=== PATIENT | male | born 1940 | race African-American/Black ===

== ENCOUNTER 2017-11-20 03:30 | Observation (INO) ==
--- NOTE | 2017-11-20 03:38 | ED ---
HPI General Chief Complaint: Neuro Symptoms/Deficit Stated Complaint: neuro Time Seen by Provider: 11/20/17 03:36 Source: patient, family and EMS Mode of arrival: EMS Limitations: no limitations History of Present Illness HPI narrative: 77-year-old male patient with history of AAA repair, hypertension , presents to the ER today brought in by EMS, apparently according to , she fell him wrestling in bed and then he fell out of bed, had trouble getting up on his own initially, had to get himself up by pulling himself up on the side of the bed, and she thought that he was having slurred speech, right-sided weakness initially. He does not really remember the episode. He apparently was able to get himself up eventually and went to the bathroom. He currently denies any chest pains, trouble breathing, or any other issues. Related Data Allergies Allergy/AdvReac Type Severity Reaction Status Date / Time NKDA Allergy Unknown Uncoded 12/28/02 04:37 NONE Allergy Unknown Uncoded 12/28/02 04:37 No Known Allergies Allergy Uncoded 12/27/02 19:37 Review of Systems Except as stated in HPI: all other systems reviewed are negative PMFSH History History Provided By: Patient Social History Social History Second Hand Smoke Exposure: No Smoking Status: Former smoker How Often Do You Have a Drink Containing Alcohol: 4 or more times a week Recent Travel in [facility] within the Last 8 Weeks: No Recent Out of Country Travel within the Last 8 Weeks: No Exam Narrative Exam Narrative: GENERAL: Well-developed elderly -[place] male patient currently in mild distress. Awake and oriented 3 currently. Mildly disoriented. SKIN: Focused skin assessment warm/dry. HEAD: Atraumatic. Normocephalic. EYES: Pupils equal and round. No scleral icterus. No injection or drainage. ENT: No nasal bleeding or discharge. Mucous membranes pink and moist. NECK: Trachea midline. No JVD. Supple. CARDIOVASCULAR: Regular rate and rhythm. No murmur appreciated. RESPIRATORY: No accessory muscle use. Clear to auscultation. Breath sounds equal bilaterally. GASTROINTESTINAL: Abdomen soft, non-tender, nondistended. Hepatic and splenic margins not palpable. MUSCULOSKELETAL: No obvious deformities. No clubbing. No cyanosis. No edema. NEUROLOGICAL: Awake and alert. No obvious cranial nerve deficits. Motor grossly within normal limits. Normal speech. No pronator drift. PSYCHIATRIC: Appropriate mood and affect; insight and judgment normal. Course Hospital Course: Patient has no focal neurological deficits currently. However, thinks that he is still slow to answer and is disoriented. Lab work does show UTI and IV antibiotics were initiated after cultures were drawn. CT the brain did not show any signs of acute intracranial processes. At this point, plan would be to admit him for further evaluation and treatment of UTI as well. Case is discussed with Dr. Massey for admission. Initial Documented Vital Signs Temperature 98.9 F 11/20/17 03:35 Pulse Rate 99 H 11/20/17 03:35 Respiratory Rate 18 11/20/17 03:35 Blood Pressure 147/86 H 11/20/17 03:35 Pulse Oximetry 96 11/20/17 03:35 Last Documented Vital Signs Temperature 98.9 F 11/20/17 03:35 Pulse Rate 94 H 11/20/17 03:48 Respiratory Rate 22 11/20/17 03:48 Blood Pressure 163/87 H 11/20/17 03:48 Pulse Oximetry 97 11/20/17 03:48 Medical Decision Making Differential Diagnosis Differential Diagnosis: electrolyte abnormalities versus TIA versus intracranial injuries versus dysrhythmias Lab Data Result diagrams: 11/20/17 03:40 11/20/17 03:40 Lab Results 11/20/17 11/20/17 11/20/17 Range/Units 03:39 03:40 03:40 WBC 7.3 (4.0-11.0) th/mm3 RBC 4.76 (4.50-5.90) mil/mm3 Hgb 15.1 (13.0-17.0) gm/dL Hct 44.0 (39.0-51.0) % MCV 92.4 (80.0-100.0) fL MCH 31.7 (27.0-34.0) pg MCHC 34.2 (32.0-36.0) % RDW 13.8 (11.6-17.2) % Plt Count 202 (150-450) th/mm3 MPV 8.4 (7.0-11.0) fL Neut % (Auto) 67.8 (16.0-70.0) % Lymph % (Auto) 19.0 (9.0-44.0) % [place] % (Auto) 9.6 H (0.0-8.0) % Eos % (Auto) 2.9 (0.0-4.0) % Baso % (Auto) 0.7 (0.0-2.0) % Neut # (Auto) 4.9 (1.8-7.7) th/mm3 Lymph # (Auto) 1.4 (1.0-4.8) th/mm3 [place] # (Auto) 0.7 (0.0-0.9) th/mm3 Eos # (Auto) 0.2 (0.0-0.4) th/mm3 Baso # (Auto) 0.0 (0.0-0.2) th/mm3 WBC Differential . Differential Comment Auto diff final PT 10.2 (9.8-11.6) sec INR 1.0 Ratio APTT 23.7 L (24.3-30.1) sec Sodium (136-145) meq/L Potassium (3.5-5.1) meq/L Chloride (98-107) meq/L Carbon Dioxide (21.0-32.0) meq/L Anion Gap (5-15) meq/L BUN (7-18) mg/dL Creatinine (0.60-1.30) mg/dL Estimated GFR (>89) mL/min POC Glucose 107 (68-110) mg/dl Random Glucose (74-106) mg/dL Lactic Acid (0.4-2.0) mmol/L Calcium (8.5-10.1) mg/dL Total Bilirubin (0.2-1.0) mg/dL AST (15-37) U/L ALT (12-78) U/L Alkaline Phosphatase (45-117) U/L Troponin I (0.02-0.05) ng/mL Total Protein (6.4-8.2) g/dL Albumin (3.4-5.0) g/dL Urine Color (Yellw/Straw) Urine Clarity (Clear) Urine pH (5.0-8.5) Ur Specific [place] (1.002-1.035) Urine Protein (Neg-Trace) mg/dL Urine Glucose (UA) (Negative) mg/dL Urine Ketones (Negative) mg/dL Urine Occult Blood (Negative) Urine Nitrate (Negative) Urine Bilirubin (Negative) Urine Urobilinogen (Less than 2) mg/dL Ur Leukocyte Esterase (Negative) Urine RBC (0-3) /hpf Urine WBC (0-5) /hpf Ur Squamous Epith Cells (0-5) /hpf Urine Bacteria (None) /hpf Hyaline Casts (0-3) /lpf Urine Mucus (Occasional) /lpf Micro UA Comment Urine Culture Comments 11/20/17 11/20/17 11/20/17 Range/Units 03:40 04:10 05:03 WBC (4.0-11.0) th/mm3 RBC (4.50-5.90) mil/mm3 Hgb (13.0-17.0) gm/dL Hct (39.0-51.0) % MCV (80.0-100.0) fL MCH (27.0-34.0) pg MCHC (32.0-36.0) % RDW (11.6-17.2) % Plt Count (150-450) th/mm3 MPV (7.0-11.0) fL Neut % (Auto) (16.0-70.0) % Lymph % (Auto) (9.0-44.0) % Baldwin % (Auto) (0.0-8.0) % Eos % (Auto) (0.0-4.0) % Baso % (Auto) (0.0-2.0) % Neut # (Auto) (1.8-7.7) th/mm3 Lymph # (Auto) (1.0-4.8) th/mm3 [place] # (Auto) (0.0-0.9) th/mm3 Eos # (Auto) (0.0-0.4) th/mm3 Baso # (Auto) (0.0-0.2) th/mm3 WBC Differential Differential Comment PT (9.8-11.6) sec INR Ratio APTT (24.3-30.1) sec Sodium 143 (136-145) meq/L Potassium 3.7 (3.5-5.1) meq/L Chloride 110 H (98-107) meq/L Carbon Dioxide 23.1 (21.0-32.0) meq/L Anion Gap 10 (5-15) meq/L BUN 17 (7-18) mg/dL Creatinine 1.36 H (0.60-1.30) mg/dL Estimated GFR 62 L (>89) mL/min POC Glucose (68-110) mg/dl Random Glucose 101 (74-106) mg/dL Lactic Acid 1.4 (0.4-2.0) mmol/L Calcium 9.2 (8.5-10.1) mg/dL Total Bilirubin 1.0 (0.2-1.0) mg/dL AST 18 (15-37) U/L ALT 24 (12-78) U/L Alkaline Phosphatase 98 (45-117) U/L Troponin I Less than 0.02 L (0.02-0.05) ng/mL Total Protein 7.8 (6.4-8.2) g/dL Albumin 3.9 (3.4-5.0) g/dL Urine Color Yellow (Yellw/Straw) Urine Clarity Hazy H (Clear) Urine pH 6.0 (5.0-8.5) Ur Specific [place] 1.011 (1.002-1.035) Urine Protein 100 H (Neg-Trace) mg/dL Urine Glucose (UA) Negative (Negative) mg/dL Urine Ketones Negative (Negative) mg/dL Urine Occult Blood Negative (Negative) Urine Nitrate Positive H (Negative) Urine Bilirubin Negative (Negative) Urine Urobilinogen Less than 2 (Less than 2) mg/dL Ur Leukocyte Esterase Moderate H (Negative) Urine RBC 1 (0-3) /hpf Urine WBC 60 H (0-5) /hpf Ur Squamous Epith Cells 2 (0-5) /hpf Urine Bacteria Moderate H (None) /hpf Hyaline Casts 4 (0-3) /lpf Urine Mucus Few H (Occasional) /lpf Micro UA Comment Culture indicated Urine Culture Comments Culture indicated Imaging Data Radiologist's impression: Chest X-Ray 11/20/17 03:36 CONCLUSION: 1. No acute cardiopulmonary disease. 2. The heart size appears mildly prominent with no pulmonary edema. Head CT 11/20/17 03:36 CONCLUSION: 1. Negative trauma study. . Discharge Plan Discharge Details Anticipated Discharge Date: 11/20/17 Physicians Team ED Provider: Amanda Headley Primary Care Provider: Khadra Ruiz Discharge Interventions Interventions: Vital Signs Last Done: 11/20/17 03:48 Status ED Status: With Doctor
[2017-11-20 03:48] LABS: Baso % (Auto) 0.7 % (0.0-2.0); Eos # (Auto) 0.2 th/mm3 (0.0-0.4); Eos % (Auto) 2.9 % (0.0-4.0); Hemoglobin 15.1 gm/dL (13.0-17.0); Lymph # (Auto) 1.4 th/mm3 (1.0-4.8); Mean Corpuscular HGB Conc 34.2 % (32.0-36.0); Mean Corpuscular Hemoglobin 31.7 pg (27.0-34.0); Mean Corpuscular Volume 92.4 fL (80.0-100.0); Mean Platelet Volume 8.4 fL (7.0-11.0); Mono # (Auto) 0.7 th/mm3 (0.0-0.9); Mono % (Auto) 9.6 % (0.0-8.0); Neut # (Auto) 4.9 th/mm3 (1.8-7.7); Neut % (Auto) 67.8 % (16.0-70.0); Platelet Count 202 th/mm3 (150-450); Red Blood Count 4.76 mil/mm3 (4.50-5.90); Red Cell Distribution Width 13.8 % (11.6-17.2); White Blood Count 7.3 th/mm3 (4.0-11.0)
[2017-11-20 04:01] LABS: Activated Partial Thrombo Time 23.7 sec (24.3-30.1); Prothrombin Time 10.2 sec (9.8-11.6)
[2017-11-20 04:07] LABS: Alanine Aminotransferase 24 U/L (12-78); Albumin 3.9 g/dL (3.4-5.0); Anion Gap 10 meq/L (5-15); Aspartate Aminotransferase 18 U/L (15-37); Blood Urea Nitrogen 17 mg/dL (7-18); Calcium 9.2 mg/dL (8.5-10.1); Carbon Dioxide 23.1 meq/L (21.0-32.0); Chloride 110 meq/L (98-107); Glomerular Filtration Rate 62 mL/min (>89); Glucose,Random 101 mg/dL (74-106); Potassium 3.7 meq/L (3.5-5.1); Sodium 143 meq/L (136-145)
[2017-11-20 04:11] LABS: Alkaline Phosphatase 98 U/L (45-117); Total Protein 7.8 g/dL (6.4-8.2)
--- NOTE | 2017-11-20 04:24 | CT ---
EXAM DATE: 11/20/2017 3:57 AM EDT AGE/SEX: 77 years / Male INDICATIONS: Altered mental status. Fell out of bed. CLINICAL DATA: This is the patient's initial encounter. Patient reports that signs and symptoms have been present for 1 day and indicates a pain score of 0/10. MEDICAL/SURGICAL HISTORY: Aneurysm, abdominal. Hypertension. Abdominal aortic aneurysm repair. RADIATION DOSE: 36.56 CTDI (mGy) COMPARISON: No prior exams available for comparison. TECHNIQUE: CT of the head without contrast. Using automated exposure control and adjustment of the mA and/or kV according to patient size, radiation dose was kept as low as reasonably achievable to ob tain optimal diagnostic quality images. DICOM format image data is available electronically for revi ew and comparison. FINDINGS: Cerebrum: The ventricles are normal for age. No evidence of midline shift, mass lesion, hemorrhage or acute infarction. No extraaxial fluid collections are seen. Posterior Fossa: The cerebellum and brainstem are intact. The 4th ventricle is midline. The cerebe llopontine angle is unremarkable. Extracranial: The visualized portion of the orbits is intact. Skull: The calvaria is intact. No evidence of skull fracture. CONCLUSION: 1. Negative trauma study. . Electronically signed by: Barrett Sinha MD 11/20/2017 4:23 AM EDT
--- NOTE | 2017-11-20 04:31 | XR ---
EXAM DATE: 11/20/2017 3:59 AM EDT AGE/SEX: 77 years / Male INDICATIONS: Palpitations. CLINICAL DATA: This is the patient's initial encounter. Patient reports that signs and symptoms have been present for 1 day and indicates a pain score of 0/10. MEDICAL/SURGICAL HISTORY: None. None. COMPARISON: No prior exams available for comparison. FINDINGS: A single AP view of the chest demonstrates the lungs to be symmetrically aerated without evidence of mass, infiltrate or effusion. The right size appears mildly prominent with no perihilar edema. [place] us structures are intact. CONCLUSION: 1. No acute cardiopulmonary disease. 2. The heart size appears mildly prominent with no pulmonary edema. Electronically signed by: Barrett Sinha MD 11/20/2017 4:29 AM EDT
[2017-11-20 04:40] LABS: Bacteria,Urine Moderate /hpf; Bilirubin,Urine Negative (Negative); Clarity,Urine Hazy (Clear); Color,Urine Yellow (Yellw/Straw); Glucose,Urine (UA) Negative (Negative); Hyaline Casts,Urine 4 /lpf (0-3); Leukocyte Esterase,Urine Moderate (Negative); Mucus,Urine Few /lpf (Occasional); Nitrite,Urine Positive (Negative); Specific Gravity,Urine 1.011 (1.002-1.035); Squamous Epithelial Cell,Urine 2 /hpf (0-5)
[2017-11-20] MEDS ORDERED: Piperacil/Tazo 3.375 GM Premix 50 ML IV.SIG ONE (04:44)
[2017-11-20] MEDS ORDERED: Iohexol 350 MG/ML 100 ML Vial (for Cath Lab) IVCONTRAST ONE (05:31)
[2017-11-20] MEDS ORDERED: Temazepam 15 MG Capsule PO PRN (05:32)
[2017-11-20] MEDS ORDERED: Bisacodyl 10 MG Supp RECTAL PRN (05:32)
--- NOTE | 2017-11-20 06:31 | P.HPIM ---
History of Present Illness Primary Care Physician: Khadra Ruiz MD History of Present Illness: 77-year-old male with a history of abdominal aortic aneurysm repair, hypertension, hyperlipidemia who presents with dysarthria, subjective right- sided weakness reported by . notes that patient fell out of bed around 3 AM, had difficulty getting up, was slurring speech, had difficulty getting words out. Patient and report that slurred speech has much improved, however still with some word finding difficulty and word confusion. Patient reports feeling all right. Denies any chest pain, shortness of breath, nausea, vomiting, fevers, chills, constipation, diarrhea, lightheadedness, dizziness. Patient does report a change in blood pressure meds yesterday. He reports that hydrochlorothiazide was discontinued, and started a new medication. He is not sure what this medication is. Patient did not have medication list with them. Patient denies any dysuria, however reports increased urination and urgency over the past 2 days. He reports history of multiple UTIs. Had urethral stricture dilation 3 years ago in [place]. Review of Systems Performed and negative except for HPI and past medical history. [facility] - History History Provided By: Patient - Medical History Medical History: Medical History (Last Updated 11/20/17 @ 06:28 by Doroteo Massey MD) AAA (abdominal aortic aneurysm) Hyperlipemia Hypertension Urethral stricture - Surgical History Surgical History: Surgical History (Last Reviewed 11/20/17 @ 03:41 by Amanda Headley MD) H/O abdominal aortic aneurysm repair - Family History Family History: Family History (Last Updated 11/20/17 @ 06:28 by Doroteo Massey MD) Mother Pituitary abnormality Father Stroke - Tobacco History Second Hand Smoke Exposure: No Tobacco Use In Past 30 Days: No Smoking Status: Former smoker - Alcohol History How Often Do You Have a Drink Containing Alcohol: 4 or more times a week - Travel History Recent Travel in the [place] Within the Last 8 Weeks: No Recent Travel Out of the Country Within the Last 8 Weeks: No - Immunization History Tetanus Immunization: >5 Years Hx Influenza Vaccine This Season: Yes Medications and Allergies Active Medications: Active Medications Al Hydroxide/Mg Hydroxide (Milk Of Gavin Liq) 30 ml PO Q12H PRN PRN Reason: Mild Constipation Aspirin (Ecotrin) 81 mg PO DAILY ASCENCION Aspirin (Aspirin Chew) 162 mg PO ONCE ONE Stop: 11/20/17 06:23 Bisacodyl (Dulcolax Supp) 10 mg RECTAL DAILY PRN PRN Reason: SEVERE CONSITIPATION Piperacillin/Tazobactam/Dextrose (Zosyn 3.375 Gm Premix) 50 mls @ 100 mls/hr IV.SIG Q6H ASCENCION Lactulose (Lactulose Liq) 30 ml PO DAILY PRN PRN Reason: SEVERE CONSITIPATION Sennosides (Senokot) 17.2 mg PO Q12H PRN PRN Reason: Moderate Constipation Sodium Chloride (Ns Flush) 2 ml IV.FLUSH PRN PRN PRN Reason: FLUSH AFTER USING IV ACCESS Sodium Chloride (Ns Flush) 2 ml IV.FLUSH BID ASCENCION Sodium Chloride (Ns Flush) 2 ml IV.FLUSH PRN PRN PRN Reason: FLUSH AFTER USING IV ACCESS Temazepam (Restoril) 15 mg PO HS PRN PRN Reason: INSOMNIA Allergies Allergy/AdvReac Type Severity Reaction Status Date / Time NKDA Allergy Unknown Uncoded 12/28/02 04:37 NONE Allergy Unknown Uncoded 12/28/02 04:37 No Known Allergies Allergy Uncoded 12/27/02 19:37 Exam Vital signs: Vital Signs 11/20/17 03:35 11/20/17 03:46 11/20/17 03:48 Temperature 98.9 F Pulse Rate 99 H 94 H Respiratory Rate 18 22 Blood Pressure 147/86 H 163/87 H Pulse Oximetry 96 96 97 11/20/17 06:10 Temperature 98.2 F Pulse Rate 93 H Respiratory Rate 18 Blood Pressure 173/100 H Pulse Oximetry 95 Intake & Output 11/19/17 11/19/17 11/20/17 06:59 18:59 06:59 Output Total 700 / 700 Balance -700 / -700 Weight 88.904 kg Output: Urine 700 / 700 Narrative: GENERAL: Patient sitting up in bed. Alert and oriented 3. Patient has occasional word finding difficulties and word confusion. SKIN: Warm and dry. HEAD: Atraumatic. Normocephalic. EYES: Pupils equal and round. No scleral icterus. No injection or drainage. ENT: No nasal bleeding or discharge. Mucous membranes pink and moist. NECK: Trachea midline. No JVD. CARDIOVASCULAR: Regular rate and rhythm. RESPIRATORY: No accessory muscle use. Clear to auscultation. Breath sounds equal bilaterally. GASTROINTESTINAL: Abdomen soft, non-tender, nondistended. Hepatic and splenic margins not palpable. MUSCULOSKELETAL: Extremities without clubbing, cyanosis, or edema. No obvious deformities. NEUROLOGICAL: Awake and alert. No obvious cranial nerve deficits. Motor grossly within normal limits. Five out of 5 muscle strength in the arms and legs. Occasional word finding difficulties and word confusion. Although patient does have 5 out of 5 strength bilaterally, does have slight right-sided pronator drift PSYCHIATRIC: Appropriate mood and affect; insight and judgment normal. Results - Labs CBC & Chem 7: 11/20/17 03:40 11/20/17 03:40 Labs: Short CBC 11/20/17 Range/Units 03:40 WBC 7.3 (4.0-11.0) th/mm3 Hgb 15.1 (13.0-17.0) gm/dL Hct 44.0 (39.0-51.0) % Plt Count 202 (150-450) th/mm3 BMP 11/20/17 03:40 Sodium 143 Potassium 3.7 Chloride 110 H Carbon Dioxide 23.1 BUN 17 Creatinine 1.36 H Calcium 9.2 Cardiac Enzymes 11/20/17 Range/Units 03:40 Troponin I Less than 0.02 L (0.02-0.05) ng/mL Liver Function 11/20/17 Range/Units 03:40 Total Bilirubin 1.0 (0.2-1.0) mg/dL AST 18 (15-37) U/L ALT 24 (12-78) U/L Alkaline Phosphatase 98 (45-117) U/L Albumin 3.9 (3.4-5.0) g/dL Urine 11/20/17 Range/Units 04:10 Urine Color Yellow (Yellw/Straw) Urine Clarity Hazy H (Clear) Urine pH 6.0 (5.0-8.5) Ur Specific [place] 1.011 (1.002-1.035) Urine Protein 100 H (Neg-Trace) mg/dL Urine Glucose (UA) Negative (Negative) mg/dL - Imaging Impressions Chest X-Ray 11/20/17 03:36 CONCLUSION: 1. No acute cardiopulmonary disease. 2. The heart size appears mildly prominent with no pulmonary edema. Head CT 11/20/17 03:36 CONCLUSION: 1. Negative trauma study. . Caprini VTE Risk Assessment Caprini VTE Risk Assessment: Moderate/High Risk (score >= 2) Caprini Risk Assessment Model: Point Value = 1 Point Value = 2 Point Value = 3 Point Value = 5 Age 41-60 Minor surgery BMI > 25 kg/m2 Swollen legs Varicose veins or History of unexplained or recurrent spontaneous Oral contraceptives or hormone replacement Sepsis (< 1 month) Serious lung disease, including pneumonia (< 1 month) Abnormal pulmonary function Acute myocardial infarction Congestive heart failure (< 1 month) History of inflammatory bowel disease Medical patient at bed rest Age 61-74 Arthroscopic surgery Major open surgery (> 45 min) Laparoscopic surgery (> 45 min) Malignancy Confined to bed (> 72 hours) Immobilizing plaster cast Central venous access Age >= 75 History of VTE Family history of VTE Factor V Leiden Prothrombin [id number] Lupus anticoagulant Anticardiolipin antibodies Elevated serum homocysteine Heparin-induced thrombocytopenia Other congenital or acquired thrombophilia Stroke (< 1 month) Elective arthroplasty Hip, pelvis, or leg fracture Acute spinal cord injury (< 1 month) Prophylaxis Regimen: Total Risk Factor Score Risk Level Prophylaxis Regimen 0-1 Low Early ambulation 2 Moderate Order ONE of the following: *Sequential Compression Device (SCD) *Heparin 5000 units SQ BID 3-4 Higher Order ONE of the following medications: *Heparin 5000 units SQ TID *Enoxaparin/Lovenox 40 mg SQ daily (WT < 150 kg, CrCl > 30 mL/min) *Enoxaparin/Lovenox 30 mg SQ daily (WT < 150 kg, CrCl > 10-29 mL/min) *Enoxaparin/Lovenox 30 mg SQ BID (WT < 150 kg, CrCl > 30 mL/min) AND/OR *Sequential Compression Device (SCD) 5 or more Highest Order ONE of the following medications: *Heparin 5000 units SQ TID (Preferred with Epidurals) *Enoxaparin/Lovenox 40 mg SQ daily (WT < 150 kg, CrCl > 30 mL/min) *Enoxaparin/Lovenox 30 mg SQ daily (WT < 150 kg, CrCl > 10-29 mL/min) *Enoxaparin/Lovenox 30 mg SQ BID (WT < 150 kg, CrCl > 30 mL/min) AND *Sequential Compression Device (SCD) Assessment and Plan - Plan //Dysarthria //Rule out stroke -Patient does not have brisa weakness, however does have right-sided pronator drift. CT head negative, however due to exam findings will order MRI, get neurology consult. = Aspirin given. = Could be exacerbated by UTI, as well as new blood pressure medication. = Could be secondary to concussion from hitting head after falling out of bed versus ischemic stroke, hypoperfusion. Head of bed down. Neuro consult. //UTI. = Significant white blood cells on urinalysis with increased urinary urgency recently Started on Zosyn in the ER, will follow-up urine culture. //Hypertension. Patient's blood pressure currently acceptable. Will pursue permissive hypertension to a degree for now will get patient's blood pressure medications from his [facility] pharmacy when they open. Discussed Condition With: Patient, nurse, ED physician, at bedside.
--- NOTE | 2017-11-20 09:03 | US ---
EXAM DATE: 11/20/2017 8:45 AM EDT AGE/SEX: 77 years / Male INDICATIONS: Abnormal lab values. CLINICAL DATA: This is the patient's initial encounter. Patient reports that signs and symptoms have been present for 1 day and indicates a pain score of 0/10. MEDICAL/SURGICAL HISTORY: Aneurysm, abdominal. Hypertension. Hyperlipidemia. Urethral strictur e. Abdominal aortic aneurysm repair. COMPARISON: No prior exams available for comparison. MEASUREMENTS: Right Kidney:__10.3 x 5.7 x 5.3 cm Left Kidney:__10.9 x 5.2 x 6.5 cm FINDINGS: Right Kidney: 6 mm echogenic shadowing calyceal calculus in the mid right kidney. No hydronephrosis. Increased echotexture. No mass. Left Kidney: Increased echotexture. No mass or hydronephrosis. Bladder: Diffuse bladder wall thickening. Other: None. CONCLUSION: 1. Echogenic kidneys consistent with medical renal disease. 2. 6 mm nonobstructing calyceal calculus in the mid right kidney. 3. Mild diffuse bladder wall thickening which may reflect some degree of bladder outlet obstruction. Electronically signed by: Benito Yates MD 11/20/2017 9:02 AM EDT
--- NOTE | 2017-11-20 09:05 | US ---
EXAM DATE: 11/20/2017 8:47 AM EDT AGE/SEX: 77 years / Male INDICATIONS: Transient ischemic attack. CLINICAL DATA: This is the patient's initial encounter. Patient reports that signs and symptoms have been present for 1 day and indicates a pain score of 0/10. MEDICAL/SURGICAL HISTORY: Aneurysm, abdominal. Hypertension. Hyperlipidemia. Urethral strictur e. Abdominal aortic aneurysm repair. COMPARISON: No prior exams available for comparison. VELOCITY PARAMETERS: ICA/CCA Ratio: Right 1.8 , Left 1.2 ICA: Right 94 cm/sec, Left 86 cm/sec CCA: Right 52 cm/sec, Left 74 cm/sec ECA: Right 42 cm/sec, Left 65 cm/sec Vertebral: Right 66 cm/sec antegrade, Left 41 cm/sec antegrade FINDINGS: Right Carotid: Mild arteriosclerotic plaque is visualized.The waveforms are within normal limits. Left Carotid: Mild arteriosclerotic plaque is visualized. The waveforms are within normal limits. Other: None. CONCLUSION: 1. Right Internal Carotid Artery: Findings indicate <50% stenosis. 2. Left Internal Carotid Artery: Findings indicate <50% stenosis. Electronically signed by: Benito Yates MD 11/20/2017 9:04 AM EDT
[2017-11-20] MEDS ORDERED: Aspirin 325 MG Tablet PO SCH (09:15)
--- NOTE | 2017-11-20 09:46 | MB ---
cc: Jony Wen MD DATE: 11/20/2017 HISTORY OF PRESENT ILLNESS: A 77-year-old right-handed man with a history of hypertension and hypercholesterolemia. He has seen Dr. Nolen in the past. He had 2 AAA repairs. He Takes 325 of aspirin a day, otherwise has been very healthy. He does have what sounds like REM sleep disorder. He tosses and turns. He has a lot of nightmares sometimes yelling out in his sleep. He was struggling with the sheets, which he vaguely remembers and then fell out of bed. No chest pain, palpitations, or headache. No asymmetrical weakness or numbness. He has no incontinence or tongue biting. He then seemed a little bit confused according to his , so she brought him into the ER. He remembers arriving there. In re-asking his , she now tells me that she thinks he did have some possible right leg weakness when she was helping him put on his pants. He did not do as well with the right leg as the left, but there was no facial droop or arm weakness. MEDICATIONS AT HOME: None listed here in the computer. He has been noted; however, to have a run of V-tach here, it looks like at least 10 beats. He has never had any rhythm problems that he knows of. SOCIAL HISTORY: He is not a smoker. He has 2 drinks a day. He lives with his . FAMILY HISTORY: Negative for cancer or seizure. Positive for stroke in his father. REVIEW OF SYSTEMS: He denies any diabetes, atrial fibrillation, Coumadin, ID, CABG, stent, angioplasty, renal, hepatic or pulmonary disease, thyroid disease, lupus, ulcer, cancer, seizure or stroke. MEDICATIONS AT HOME: He does take 325 aspirin a day. PHYSICAL EXAMINATION: On exam, ventricular tachycardia noted on telemetry. Afebrile, 89, 18, 143/85-173/100. Initially, blood pressure 147/86. NECK: There were no carotid bruits. HEART: Regular rhythm. I did not detect a murmur. NEUROLOGIC: Pupils are equal. Visual mesa are full. Extraocular movements intact without nystagmus. Face is symmetric with normal sensation. Tongue as midline. There is no bite on the tongue. There is no drift. He had normal strength in the upper and lower extremities bilaterally. DTRs are trace to absent throughout. Toes downgoing bilaterally. Pinprick is intact throughout. He is not ataxic on [id number]. Speech is fluent. He is not aphasic. He is alert and oriented x 3. LABORATORY DATA: CBC is normal. UA 60 white cells. Basic metabolic profile, creatinine 1.36, otherwise normal. Glucose was normal LFTs, troponin, albumin, coags all normal. CAT scan of the brain negative. EKG was read as atrial fibrillation, although looking at it, I do see some P waves. Carotid ultrasound was done that is pending. He had a bladder ultrasound done, essentially unremarkable. Chest x-ray is negative. CAT scan of the brain as is noted negative. The denies that he was having any right-sided weakness, so the ER note says he was having right-sided weakness. IMPRESSION/PLAN: Possibly a transient ischemic attack. I was not that impressed overall with the symptoms; however, a little bit of inconsistency with the story. We will check an MRI of the brain and MRA of the neck and absent[place] of [place]. I will check an echocardiogram. The patient had a run of ventricular tachycardia and should have cardiology see him. If there is any atrial fibrillation, he should be anticoagulated. Otherwise, he does take 325 of aspirin at home. For now, we will just put him on Plavix. He feels that he has a urinary tract infection and that should be treated and a urine culture has been sent off. Certainly, a Holter needs to be done with all the heart rhythm problems. MD RINA Sarah/JOLLY , 09:15 AM , 09:25 AM
[2017-11-20 10:07] LABS: T4 (Thyroxine) 9.6 mcg/dL (4.5-12.1); Thyroid Stimulating Hormone 5.72 uIU/mL (0.358-3.740)
--- NOTE | 2017-11-20 13:02 | MR ---
EXAM DATE: 11/20/2017 12:55 PM EDT AGE/SEX: 77 years / Male INDICATIONS: . Slurred speech with right sided weakness. CLINICAL DATA: This is the patient's subsequent encounter. Patient reports that signs and symptoms h ave been present for 1 day and indicates a pain score of 0/10. MEDICAL/SURGICAL HISTORY: Hypertension. Hypercholesterolemia. Abdominal aortic aneurysm repair . COMPARISON: No prior exams available for comparison. TECHNIQUE: 3D [id number] MRA was performed. Source images, multiplanar STS MIP, and 3D volum e MIP reconstructions were reviewed. FINDINGS: There is excellent visualization of the major intracranial arteries out to the second-order branch ve ssels. There is no evidence for aneurysm, vessel truncation or stenosis, and no evidence for vascula r malformation. There are patent posterior communicating arteries bilaterally. CONCLUSION: Unremarkable MR angiography of the brain. Electronically signed by: Jony Brown MD 11/20/2017 1:01 PM EDT
--- NOTE | 2017-11-20 13:17 | MR ---
EXAM DATE: 11/20/2017 1:08 PM EDT AGE/SEX: 77 years / Male INDICATIONS: . Right sided weakness and slurred speech. CLINICAL DATA: This is the patient's subsequent encounter. Patient reports that signs and symptoms h ave been present for 1 day and indicates a pain score of 0/10. MEDICAL/SURGICAL HISTORY: Hypertension. Hypercholesterolemia. Abdominal aortic aneurysm repair . COMPARISON: No prior exams available for comparison. TECHNIQUE: 10 ml Gadavist (gadobutrol) contrast infused MRA (single exam dose) of the extracranial circulation was performed using a neurovascular coil. Postprocessing was performed, including rotati ng sub-volume maximum intensity projections of each carotid artery, rotating full-volume maximum inte nsity projections of both carotid arteries, sagittal and coronal sliding thin-slab reformations of ea ch carotid artery, and left oblique sliding thin-slab reformation through the aortic arch to include the origin of the arch branch vessels. FINDINGS: Aortic Arch : There is a three-vessel origin of the great vessels from the aorta. No evidence of o stial narrowing. Right Carotid : The common carotid artery is intact. The carotid bulb has a normal configuration wi thout ulceration or narrowing. The internal carotid artery lumen is smooth without stenosis. The ex ternal carotid artery is intact. Left Carotid : The common carotid artery is intact. The carotid bulb has a normal configuration wit hout ulceration or narrowing. The internal carotid artery lumen is smooth without stenosis. The ext ernal carotid artery is intact. Vertebrals : The vertebral arteries have a symmetric diameter. No stenotic lesions are seen. CONCLUSION: No evidence of hemodynamic significant lesion. There is 0-10% stenosis on the right and 0-10% sten osis on the left. Percent stenosis is calculated using the diameter of the stenotic region over the diameter of the nor mal distal internal carotid artery Electronically signed by: Jony Brown MD 11/20/2017 1:15 PM EDT
[2017-11-20] MEDS ORDERED: Gadobutrol PF 10 MMOL/10 ML Vial (for RAD) IV.SIG ONE (13:35)
[2017-11-20] MEDS: Piperacil/Tazo 3.375 GM Premix 50 ML IV.SIG SCH ×3 (13:40→23:17)
--- NOTE | 2017-11-20 13:42 | MR ---
EXAM DATE: 11/20/2017 1:14 PM EDT AGE/SEX: 77 years / Male INDICATIONS: . Slurred speech with right sided weakness. CLINICAL DATA: This is the patient's subsequent encounter. Patient reports that signs and symptoms h ave been present for 1 day and indicates a pain score of 0/10. MEDICAL/SURGICAL HISTORY: Hypertension. Hypercholesterolemia. Abdominal aortic aneurysm repair . COMPARISON: No prior exams available for comparison. TECHNIQUE: Multiplanar, multisequence examination of the brain was performed without and with 10 ml G adavist (gadobutrol) contrast as a single exam dose. FINDINGS: Cerebrum: The ventricles are normal for age. There is bilateral cortical atrophy. No evidence of mid line shift, mass lesion, hemorrhage. No extraaxial fluid collections are seen. The pituitary gland and suprasellar cistern are normal in configuration. White Matter: There is mild to moderate chronic white matter changes bilaterally characteristic of i schemic demyelinization. Posterior Fossa: The cerebellum and brainstem are intact. The 4th ventricle is midline. The cerebel lopontine angle is unremarkable. The cerebellar tonsils are normal in position. Diffusion Imaging: There is a 5 mm focus of increased signal on the diffusion-weighted images along the left insula suggestive of a new small focal acute infarct. Extracranial: The visualized portions of the orbits and paranasal sinuses are unremarkable. Post Contrast: No abnormal areas of parenchymal or dural enhancement. No evidence of blood-brain ba rrier breakdown. No enhancing mass occupying lesions. CONCLUSION: 1. Single 5 mm focus of restricted diffusion in the left insula consistent with a small acute infarc tion. 2. Otherwise, the rest the examination is unremarkable for patient's age. Electronically signed by: George Nunez MD 11/20/2017 1:41 PM EDT
--- NOTE | 2017-11-20 14:25 | MB ---
cc: Jonathan Nolen MD DATE: 11/20/2017 HISTORY OF PRESENT ILLNESS: Jonathan is a former patient of mine that I saw approximately 7 or 8 years ago. He had an event where he fell out of bed, does not quite recall the sequence of events, but ultimately had a loss of consciousness. REVIEW OF SYSTEMS: Further review of systems is negative for any fever, chills, cough, GI or bleeding, PND or orthopnea, chest pain or dyspnea. PAST MEDICAL HISTORY: Includes abdominal aortic aneurysm, hyperlipidemia, hypertension, urethral stricture. PAST SURGICAL HISTORY: He is status post abdominal aortic aneurysm repair. ALLERGIES: NONE. SOCIAL HISTORY: He is a former smoker. He drinks alcohol 4 or more times a week. MEDICATIONS IN THE HOSPITAL: 1. Aspirin 81 mg a day. 2. Aspirin 325 mg a day. 3. Plavix 75 mg a day. 4. Piperacillin/tazobactam. PHYSICAL EXAMINATION: VITAL SIGNS: Blood pressure 143/85, pulse 89, respiratory rate 18, temperature 98.0, sats 94% on room air. GENERAL: He is alert and oriented x 3, in no acute distress. NECK: Supple. No JVD. No bruit. CARDIOVASCULAR: S1, S2. No murmurs, rubs or gallops. LUNGS: Clear to auscultation bilaterally. ABDOMEN: Soft, nontender, and nondistended with positive bowel sounds. EXTREMITIES: No lower extremity edema. DIAGNOSTIC STUDIES: Abdominal bladder ultrasound: Echogenic kidneys consistent with medical renal disease. Carotid Doppler study: Less than 50% stenosis bilaterally. MRI of the brain: Single 5 mm focus of restricted diffusion in the left insular consistent with a small acute infarction. Neck MRA: No evidence of hemodynamic significant lesion, "0-10% stenosis on the right, 0-10% stenosis on the left". Chest x-ray: No acute cardiopulmonary disease. The heart size appears mildly prominent with no pulmonary edema. Head CT: Negative trauma study. EKG: Atrial fibrillation at a rate of 87 beats per minute, 2 to [address] segment depression lead II, III, aVF, V4, V5, V6 and V3. PVCs. Head MRA: Unremarkable MR angiography of the brain. LABORATORY STUDIES: INR is 1.0. Hemoglobin 7.3, white blood cell count 15.1, hematocrit 44.0, platelet count 202. Sodium 143, potassium 3.7, chloride 110, bicarbonate 23.1, BUN 17, creatinine 1.36. Troponins less than 0.02. TSH is 5.720. DIAGNOSES: 1. Cerebrovascular accident. 2. Syncope. 3. Chronic renal insufficiency. 4. Peripheral vascular disease. 5. Abdominal aortic aneurysm, status post repair. 6. Atrial fibrillation. 7. Reported run of ventricular tachycardia. DISCUSSION: At this point in time, the patient has significant resting ischemia on his EKG. He is completely asymptomatic. I do think given his multiple cardiac risk factors that he should have a left heart catheterization. We will need to ascertain that the patient has no contraindications to anticoagulation with heparin, aspirin, Plavix and Integrelin and/or Aggrastat in that combination prior to proceeding. Again, we will need to followup with Dr. Miller's evaluation. From an atrial fibrillation standpoint, the patient's CHADS-VASc score is at least 3. Therefore, Coumadin or a novel oral anticoagulant agent is indicated, again, if there are no contraindications from a neurologic standpoint. He does have what appears to be a CVA on the MRI. Again, we will await Dr. Wen's final assessment. I will continue to follow. MD NOMAN Zhang/GUILLERMO , 01:52 PM , 02:04 PM
--- NOTE | 2017-11-20 15:35 | P.PN ---
Subjective Interval history: Follow Visit chronic kidney disease, possible TIA-dysarthria, right-sided weakness reported by , status post fall in bed at home, HTN, HLD. Patient seen and examined today. Reports left facial area feeling funny. States that he has slurred speech, unable to come up with words this morning prior to coming to the hospital. States he feels better right now. Sensations and motor function intact. Denies pain and discomfort. Denies SOB/ dyspnea. Denies chest pain, palpitations, headaches, dizziness. Denies fevers, chills, n/ v/d. Denies hematuria complaints of urgency, frequency, denies dysuria. Physical Exam Vital signs: Vital Signs 11/20/17 03:35 11/20/17 03:46 11/20/17 03:48 Temperature 98.9 F Pulse Rate 99 H 94 H Respiratory Rate 18 22 Blood Pressure 147/86 H 163/87 H Pulse Oximetry 96 96 97 11/20/17 06:10 11/20/17 07:57 Temperature 98.2 F 98.0 F Pulse Rate 93 H 89 Respiratory Rate 18 18 Blood Pressure 173/100 H 143/85 H Pulse Oximetry 95 94 L Intake & Output 11/19/17 11/20/17 11/20/17 18:59 06:59 18:59 Intake Total 50 / 50 Output Total 700 / 700 Balance -700 / -700 50 / 50 Weight 88.904 kg Intake: IV 50 / 50 Zosyn 3.375 GM Premix 50 ML @ 50 / 50 100 mls/hr IV.SIG ONCE ONE Rx#: [id number] Output: Urine 700 / 700 Other: Date of Last Bowel Movement 11/20/17 Narrative: GENERAL: This is a well-nourished, well-developed patient, in no apparent distress. SKIN: Warm and dry HEENT: Normocephalic. Pupils equal round and reactive. Left facial droop. Nose without bleeding. Airway patent. NECK: Trachea midline. Supple. CARDIOVASCULAR: Irregular heart rate without murmurs, gallops, or rubs. RESPIRATORY: Clear to auscultation. Breath sounds equal bilaterally. No wheezes , rales, or rhonchi. GASTROINTESTINAL: Abdomen soft, non-tender, nondistended. Bowel Sounds normoactive x4. MUSCULOSKELETAL: Extremities without clubbing, cyanosis, or edema. NEUROLOGICAL: Awake and alert. Oriented to time, place, person, president. Cranial nerves intact. Sensory and motor intact. Moves all extremities equally. Normal speech. Results - Labs CBC & Chem 7: 11/20/17 03:40 11/20/17 03:40 Laboratory Results - last 24 hr 11/20/17 11/20/17 11/20/17 03:39 03:40 03:40 WBC 7.3 RBC 4.76 Hgb 15.1 Hct 44.0 MCV 92.4 MCH 31.7 MCHC 34.2 RDW 13.8 Plt Count 202 MPV 8.4 Neut % (Auto) 67.8 Lymph % (Auto) 19.0 Mccone % (Auto) 9.6 H Eos % (Auto) 2.9 Baso % (Auto) 0.7 Neut # (Auto) 4.9 Lymph # (Auto) 1.4 Mccone # (Auto) 0.7 Eos # (Auto) 0.2 Baso # (Auto) 0.0 WBC Differential . Differential Comment Auto diff final PT 10.2 INR 1.0 APTT 23.7 L Sodium Potassium Chloride Carbon Dioxide Anion Gap BUN Creatinine Estimated GFR POC Glucose 107 Random Glucose Lactic Acid Calcium Total Bilirubin AST ALT Alkaline Phosphatase Troponin I Total Protein Albumin Vitamin B12 TSH Thyroxine (T4) Urine Color Urine Clarity Urine pH Ur Specific [place] Urine Protein Urine Glucose (UA) Urine Ketones Urine Occult Blood Urine Nitrate Urine Bilirubin Urine Urobilinogen Ur Leukocyte Esterase Urine RBC Urine WBC Ur Squamous Epith Cells Urine Bacteria Hyaline Casts Urine Mucus Micro UA Comment Urine Culture Comments 11/20/17 11/20/17 11/20/17 03:40 03:40 04:10 WBC RBC Hgb Hct MCV MCH MCHC RDW Plt Count MPV Neut % (Auto) Lymph % (Auto) Mccone % (Auto) Eos % (Auto) Baso % (Auto) Neut # (Auto) Lymph # (Auto) Mccone # (Auto) Eos # (Auto) Baso # (Auto) WBC Differential Differential Comment PT INR APTT Sodium 143 Potassium 3.7 Chloride 110 H Carbon Dioxide 23.1 Anion Gap 10 BUN 17 Creatinine 1.36 H Estimated GFR 62 L POC Glucose Random Glucose 101 Lactic Acid Calcium 9.2 Total Bilirubin 1.0 AST 18 ALT 24 Alkaline Phosphatase 98 Troponin I Less than 0.02 L Total Protein 7.8 Albumin 3.9 Vitamin B12 306 TSH 5.720 H Thyroxine (T4) 9.6 Urine Color Yellow Urine Clarity Hazy H Urine pH 6.0 Ur Specific [place] 1.011 Urine Protein 100 H Urine Glucose (UA) Negative Urine Ketones Negative Urine Occult Blood Negative Urine Nitrate Positive H Urine Bilirubin Negative Urine Urobilinogen Less than 2 Ur Leukocyte Esterase Moderate H Urine RBC 1 Urine WBC 60 H Ur Squamous Epith Cells 2 Urine Bacteria Moderate H Hyaline Casts 4 Urine Mucus Few H Micro UA Comment Culture indicated Urine Culture Comments Culture indicated 11/20/17 11/20/17 11/20/17 05:03 09:24 13:38 WBC RBC Hgb Hct MCV MCH MCHC RDW Plt Count MPV Neut % (Auto) Lymph % (Auto) Mccone % (Auto) Eos % (Auto) Baso % (Auto) Neut # (Auto) Lymph # (Auto) Mccone # (Auto) Eos # (Auto) Baso # (Auto) WBC Differential Differential Comment PT INR APTT Sodium Potassium Chloride Carbon Dioxide Anion Gap BUN Creatinine Estimated GFR POC Glucose 124 H 101 Random Glucose Lactic Acid 1.4 Calcium Total Bilirubin AST ALT Alkaline Phosphatase Troponin I Total Protein Albumin Vitamin B12 TSH Thyroxine (T4) Urine Color Urine Clarity Urine pH Ur Specific [place] Urine Protein Urine Glucose (UA) Urine Ketones Urine Occult Blood Urine Nitrate Urine Bilirubin Urine Urobilinogen Ur Leukocyte Esterase Urine RBC Urine WBC Ur Squamous Epith Cells Urine Bacteria Hyaline Casts Urine Mucus Micro UA Comment Urine Culture Comments - Imaging Impressions Abdomen/Bladder Ultrasound 11/20/17 00:00 CONCLUSION: 1. Echogenic kidneys consistent with medical renal disease. 2. 6 mm nonobstructing calyceal calculus in the mid right kidney. 3. Mild diffuse bladder wall thickening which may reflect some degree of bladder outlet obstruction. Carotid Doppler Study 11/20/17 00:00 CONCLUSION: 1. Right Internal Carotid Artery: Findings indicate <50% stenosis. 2. Left Internal Carotid Artery: Findings indicate <50% stenosis. Head MRI 11/20/17 00:00 CONCLUSION: 1. Single 5 mm focus of restricted diffusion in the left insula consistent with a small acute infarction. 2. Otherwise, the rest the examination is unremarkable for patient's age. Neck MRA 11/20/17 00:00 CONCLUSION: No evidence of hemodynamic significant lesion. There is 0-10% stenosis on the right and 0-10% stenosis on the left. Percent stenosis is calculated using the diameter of the stenotic region over the diameter of the normal distal internal carotid artery Chest X-Ray 11/20/17 03:36 CONCLUSION: 1. No acute cardiopulmonary disease. 2. The heart size appears mildly prominent with no pulmonary edema. Head CT 11/20/17 03:36 CONCLUSION: 1. Negative trauma study. . Head MRA 11/20/17 06:18 CONCLUSION: Unremarkable MR angiography of the brain. Assessment and Plan - Assessment (1) Acute UTI Code(s): N39.0 - Urinary tract infection, site not specified Status: Acute (2) Acute alteration in mental status Code(s): R41.82 - Altered mental status, unspecified Status: Acute - Plan 77-year-old male with a history of abdominal aortic aneurysm repair, hypertension, hyperlipidemia who presents with dysarthria, subjective right- sided weakness reported by . Dysarthria Rule out stroke -Patient does not have brisa weakness, however does have right-sided pronator drift. -CT head negative, however due to exam findings will order MRI, get neurology consult. -Aspirin given -Could be exacerbated by UTI, as well as new blood pressure medication. -Could be secondary to concussion from hitting head after falling out of bed versus ischemic stroke, hypoperfusion. Head of bed down. -Neuro consult. Recommends to use Plavix,cardiology consulted -MRI of the brain Single 5 mm focus of restricted diffusion in the left insula consistent with a small acute infarction. 2. Otherwise, the rest the examination is unremarkable for patient's age. -MRA neck showed No evidence of hemodynamic significant lesion. There is 0- 10% stenosis on the right and 0-10% stenosis on the left. -EEG normal appearing electroencephalogram. No evidence of any epileptiform features in this one recording. Patient also had nonsustained V. tach -Check echo, cardiology consult UTI, acute -Significant white blood cells on urinalysis with increased urinary urgency recently -Started on Zosyn in the ER, will follow-up urine culture. -No hydronephrosis on US of the kidneys -Pending urine culture, pending blood culture Acute kidney injury -Possibly secondary to UTI -Avoid nephrotoxins -Monitor renal indicis Hypertension -Patient's blood pressure currently acceptable. -Allow permissive hypertension to a degree for now will get patient's blood pressure medications from his [facility] pharmacy when they open. DVT prop SCD Code Status: Full code Discussed Condition With: Patient, nursing Discharge Planning: Plan to DC home when clinically improved.
--- NOTE | 2017-11-20 16:01 | ECG ---
Date Performed: 11/20/2017 Time Performed: 03:32:37 PTAGE: 77 years EKG: ATRIAL FIBRILLATION WITH ABERRANT CONDUCTION OR VENTRICULAR PREMATURE COMPLEXES MARKED ST D EPRESSION, CONSIDER SUBENDOCARDIAL INJURY When compared to previous tracing, atrial fibrillation is new. Loss of voltage since previous tracing. persistent ST depression. Clinical correlation is recomm ended ABNORMAL ECG PREVIOUS TRACING : 05/03/2002 09.41 DOCTOR: Sanjay Zamora Interpretating Date/Time 11/20/2017 16:00:12
--- NOTE | 2017-11-20 16:03 | MG ---
cc: Jaylene Zhu MD EEG NUMBER: [id number] REFERRING PHYSICIAN: Dr. Jony Wen. CLINICAL HISTORY: In room G77 with photic stimulation. EEG is awake, drowsy, asleep. CT negative. Apparently, the felt that the patient was resting in bed and then fell out of bed, had trouble getting up, slurred speech and right-sided weakness. He has a history of AAA repair, hypertension, hyperlipidemia, some alcohol and tobacco use. On Zosyn, aspirin and Plavix. Currently, looks good. DESCRIPTION OF RECORD: The patient has background rhythm of 8 Hz, 20 microvolts, low-amplitude EEG. The EKG portion is difficult to interpret. There may be some dysrhythmia versus some PVCs; however, it is only 1 lead. However, overall symmetrical background. No epileptiform features. Hyperventilation was not done in this study. Photic stimulation does elicit a posterior driving response. IMPRESSION: Overall, normal appearing electroencephalogram. No evidence of any epileptiform features in this one recording. Clinical correlation also if not done so, should have a routine EKG or observed on telemetry. MD LEANNA Han/GUILLERMO , 03:52 PM , 03:57 PM
[2017-11-20] MEDS ORDERED: hydroCHLOROthiazide 25 MG Tablet PO SCH (17:15)
[2017-11-20] MEDS: amLODIPine 10 MG Tablet PO SCH (18:24)
[2017-11-20] MEDS: Propranolol LA 80 MG Capsule PO SCH (18:39)
[2017-11-21 04:00] LABS: Baso % (Auto) 0.5 % (0.0-2.0); Eos # (Auto) 0.1 th/mm3 (0.0-0.4); Eos % (Auto) 1.6 % (0.0-4.0); Hematocrit 40.3 % (39.0-51.0); Hemoglobin 13.3 gm/dL (13.0-17.0); Lymph # (Auto) 0.8 th/mm3 (1.0-4.8); Lymph % (Auto) 12.3 % (9.0-44.0); Mean Corpuscular Hemoglobin 30.6 pg (27.0-34.0); Mean Corpuscular Volume 92.9 fL (80.0-100.0); Mono # (Auto) 0.7 th/mm3 (0.0-0.9); Mono % (Auto) 10.7 % (0.0-8.0); Neut % (Auto) 74.9 % (16.0-70.0); Platelet Count 184 th/mm3 (150-450); Red Blood Count 4.34 mil/mm3 (4.50-5.90); Red Cell Distribution Width 14.3 % (11.6-17.2); White Blood Count 6.7 th/mm3 (4.0-11.0)
[2017-11-21 04:25] LABS: Alanine Aminotransferase 20 U/L (12-78); Albumin 3.1 g/dL (3.4-5.0); Alkaline Phosphatase 78 U/L (45-117); Anion Gap 10 meq/L (5-15); Aspartate Aminotransferase 17 U/L (15-37); Blood Urea Nitrogen 17 mg/dL (7-18); Carbon Dioxide 23.4 meq/L (21.0-32.0); Chloride 111 meq/L (98-107); Chol/HDL Ratio 2.56 Ratio; Cholesterol 129 mg/dL (120-200); Glomerular Filtration Rate 61 mL/min (>89); Glucose,Random 95 mg/dL (74-106); HDL Cholesterol 50.2 mg/dL (40.0-60.0); LDL Cholesterol,Calculated 65 mg/dL (0-99); Potassium 3.2 meq/L (3.5-5.1); Sodium 144 meq/L (136-145); Total Protein 6.8 g/dL (6.4-8.2); Triglycerides 71 mg/dL (42-150)
[2017-11-21] MEDS: Piperacil/Tazo 3.375 GM Premix 50 ML IV.SIG SCH ×4 (05:20→23:21)
--- NOTE | 2017-11-21 07:09 | P.PNNEU ---
Subjective Subjective Comments: afib no new spells Active Medications: Active Medications Al Hydroxide/Mg Hydroxide (Milk Of Magnesia Liq) 30 ml PO Q12H PRN PRN Reason: Mild Constipation Amlodipine Besylate (Norvasc) 10 mg PO DAILY [facility] Last Admin: 11/20/17 18:24 Dose: 10 mg Apixaban (Eliquis) 5 mg PO BID [facility] Aspirin (Ecotrin) 81 mg PO DAILY [facility] Last Admin: 11/20/17 10:31 Dose: Not Given Atorvastatin Calcium (Lipitor) 20 mg PO DAILY [facility] Last Admin: 11/20/17 18:24 Dose: 20 mg Bisacodyl (Dulcolax Supp) 10 mg RECTAL DAILY PRN PRN Reason: SEVERE CONSITIPATION Piperacillin/Tazobactam/Dextrose (Zosyn 3.375 Gm Premix) 50 mls @ 100 mls/hr IV.SIG Q6H [facility] Last Infusion: 11/21/17 06:23 Dose: Infused Lactulose (Lactulose Liq) 30 ml PO DAILY PRN PRN Reason: SEVERE CONSITIPATION Losartan Potassium (Cozaar) 100 mg PO DAILY [facility] Last Admin: 11/20/17 18:23 Dose: 100 mg Propranolol HCl (Inderal La) 80 mg PO DAILY [facility] Last Admin: 11/20/17 18:39 Dose: 80 mg Sennosides (Senokot) 17.2 mg PO Q12H PRN PRN Reason: Moderate Constipation Sodium Chloride (Ns Flush) 2 ml IV.FLUSH PRN PRN PRN Reason: FLUSH AFTER USING IV ACCESS Sodium Chloride (Ns Flush) 2 ml IV.FLUSH BID [facility] Last Admin: 11/20/17 23:17 Dose: 2 ml Sodium Chloride (Ns Flush) 2 ml IV.FLUSH PRN PRN PRN Reason: FLUSH AFTER USING IV ACCESS Temazepam (Restoril) 15 mg PO HS PRN PRN Reason: INSOMNIA Allergies/Adverse Reactions: Allergies Allergy/AdvReac Type Severity Reaction Status Date / Time NKDA Allergy Unknown Uncoded 12/28/02 04:37 NONE Allergy Unknown Uncoded 12/28/02 04:37 No Known Allergies Allergy Uncoded 12/27/02 19:37 Physical Exam Vital signs: Vital Signs 11/20/17 07:57 11/20/17 08:00 11/20/17 12:00 Temperature 98.0 F 98.9 F 97.8 F Pulse Rate 89 72 72 Respiratory Rate 18 18 18 Blood Pressure 143/85 H 159/73 H 159/73 H Pulse Oximetry 94 L 93 L 93 L 11/20/17 15:44 11/20/17 20:00 11/21/17 00:00 Temperature 97.9 F 99.0 F 98.1 F Pulse Rate 79 100 H 83 Respiratory Rate 18 16 16 Blood Pressure 162/74 H 142/90 H 123/65 Pulse Oximetry 94 L 96 98 11/21/17 03:54 11/21/17 04:00 Temperature 98.1 F Pulse Rate 94 H 84 Respiratory Rate 17 Blood Pressure 135/80 Pulse Oximetry 95 Intake & Output 11/20/17 11/21/17 11/21/17 18:59 06:59 18:59 Intake Total 100 / 100 150 / 150 Balance 100 / 100 150 / 150 Intake: IV 100 / 100 150 / 150 Zosyn 3.375 GM Premix 50 ML @ 100 / 100 150 / 150 100 mls/hr IV.SIG Q6H [facility] Rx#: [id number] Other: Date of Last Bowel Movement 11/20/17 Narrative: awake alert nl speech vff face sym 5/5 Objective Laboratory Results - last 24 hr 11/20/17 11/20/17 11/20/17 03:40 09:24 13:38 WBC RBC Hgb Hct MCV MCH MCHC RDW Plt Count MPV Neut % (Auto) Lymph % (Auto) [place] % (Auto) Eos % (Auto) Baso % (Auto) Neut # (Auto) Lymph # (Auto) [place] # (Auto) Eos # (Auto) Baso # (Auto) WBC Differential Differential Comment Sodium Potassium Chloride Carbon Dioxide Anion Gap BUN Creatinine Estimated GFR POC Glucose 124 H 101 Random Glucose Calcium Total Bilirubin AST ALT Alkaline Phosphatase Total Protein Albumin Triglycerides Cholesterol LDL Cholesterol, Calc HDL Cholesterol Cholesterol/HDL Ratio Vitamin B12 306 TSH 5.720 H Thyroxine (T4) 9.6 11/21/17 11/21/17 03:13 03:13 WBC 6.7 RBC 4.34 L Hgb 13.3 Hct 40.3 MCV 92.9 MCH 30.6 MCHC 33.0 RDW 14.3 Plt Count 184 MPV 9.0 Neut % (Auto) 74.9 H Lymph % (Auto) 12.3 [place] % (Auto) 10.7 H Eos % (Auto) 1.6 Baso % (Auto) 0.5 Neut # (Auto) 5.0 Lymph # (Auto) 0.8 L [place] # (Auto) 0.7 Eos # (Auto) 0.1 Baso # (Auto) 0.0 WBC Differential . Differential Comment Auto diff final Sodium 144 Potassium 3.2 L Chloride 111 H Carbon Dioxide 23.4 Anion Gap 10 BUN 17 Creatinine 1.38 H Estimated GFR 61 L POC Glucose Random Glucose 95 Calcium 9.0 Total Bilirubin 1.5 H AST 17 ALT 20 Alkaline Phosphatase 78 Total Protein 6.8 D Albumin 3.1 L D Triglycerides 71 Cholesterol 129 LDL Cholesterol, Calc 65 HDL Cholesterol 50.2 Cholesterol/HDL Ratio 2.56 Vitamin B12 TSH Thyroxine (T4) Review/Management - Review/Management Plan: imp AFIB plan i dw dr dick he is going to cath him today and he will give eliquis 5 bid dose cisco after cath neuro hale can dc after started on anticoag mrax2 neg uti rx the cva is tiny left insula region
[2017-11-21] MEDS ORDERED: Heparin/NS PF Inj 1,000 ML ONE (07:59)
[2017-11-21] MEDS ORDERED: fentaNYL Citrate Inj 100 MCG/2 ML Ampul ONE (08:09)
--- NOTE | 2017-11-21 09:19 | CATHPROC ---
[employer] HIS Report Study Information Study Number Admission Scheduled Start Study Start [id number] Nov 20 2017 5:30AM 11/21/2017 Nov 21 2017 7:52AM [facility] Cardiac Catheterization Admit Source Facility Department Emergency department [facility] [place] [facility] Physician and Clinical Staff Initial Jonathan Brown Top Distribution Executivegurpreet Mohan RN, Kurt GutierresRN Recorder Jael Perales,RT(R) Scrub Luciano Thomas RCIS(BS) Procedures Performed Procedure Location (Site) Vessel Name Coronary Angiograms LCA Left Coronary Coronary Angiograms RCA Right Coronary IVUS Fem Art (right) Femoral Art L Heart Cath LV Gram-hand inj. LV LV Ventricle PTCA LAD Prox Left Coronary Stent LAD Prox Left Coronary Wire insertion Fem Art (right) Femoral Art Equipment Time Estimator Description Size Mfg Part Number Used/Scraped [id number] 08:36 [employer] WIRE, ASAHI PROWATER 180CM 180CM Used *[id number] TRANSDUCER, TRUWAVE [id number] 07:53 FERNANDEZ SOMMER * Used W/STOCKCOCK *[id number] [id number] *[id number] [id number] *[id number] [id number] *[id number] 07:53 [employer] BLANKET,WARM AIR CCL * Used *[id number] 07:53 [employer] PACK, CCL CUSTOM * Used *[id number] 07:53 [employer] PACER PEN, SKIN DUAL W/ RULER * Used *[id number] BALLOON, 3.0 X 6MM NC [id number] 09:03 [employer] 6MM Used EUPHORA *[id number] 09:05 [employer] STENT, 4.0 12 INTEGRITY 4.0 12 Used *[id number] 09:00 [employer] STENT, 4.0 9 INTEGRITY 4.0 9 [id number] Used [id number] 08:37 [employer]/AVE EBU 4.5 Z2 GUIDE CATHETER FR 6 Used *[id number] 09:02 [employer] MEDICAL 30 BELEM INDEFLATOR Used *[id number] 08:33 [employer] MEDICAL SHEATH, FR6.5 PRELUDE 11CM FR 6.5 038ACT Used *[id number] 07:53 [employer] MEDICAL WIRE, 3MMJ .035 180CM 180CM Used *[id number] 08:28 [employer] MEDICAL WIRE, EXCHANGE 260CM 3MMJ 260CM Used *[id number] 07:53 NAMIC MANIFOLD, 4 PORT * Used *[id number] 07:53 [employer] OMNIPAQUE, 350 MG, 150ML 150ML [id number] Used [id number] 07:53 [employer] MEDICAL SHEATH, FR4 TERUMO (10CM) FR 4 Used *[id number] CATHETER, IGIUGIG EYE GAMBELL [id number] 08:34 [employer] Used IMAGING *[id number] Equipment Model, Serial, Lot Number and Expiration Data Description Model Number Serial Number Lot Number Expiration Date BALLOON, 3.0 X 6MM NC EUPHORA [id number] 09-12-2019 CATHETER, IGIUGIG EYE GAMBELL 18328 [id number] 08-19-2019 IMAGING STENT, 4.0 12 INTEGRITY [id number] 07-10-2019 STENT, 4.0 9 INTEGRITY [id number] 02-07-2019 History: Current Medications Medication Dosage/Unit Route Frequency Last Date/Time Taken ADAM BLACKWELL History: Allergies Allergy Reaction NKDA NONE No Known Allergies History: Risk Factors Family History of Hypertension Dyslipidemia Previous IL Previous Heart Failure Premature CAD Yes Yes No No No Prior Valve Prior PCI Prior CABG Surgery No No No Cerebrovascular Peripheral Artery Chronic Lung On Dialysis Diabetes Disease Disease Disease No Yes Yes No No History: Arrhythmias Selection Items Atrial fibrillation History: Other Current Smoker Method Quit Packs a Day Years Used Pack Years No Cigarettes 15 Years Ago 1 30 30 Labs Hgb (g/dl) Hct (%) WBC (l/cumm) Platelets (thousands) 11.60-17.00 35.00-51.00 4.00-11.00 150.00-450.00 13.3 40.3 6.7 184 Glucose (mg/dl) BUN (mg/dl) Creatinine (mg/dl) BUN:Creatinine (1:x) 74.00-106.00 7.00-18.00 0.50-1.30 10.00-20.00 95 17 1.3 13.1 Na (meq/l) K (meq/l) 136.00-145.00 3.50-5.10 144 3.2 INR (PTT:PT) 0.90-1.10 1 Troponin I (ng/ml) 0.02-0.05 0.02 Medication Medication Total Dose (Bolus/Oral) Medication Total Dosage/Unit HEPARIN 9500 units PLAVIX 600 mg Medications (Bolus/Oral) Medication Time Given Dosage/Unit Administered By Reason HEPARIN 11/21/2017 8:34:03 AM 6500 units Marques REDMOND, Marlon 6500 units HEPARIN given in lab by Marlon Mohan RN in Right Groin via Peripheral IV. Ordered by Jonathan Herrera. HEPARIN 11/21/2017 8:53:19 AM 3000 units Marlon Mohan RN 3000 units HEPARIN given in lab by Marlon Mohan RN in Right Antecubital via Peripheral IV. Ordered by Jonathan Nolen. PLAVIX 11/21/2017 9:10:46 AM 600 mg Marlon Mohan RN 600 mg PLAVIX given in lab by Marlon Mohan RN via Oral. Ordered by Jonathan Nolen. Medication (Drip) Medication Time Given Dosage/Unit Concentration/Unit Diluent (ml) Solution IV Solutions 11/21/2017 8:01:44 AM 50 mL (IV) NaCl .9 IV Solutions given in lab by Kurt Yip RN in Right Antecubital via Peripheral IV. Pump/Drip Flow using NaCl .9. Initial Case Assessment Cardiovascular Edema Present Skin color Skin None Normal Warm Dry Circulatory - Right Pulses Dorsalis Pedis Femoral 1 1 Scale (0,1,2,3,4,d) Circulatory - Left Pulses Dorsalis Pedis Femoral 1 1 Scale (0,1,2,3,4,d) Neurological State Oriented to time-place- Alert Moves all extremities person Chronological Log Time Study Chronological Log 8:01:00 Patient Name, D.O.B, / Armband Verified By R.N. 8:01:30 Consent signed by the physician and the patient and verified by the [place] staff. 8:01:31 Pre-op and post- op instructions given; patient acknowledges understanding of instructions. 8:01:32 Verbal Stimulation=2 Physical Stimulation=2 Airway=2 Respiration=2 TOTAL=8. (0=absent, 1=guallpa ited, 2=present) 8:01:39 Skin Breakdown- none per patient 8:01:40 Patient arrived via Bed. 8:01:40 Patient Warmer Placed on the Table. 8:01:42 Lakhwinder Prominences Protected 8:01:43 A # 20 IV was noted in the Antecubital (right). Grade = 0 8:01:44 IV Solutions given in lab by Kurt Yip, RN in Right Antecubital via Peripheral IV. Pump/D rip Flow using NaCl .9. 8:01:45 History and physical on the chart or being dictated. Assessment: Initial Case, Edema=None, Color=Normal, Skin = Warm, Dry Right Pulses: Colton Ped=1, Femoral=1 8:01:45 Left Pulses: Colton Ped=1, Femoral=1 Neurological: State=Alert, Ox3, RAMIREZ 8:07:39 Reference ECG taken Vitals capture started with the following parameters, Patient=Adult, Interval=5 min, Initial Pre alxgq=738 mmHg, 8:07:52 Deflation Rate=5 mmHg, Cuff placed on Left Arm 8:09:05 HR=92 bpm, DDIC=379/89 mmhg, SpO2=99.0 %, Resp=20 B/min 8:13:33 DK=837 bpm, QTOL=639/93 mmhg, SpO2=97.0 %, Resp=20 B/min 8:14:20 Bilateral groins prepped with 2% chlorhexidine, and draped after a 3 minute waiting time. 8:15:11 MD paged 8:18:33 HR=89 bpm, FJUT=070/88 mmhg, SpO2=99.0 %, Resp=20 B/min 8:19:11 Pressure channel 1 zeroed. 8:20:06 MD arrived. Time Out. Correct patient, correct procedure, correct physician, labs, allergies, and equipment verified with section laborer 8:22:17 team present. Fire risk assesment completed (see hard stop sheet for coding). Time Out Concu rred by MD and individual staff in procedure. 8:22:52 Case Start 8:23:27 HR=96 bpm, NOMR=162/101 mmhg, SpO2=96.0 %, Resp=20 B/min 8:24:34 Access site was Right Femoral Artery. 8:25:00 A SHEATH, FR4 TERUMO (10CM) FR 4 was advanced into the Fem Art (right) using the Percutaneou s technique. A JR 4.0 INFINITI CATHETER FR 4 was advanced over a wire. OMNIPAQUE, 350 MG, 150ML 150ML was use d for 8:25:08 injections. Recorded Pressure: LV, HR=91, Condition=Condition 1 8:26:00 (Left Ventricle) LV 141/11/19 8:26:06 The LV was manually injected with 8 cc's and visualized. OMNIPAQUE, 350 MG, 150ML 150ML used . 8:26:38 The RCA was injected and visualized at various angles. OMNIPAQUE, 350 MG, 150ML 150ML used. After removing the current catheter a JL 6.0 INFINITI CATHETER FR 4 was advanced over a WIRE, EX CHANGE 260CM 8:27:53 3MMJ 260CM. 8:28:33 HR=96 bpm, YVFE=717/91 mmhg, SpO2=95.0 %, Resp=22 B/min Recorded Pressure: Ao, HR=99, Condition=Condition 1 8:29:06 (Aorta) Ao 141/70/101 8:29:26 The LCA was injected and visualized at various angles. OMNIPAQUE, 350 MG, 150ML 150ML used. 8:32:35 Catheter was removed A SHEATH, FR6.5 PRELUDE 11CM FR 6.5 was exchanged in the Fem Art (right). This was necessary in order to 8:32:51 accomodate a larger catheter. 8:33:34 HR=90 bpm, TIZW=040/84 mmhg, SpO2=96.0 %, Resp=22 B/min 8:34:03 6500 units HEPARIN given in lab by Marlon Mohan RN in Right Groin via Peripheral IV. Ordered by Jonathan Nolen. A EBU 4.5 Z2 GUIDE CATHETER FR 6 was advanced over a wire. OMNIPAQUE, 350 MG, 150ML 150ML was us ed for 8:36:43 injections. 8:38:24 A WIRE, ASAXyleme PROWATER 180CM 180CM was inserted via Fem Art (right). 8:38:35 HR=90 bpm, OJOD=371/86 mmhg, SpO2=96.0 % 8:39:41 Interventional wire has crossed the lesion in the LAD 8:40:30 Activated Clotting Time Drawn 8:40:37 An CATHETER, IGIUGIG EYE GAMBELL IMAGING was advanced through the lesion. Images saved on to IVUS hard drive 8:41:17 IVUS in progress using CATHETER, IGIUGIG EYE GAMBELL IMAGING Mean Luminal Area measured 4.5 8:42:47 Dr Nolen broke scrub to consult with surgeon. 8:43:34 HR=94 bpm, DJWN=518/101 mmhg, SpO2=96 %, Resp=21 B/min 8:44:56 ACT (Normal Range 90-180) = 266 8:48:35 HR=98 bpm, NIIC=793/90 mmhg, SpO2=95.0 % 3000 units HEPARIN given in lab by Marlon Mohan RN in Right Antecubital via Peripheral IV. Order ed by Tamanna, 8:53:19 Jonathan. 8:53:30 JN=770 bpm, CDBB=704/92 mmhg, SpO2=93.0 %, Resp=22 B/min 8:58:31 HR=99 bpm, UQYF=896/92 mmhg, SpO2=94 %, Resp=22 B/min 8:59:45 Dr Nolen scrubbed in An STENT, 4.0 9 INTEGRITY 4.0 9 Bare Metal Stent was inserted through a EBU 4.5 Z2 GUIDE CATHETE R FR 6 over a 9:01:24 WIRE, ASAHI PROWATER 180CM 180CM. 9:02:50 Stent not deployed. Stent removed and intact. A BALLOON, 3.0 X 6MM NC EUPHORA 6MM was inserted over WIRE, ASAHI PROWATER 180CM 180CM via the F em Art 9:02:55 (right). 9:03:34 HR=92 bpm, YBYB=576/89 mmhg, SpO2=94.0 %, Resp=21 B/min A BALLOON, 3.0 X 6MM NC EUPHORA 6MM over a WIRE, ASAHI PROWATER 180CM 180CM in the LAD Prox was 9:04:07 inflated using a 30 BELEM INDEFLATOR at 8 belem for 15 sec. 9:04:28 Balloon Removed. An STENT, 4.0 12 INTEGRITY 4.0 12 Bare Metal Stent was inserted through a EBU 4.5 [address] FR 6 over 9:05:42 a WIRE, ASAHI PROWATER 180CM 180CM. A STENT, 4.0 12 INTEGRITY 4.0 12 was deployed using a 30 BELEM INDEFLATOR at 11 atmospheres for 11 seconds in 9:06:21 the LAD Prox. 9:07:34 Delivery device removed 9:07:50 Wire removed 9:07:51 Catheter was removed 9:08:33 HC=860 bpm, CYOJ=394/97 mmhg, SpO2=91.0 %, Resp=23 B/min 9:09:02 Case End (Physician broke scrub) 9:10:01 In the Fem Art (right) the SHEATH, FR6.5 PRELUDE 11CM FR 6.[address] by Jonathan Holliday. 9:10:07 Sterile dressing applied to site 9:10:08 No case complications noted. 9:10:13 Cine recording checked. 9:10:19 Bedside Report will be given. 9:10:20 Implantable Device card placed in patient's chart. 9:10:31 A Left Heart Cath was performed. 9:10:41 Activated Clotting Time Drawn 9:10:46 600 mg PLAVIX given in lab by Marlon Mohan RN via Oral. Ordered by Jonathan Nolen. 9:13:38 HR=83 bpm, ANOP=977/85 mmhg, SpO2=93.0 %, Resp=20 B/min 9:14:52 ACT (Normal Range 90-180) = 299 9:15:03 Vitals capture stopped. 9:15:32 Patient moved to [facility] End Study - Contrast Media Used In Study Contrast Total Opened (mL) Total Used (mL) Total Wasted (mL) Omnipaque 150 90 60 End Study - Maximum Contrast Load Max Contrast Load (mL) 342.0 End Study - Radiation Exposure Fluoro Time (minutes) 6.4 End Study - Patient Disposition Complications Transferred To Interventional Outcome No Telemetry Bed successful
[2017-11-21] MEDS ORDERED: Heparin 10,000 UNITS/10 ML Vial (for IV use) ONE (09:29)
--- NOTE | 2017-11-21 09:53 | MR ---
cc: Jonathan Nolen MD DATE: 11/21/2017 PROCEDURE PERFORMED: Left heart catheterization, left ventriculography, coronary angiography IVUS of the left main and PCI bare metal stent of the proximal LAD. INDICATIONS: Syncope, severe 3-vessel left main disease, cerebrovascular accident on this admission, cardiomyopathy, peripheral vascular disease, anginal equivalent, resting [address] segment depression anterolaterally and inferiorly on the EKG. PROCEDURAL SUMMARY: The patient was brought to the cardiac catheterization laboratory, prepped and draped in the usual sterile fashion. 10 mL of 1% lidocaine was used to locally anesthetize the right common femoral artery. A 4-Swazi sheath was placed in the right common femoral artery, 4-Swazi JR4 and JL6 catheters were used to perform left and right coronary angiography, left ventriculography. FINDINGS: The LV pressures 140/11-12, ejection fraction 45%. LEFT VENTRICLE: Left ventricle appears to be mildly dilated fluoroscopically. The right coronary artery is dominant, has a proximal 60-70% stenosis. Moderate diffuse disease throughout the mid segment up to 40-50% angiographically. The right MONTRELL has a proximal mid 90% stenosis at a bifurcation of a small 1 mm medial branch. The more lateral branch of the MONTRELL has an ostial 90% stenosis and transitions into a reference vessel diameter of about 3 mm, which then itself bifurcates into a more lateral branch, which is about a 2.5 mm vessel, which itself has an ostial 90% stenosis. The more medial branch is a 1.5 mm vessel with no significant disease angiographically. The right PDA is a large vessel, probably 3-1/2 to 4 mm with no significant focal stenosis. The left main coronary artery has a distal 60-70% stenosis. Left circumflex vessel has approximately an 8 mm subtotally obstructed lesion. It is estimated the lesion is 95+ percent with slightly less than KASANDRA-3 flow into the distal left circ. Beyond this lesion, there is a small to medium size distal obtuse marginal vessel with no significant disease and a small posterolateral artery, which is a 1 mm reference vessel diameter. No significant disease angiographically. Just proximal to the lesion, there is a small obtuse marginal vessel, 1.5 mm reference vessel diameter with an ostial 95% stenosis. The LAD has what appears to be angiographically an 95% proximal stenosis. It is a large vessel, 4 mm reference vessel diameter of transapical. First diagonal artery has about a 30 degree angulation off the LAD and has a long ostial proximal 95% stenosis. It appears to be about a 2-2.5 mm reference vessel diameter. There is actually a filling defect that I would estimate to be at least 5-10 mm, but flow is KASANDRA 2-3 into the vessel. DISCUSSION: I reviewed the films with Dr. Latha Knott. Due to the patient's recent CVA, Dr. Knott felt that the patient was too high a risk for CABG in the acute or subacute setting. Therefore, we both agree that the most optimal approach was stenting the most high risk lesion amenable to stenting, which is the proximal LAD. The patient presented with an acute CVA. In order to define with certainty whether or not the left main was significant, I do think it was medically necessary to perform IVUS of the distal left main. Therefore, a 6-Swazi sheath was exchanged for the 4-Swazi sheath. 70 units/kg of heparin was given. ACT initially was 266. A 6-Swazi EBU-5 and the 0.014 Prowater guidewire was placed into the distal LAD. I placed the IVUS catheter tip just beyond the guide. We did a ring down. I then advanced the IVUS catheter into the proximal LAD. We did a recorded pullback. Minimal luminal area of the distal left main just proximal to the bifurcation of the LAD and circ was 4.5 mm2. At that point in time, the patient met criteria for CABG, therefore, I called CT surgery and discussed the case with Dr. Knott. Dr. Knott came down and reviewed the films. Dr. Knott's assessment was that the patient was too high a risk for CABG in the acute or subacute setting due to recent CVA and therefore, we both agree that the risk/benefit ratio was most favorable for stenting the most high risk lesion amenable to PCI, which was the proximal LAD. Therefore, I attempted to deliver a 4.0 x 8 Integrity stent directly, but due to this stenosis severity, I could not cross the lesion and I did image and there was actually no flow of contrast around the stent suggesting that the lesion may have actually been more than 95%. I then proceeded to predilate the lesion with a 4.0 x 6 noncompliant Euphora balloon with 1 inflation of 8 atmospheres for 20 seconds and then was able to deliver the 4.0 x 12 Integrity stent, deployed 1 inflation 11 atmospheres for 20 seconds. The stenosis went from 95% to 0% with KASANDRA 3 flow. CONCLUSIONS: 1. Syncope with 2-[address] diffuse [address] segment depression on resting EKG 2. Severe 3-vessel coronary artery disease and severe distal left main disease as detailed above. 3. Cardiomyopathy with mild dilatation fluoroscopically and EF estimated at 45%. 4. Successful PCI bare metal stent of the proximal LAD from 95% to 0% with KASANDRA 3 flow. 5. Recommend Plavix 600 mg p.o. load then 75 mg a day for 12-15 months. 6. Aspirin 162 mg daily. Note, the patient was also given additional 3000 units of heparin after the IVUS. I am holding Aggrastat as I used a 4.0 mm stent and the patient had a recent CVA. I did discuss with Dr. Knott that the patient will be jlg-fu-dilhyefv risk to hold aspirin and Plavix for elective CABG in 4-6 weeks, particularly as the stent is a wide diameter stent at 4.0 mm blown up at 11 atmospheres, relatively short of 12 mm. Otherwise, recommend medical management of coronary artery disease. Treat lipids per NCCP guidelines. MD NOMAN Zhang/JOLLY , 09:19 AM , 09:35 AM
[2017-11-21] MEDS: amLODIPine 10 MG Tablet PO SCH (10:19)
[2017-11-21] MEDS: Propranolol LA 80 MG Capsule PO SCH (10:19)
[2017-11-21] MEDS ORDERED: Misc Info for Pharmacy OTHER STA (10:24)
--- NOTE | 2017-11-21 13:12 | P.PNCV ---
- Note Subjective/Hospital Course: pt seen and evaluated, full consult to follow sts data discussed with pt RISK SCORES About the STS Risk Calculator Procedure: CAB Only Risk of Mortality: 2.818% Morbidity or Mortality: 27.381% Long Length of Stay: 14.269% Short Length of Stay: 17.194% Permanent Stroke: 3.846% Prolonged Ventilation: 17.332% DSW Infection: 0.533% Renal Failure: 8.566% Reoperation: 8.99% Objective: Vital Signs - 24 hr 11/20/17 15:44 11/20/17 20:00 11/21/17 00:00 Temperature 97.9 F 99.0 F 98.1 F Pulse Rate 79 100 H 83 Respiratory Rate 18 16 16 Blood Pressure 162/74 H 142/90 H 123/65 Pulse Oximetry 94 L 96 98 11/21/17 03:54 11/21/17 04:00 11/21/17 08:19 Temperature 98.1 F 98.2 F Pulse Rate 94 H 84 Respiratory Rate 17 18 Blood Pressure 135/80 123/80 Pulse Oximetry 95 11/21/17 09:34 11/21/17 12:59 Temperature 98.7 F Pulse Rate 93 H Respiratory Rate Blood Pressure 133/76 Pulse Oximetry 93 L 96 Labs: Laboratory Results - last 12 hr 11/21/17 11/21/17 03:13 03:13 WBC 6.7 RBC 4.34 L Hgb 13.3 Hct 40.3 MCV 92.9 MCH 30.6 MCHC 33.0 RDW 14.3 Plt Count 184 MPV 9.0 Neut % (Auto) 74.9 H Lymph % (Auto) 12.3 [place] % (Auto) 10.7 H Eos % (Auto) 1.6 Baso % (Auto) 0.5 Neut # (Auto) 5.0 Lymph # (Auto) 0.8 L [place] # (Auto) 0.7 Eos # (Auto) 0.1 Baso # (Auto) 0.0 WBC Differential . Differential Comment Auto diff final Sodium 144 Potassium 3.2 L Chloride 111 H Carbon Dioxide 23.4 Anion Gap 10 BUN 17 Creatinine 1.38 H Estimated GFR 61 L Random Glucose 95 Calcium 9.0 Total Bilirubin 1.5 H AST 17 ALT 20 Alkaline Phosphatase 78 Total Protein 6.8 D Albumin 3.1 L D Triglycerides 71 Cholesterol 129 LDL Cholesterol, Calc 65 HDL Cholesterol 50.2 Cholesterol/HDL Ratio 2.56 Result Diagrams: 11/21/17 03:13 11/21/17 03:13
--- NOTE | 2017-11-21 15:20 | MB ---
cc: Lucretia Birch DATE: 11/21/2017 HISTORY OF PRESENT ILLNESS: A 77-year-old male patient of Dr. Khadra Rapp, who presented to the emergency department. Apparently fell out of bed, did not quite recall the sequence of events, but ultimately lost consciousness, history of hypertension, hyperlipidemia. Apparently he had no incontinence, no tongue biting seemed a little confused according to the . The ambulance brought him in. She thought he might have had some right leg weakness. There was no facial droop or arm weakness. The patient was seen and evaluated by Dr. Wen, had complete workup by radiology including a head MRI, which was unremarkable. CT head unremarkable. Neck MRI no evidence of hemodynamic significant lesion 0%-10% on the right, 0%-10% on the left. here was a single 5 mm focus of restricted effusion in the left insular consistent with a small acute infarct on his MRI. The patient was also noted to have a short run of V-tach and also new onset of atrial fibrillation. He underwent cardiac catheterization today for further evaluation by Dr. Nolen which showed left main disease of 70% proximal LAD 95%. The diagonal was 95%. The circumflex 95%, the RCA 70%, ejection fraction is 45%. The patient underwent successful PCI bare metal stent of the proximal LAD from 95%-0%. He was loaded with Plavix 75 mg a day. PAST MEDICAL HISTORY: Includes hypertension, hyperlipidemia, history of aortic abdominal aneurysm, ureteral stricture. PAST SURGICAL HISTORY: Include ureteral stricture repair. He has had an abdominal aortic aneurysm repair 2002, open by Dr. Latha Knott and then endoscopic repair by Dr. Calderon at [facility] in 2011. ALLERGIES: NO KNOWN. HOME MEDICATIONS: Include: 1. Amlodipine. 2. Atorvastatin. 3. Hydrochlorothiazide. 4. Olmesartan. 5. Propranolol. FAMILY HISTORY: Mother after sustaining a fractured hip. Father after a stroke. SOCIAL HISTORY: The patient is , 2 children. He smoked for approximately 35 years, less than a pack. He quit 15 years ago. Drinks 1 cocktail per day. 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 REVIEW OF SYSTEMS: GENERAL: No night sweats, fever, heat and cold intolerance. SKIN: No psoriasis, itching or hives. HEENT: No blurred vision, hearing loss. RESPIRATORY: No cough, shortness of CARDIOVASCULAR: He has had no significant chest pain. No paroxysmal nocturnal dyspnea or orthopnea. Positive for recent cerebrovascular accident. GASTROINTESTINAL: No diarrhea or vomiting. GENITOURINARY: No burning, frequency, urgency. CENTRAL NERVOUS SYSTEM: No history of TIA. PHYSICAL EXAMINATION: VITAL SIGNS: Blood pressure 130/70, heart rate of 90, afebrile, room air saturation 96%. GENERAL: The patient is awake, alert, no acute distress. No facial drooping noted. Oral mucosa pink, moist. NECK: Supple. No JVD. HEART: Sounds S1, S2, he has irregular rate and rhythm. No audible rubs or gallops. LUNGS: Clear to auscultation. No wheezes or rhonchi. ABDOMEN: Soft, nontender. No masses or organomegaly. EXTREMITIES: No cyanosis, clubbing, or edema. NEUROLOGIC: Face is symmetric with normal sensation. No drift. He has some normal strength in upper and lower extremities. Speech is fluid, non-aphasic, alert and oriented. Per the , she feels that he is having a little bit of right-sided weakness, especially in the right arm. He had difficulty writing prior on initial admission. LABORATORY DATA: Shows hemoglobin 13, hematocrit of 40, white cell count of 6.7, platelet count of 184. Sodium 144, potassium 3.2, BUN is 17, creatinine 1.38. TSH of 5.7. INR 1.0. Urinalysis shows moderate bacteria, positive nitrites. ASSESSMENT AND PLAN: This is a 77-year-old male with status post acute cerebrovascular accident with a single focus of restricted effusion in the left insular consistent with small infarct. The patient is being followed closely by Dr. Wen. Currently he is on Eliquis, aspirin and Plavix, also a statin, status post heart catheterization with a bare-metal stent placed to the LAD. The patient's cardiac films have been evaluated by Dr. Latha Knott. The patient will need a coronary artery bypass grafting x3 to the LAD, diagonal, and circ. He will be evaluated in our office in 2 weeks and then will require clearance from Neurology as timing for surgery after his recent stroke. Further discussion and plan per Dr. Latha Knott. MAMTA Dave, JRT/wm/ll , 01:21 PM , 01:32 PM
[2017-11-21 16:19] LABS: Hemoglobin A1c 5.8 % (4.3-6.0)
[2017-11-21 16:25] LABS: Hemoglobin A1c 5.9 % (4.3-6.0)
--- NOTE | 2017-11-21 16:36 | P.PN ---
Subjective Interval history: Follow-up visit Acute CVA, status post fall, chronic kidney disease, HTN, A. fib. Patient seen and examined today. at the bedside. Patient is status post cardiac cath. States he is doing well. Denies pain and discomfort. Denies SOB/ dyspnea. Denies chest pain, palpitations, headaches, dizziness. Denies fevers, chills, n/v/d. Denies dysuria. Physical Exam Vital signs: Vital Signs 11/20/17 20:00 11/21/17 00:00 11/21/17 03:54 Temperature 99.0 F 98.1 F 98.1 F Pulse Rate 100 H 83 94 H Respiratory Rate 16 16 17 Blood Pressure 142/90 H 123/65 135/80 Pulse Oximetry 96 98 95 11/21/17 04:00 11/21/17 08:19 11/21/17 09:34 Temperature 98.2 F Pulse Rate 84 Respiratory Rate 18 Blood Pressure 123/80 Pulse Oximetry 93 L 11/21/17 12:59 11/21/17 13:14 11/21/17 13:48 Temperature 98.7 F Pulse Rate 93 H 103 H 112 H Respiratory Rate 18 Blood Pressure 133/76 139/78 132/76 Pulse Oximetry 96 96 96 Intake & Output 11/20/17 11/21/17 11/21/17 18:59 06:59 18:59 Intake Total 100 / 100 150 / 150 Balance 100 / 100 150 / 150 Intake: IV 100 / 100 150 / 150 Zosyn 3.375 GM Premix 50 ML @ 100 / 100 150 / 150 100 mls/hr IV.SIG Q6H [facility] Rx#: [id number] Other: Date of Last Bowel Movement 11/20/17 Narrative: GENERAL: This is a well-nourished, well-developed patient, in no apparent distress. SKIN: Warm and dry HEENT: Normocephalic. Pupils equal round and reactive. No facial droop. Nose without bleeding. Airway patent. NECK: Trachea midline. Supple. CARDIOVASCULAR: Irregular heart rate without murmurs, gallops, or rubs. RESPIRATORY: Clear to auscultation. Breath sounds equal bilaterally. No wheezes , rales, or rhonchi. GASTROINTESTINAL: Abdomen soft, non-tender, nondistended. Bowel Sounds normoactive x4. MUSCULOSKELETAL: Extremities without clubbing, cyanosis, or edema. NEUROLOGICAL: Awake and alert. Oriented to time, place, person, president. Cranial nerves intact. Sensory and motor intact. Moves all extremities equally. Normal speech. Results - Labs CBC & Chem 7: 11/21/17 03:13 11/21/17 03:13 Laboratory Results - last 24 hr 11/20/17 11/21/17 11/21/17 04:10 03:13 03:13 WBC 6.7 RBC 4.34 L Hgb 13.3 Hct 40.3 MCV 92.9 MCH 30.6 MCHC 33.0 RDW 14.3 Plt Count 184 MPV 9.0 Neut % (Auto) 74.9 H Lymph % (Auto) 12.3 [place] % (Auto) 10.7 H Eos % (Auto) 1.6 Baso % (Auto) 0.5 Neut # (Auto) 5.0 Lymph # (Auto) 0.8 L [place] # (Auto) 0.7 Eos # (Auto) 0.1 Baso # (Auto) 0.0 WBC Differential . Differential Comment Auto diff final Sodium 144 Potassium 3.2 L Chloride 111 H Carbon Dioxide 23.4 Anion Gap 10 BUN 17 Creatinine 1.38 H Estimated GFR 61 L Random Glucose 95 Calcium 9.0 Total Bilirubin 1.5 H AST 17 ALT 20 Alkaline Phosphatase 78 Total Protein 6.8 D Albumin 3.1 L D Triglycerides 71 Cholesterol 129 LDL Cholesterol, Calc 65 HDL Cholesterol 50.2 Cholesterol/HDL Ratio 2.56 Urine Color Yellow Urine Clarity Hazy H Urine pH 6.0 Ur Specific [place] 1.011 Urine Protein 100 H Urine Glucose (UA) Negative Urine Ketones Negative Urine Occult Blood Negative Urine Nitrate Positive H Urine Bilirubin Negative Urine Urobilinogen Less than 2 Ur Leukocyte Esterase Moderate H Urine RBC 1 Urine WBC 60 H Ur Squamous Epith Cells 2 Urine Bacteria Moderate H Hyaline Casts 4 Urine Mucus Few H Micro UA Comment Culture indicated Urine Culture Comments Culture indicated Blood Type Blood Type Recheck Antibody Screen 11/21/17 14:25 WBC RBC Hgb Hct MCV MCH MCHC RDW Plt Count MPV Neut % (Auto) Lymph % (Auto) [place] % (Auto) Eos % (Auto) Baso % (Auto) Neut # (Auto) Lymph # (Auto) [place] # (Auto) Eos # (Auto) Baso # (Auto) WBC Differential Differential Comment Sodium Potassium Chloride Carbon Dioxide Anion Gap BUN Creatinine Estimated GFR Random Glucose Calcium Total Bilirubin AST ALT Alkaline Phosphatase Total Protein Albumin Triglycerides Cholesterol LDL Cholesterol, Calc HDL Cholesterol Cholesterol/HDL Ratio Urine Color Urine Clarity Urine pH Ur Specific [place] Urine Protein Urine Glucose (UA) Urine Ketones Urine Occult Blood Urine Nitrate Urine Bilirubin Urine Urobilinogen Ur Leukocyte Esterase Urine RBC Urine WBC Ur Squamous Epith Cells Urine Bacteria Hyaline Casts Urine Mucus Micro UA Comment Urine Culture Comments Blood Type O Positive Blood Type Recheck Antibody Screen Negative Microbiology 11/20/17 04:10 Clean Catch Urine Urine Culture - Preliminary gram negative rods Group D Enterococcus 11/20/17 04:50 Blood - Peripheral Aerobic Blood Culture - Preliminary No growth in 1 day 11/20/17 04:50 Blood - Peripheral Anaerobic Blood Culture - Preliminary No growth in 1 day 11/20/17 05:00 Blood - Peripheral Aerobic Blood Culture - Preliminary No growth in 1 day 11/20/17 05:00 Blood - Peripheral Anaerobic Blood Culture - Preliminary No growth in 1 day Assessment and Plan - Assessment (1) Acute UTI Code(s): N39.0 - Urinary tract infection, site not specified Status: Acute (2) Acute alteration in mental status Code(s): R41.82 - Altered mental status, unspecified Status: Acute - Plan 77-year-old male with a history of abdominal aortic aneurysm repair, hypertension, hyperlipidemia who presents with dysarthria, subjective right- sided weakness reported by . CVA, acute - Tiny left insula region Dysarthria -Patient does not have brisa weakness, however does have right-sided pronator drift. -CT head negative, however due to exam findings will order MRI, get neurology consult. -Aspirin given -MRI of the brain Single 5 mm focus of restricted diffusion in the left insula consistent with a small acute infarction. 2. Otherwise, the rest the examination is unremarkable for patient's age. -MRA neck showed No evidence of hemodynamic significant lesion. There is 0- 10% stenosis on the right and 0-10% stenosis on the left. -EEG normal appearing electroencephalogram. No evidence of any epileptiform features in this one recording. -Neuro consult. Recommends to use Eliquis 5 mg twice daily after cath -cardiology consulted. Plan for cardiac cath done today, bare-metal stent placed to the LAD. CV surgery Consulted. -CV surgery evaluated patient will need coronary artery bypass grafting 3 to LAD, diagonal, and circumflex. To be evaluated in their office in 2 weeks and will require clearance from neurology as timing of the surgery after recent stroke. A. fib Patient also had nonsustained V. tach -[id number] -Check echo, -Eliquis 5 mg twice daily, aspirin, Plavix tomorrow UTI, acute -Significant white blood cells on urinalysis with increased urinary urgency recently -Started on Zosyn -No hydronephrosis on US of the kidneys -Culture growing gram-negative rods, group D enterococcus continue with Zosyn for now. Switch to p.o. antibiotic when sensitivity comes. Acute kidney injury -Possibly secondary to UTI -Avoid nephrotoxins -Monitor renal indicis Hypertension -Restart home medication Norvasc 10 mg daily, losartan 100 mg daily, propanolol 80 mg daily -Monitor BP trend DVT prop will be on Eliquis, SCDs for Code Status: Full code Discussed Condition With: Patient, nurse Discharge Planning: Plan to DC home when clinically improved.
--- NOTE | 2017-11-21 17:38 | ECHRPT ---
Indication: CVA/TIA CONCLUSIONS The left ventricular systolic function is normal with an estimated ejection fraction in the range of 55-60%. Normal left ventricular size. Wall thickness is normal. No regional wall motion abnormalities are present. Mild thickening of the mitral valve leaflets. Trace mitral valve regurgitation. There is trace tricuspid valve regurgitation. The estimated pulmonary arterial pressure is 31 mmHg. BP: / HR: Rhythm: Sinus MEASUREMENTS (Male / Female) Normal Values Technical Quality:Good 2D ECHO LV Diastolic Diameter PLAX 5.1 cm 4.2 - 5.9 / 3.9 - 5.3 cm LV Systolic Diameter PLAX 3.8 cm IVS Diastolic Thickness 1.0 cm 0.6 - 1.0 / 0.6 - 0.9 cm LVPW Diastolic Thickness 1.0 cm 0.6 - 1.0 / 0.6 - 0.9 cm LV Relative Wall Thickness 0.4 RV Internal Dim ED PLAX 2.3 cm LVOT Diameter 1.8 cm LA Systolic Diameter LX 3.0 cm 3.0 - 4.0 / 2.7 - 3.8 cm M-MODE Aortic Root Diameter MM 2.5 cm LA Systolic Diameter MM 3.7 cm LA Ao Ratio MM 1.5 AV Cusp Separation MM 2.0 cm DOPPLER AV Peak Velocity 99.1 cm/s AV Peak Gradient 3.9 mmHg LVOT Peak Velocity 95.8 cm/s LVOT Peak Gradient 3.7 mmHg AV Area Cont Eq pk 2.5 cm MV Area PHT 9.6 cm LV E' Lateral Velocity 9.1 cm/s LV E' Septal Velocity 5.6 cm/s TR Peak Velocity 229.0 cm/s TR Peak Gradient 21.0 mmHg Right Atrial Pressure 10.0 mmHg Pulmonary Artery Systolic Pressu 31.0 mmHg Right Ventricular Systolic Press 31.0 mmHg PV Peak Velocity 90.9 cm/s PV Peak Gradient 3.3 mmHg FINDINGS LEFT VENTRICLE The left ventricular systolic function is normal with an estimated ejection fraction in the range of 55-60%. Normal left ventricular size. Wall thickness is normal. No regional wall motion abnormalities are present. RIGHT VENTRICLE Normal right ventricular size and systolic function. LEFT ATRIUM The left atrial size is normal. RIGHT ATRIUM The right atrial size is normal. ATRIAL SEPTUM Normal atrial septal thickness without atrial level shunting by limited color doppler interrogation. AORTA The aortic root and proximal ascending aorta are normal in size on limited imaging. MITRAL VALVE Mild thickening of the mitral valve leaflets. Trace mitral valve regurgitation. AORTIC VALVE Trileaflet aortic valve. No aortic valve stenosis or regurgitation. TRICUSPID VALVE Structurally normal tricuspid valve. There is trace tricuspid valve regurgitation. The estimated pulmonary arterial pressure is 31 mmHg. PULMONARY VALVE No pulmonary valve regurgitation or stenosis. VESSELS The inferior vena cava is normal in size. PERICARDIUM No pericardial effusion. Jonathan Nolen MD, FACC, [facility] (Electronically Signed) Final Date:21 November 2017 17:37
[2017-11-22 00:10] LABS: Potassium 3.6 meq/L (3.5-5.1)
[2017-11-22 04:22] LABS: Baso % (Auto) 0.7 % (0.0-2.0); Eos # (Auto) 0.2 th/mm3 (0.0-0.4); Hematocrit 40.6 % (39.0-51.0); Hemoglobin 13.5 gm/dL (13.0-17.0); Lymph # (Auto) 0.9 th/mm3 (1.0-4.8); Lymph % (Auto) 15.2 % (9.0-44.0); Mean Corpuscular HGB Conc 33.2 % (32.0-36.0); Mean Corpuscular Hemoglobin 30.8 pg (27.0-34.0); Mean Corpuscular Volume 92.9 fL (80.0-100.0); Mean Platelet Volume 8.4 fL (7.0-11.0); Mono # (Auto) 0.7 th/mm3 (0.0-0.9); Mono % (Auto) 12.3 % (0.0-8.0); Neut % (Auto) 67.8 % (16.0-70.0); Platelet Count 190 th/mm3 (150-450); Red Blood Count 4.37 mil/mm3 (4.50-5.90); Red Cell Distribution Width 14.4 % (11.6-17.2); White Blood Count 5.9 th/mm3 (4.0-11.0)
[2017-11-22 04:44] LABS: Calcium 8.9 mg/dL (8.5-10.1); Carbon Dioxide 21.4 meq/L (21.0-32.0); Potassium 3.5 meq/L (3.5-5.1)
[2017-11-22 04:48] LABS: Chol/HDL Ratio 2.72 Ratio; HDL Cholesterol 49.5 mg/dL (40.0-60.0)
[2017-11-22] MEDS: Piperacil/Tazo 3.375 GM Premix 50 ML IV.SIG SCH (05:59)
[2017-11-22] MEDS: amLODIPine 10 MG Tablet PO SCH (09:17)
--- NOTE | 2017-11-22 09:23 | US ---
EXAM DATE: 11/22/2017 9:14 AM EDT AGE/SEX: 77 years / Male INDICATIONS: PreOP cardiac surgery. CLINICAL DATA: This is the patient's initial encounter. Patient reports that signs and symptoms have been present for 1 day and indicates a pain score of 0/10. MEDICAL/SURGICAL HISTORY: . Aneurysm, abdominal. Hypertension. Hyperlipidemia. Urethral strictu re. Abdominal aortic aneurysm repair. COMPARISON: No prior exams available for comparison. TECHNIQUE: Venous ultrasound of both lower extremities was performed from the inguinal ligament to t he proximal calf. Real-time, color Doppler and spectral tracing, compression and augmentation techni ques were used. FINDINGS: Right Leg: Normal compression of the deep venous system from the inguinal region to the proximal medina f. No echogenic clot is seen. Normal response of the venous system to augmentation and respiration. Left Leg: Normal compression of the deep venous system from the inguinal region to the proximal calf . No echogenic clot is seen. Normal response of the venous system to augmentation and respiration. Other: None. CONCLUSION: 1. The study is negative for bilateral lower extremity deep venous thrombosis. Electronically signed by: Lucretia Longoria MD 11/22/2017 9:22 AM EDT
--- NOTE | 2017-11-22 09:24 | US ---
EXAM DATE: 11/22/2017 9:17 AM EDT AGE/SEX: 77 years / Male INDICATIONS: PreOp cardiac surgery. CLINICAL DATA: This is the patient's initial encounter. Patient reports that signs and symptoms have been present for 1 day and indicates a pain score of 0/10. MEDICAL/SURGICAL HISTORY: . Aneurysm, abdominal. Hypertension. Hyperlipidemia. Urethral strictu re. Abdominal aortic aneurysm repair. COMPARISON: [facility] [place] VENOUS DOPPLER LEG BI, 11/22/2017. . MEASUREMENTS: RIGHT THIGH: Proximal:__4 mm Mid:__ 3 mm Distal:__4 mm LEFT THIGH: Proximal:__3 mm Mid:__3 mm Distal:__4 mm RIGHT CALF: Proximal:__3 mm Mid:__3 mm Distal:__3 mm LEFT CALF: Proximal:__3 mm Mid:__2 mm Distal:__2 mm FINDINGS: The venous system of the lower extremities are patent by color Doppler imaging. Measurements of the leg veins (in mm) are listed above. CONCLUSION: 1. The study is negative for lower extremity deep venous thrombosis. Electronically signed by: Lucretia Longoria MD 11/22/2017 9:23 AM EDT
--- NOTE | 2017-11-22 10:41 | P.PNIM ---
Subjective Interval history: 77-year-old male with a history of abdominal aortic aneurysm repair, hypertension, hyperlipidemia who presents with dysarthria, subjective right- sided weakness reported by . notes that patient fell out of bed around 3 AM, had difficulty getting up, was slurring speech, had difficulty getting words out. Patient and report that slurred speech has much improved, however still with some word finding difficulty and word confusion. Patient reports feeling all right. Denies any chest pain, shortness of breath, nausea, vomiting, fevers, chills, constipation, diarrhea, lightheadedness, dizziness. Patient does report a change in blood pressure meds yesterday. He reports that hydrochlorothiazide was discontinued, and started a new medication. He is not sure what this medication is. Patient did not have medication list with them. Patient denies any dysuria, however reports increased urination and urgency over the past 2 days. He reports history of multiple UTIs. Had urethral stricture dilation 3 years ago in [place]. 8-2 Follow Visit chronic kidney disease, possible TIA-dysarthria, right-sided weakness reported by , status post fall in bed at home, HTN, HLD. Patient seen and examined today. Reports left facial area feeling funny. States that he has slurred speech, unable to come up with words this morning prior to coming to the hospital. States he feels better right now. Sensations and motor function intact. Denies pain and discomfort. Denies SOB/ dyspnea. Denies chest pain, palpitations, headaches, dizziness. Denies fevers, chills, n/ v/d. Denies hematuria complaints of urgency, frequency, denies dysuria. 8-3 Follow-up visit Acute CVA, status post fall, chronic kidney disease, HTN, A. fib. Patient seen and examined today. at the bedside. Patient is status post cardiac cath. States he is doing well. Denies pain and discomfort. Denies SOB/ dyspnea. Denies chest pain, palpitations, headaches, dizziness. Denies fevers, chills, n/v/d. Denies dysuria. 8-4 wants to go home today DW RN AND PT AND CM DC TO HOME WILL DC ON ELIQUIS NEEDS FOLLOW UP WITH PCP, CVS AND CARDIOLOGY DC TO HOME TODAY Physical Exam Vital signs: Vital Signs 08/03/18 12:59 11/21/17 13:14 11/21/17 13:48 Temperature 98.7 F Pulse Rate 93 H 103 H 112 H Respiratory Rate 18 Blood Pressure 133/76 139/78 132/76 Pulse Oximetry 96 96 96 11/21/17 16:00 11/21/17 19:00 11/21/17 20:00 Temperature 98.9 F Pulse Rate 82 85 90 Respiratory Rate 20 16 Blood Pressure 141/71 H 133/80 Pulse Oximetry 96 96 11/21/17 21:00 11/21/17 22:00 11/21/17 22:36 Temperature Pulse Rate 90 88 Respiratory Rate Blood Pressure Pulse Oximetry 96 11/21/17 23:00 11/22/17 00:00 11/22/17 01:00 Temperature Pulse Rate 83 86 92 H Respiratory Rate 16 Blood Pressure 132/81 Pulse Oximetry 96 11/22/17 02:00 11/22/17 04:00 11/22/17 05:00 Temperature 98.1 F Pulse Rate 86 78 86 Respiratory Rate 16 Blood Pressure Pulse Oximetry 11/22/17 06:00 11/22/17 07:00 11/22/17 08:00 Temperature 97.8 F Pulse Rate 92 H 94 H 77 Respiratory Rate 16 Blood Pressure 121/69 Pulse Oximetry 95 95 Intake & Output 11/21/17 11/22/17 11/22/17 18:59 06:59 18:59 Intake Total 580 / 580 340 / 340 Output Total 200 / 200 300 / 300 Balance 380 / 380 40 / 40 Weight 88.8 kg Intake: IV 100 / 100 100 / 100 Zosyn 3.375 GM Premix 50 ML @ 100 / 100 100 / 100 100 mls/hr IV.SIG Q6H ASCENCION Rx#: [id number] Oral 480 / 480 240 / 240 Output: Urine 200 / 200 300 / 300 Other: Date of Last Bowel Movement 11/22/17 # Bowel Movements 2 Narrative: GENERAL: This is a well-nourished, well-developed patient, in no apparent distress. SKIN: Warm and dry HEENT: Normocephalic. Pupils equal round and reactive. No facial droop. Nose without bleeding. Airway patent. NECK: Trachea midline. Supple. CARDIOVASCULAR: Irregular heart rate without murmurs, gallops, or rubs. RESPIRATORY: Clear to auscultation. Breath sounds equal bilaterally. No wheezes , rales, or rhonchi. GASTROINTESTINAL: Abdomen soft, non-tender, nondistended. Bowel Sounds normoactive x4. MUSCULOSKELETAL: Extremities without clubbing, cyanosis, or edema. NEUROLOGICAL: Awake and alert. Oriented to time, place, person, president. Cranial nerves intact. Sensory and motor intact. Moves all extremities equally. Normal speech. Results - Labs CBC & Chem 7: 11/22/17 04:06 11/22/17 04:06 Laboratory Results - last 24 hr 11/20/17 11/21/17 11/21/17 04:10 03:13 03:13 WBC RBC Hgb Hct MCV MCH MCHC RDW Plt Count MPV Neut % (Auto) Lymph % (Auto) [place] % (Auto) Eos % (Auto) Baso % (Auto) Neut # (Auto) Lymph # (Auto) [place] # (Auto) Eos # (Auto) Baso # (Auto) WBC Differential Differential Comment Sodium Potassium Chloride Carbon Dioxide Anion Gap BUN Creatinine Estimated GFR Random Glucose Hemoglobin A1c 5.9 5.8 Calcium Magnesium Total Creatine Kinase Triglycerides Cholesterol LDL Cholesterol, Calc HDL Cholesterol Cholesterol/HDL Ratio Urine Color Yellow Urine Clarity Hazy H Urine pH 6.0 Ur Specific Norris 1.011 Urine Protein 100 H Urine Glucose (UA) Negative Urine Ketones Negative Urine Occult Blood Negative Urine Nitrate Positive H Urine Bilirubin Negative Urine Urobilinogen Less than 2 Ur Leukocyte Esterase Moderate H Urine RBC 1 Urine WBC 60 H Ur Squamous Epith Cells 2 Urine Bacteria Moderate H Hyaline Casts 4 Urine Mucus Few H Micro UA Comment Culture indicated Urine Culture Comments Culture indicated Nasal Screen MRSA (PCR) Blood Type Blood Type Recheck Antibody Screen 11/21/17 11/21/17 11/21/17 13:45 14:25 23:30 WBC RBC Hgb Hct MCV MCH MCHC RDW Plt Count MPV Neut % (Auto) Lymph % (Auto) [place] % (Auto) Eos % (Auto) Baso % (Auto) Neut # (Auto) Lymph # (Auto) [place] # (Auto) Eos # (Auto) Baso # (Auto) WBC Differential Differential Comment Sodium Potassium 3.6 Chloride Carbon Dioxide Anion Gap BUN Creatinine Estimated GFR Random Glucose Hemoglobin A1c Calcium Magnesium 2.0 Total Creatine Kinase Triglycerides Cholesterol LDL Cholesterol, Calc HDL Cholesterol Cholesterol/HDL Ratio Urine Color Urine Clarity Urine pH Ur Specific Norris Urine Protein Urine Glucose (UA) Urine Ketones Urine Occult Blood Urine Nitrate Urine Bilirubin Urine Urobilinogen Ur Leukocyte Esterase Urine RBC Urine WBC Ur Squamous Epith Cells Urine Bacteria Hyaline Casts Urine Mucus Micro UA Comment Urine Culture Comments Nasal Screen MRSA (PCR) Not detected Blood Type O Positive Blood Type Recheck Antibody Screen Negative 11/22/17 11/22/17 04:06 04:06 WBC 5.9 RBC 4.37 L Hgb 13.5 Hct 40.6 MCV 92.9 MCH 30.8 MCHC 33.2 RDW 14.4 Plt Count 190 MPV 8.4 Neut % (Auto) 67.8 Lymph % (Auto) 15.2 [place] % (Auto) 12.3 H Eos % (Auto) 4.0 Baso % (Auto) 0.7 Neut # (Auto) 4.0 Lymph # (Auto) 0.9 L [place] # (Auto) 0.7 Eos # (Auto) 0.2 Baso # (Auto) 0.0 WBC Differential . Differential Comment Auto diff final Sodium 145 Potassium 3.5 Chloride 113 H Carbon Dioxide 21.4 Anion Gap 11 BUN 16 Creatinine 1.18 Estimated GFR 73 L Random Glucose 97 Hemoglobin A1c Calcium 8.9 Magnesium Total Creatine Kinase 234 Triglycerides 87 Cholesterol 135 LDL Cholesterol, Calc 68 HDL Cholesterol 49.5 Cholesterol/HDL Ratio 2.72 Urine Color Urine Clarity Urine pH Ur Specific Norris Urine Protein Urine Glucose (UA) Urine Ketones Urine Occult Blood Urine Nitrate Urine Bilirubin Urine Urobilinogen Ur Leukocyte Esterase Urine RBC Urine WBC Ur Squamous Epith Cells Urine Bacteria Hyaline Casts Urine Mucus Micro UA Comment Urine Culture Comments Nasal Screen MRSA (PCR) Blood Type Blood Type Recheck Antibody Screen Microbiology 11/20/17 04:10 Clean Catch Urine Urine Culture - Preliminary gram negative rods Group D Enterococcus 11/20/17 04:50 Blood - Peripheral Aerobic Blood Culture - Preliminary No growth in 1 day 11/20/17 04:50 Blood - Peripheral Anaerobic Blood Culture - Preliminary No growth in 1 day 11/20/17 05:00 Blood - Peripheral Aerobic Blood Culture - Preliminary No growth in 1 day 11/20/17 05:00 Blood - Peripheral Anaerobic Blood Culture - Preliminary No growth in 1 day - Imaging Impressions Lower Extremity Ultrasound 11/22/17 11:41 CONCLUSION: 1. The study is negative for lower extremity deep venous thrombosis. Venous Doppler Study 11/22/17 11:41 CONCLUSION: 1. The study is negative for bilateral lower extremity deep venous thrombosis. - Procedures 11/21/2017 PROCEDURE PERFORMED: Left heart catheterization, left ventriculography, coronary angiography IVUS of the left main and PCI bare metal stent of the proximal LAD. INDICATIONS: Syncope, severe 3-vessel left main disease, cerebrovascular accident on this admission, cardiomyopathy, peripheral vascular disease, anginal equivalent, resting [address] segment depression anterolaterally and inferiorly on the EKG. PROCEDURAL SUMMARY: The patient was brought to the cardiac catheterization laboratory, prepped and draped in the usual sterile fashion. 10 mL of 1% lidocaine was used to locally anesthetize the right common femoral artery. A 4-Montenegrin sheath was placed in the right common femoral artery, 4-Montenegrin JR4 and JL6 catheters were used to perform left and right coronary angiography, left ventriculography. FINDINGS: The LV pressures 140/11-12, ejection fraction 45%. LEFT VENTRICLE: Left ventricle appears to be mildly dilated fluoroscopically. The right coronary artery is dominant, has a proximal 60-70% stenosis. Moderate diffuse disease throughout the mid segment up to 40-50% angiographically. The right MONTRELL has a proximal mid 90% stenosis at a bifurcation of a small 1 mm medial branch. The more lateral branch of the MONTRELL has an ostial 90% stenosis and transitions into a reference vessel diameter of about 3 mm, which then itself bifurcates into a more lateral branch, which is about a 2.5 mm vessel, which itself has an ostial 90% stenosis. The more medial branch is a 1.5 mm vessel with no significant disease angiographically. The right PDA is a large vessel, probably 3-1/2 to 4 mm with no significant focal stenosis. The left main coronary artery has a distal 60-70% stenosis. Left circumflex vessel has approximately an 8 mm subtotally obstructed lesion. It is estimated the lesion is 95+ percent with slightly less than KASANDRA-3 flow into the distal left circ. Beyond this lesion, there is a small to medium size distal obtuse marginal vessel with no significant disease and a small posterolateral artery, which is a 1 mm reference vessel diameter. No significant disease angiographically. Just proximal to the lesion, there is a small obtuse marginal vessel, 1.5 mm reference vessel diameter with an ostial 95% stenosis. The LAD has what appears to be angiographically an 95% proximal stenosis. It is a large vessel, 4 mm reference vessel diameter of transapical. First diagonal artery has about a 30 degree angulation off the LAD and has a long ostial proximal 95% stenosis. It appears to be about a 2-2.5 mm reference vessel diameter. There is actually a filling defect that I would estimate to be at least 5-10 mm, but flow is KASANDRA 2-3 into the vessel. DISCUSSION: I reviewed the films with Dr. Latha Knott. Due to the patient's recent CVA, Dr. Knott felt that the patient was too high a risk for CABG in the acute or subacute setting. Therefore, we both agree that the most optimal approach was stenting the most high risk lesion amenable to stenting, which is the proximal LAD. The patient presented with an acute CVA. In order to define with certainty whether or not the left main was significant, I do think it was medically necessary to perform IVUS of the distal left main. Therefore, a 6-Montenegrin sheath was exchanged for the 4-Montenegrin sheath. 70 units/kg of heparin was given. ACT initially was 266. A 6-Montenegrin EBU-5 and the 0.014 [place] guidewire was placed into the distal LAD. I placed the IVUS catheter tip just beyond the guide. We did a ring down. I then advanced the IVUS catheter into the proximal LAD. We did a recorded pullback. Minimal luminal area of the distal left main just proximal to the bifurcation of the LAD and circ was 4.5 mm2. At that point in time, the patient met criteria for CABG, therefore, I called CT surgery and discussed the case with Dr. Knott. Dr. Knott came down and reviewed the films. Dr. Knott's assessment was that the patient was too high a risk for CABG in the acute or subacute setting due to recent CVA and therefore, we both agree that the risk/benefit ratio was most favorable for stenting the most high risk lesion amenable to PCI, which was the proximal LAD. Therefore, I attempted to deliver a 4.0 x 8 Integrity stent directly, but due to this stenosis severity, I could not cross the lesion and I did image and there was actually no flow of contrast around the stent suggesting that the lesion may have actually been more than 95%. I then proceeded to predilate the lesion with a 4.0 x 6 noncompliant Euphora balloon with 1 inflation of 8 atmospheres for 20 seconds and then was able to deliver the 4.0 x 12 Integrity stent, deployed 1 inflation 11 atmospheres for 20 seconds. The stenosis went from 95% to 0% with KASANDRA 3 flow. CONCLUSIONS: 1. Syncope with 2-[address] diffuse [address] segment depression on resting EKG 2. Severe 3-vessel coronary artery disease and severe distal left main disease as detailed above. 3. Cardiomyopathy with mild dilatation fluoroscopically and EF estimated at 45%. 4. Successful PCI bare metal stent of the proximal LAD from 95% to 0% with KASANDRA 3 flow. 5. Recommend Plavix 600 mg p.o. load then 75 mg a day for 12-15 months. 6. Aspirin 162 mg daily. Note, the patient was also given additional 3000 units of heparin after the IVUS. I am holding Aggrastat as I used a 4.0 mm stent and the patient had a recent CVA. I did discuss with Dr. Knott that the patient will be [id number] risk to hold aspirin and Plavix for elective CABG in 4-6 weeks, particularly as the stent is a wide diameter stent at 4.0 mm blown up at 11 atmospheres, relatively short of 12 mm. Otherwise, recommend medical management of coronary artery disease. Treat lipids per NCCP guidelines. Jonathan Nolen MD Assessment and Plan - Assessment (1) Acute UTI Code(s): N39.0 - Urinary tract infection, site not specified Status: Acute (2) Acute alteration in mental status Code(s): R41.82 - Altered mental status, unspecified Status: Acute - Plan 77-year-old male with a history of abdominal aortic aneurysm repair, hypertension, hyperlipidemia who presents with dysarthria, subjective right- sided weakness reported by . CVA, acute - Tiny left insula region Dysarthria -Patient does not have brisa weakness, however does have right-sided pronator drift. -CT head negative, however due to exam findings will order MRI, get neurology consult. -Aspirin given -MRI of the brain Single 5 mm focus of restricted diffusion in the left insula consistent with a small acute infarction. 2. Otherwise, the rest the examination is unremarkable for patient's age. -MRA neck showed No evidence of hemodynamic significant lesion. There is 0- 10% stenosis on the right and 0-10% stenosis on the left. -EEG normal appearing electroencephalogram. No evidence of any epileptiform features in this one recording. -Neuro consult. Recommends to use Eliquis 5 mg twice daily after cath -cardiology consulted. Plan for cardiac cath done today, bare-metal stent placed to the LAD. CV surgery Consulted. -CV surgery evaluated patient will need coronary artery bypass grafting 3 to LAD, diagonal, and circumflex. To be evaluated in their office in 2 weeks and will require clearance from neurology as timing of the surgery after recent stroke. A. fib Patient also had nonsustained V. tach -[id number] -Check echo, -Eliquis 5 mg twice daily, aspirin, Plavix tomorrow UTI, acute -Significant white blood cells on urinalysis with increased urinary urgency recently -Started on Zosyn -No hydronephrosis on US of the kidneys -Culture growing gram-negative rods, group D enterococcus continue with Zosyn for now. Switch to p.o. antibiotic when sensitivity comes. SWITCH TO AUGMENTIN AT DC Acute kidney injury -Possibly secondary to UTI -Avoid nephrotoxins -Monitor renal indicis Hypertension -Restart home medication Norvasc 10 mg daily, losartan 100 mg daily, propranolol 80 mg daily -Monitor BP trend DVT prop will be on Eliquis, SCDs for DC TO HOME TODAY Code Status: FULL CODE Discussed Condition With: RN AND PT AND FAMILY AND CM Discharge Planning: DC TO HOME
--- NOTE | 2017-11-22 10:51 | P.DS ---
Date of admission: 11/20/17 05:30 Primary care physician: Khadra Ruiz MD Attending physician on discharge: Abel Corey Anticipated date of discharge: 11/22/17 Brief History from admission: 77-year-old male with a history of abdominal aortic aneurysm repair, hypertension, hyperlipidemia who presents with dysarthria, subjective right- sided weakness reported by . notes that patient fell out of bed around 3 AM, had difficulty getting up, was slurring speech, had difficulty getting words out. Patient and report that slurred speech has much improved, however still with some word finding difficulty and word confusion. Patient reports feeling all right. Denies any chest pain, shortness of breath, nausea, vomiting, fevers, chills, constipation, diarrhea, lightheadedness, dizziness. Patient does report a change in blood pressure meds yesterday. He reports that hydrochlorothiazide was discontinued, and started a new medication. He is not sure what this medication is. Patient did not have medication list with them. Patient denies any dysuria, however reports increased urination and urgency over the past 2 days. He reports history of multiple UTIs. Had urethral stricture dilation 3 years ago in [place]. DS: Diagnosis - Discharge Diagnosis (1) Acute UTI Status: Acute (2) Acute alteration in mental status Status: Acute (3) CAD (coronary artery disease) Status: Acute (4) CVA (cerebral vascular accident) Status: Acute DS: Medications - Discharge Medications Prescriptions: amlodipine 10 mg PO DAILY #30 tab amoxicillin-pot clavulanate [Augmentin] 1 tab PO Q12H #16 tab apixaban [Eliquis] 5 mg PO BID #60 tab aspirin 81 mg PO DAILY #30 tab atorvastatin 20 mg PO DAILY #30 tab clopidogrel [Plavix] 75 mg PO DAILY #30 tab olmesartan 40 mg PO DAILY #30 tab propranolol 80 mg PO DAILY #30 cap DS: Summary Hospital Course: 77-year-old male with a history of abdominal aortic aneurysm repair, hypertension, hyperlipidemia who presents with dysarthria, subjective right- sided weakness reported by . notes that patient fell out of bed around 3 AM, had difficulty getting up, was slurring speech, had difficulty getting words out. Patient and report that slurred speech has much improved, however still with some word finding difficulty and word confusion. Patient reports feeling all right. Denies any chest pain, shortness of breath, nausea, vomiting, fevers, chills, constipation, diarrhea, lightheadedness, dizziness. Patient does report a change in blood pressure meds yesterday. He reports that hydrochlorothiazide was discontinued, and started a new medication. He is not sure what this medication is. Patient did not have medication list with them. Patient denies any dysuria, however reports increased urination and urgency over the past 2 days. He reports history of multiple UTIs. Had urethral stricture dilation 3 years ago in [place]. 8-2 Follow Visit chronic kidney disease, possible TIA-dysarthria, right-sided weakness reported by , status post fall in bed at home, HTN, HLD. Patient seen and examined today. Reports left facial area feeling funny. States that he has slurred speech, unable to come up with words this morning prior to coming to the hospital. States he feels better right now. Sensations and motor function intact. Denies pain and discomfort. Denies SOB/ dyspnea. Denies chest pain, palpitations, headaches, dizziness. Denies fevers, chills, n/ v/d. Denies hematuria complaints of urgency, frequency, denies dysuria. 8-3 Follow-up visit Acute CVA, status post fall, chronic kidney disease, HTN, A. fib. Patient seen and examined today. at the bedside. Patient is status post cardiac cath. States he is doing well. Denies pain and discomfort. Denies SOB/ dyspnea. Denies chest pain, palpitations, headaches, dizziness. Denies fevers, chills, n/v/d. Denies dysuria. 8-4 wants to go home today LUCY RN AND PT AND CM DC TO HOME WILL DC ON ELIQU[facility] NEEDS FOLLOW UP WITH PCP, CVS AND CARDIOLOGY DC TO HOME TODAY - Time Spent with Patient Total time spent providing and/or coordinating discharge services: Greater than 30 minutes - Quality: VTE Deep Vein Thrombosis/Pulmonary Embolism Present on Admission: No Exam Vital signs: Vital Signs 11/21/17 12:59 11/21/17 13:14 11/21/17 13:48 Temperature 98.7 F Pulse Rate 93 H 103 H 112 H Respiratory Rate 18 Blood Pressure 133/76 139/78 132/76 Pulse Oximetry 96 96 96 11/21/17 16:00 11/21/17 19:00 11/21/17 20:00 Temperature 98.9 F Pulse Rate 82 85 90 Respiratory Rate 20 16 Blood Pressure 141/71 H 133/80 Pulse Oximetry 96 96 11/21/17 21:00 11/21/17 22:00 11/21/17 22:36 Temperature Pulse Rate 90 88 Respiratory Rate Blood Pressure Pulse Oximetry 96 11/21/17 23:00 11/22/17 00:00 11/22/17 01:00 Temperature Pulse Rate 83 86 92 H Respiratory Rate 16 Blood Pressure 132/81 Pulse Oximetry 96 11/22/17 02:00 11/22/17 04:00 11/22/17 05:00 Temperature 98.1 F Pulse Rate 86 78 86 Respiratory Rate 16 Blood Pressure Pulse Oximetry 11/22/17 06:00 11/22/17 07:00 11/22/17 08:00 Temperature 97.8 F Pulse Rate 92 H 94 H 77 Respiratory Rate 16 Blood Pressure 121/69 Pulse Oximetry 95 95 Intake & Output 11/21/17 11/22/17 11/22/17 18:59 06:59 18:59 Intake Total 580 / 580 340 / 340 Output Total 200 / 200 300 / 300 Balance 380 / 380 40 / 40 Weight 88.8 kg Intake: IV 100 / 100 100 / 100 Zosyn 3.375 GM Premix 50 ML @ 100 / 100 100 / 100 100 mls/hr IV.SIG Q6H [facility] Rx#: [id number] Oral 480 / 480 240 / 240 Output: Urine 200 / 200 300 / 300 Other: Date of Last Bowel Movement 11/22/17 # Bowel Movements 2 Narrative: GENERAL: This is a well-nourished, well-developed patient, in no apparent distress. SKIN: Warm and dry HEENT: Normocephalic. Pupils equal round and reactive. No facial droop. Nose without bleeding. Airway patent. NECK: Trachea midline. Supple. CARDIOVASCULAR: Irregular heart rate without murmurs, gallops, or rubs. RESPIRATORY: Clear to auscultation. Breath sounds equal bilaterally. No wheezes , rales, or rhonchi. GASTROINTESTINAL: Abdomen soft, non-tender, nondistended. Bowel Sounds normoactive x4. MUSCULOSKELETAL: Extremities without clubbing, cyanosis, or edema. NEUROLOGICAL: Awake and alert. Oriented to time, place, person, president. Cranial nerves intact. Sensory and motor intact. Moves all extremities equally. Normal speech. Results Procedures completed during hospitalization: 11/21/2017 PROCEDURE PERFORMED: Left heart catheterization, left ventriculography, coronary angiography IVUS of the left main and PCI bare metal stent of the proximal LAD. INDICATIONS: Syncope, severe 3-vessel left main disease, cerebrovascular accident on this admission, cardiomyopathy, peripheral vascular disease, anginal equivalent, resting [address] segment depression anterolaterally and inferiorly on the EKG. PROCEDURAL SUMMARY: The patient was brought to the cardiac catheterization laboratory, prepped and draped in the usual sterile fashion. 10 mL of 1% lidocaine was used to locally anesthetize the right common femoral artery. A 4-Uzbek sheath was placed in the right common femoral artery, 4-Uzbek JR4 and JL6 catheters were used to perform left and right coronary angiography, left ventriculography. FINDINGS: The LV pressures 140/11-12, ejection fraction 45%. LEFT VENTRICLE: Left ventricle appears to be mildly dilated fluoroscopically. The right coronary artery is dominant, has a proximal 60-70% stenosis. Moderate diffuse disease throughout the mid segment up to 40-50% angiographically. The right MONTRELL has a proximal mid 90% stenosis at a bifurcation of a small 1 mm medial branch. The more lateral branch of the MONTRELL has an ostial 90% stenosis and transitions into a reference vessel diameter of about 3 mm, which then itself bifurcates into a more lateral branch, which is about a 2.5 mm vessel, which itself has an ostial 90% stenosis. The more medial branch is a 1.5 mm vessel with no significant disease angiographically. The right PDA is a large vessel, probably 3-1/2 to 4 mm with no significant focal stenosis. The left main coronary artery has a distal 60-70% stenosis. Left circumflex vessel has approximately an 8 mm subtotally obstructed lesion. It is estimated the lesion is 95+ percent with slightly less than KASANDRA-3 flow into the distal left circ. Beyond this lesion, there is a small to medium size distal obtuse marginal vessel with no significant disease and a small posterolateral artery, which is a 1 mm reference vessel diameter. No significant disease angiographically. Just proximal to the lesion, there is a small obtuse marginal vessel, 1.5 mm reference vessel diameter with an ostial 95% stenosis. The LAD has what appears to be angiographically an 95% proximal stenosis. It is a large vessel, 4 mm reference vessel diameter of transapical. First diagonal artery has about a 30 degree angulation off the LAD and has a long ostial proximal 95% stenosis. It appears to be about a 2-2.5 mm reference vessel diameter. There is actually a filling defect that I would estimate to be at least 5-10 mm, but flow is KASANDRA 2-3 into the vessel. DISCUSSION: I reviewed the films with Dr. Latha Knott. Due to the patient's recent CVA, Dr. Knott felt that the patient was too high a risk for CABG in the acute or subacute setting. Therefore, we both agree that the most optimal approach was stenting the most high risk lesion amenable to stenting, which is the proximal LAD. The patient presented with an acute CVA. In order to define with certainty whether or not the left main was significant, I do think it was medically necessary to perform IVUS of the distal left main. Therefore, a 6-Uzbek sheath was exchanged for the 4-Uzbek sheath. 70 units/kg of heparin was given. ACT initially was 266. A 6-Uzbek EBU-5 and the 0.014 [place] guidewire was placed into the distal LAD. I placed the IVUS catheter tip just beyond the guide. We did a ring down. I then advanced the IVUS catheter into the proximal LAD. We did a recorded pullback. Minimal luminal area of the distal left main just proximal to the bifurcation of the LAD and circ was 4.5 mm2. At that point in time, the patient met criteria for CABG, therefore, I called CT surgery and discussed the case with Dr. Knott. Dr. Knott came down and reviewed the films. Dr. Knott's assessment was that the patient was too high a risk for CABG in the acute or subacute setting due to recent CVA and therefore, we both agree that the risk/benefit ratio was most favorable for stenting the most high risk lesion amenable to PCI, which was the proximal LAD. Therefore, I attempted to deliver a 4.0 x 8 Integrity stent directly, but due to this stenosis severity, I could not cross the lesion and I did image and there was actually no flow of contrast around the stent suggesting that the lesion may have actually been more than 95%. I then proceeded to predilate the lesion with a 4.0 x 6 noncompliant Euphora balloon with 1 inflation of 8 atmospheres for 20 seconds and then was able to deliver the 4.0 x 12 Integrity stent, deployed 1 inflation 11 atmospheres for 20 seconds. The stenosis went from 95% to 0% with KASANDRA 3 flow. CONCLUSIONS: 1. Syncope with 2-[address] diffuse [address] segment depression on resting EKG 2. Severe 3-vessel coronary artery disease and severe distal left main disease as detailed above. 3. Cardiomyopathy with mild dilatation fluoroscopically and EF estimated at 45%. 4. Successful PCI bare metal stent of the proximal LAD from 95% to 0% with KASANDRA 3 flow. 5. Recommend Plavix 600 mg p.o. load then 75 mg a day for 12-15 months. 6. Aspirin 162 mg daily. Note, the patient was also given additional 3000 units of heparin after the IVUS. I am holding Aggrastat as I used a 4.0 mm stent and the patient had a recent CVA. I did discuss with Dr. Knott that the patient will be [id number] risk to hold aspirin and Plavix for elective CABG in 4-6 weeks, particularly as the stent is a wide diameter stent at 4.0 mm blown up at 11 atmospheres, relatively short of 12 mm. Otherwise, recommend medical management of coronary artery disease. Treat lipids per NCCP guidelines. Jonathan Nolen MD Completed studies during hospitalization: Laboratory Results WBC 5.9 th/mm3 (4.0-11.0) 11/22/17 04:06 RBC 4.37 mil/mm3 (4.50-5.90) L 11/22/17 04:06 Hgb 13.5 gm/dL (13.0-17.0) 11/22/17 04:06 Hct 40.6 % (39.0-51.0) 11/22/17 04:06 MCV 92.9 fL (80.0-100.0) 11/22/17 04:06 MCH 30.8 pg (27.0-34.0) 11/22/17 04:06 MCHC 33.2 % (32.0-36.0) 11/22/17 04:06 RDW 14.4 % (11.6-17.2) 11/22/17 04:06 Plt Count 190 th/mm3 (150-450) 11/22/17 04:06 MPV 8.4 fL (7.0-11.0) 11/22/17 04:06 Neut % (Auto) 67.8 % (16.0-70.0) 11/22/17 04:06 Lymph % (Auto) 15.2 % (9.0-44.0) 11/22/17 04:06 [place] % (Auto) 12.3 % (0.0-8.0) H 11/22/17 04:06 Eos % (Auto) 4.0 % (0.0-4.0) 11/22/17 04:06 Baso % (Auto) 0.7 % (0.0-2.0) 11/22/17 04:06 Neut # (Auto) 4.0 th/mm3 (1.8-7.7) 11/22/17 04:06 Lymph # (Auto) 0.9 th/mm3 (1.0-4.8) L 11/22/17 04:06 [place] # (Auto) 0.7 th/mm3 (0.0-0.9) 11/22/17 04:06 Eos # (Auto) 0.2 th/mm3 (0.0-0.4) 11/22/17 04:06 Baso # (Auto) 0.0 th/mm3 (0.0-0.2) 11/22/17 04:06 WBC Differential . 11/22/17 04:06 Differential Comment Auto diff final 11/22/17 04:06 PT 10.2 sec (9.8-11.6) 11/20/17 03:40 INR 1.0 Ratio 11/20/17 03:40 APTT 23.7 sec (24.3-30.1) L 11/20/17 03:40 Sodium 145 meq/L (136-145) 11/22/17 04:06 Potassium 3.5 meq/L (3.5-5.1) 11/22/17 04:06 Chloride 113 meq/L (98-107) H 11/22/17 04:06 Carbon Dioxide 21.4 meq/L (21.0-32.0) 11/22/17 04:06 Anion Gap 11 meq/L (5-15) 11/22/17 04:06 BUN 16 mg/dL (7-18) 11/22/17 04:06 Creatinine 1.18 mg/dL (0.60-1.30) 11/22/17 04:06 Estimated GFR 73 mL/min (>89) L 11/22/17 04:06 POC Glucose 101 mg/dl (68-110) 11/20/17 13:38 Random Glucose 97 mg/dL (74-106) 11/22/17 04:06 Hemoglobin A1c 5.9 % (4.3-6.0) 11/21/17 03:13 Lactic Acid 1.4 mmol/L (0.4-2.0) 11/20/17 05:03 Calcium 8.9 mg/dL (8.5-10.1) 11/22/17 04:06 Magnesium 2.0 mg/dL (1.5-2.5) 11/21/17 23:30 Total Bilirubin 1.5 mg/dL (0.2-1.0) H 11/21/17 03:13 AST 17 U/L (15-37) 11/21/17 03:13 ALT 20 U/L (12-78) 11/21/17 03:13 Alkaline Phosphatase 78 U/L (45-117) 11/21/17 03:13 Total Creatine Kinase 234 U/L (39-308) 11/22/17 04:06 Troponin I Less than 0.02 ng/mL (0.02-0.05) L 11/20/17 03:40 Total Protein 6.8 g/dL (6.4-8.2) D 11/21/17 03:13 Albumin 3.1 g/dL (3.4-5.0) L D 11/21/17 03:13 Triglycerides 87 mg/dL (42-150) 11/22/17 04:06 Cholesterol 135 mg/dL (120-200) 11/22/17 04:06 LDL Cholesterol, Calc 68 mg/dL (0-99) 11/22/17 04:06 HDL Cholesterol 49.5 mg/dL (40.0-60.0) 11/22/17 04:06 Cholesterol/HDL Ratio 2.72 Ratio 11/22/17 04:06 Vitamin B12 306 pg/mL (193-986) 11/20/17 03:40 TSH 5.720 uIU/mL (0.358-3.740) H 11/20/17 03:40 Thyroxine (T4) 9.6 mcg/dL (4.5-12.1) 11/20/17 03:40 Urine Color Yellow (Yellw/Straw) 11/20/17 04:10 Urine Clarity Hazy (Clear) H 11/20/17 04:10 Urine pH 6.0 (5.0-8.5) 11/20/17 04:10 Ur Specific [place] 1.011 (1.002-1.035) 11/20/17 04:10 Urine Protein 100 mg/dL (Neg-Trace) H 11/20/17 04:10 Urine Glucose (UA) Negative mg/dL (Negative) 11/20/17 04:10 Urine Ketones Negative mg/dL (Negative) 11/20/17 04:10 Urine Occult Blood Negative (Negative) 11/20/17 04:10 Urine Nitrate Positive (Negative) H 11/20/17 04:10 Urine Bilirubin Negative (Negative) 11/20/17 04:10 Urine Urobilinogen Less than 2 mg/dL (Less than 2) 11/20/17 04:10 Ur Leukocyte Esterase Moderate (Negative) H 11/20/17 04:10 Urine RBC 1 /hpf (0-3) 11/20/17 04:10 Urine WBC 60 /hpf (0-5) H 11/20/17 04:10 Ur Squamous Epith Cells 2 /hpf (0-5) 11/20/17 04:10 Urine Bacteria Moderate /hpf (None) H 11/20/17 04:10 Hyaline Casts 4 /lpf (0-3) 11/20/17 04:10 Urine Mucus Few /lpf (Occasional) H 11/20/17 04:10 Micro UA Comment Culture indicated 11/20/17 04:10 Urine Culture Comments Culture indicated 11/20/17 04:10 Nasal Screen MRSA (PCR) Not detected (Negative) 11/21/17 13:45 Blood Type O Positive 11/21/17 14:25 Blood Type Recheck 11/21/17 14:25 Antibody Screen Negative 11/21/17 14:25 Impressions Abdomen/Bladder Ultrasound 11/20/17 00:00 CONCLUSION: 1. Echogenic kidneys consistent with medical renal disease. 2. 6 mm nonobstructing calyceal calculus in the mid right kidney. 3. Mild diffuse bladder wall thickening which may reflect some degree of bladder outlet obstruction. Carotid Doppler Study 11/20/17 00:00 CONCLUSION: 1. Right Internal Carotid Artery: Findings indicate <50% stenosis. 2. Left Internal Carotid Artery: Findings indicate <50% stenosis. Head MRI 11/20/17 00:00 CONCLUSION: 1. Single 5 mm focus of restricted diffusion in the left insula consistent with a small acute infarction. 2. Otherwise, the rest the examination is unremarkable for patient's age. Neck MRA 11/20/17 00:00 CONCLUSION: No evidence of hemodynamic significant lesion. There is 0-10% stenosis on the right and 0-10% stenosis on the left. Percent stenosis is calculated using the diameter of the stenotic region over the diameter of the normal distal internal carotid artery Chest X-Ray 11/20/17 03:36 CONCLUSION: 1. No acute cardiopulmonary disease. 2. The heart size appears mildly prominent with no pulmonary edema. Head CT 11/20/17 03:36 CONCLUSION: 1. Negative trauma study. . Head MRA 11/20/17 06:18 CONCLUSION: Unremarkable MR angiography of the brain. Lower Extremity Ultrasound 11/22/17 11:41 CONCLUSION: 1. The study is negative for lower extremity deep venous thrombosis. Venous Doppler Study 11/22/17 11:41 CONCLUSION: 1. The study is negative for bilateral lower extremity deep venous thrombosis. Labs on day of discharge: Labs from last 24 hours 0811/22/17 11/21/17 04:06 04:06 23:30 WBC 5.9 RBC 4.37 L Hgb 13.5 Hct 40.6 MCV 92.9 MCH 30.8 MCHC 33.2 RDW 14.4 Plt Count 190 MPV 8.4 Neut % (Auto) 67.8 Lymph % (Auto) 15.2 [place] % (Auto) 12.3 H Eos % (Auto) 4.0 Baso % (Auto) 0.7 Neut # (Auto) 4.0 Lymph # (Auto) 0.9 L [place] # (Auto) 0.7 Eos # (Auto) 0.2 Baso # (Auto) 0.0 WBC Differential . Differential Comment Auto diff final Sodium 145 Potassium 3.5 3.6 Chloride 113 H Carbon Dioxide 21.4 Anion Gap 11 BUN 16 Creatinine 1.18 Estimated GFR 73 L Random Glucose 97 Hemoglobin A1c Calcium 8.9 Magnesium 2.0 Total Creatine Kinase 234 Triglycerides 87 Cholesterol 135 LDL Cholesterol, Calc 68 HDL Cholesterol 49.5 Cholesterol/HDL Ratio 2.72 Urine Color Urine Clarity Urine pH Ur Specific [place] Urine Protein Urine Glucose (UA) Urine Ketones Urine Occult Blood Urine Nitrate Urine Bilirubin Urine Urobilinogen Ur Leukocyte Esterase Urine RBC Urine WBC Ur Squamous Epith Cells Urine Bacteria Hyaline Casts Urine Mucus Micro UA Comment Urine Culture Comments Nasal Screen MRSA (PCR) Blood Type Blood Type Recheck Antibody Screen 11/21/17 11/21/17 11/21/17 14:25 13:45 03:13 WBC RBC Hgb Hct MCV MCH MCHC RDW Plt Count MPV Neut % (Auto) Lymph % (Auto) [place] % (Auto) Eos % (Auto) Baso % (Auto) Neut # (Auto) Lymph # (Auto) [place] # (Auto) Eos # (Auto) Baso # (Auto) WBC Differential Differential Comment Sodium Potassium Chloride Carbon Dioxide Anion Gap BUN Creatinine Estimated GFR Random Glucose Hemoglobin A1c 5.8 Calcium Magnesium Total Creatine Kinase Triglycerides Cholesterol LDL Cholesterol, Calc HDL Cholesterol Cholesterol/HDL Ratio Urine Color Urine Clarity Urine pH Ur Specific [place] Urine Protein Urine Glucose (UA) Urine Ketones Urine Occult Blood Urine Nitrate Urine Bilirubin Urine Urobilinogen Ur Leukocyte Esterase Urine RBC Urine WBC Ur Squamous Epith Cells Urine Bacteria Hyaline Casts Urine Mucus Micro UA Comment Urine Culture Comments Nasal Screen MRSA (PCR) Not detected Blood Type O Positive Blood Type Recheck Antibody Screen Negative 11/21/17 11/20/17 03:13 04:10 WBC RBC Hgb Hct MCV MCH MCHC RDW Plt Count MPV Neut % (Auto) Lymph % (Auto) [place] % (Auto) Eos % (Auto) Baso % (Auto) Neut # (Auto) Lymph # (Auto) [place] # (Auto) Eos # (Auto) Baso # (Auto) WBC Differential Differential Comment Sodium Potassium Chloride Carbon Dioxide Anion Gap BUN Creatinine Estimated GFR Random Glucose Hemoglobin A1c 5.9 Calcium Magnesium Total Creatine Kinase Triglycerides Cholesterol LDL Cholesterol, Calc HDL Cholesterol Cholesterol/HDL Ratio Urine Color Yellow Urine Clarity Hazy H Urine pH 6.0 Ur Specific [place] 1.011 Urine Protein 100 H Urine Glucose (UA) Negative Urine Ketones Negative Urine Occult Blood Negative Urine Nitrate Positive H Urine Bilirubin Negative Urine Urobilinogen Less than 2 Ur Leukocyte Esterase Moderate H Urine RBC 1 Urine WBC 60 H Ur Squamous Epith Cells 2 Urine Bacteria Moderate H Hyaline Casts 4 Urine Mucus Few H Micro UA Comment Culture indicated Urine Culture Comments Culture indicated Nasal Screen MRSA (PCR) Blood Type Blood Type Recheck Antibody Screen Preliminary micro results at discharge 11/20/17 04:10 Urine Culture - Preliminary Clean Catch Urine gram negative rods Group D Enterococcus 11/20/17 04:50 Aerobic Blood Culture - Preliminary Blood - Peripheral No growth in 1 day Anaerobic Blood Culture - Preliminary No growth in 1 day 11/20/17 05:00 Aerobic Blood Culture - Preliminary Blood - Peripheral No growth in 1 day Anaerobic Blood Culture - Preliminary No growth in 1 day - Impressions ITS Impressions Abdomen/Bladder Ultrasound 11/20/17 00:00 CONCLUSION: 1. Echogenic kidneys consistent with medical renal disease. 2. 6 mm nonobstructing calyceal calculus in the mid right kidney. 3. Mild diffuse bladder wall thickening which may reflect some degree of bladder outlet obstruction. Carotid Doppler Study 11/20/17 00:00 CONCLUSION: 1. Right Internal Carotid Artery: Findings indicate <50% stenosis. 2. Left Internal Carotid Artery: Findings indicate <50% stenosis. Head MRI 11/20/17 00:00 CONCLUSION: 1. Single 5 mm focus of restricted diffusion in the left insula consistent with a small acute infarction. 2. Otherwise, the rest the examination is unremarkable for patient's age. Neck MRA 11/20/17 00:00 CONCLUSION: No evidence of hemodynamic significant lesion. There is 0-10% stenosis on the right and 0-10% stenosis on the left. Percent stenosis is calculated using the diameter of the stenotic region over the diameter of the normal distal internal carotid artery Chest X-Ray 11/20/17 03:36 CONCLUSION: 1. No acute cardiopulmonary disease. 2. The heart size appears mildly prominent with no pulmonary edema. Head CT 11/20/17 03:36 CONCLUSION: 1. Negative trauma study. . Head MRA 11/20/17 06:18 CONCLUSION: Unremarkable MR angiography of the brain. Lower Extremity Ultrasound 11/22/17 11:41 CONCLUSION: 1. The study is negative for lower extremity deep venous thrombosis. Venous Doppler Study 11/22/17 11:41 CONCLUSION: 1. The study is negative for bilateral lower extremity deep venous thrombosis. Discharge Plan - Discharge Disposition Patient Disposition: 01 Discharge Home - Discharge Condition Condition: Stable - Discharge Order Discharge Orders: Discharge Order (Routine); Ordered 11/22/17 Ordered By: Abel Corey - Discharge Details Anticipated Discharge Date: 11/22/17 Discharge Comment: DC TO HOME - Physicians Team Primary Care Provider: Khadra Ruiz Attending Provider: Abel Corey Other Providers: Jony Leslie MD ; [employer],Insurance ; Jonathan Nolen MD ; Nellie Inman MD
[2017-11-22] MEDS: Propranolol LA 80 MG Capsule PO SCH (11:09)
[2017-11-25 18:06] VITALS: BP 121/69; PULSE 90; TEMP 97.8; O2SAT 95
[2017-11-25 18:21] VITALS: RESP 16
== END 2017-11-22 11:49 | disposition home or self-care (01) ==
LOC: NEPE 03:30 → HCIS 03:30 → NEDA 03:30 → NEPGCP 06:48 → HCIS 11-21 09:13
PROVIDERS: ADMIT Hospitalist; ATTEND Hospitalist

== ENCOUNTER 2017-12-23 14:36 | Inpatient (IN) ==
--- NOTE | 2017-12-23 17:42 | ED ---
HPI General Chief complaint: Abdominal Pain Stated complaint: Time Seen by Provider: 12/23/17 17:32 Source: patient Mode of arrival: ambulatory Limitations: no limitations History of Present Illness HPI narrative: Patient is a 77-year-old male who presents to the emergency room for evaluation of possible UTI. Patient reports that last night, he began to have fevers and chills, reports that he is also had urinary urgency and frequency. Patient reports that he just completed treatment for UTI with amoxicillin. Patient denies any chest pain or shortness of breath, denies any abdominal pain, patient with no other complaints. Related Data Home Medications Medication Instructions Recorded Confirmed atorvastatin 20 mg PO HS 12/23/17 12/23/17 hydrochlorothiazide 25 mg PO DAILY 12/23/17 12/23/17 Previous Rx's Medication Instructions Recorded amlodipine 10 mg PO DAILY #30 tab 11/22/17 apixaban [Eliquis] 5 mg PO BID #60 tab 11/22/17 aspirin 81 mg PO DAILY #30 tab 11/22/17 clopidogrel [Plavix] 75 mg PO DAILY #30 tab 11/22/17 olmesartan 40 mg PO DAILY #30 tab 11/22/17 propranolol 80 mg PO DAILY #30 cap 11/22/17 Allergies Allergy/AdvReac Type Severity Reaction Status Date / Time No Known Allergies Allergy Unverified 11/21/17 09:58 Review of Systems ROS: all other systems reviewed are negative [facility] Medical History Medical History AAA (abdominal aortic aneurysm) (Acute) Hyperlipemia (Acute) Hypertension (Acute) Urethral stricture (Acute) Surgical History Surgical History H/O abdominal aortic aneurysm repair (Acute) Family History Family History Mother Pituitary abnormality Father Stroke Social History Social History Substance History: No History of Abuse Second Hand Smoke Exposure: No Smoking Status: Unknown if ever smoked How Often Do You Have a Drink Containing Alcohol: Unable to Obtain Recent Travel [facility] within the Last 8 Weeks: No Recent Out of Country Travel within the Last 8 Weeks: No Immunization History Tetanus Immunization: Unable to Assess Hx Influenza Vaccine This Season: Unable to Assess Exam Narrative Exam Narrative: GENERAL: NAD SKIN: Focused skin assessment warm/dry. HEAD: Atraumatic. Normocephalic. EYES: Pupils equal and round. No scleral icterus. No injection or drainage. ENT: No nasal bleeding or discharge. Mucous membranes pink and moist. NECK: Trachea midline. No JVD. CARDIOVASCULAR: Regular rate and rhythm. No murmur appreciated. RESPIRATORY: No accessory muscle use. Clear to auscultation. Breath sounds equal bilaterally. GASTROINTESTINAL: Abdomen soft, non-tender, nondistended. Hepatic and splenic margins not palpable. MUSCULOSKELETAL: No obvious deformities. No clubbing. No cyanosis. No edema. NEUROLOGICAL: Awake and alert. No obvious cranial nerve deficits. Motor grossly within normal limits. Normal speech. PSYCHIATRIC: Appropriate mood and affect; insight and judgment normal. Course Initial Documented Vital Signs Temperature 97.9 F 12/23/17 14:40 Pulse Rate 93 H 12/23/17 14:40 Respiratory Rate 19 12/23/17 14:40 Blood Pressure 111/57 L 12/23/17 14:40 Pulse Oximetry 98 12/23/17 14:40 Last Documented Vital Signs Temperature 101.7 F H 12/23/17 18:23 Pulse Rate 107 H 12/23/17 18:23 Respiratory Rate 18 12/23/17 18:23 Blood Pressure 142/63 H 12/23/17 18:23 Pulse Oximetry 97 12/23/17 18:23 Medical Decision Making MDM Narrative Medical decision making narrative: During the course of the patients emergency department visit, the patients history, examination, and differential diagnosis were reviewed with the patient. The patient was placed on a cardiac care unit nurse with oximetry and frequent blood pressure monitoring. The patient had an IV access obtained and blood work sent for analysis. The patient was initially provided IVF as well as IV zofran patient with a wbc 13.1, lactic acid of 3.8 - ua positive for wbc clumps, large leuk esterase, many bacteria - sepsis most likely from urosepsis - he was given a dose of rocephin he will be admitted to the hospital case reviewed with Dr. Roland who accepts pt to service Medical Screen Exam Complete: Yes Emergency Medical Condition: Yes Differential Diagnosis Differential Diagnosis: uti, pyelonephritis, electrolyte abnormality Medical Records Medical records reviewed: Yes I reviewed the patient's medical records. Lab Data Result diagrams: 12/23/17 17:45 12/23/17 17:45 Lab Results 12/23/17 12/23/17 12/23/17 Range/Units 17:30 17:45 17:45 WBC 13.1 H (4.0-11.0) th/mm3 RBC 4.47 L (4.50-5.90) mil/mm3 Hgb 13.9 (13.0-17.0) gm/dL Hct 41.8 (39.0-51.0) % MCV 93.6 (80.0-100.0) fL MCH 31.1 (27.0-34.0) pg MCHC 33.3 (32.0-36.0) % RDW 14.6 (11.6-17.2) % Plt Count 359 (150-450) th/mm3 MPV 9.1 (7.0-11.0) fL Neut % (Auto) 80.5 H (16.0-70.0) % Lymph % (Auto) 7.5 L (9.0-44.0) % Castro % (Auto) 11.6 H (0.0-8.0) % Eos % (Auto) 0.1 (0.0-4.0) % Baso % (Auto) 0.3 (0.0-2.0) % Neut # (Auto) 10.6 H (1.8-7.7) th/mm3 Lymph # (Auto) 1.0 (1.0-4.8) th/mm3 Castro # (Auto) 1.5 H (0.0-0.9) th/mm3 Eos # (Auto) 0.0 (0.0-0.4) th/mm3 Baso # (Auto) 0.0 (0.0-0.2) th/mm3 WBC Differential . Differential Comment Auto diff final PT (9.8-11.6) sec INR Ratio APTT (24.3-30.1) sec Sodium 140 (136-145) meq/L Potassium 5.0 (3.5-5.1) meq/L Chloride 106 (98-107) meq/L Carbon Dioxide 18.2 L (21.0-32.0) meq/L Anion Gap 16 H (5-15) meq/L BUN 53 H (7-18) mg/dL Creatinine 2.35 H (0.60-1.30) mg/dL Estimated GFR 33 L (>89) mL/min Random Glucose 77 (74-106) mg/dL Lactic Acid (0.4-2.0) mmol/L Calcium 10.0 (8.5-10.1) mg/dL Total Bilirubin 1.0 (0.2-1.0) mg/dL AST 56 H (15-37) U/L ALT 48 (12-78) U/L Alkaline Phosphatase 97 (45-117) U/L Total Protein 9.3 H (6.4-8.2) g/dL Albumin 2.5 L (3.4-5.0) g/dL Urine Color Meme (Yellw/Straw) Urine Clarity Cloudy H (Clear) Urine pH 5.0 (5.0-8.5) Ur Specific [place] 1.020 (1.002-1.035) Urine Protein 100 H (Neg-Trace) mg/dL Urine Glucose (UA) Negative (Negative) mg/dL Urine Ketones Trace H (Negative) mg/dL Urine Occult Blood Small H (Negative) Urine Nitrate Negative (Negative) Urine Bilirubin Small H (Negative) Urine Ictotest Positive H (Negative) Urine Urobilinogen 4 or greater (Less than 2) mg/dL Ur Leukocyte Esterase Large H (Negative) Urine RBC 6 H (0-3) /hpf Urine WBC (0-5) /hpf Urine WBC Clumps Rare H (None) Ur Squamous Epith Cells 2 (0-5) /hpf Urine Bacteria Many H (None) /hpf Hyaline Casts 35 (0-3) /lpf Urine Mucus Few H (Occasional) /lpf Micro UA Comment Culture indicated Ur Microscopic Review Not Reportable Urine Culture Comments Culture indicated 12/23/17 12/23/17 Range/Units 18:00 18:00 WBC (4.0-11.0) th/mm3 RBC (4.50-5.90) mil/mm3 Hgb (13.0-17.0) gm/dL Hct (39.0-51.0) % MCV (80.0-100.0) fL MCH (27.0-34.0) pg MCHC (32.0-36.0) % RDW (11.6-17.2) % Plt Count (150-450) th/mm3 MPV (7.0-11.0) fL Neut % (Auto) (16.0-70.0) % Lymph % (Auto) (9.0-44.0) % Castro % (Auto) (0.0-8.0) % Eos % (Auto) (0.0-4.0) % Baso % (Auto) (0.0-2.0) % Neut # (Auto) (1.8-7.7) th/mm3 Lymph # (Auto) (1.0-4.8) th/mm3 Castro # (Auto) (0.0-0.9) th/mm3 Eos # (Auto) (0.0-0.4) th/mm3 Baso # (Auto) (0.0-0.2) th/mm3 WBC Differential Differential Comment PT 11.4 (9.8-11.6) sec INR 1.1 Ratio APTT 31.9 H (24.3-30.1) sec Sodium (136-145) meq/L Potassium (3.5-5.1) meq/L Chloride (98-107) meq/L Carbon Dioxide (21.0-32.0) meq/L Anion Gap (5-15) meq/L BUN (7-18) mg/dL Creatinine (0.60-1.30) mg/dL Estimated GFR (>89) mL/min Random Glucose (74-106) mg/dL Lactic Acid 3.8 H (0.4-2.0) mmol/L Calcium (8.5-10.1) mg/dL Total Bilirubin (0.2-1.0) mg/dL AST (15-37) U/L ALT (12-78) U/L Alkaline Phosphatase (45-117) U/L Total Protein (6.4-8.2) g/dL Albumin (3.4-5.0) g/dL Urine Color (Yellw/Straw) Urine Clarity (Clear) Urine pH (5.0-8.5) Ur Specific [place] (1.002-1.035) Urine Protein (Neg-Trace) mg/dL Urine Glucose (UA) (Negative) mg/dL Urine Ketones (Negative) mg/dL Urine Occult Blood (Negative) Urine Nitrate (Negative) Urine Bilirubin (Negative) Urine Ictotest (Negative) Urine Urobilinogen (Less than 2) mg/dL Ur Leukocyte Esterase (Negative) Urine RBC (0-3) /hpf Urine WBC (0-5) /hpf Urine WBC Clumps (None) Ur Squamous Epith Cells (0-5) /hpf Urine Bacteria (None) /hpf Hyaline Casts (0-3) /lpf Urine Mucus (Occasional) /lpf Micro UA Comment Ur Microscopic Review Urine Culture Comments Discharge Plan Discharge Disposition Patient Disposition: 30 Still Patient Discharge Condition Condition: Stable Discharge Details Diagnosis: Sepsis Physicians Team ED Provider: Kristie Chapin Primary Care Provider: Khadra Ruiz Rxs /Orders / Referrals /Forms Prescriptions: No Action clopidogrel [Plavix] 75 mg Tablet 75 mg PO DAILY Qty: 30 RF: 0 aspirin 81 mg Tablet,Chewable 81 mg PO DAILY Qty: 30 RF: 0 apixaban [Eliquis] 5 mg Tablet 5 mg PO BID Qty: 60 RF: 0 amlodipine 10 mg Tablet 10 mg PO DAILY Qty: 30 RF: 0 propranolol 80 mg Capsule,Extended Release 24 Hr 80 mg PO DAILY Qty: 30 RF: 0 olmesartan 40 mg Tablet 40 mg PO DAILY Qty: 30 RF: 0 hydrochlorothiazide 25 mg Tablet 25 mg PO DAILY RF: 0 atorvastatin 20 mg tablet 20 mg PO HS RF: 0 Status ED Status: With Doctor
[2017-12-23] MEDS: Sod Chloride 0.9% Inj 1,000 ML IV.SIG SCH ×2 (18:24→21:27)
[2017-12-23] MEDS ORDERED: Acetaminophen 325 MG Tablet PO ONE (18:31)
[2017-12-23] MEDS ORDERED: Sod Chloride 0.9% Inj 1,000 ML IV.SIG SCH (18:45)
[2017-12-23 18:53] LABS: Baso % (Auto) 0.3 % (0.0-2.0); Eos % (Auto) 0.1 % (0.0-4.0); Hematocrit 41.8 % (39.0-51.0); Hemoglobin 13.9 gm/dL (13.0-17.0); Lymph % (Auto) 7.5 % (9.0-44.0); Mean Corpuscular HGB Conc 33.3 % (32.0-36.0); Mean Corpuscular Hemoglobin 31.1 pg (27.0-34.0); Mean Corpuscular Volume 93.6 fL (80.0-100.0); Mean Platelet Volume 9.1 fL (7.0-11.0); Mono # (Auto) 1.5 th/mm3 (0.0-0.9); Mono % (Auto) 11.6 % (0.0-8.0); Neut # (Auto) 10.6 th/mm3 (1.8-7.7); Neut % (Auto) 80.5 % (16.0-70.0); Platelet Count 359 th/mm3 (150-450); Red Blood Count 4.47 mil/mm3 (4.50-5.90); Red Cell Distribution Width 14.6 % (11.6-17.2); White Blood Count 13.1 th/mm3 (4.0-11.0)
[2017-12-23 18:56] LABS: Bacteria,Urine Many /hpf; Bilirubin,Urine Small (Negative); Clarity,Urine Cloudy (Clear); Color,Urine Amber (Yellw/Straw); Glucose,Urine (UA) Negative (Negative); Hyaline Casts,Urine 35 /lpf (0-3); Leukocyte Esterase,Urine Large (Negative); Mucus,Urine Few /lpf (Occasional); Nitrite,Urine Negative (Negative); Squamous Epithelial Cell,Urine 2 /hpf (0-5); Urobilinogen,Urine 4 or Greater mg/dL (Less than 2)
[2017-12-23 19:02] LABS: Ictotest,Urine Positive (Negative)
[2017-12-23 19:18] LABS: Alanine Aminotransferase 48 U/L (12-78); Anion Gap 16 meq/L (5-15); Aspartate Aminotransferase 56 U/L (15-37); Blood Urea Nitrogen 53 mg/dL (7-18); Carbon Dioxide 18.2 meq/L (21.0-32.0); Chloride 106 meq/L (98-107); Glomerular Filtration Rate 33 mL/min (>89); Glucose,Random 77 mg/dL (74-106); Sodium 140 meq/L (136-145)
[2017-12-23 19:21] LABS: Alkaline Phosphatase 97 U/L (45-117); Total Protein 9.3 g/dL (6.4-8.2)
[2017-12-23 19:40] LABS: Activated Partial Thrombo Time 31.9 sec (24.3-30.1); INR 1.1 Ratio; Prothrombin Time 11.4 sec (9.8-11.6)
[2017-12-23 19:40] LABS: Albumin 2.5 g/dL (3.4-5.0)
[2017-12-23] MEDS ORDERED: Bisacodyl 10 MG Supp RECTAL PRN (20:07)
--- NOTE | 2017-12-23 20:15 | P.HP ---
History of Present Illness Service: [facility] Primary Care Physician: Khadra Ruiz MD History of Present Illness: 77-year-old male with past medical history significant for previous TIA, CAD status post stent placement, hypertension and hyperlipidemia presents to the emergency department for evaluation of fever and fatigue. The patient was discharged from the hospital on 11/22 where he was evaluated for a TIA, coronary artery disease with stent placement and diagnosed with a urinary tract infection. He was discharged on amoxicillin which he completed. He reports that he has been having symptoms of urinary frequency and burning with urination for the past several days. He states he started to feel fatigued, nauseated and had associated anorexia that began last night. T-max 103 at home yesterday. He denies any chest pain or shortness of breath. No abdominal pain. No lateralizing signs/symptoms. Inpatient Certification: I certify that the inpatient services were ordered in accordance with Medicare regulations governing the order. This includes certification that hospital inpatient services are reasonable and necessary and in the case of services not specified as inpatient-only under 42 CFR 419.22(n), that they are appropriately provided as inpatient services in accordance to with the 2-midnight benchmark under 43 CFR 412.3(e) Estimated Total Length of Stay (Days): 2 Plans for Post Hospital Care: Home Review of Systems All other systems reviewed negative except as stated in HPI [facility] - History History Provided By: Patient - Medical History Medical History: Medical History (Last Updated 12/23/17 @ 20:12 by Kristie Roland MD) Coronary artery disease TIA (transient ischemic attack) AAA (abdominal aortic aneurysm) Hyperlipemia Hypertension Urethral stricture - Surgical History Surgical History: Surgical History (Last Updated 12/23/17 @ 20:12 by Kristie Roland MD) H/O cardiac catheterization H/O abdominal aortic aneurysm repair - Family History Family History: Family History (Last Reviewed 12/23/17 @ 17:41 by Kristie Chapin) Mother Pituitary abnormality Father Stroke - Tobacco History Second Hand Smoke Exposure: No Tobacco Use In Past 30 Days: No Smoking Status: Unknown if ever smoked - Alcohol History How Often Do You Have a Drink Containing Alcohol: Unable to Obtain - Substance Use History Substance History: No History of Abuse - Travel History Recent Travel in the [place] Within the Last 8 Weeks: No Recent Travel Out of the Country Within the Last 8 Weeks: No - Immunization History Tetanus Immunization: Unable to Assess Hx Influenza Vaccine This Season: Unable to Assess Medications and Allergies Active Medications: Active Medications Acetaminophen (Tylenol) 650 mg PO Q4H PRN PRN Reason: Temp > 100.4 Al Hydroxide/Mg Hydroxide (Milk Of Magnesia Liq) 30 ml PO Q12H PRN PRN Reason: Mild Constipation Amlodipine Besylate (Norvasc) 10 mg PO DAILY [facility] Apixaban (Eliquis) 5 mg PO BID [facility] Aspirin (Aspirin Chew) 81 mg PO DAILY [facility] Atorvastatin Calcium (Lipitor) 20 mg PO HS [facility] Bisacodyl (Dulcolax Supp) 10 mg RECTAL DAILY PRN PRN Reason: SEVERE CONSITIPATION Clopidogrel Bisulfate (Plavix) 75 mg PO DAILY [facility] Hydrochlorothiazide (Hydrodiuril) 25 mg PO DAILY [facility] Sodium Chloride (Ns Inj) 1,000 mls @ 0 mls/hr IV.SIG BOLUS [facility] Last Infusion: 12/23/17 19:36 Dose: Infused Sodium Chloride (Ns Inj) 1,000 mls @ 0 mls/hr IV.SIG BOLUS [facility] Ceftriaxone Sodium 1,000 mg/ (Sodium Chloride) 100 mls @ 200 mls/hr IV.SIG Q24H [facility] Sodium Chloride (Ns Inj) 1,000 mls @ 100 mls/hr IV.CONT .Q10H [facility] Lactulose (Lactulose Liq) 30 ml PO DAILY PRN PRN Reason: SEVERE CONSITIPATION Non-Formulary Medication (Olmesartan [Olmesartan]) 40 mg PO DAILY [facility] Ondansetron HCl (Zofran Inj) 4 mg IV.PUSH Q6H PRN PRN Reason: NAUSEA OR VOMITING Propranolol HCl (Inderal La) 80 mg PO DAILY [facility] Senna/Docusate Sodium (Ruth-Colace) 1 tab PO BID [facility] Sennosides (Senokot) 17.2 mg PO Q12H PRN PRN Reason: Moderate Constipation Sodium Chloride (Ns Flush) 2 ml IV.FLUSH PRN PRN PRN Reason: FLUSH AFTER USING IV ACCESS Allergies Allergy/AdvReac Type Severity Reaction Status Date / Time No Known Allergies Allergy Unverified 11/21/17 09:58 Home Medications Medication Instructions Recorded Confirmed Type atorvastatin 20 mg PO HS 12/23/17 12/23/17 History hydrochlorothiazide 25 mg PO DAILY 12/23/17 12/23/17 History Exam Vital signs: Vital Signs 12/23/17 14:40 12/23/17 17:45 12/23/17 18:23 Temperature 97.9 F 99.7 F H 101.7 F H Pulse Rate 93 H 103 H 107 H Respiratory Rate 18 Blood Pressure 111/57 L 142/63 H Pulse Oximetry 98 92 L 97 Intake & Output 12/23/17 12/23/17 12/24/17 06:59 18:59 06:59 Intake Total 1000 / 1000 Balance 1000 / 1000 Weight 84.368 kg Intake: IV 1000 / 1000 NS Inj 1,000 ML @ Wide Open IV. 1000 / 1000 SIG BOLUS [facility] Rx#:[id number] Narrative: Gen.: No acute distress Head: Normocephalic. Atraumatic. EENT: Pupils equal round and reactive to light. Nose without drainage. Airway intact. Throat without injection. Cardiovascular: Regular rate and rhythm. No murmurs, rubs or gallops. Respiratory: Lungs clear to auscultation bilaterally. No wheezes or rhonchi. Abdomen: Soft, nontender, nondistended. No peritoneal signs. Musculoskeletal: No gross deformities. No edema. Skin: No obvious rashes or erythema. Neuro: Sensory and motor grossly intact. Cranial nerves II through XII grossly intact. Results - Labs CBC & Chem 7: 12/23/17 17:45 12/23/17 17:45 Labs: Laboratory Results - last 24 hr 12/23/17 12/23/17 12/23/17 17:30 17:45 17:45 WBC 13.1 H RBC 4.47 L Hgb 13.9 Hct 41.8 MCV 93.6 MCH 31.1 MCHC 33.3 RDW 14.6 Plt Count 359 MPV 9.1 Neut % (Auto) 80.5 H Lymph % (Auto) 7.5 L Iron % (Auto) 11.6 H Eos % (Auto) 0.1 Baso % (Auto) 0.3 Neut # (Auto) 10.6 H Lymph # (Auto) 1.0 Iron # (Auto) 1.5 H Eos # (Auto) 0.0 Baso # (Auto) 0.0 WBC Differential . Differential Comment Auto diff final PT INR APTT Sodium 140 Potassium 5.0 Chloride 106 Carbon Dioxide 18.2 L Anion Gap 16 H BUN 53 H Creatinine 2.35 H Estimated GFR 33 L Random Glucose 77 Lactic Acid Calcium 10.0 Total Bilirubin 1.0 AST 56 H ALT 48 Alkaline Phosphatase 97 Total Protein 9.3 H Albumin 2.5 L Urine Color Meme Urine Clarity Cloudy H Urine pH 5.0 Ur Specific [place] 1.020 Urine Protein 100 H Urine Glucose (UA) Negative Urine Ketones Trace H Urine Occult Blood Small H Urine Nitrate Negative Urine Bilirubin Small H Urine Ictotest Positive H Urine Urobilinogen 4 or greater Ur Leukocyte Esterase Large H Urine RBC 6 H Urine WBC Urine WBC Clumps Rare H Ur Squamous Epith Cells 2 Urine Bacteria Many H Hyaline Casts 35 Urine Mucus Few H Micro UA Comment Culture indicated Ur Microscopic Review Not Reportable Urine Culture Comments Culture indicated 12/23/17 12/23/17 18:00 18:00 WBC RBC Hgb Hct MCV MCH MCHC RDW Plt Count MPV Neut % (Auto) Lymph % (Auto) Iron % (Auto) Eos % (Auto) Baso % (Auto) Neut # (Auto) Lymph # (Auto) Iron # (Auto) Eos # (Auto) Baso # (Auto) WBC Differential Differential Comment PT 11.4 INR 1.1 APTT 31.9 H Sodium Potassium Chloride Carbon Dioxide Anion Gap BUN Creatinine Estimated GFR Random Glucose Lactic Acid 3.8 H Calcium Total Bilirubin AST ALT Alkaline Phosphatase Total Protein Albumin Urine Color Urine Clarity Urine pH Ur Specific [place] Urine Protein Urine Glucose (UA) Urine Ketones Urine Occult Blood Urine Nitrate Urine Bilirubin Urine Ictotest Urine Urobilinogen Ur Leukocyte Esterase Urine RBC Urine WBC Urine WBC Clumps Ur Squamous Epith Cells Urine Bacteria Hyaline Casts Urine Mucus Micro UA Comment Ur Microscopic Review Urine Culture Comments Caprini VTE Risk Assessment Caprini VTE Risk Assessment: Moderate/High Risk (score >= 2) Caprini Risk Assessment Model: Point Value = 1 Point Value = 2 Point Value = 3 Point Value = 5 Age 41-60 Minor surgery BMI > 25 kg/m2 Swollen legs Varicose veins or History of unexplained or recurrent spontaneous Oral contraceptives or hormone replacement Sepsis (< 1 month) Serious lung disease, including pneumonia (< 1 month) Abnormal pulmonary function Acute myocardial infarction Congestive heart failure (< 1 month) History of inflammatory bowel disease Medical patient at bed rest Age 61-74 Arthroscopic surgery Major open surgery (> 45 min) Laparoscopic surgery (> 45 min) Malignancy Confined to bed (> 72 hours) Immobilizing plaster cast Central venous access Age >= 75 History of VTE Family history of VTE Factor V Leiden Prothrombin [id number] Lupus anticoagulant Anticardiolipin antibodies Elevated serum homocysteine Heparin-induced thrombocytopenia Other congenital or acquired thrombophilia Stroke (< 1 month) Elective arthroplasty Hip, pelvis, or leg fracture Acute spinal cord injury (< 1 month) Prophylaxis Regimen: Total Risk Factor Score Risk Level Prophylaxis Regimen 0-1 Low Early ambulation 2 Moderate Order ONE of the following: *Sequential Compression Device (SCD) *Heparin 5000 units SQ BID 3-4 Higher Order ONE of the following medications: *Heparin 5000 units SQ TID *Enoxaparin/Lovenox 40 mg SQ daily (WT < 150 kg, CrCl > 30 mL/min) *Enoxaparin/Lovenox 30 mg SQ daily (WT < 150 kg, CrCl > 10-29 mL/min) *Enoxaparin/Lovenox 30 mg SQ BID (WT < 150 kg, CrCl > 30 mL/min) AND/OR *Sequential Compression Device (SCD) 5 or more Highest Order ONE of the following medications: *Heparin 5000 units SQ TID (Preferred with Epidurals) *Enoxaparin/Lovenox 40 mg SQ daily (WT < 150 kg, CrCl > 30 mL/min) *Enoxaparin/Lovenox 30 mg SQ daily (WT < 150 kg, CrCl > 10-29 mL/min) *Enoxaparin/Lovenox 30 mg SQ BID (WT < 150 kg, CrCl > 30 mL/min) AND *Sequential Compression Device (SCD) Assessment and Plan - Plan Assessment/plan: 1. Urosepsis Patient tachycardic, with leukocytosis, elevated lactic acid and fever UA consistent with urinary tract infection Blood/urine cultures pending Rocephin Repeat lactic acid pending IV fluid hydration 2. Coronary artery disease/status post stent placement Continue aspirin, Plavix Patient is supposed to undergo CABG 3, will follow-up as outpatient 3. Hypertension/hyperlipidemia Continue home medications 4. History of TIA Continue Eliquis FEN Heart healthy diet Electrolytes: Monitor and replete as needed NS at 100 cc/hour Eliquis
[2017-12-23] MEDS: Senna/Docusate Sodium 8.6/50 MG Tablet PO SCH (21:28)
[2017-12-23] MEDS: Sod Chloride 0.9% Inj 1,000 ML IV.CONT SCH (21:28)
[2017-12-24] MEDS: Sod Chloride 0.9% Inj 1,000 ML IV.CONT SCH (06:37)
[2017-12-24] MEDS: hydroCHLOROthiazide 25 MG Tablet PO SCH (08:48)
[2017-12-24] MEDS: amLODIPine 10 MG Tablet PO SCH (08:48)
[2017-12-24] MEDS: Senna/Docusate Sodium 8.6/50 MG Tablet PO SCH ×2 (08:48→21:37)
[2017-12-24 09:11] LABS: Baso % (Auto) 0.2 % (0.0-2.0); Hematocrit 33.1 % (39.0-51.0); Hemoglobin 10.9 gm/dL (13.0-17.0); Lymph # (Auto) 0.6 th/mm3 (1.0-4.8); Lymph % (Auto) 6.7 % (9.0-44.0); Mean Corpuscular Hemoglobin 30.2 pg (27.0-34.0); Mean Corpuscular Volume 91.5 fL (80.0-100.0); Mono # (Auto) 1.1 th/mm3 (0.0-0.9); Mono % (Auto) 11.7 % (0.0-8.0); Neut # (Auto) 7.6 th/mm3 (1.8-7.7); Neut % (Auto) 81.4 % (16.0-70.0); Platelet Count 258 th/mm3 (150-450); Red Blood Count 3.62 mil/mm3 (4.50-5.90); White Blood Count 9.3 th/mm3 (4.0-11.0)
[2017-12-24 09:40] LABS: Calcium 8.2 mg/dL (8.5-10.1); Carbon Dioxide 24.1 meq/L (21.0-32.0)
[2017-12-24 09:50] LABS: Potassium 2.9 meq/L (3.5-5.1)
[2017-12-24] MEDS: Propranolol LA 80 MG Capsule PO SCH (09:52)
--- NOTE | 2017-12-24 11:57 | P.PNIM ---
Physical Exam Vital signs: Vital Signs 12/23/17 14:40 12/23/17 17:45 12/23/17 18:23 Temperature 97.9 F 99.7 F H 101.7 F H Pulse Rate 93 H 103 H 107 H Respiratory Rate 19 18 18 Blood Pressure 111/57 L 142/63 H Pulse Oximetry 98 92 L 97 12/23/17 20:00 12/23/17 21:00 12/23/17 23:16 Temperature 97.4 F L 97.9 F Pulse Rate 97 H 92 H 105 H Respiratory Rate 18 18 Blood Pressure 109/61 103/57 L Pulse Oximetry 99 12/24/17 00:00 12/24/17 04:00 12/24/17 08:00 Temperature 99.1 F 100.7 F H Pulse Rate 88 96 H 62 Respiratory Rate 18 18 Blood Pressure 122/58 L 113/62 Pulse Oximetry 92 L 93 L 95 Intake & Output 12/23/17 12/24/17 12/24/17 18:59 06:59 18:59 Intake Total 2340 / 2340 Output Total 400 / 400 Balance 194 / 194 Weight 84.368 kg 83.3 kg Intake: IV 2100 / 2100 NS Inj 1,000 ML @ 100 mls/hr IV 1000 / 1000 .CONT .Q10H [facility] Rx#:[id number] NS Inj 1,000 ML @ Wide Open IV. 1000 / 1000 SIG BOLUS [facility] Rx#:[id number] Rocephin Inj 1,000 MG In NS Inj 100 / 100 100 ML @ 200 mls/hr IV.SIG ONCE ONE Rx#:[id number] Oral 240 / 240 Output: Urine 400 / 400 Other: Date of Last Bowel Movement 12/23/17 Weight On Admission 83.3 kg Narrative: GENERAL: Patient lying in bed. Appears comfortable. SKIN: Warm and dry. HEAD: Normocephalic. EYES: No scleral icterus. No injection or drainage. NECK: Supple, trachea midline. No JVD . CARDIOVASCULAR: Regular rate and rhythm without murmurs, gallops, or rubs. RESPIRATORY: Breath sounds equal bilaterally. No accessory muscle use. GASTROINTESTINAL: Abdomen soft, non-tender, nondistended. MUSCULOSKELETAL: No cyanosis, or edema. BACK: Nontender without obvious deformity. No CVA tenderness. Results - Labs CBC & Chem 7: 12/24/17 07:11 12/24/17 07:11 Laboratory Results - last 24 hr 12/23/17 12/23/17 12/23/17 17:30 17:45 17:45 WBC 13.1 H RBC 4.47 L Hgb 13.9 Hct 41.8 MCV 93.6 MCH 31.1 MCHC 33.3 RDW 14.6 Plt Count 359 MPV 9.1 Neut % (Auto) 80.5 H Lymph % (Auto) 7.5 L [place] % (Auto) 11.6 H Eos % (Auto) 0.1 Baso % (Auto) 0.3 Neut # (Auto) 10.6 H Lymph # (Auto) 1.0 [place] # (Auto) 1.5 H Eos # (Auto) 0.0 Baso # (Auto) 0.0 WBC Differential . Differential Comment Auto diff final PT INR APTT Sodium 140 Potassium 5.0 Chloride 106 Carbon Dioxide 18.2 L Anion Gap 16 H BUN 53 H Creatinine 2.35 H Estimated GFR 33 L Random Glucose 77 Lactic Acid Calcium 10.0 Total Bilirubin 1.0 AST 56 H ALT 48 Alkaline Phosphatase 97 Total Protein 9.3 H Albumin 2.5 L Urine Color Meme Urine Clarity Cloudy H Urine pH 5.0 Ur Specific [place] 1.020 Urine Protein 100 H Urine Glucose (UA) Negative Urine Ketones Trace H Urine Occult Blood Small H Urine Nitrate Negative Urine Bilirubin Small H Urine Ictotest Positive H Urine Urobilinogen 4 or greater Ur Leukocyte Esterase Large H Urine RBC 6 H Urine WBC Urine WBC Clumps Rare H Ur Squamous Epith Cells 2 Urine Bacteria Many H Hyaline Casts 35 Urine Mucus Few H Micro UA Comment Culture indicated Ur Microscopic Review Not Reportable Urine Culture Comments Culture indicated 12/23/17 12/23/17 12/23/17 18:00 18:00 22:40 WBC RBC Hgb Hct MCV MCH MCHC RDW Plt Count MPV Neut % (Auto) Lymph % (Auto) [place] % (Auto) Eos % (Auto) Baso % (Auto) Neut # (Auto) Lymph # (Auto) [place] # (Auto) Eos # (Auto) Baso # (Auto) WBC Differential Differential Comment PT 11.4 INR 1.1 APTT 31.9 H Sodium Potassium Chloride Carbon Dioxide Anion Gap BUN Creatinine Estimated GFR Random Glucose Lactic Acid 3.8 H 1.5 Calcium Total Bilirubin AST ALT Alkaline Phosphatase Total Protein Albumin Urine Color Urine Clarity Urine pH Ur Specific [place] Urine Protein Urine Glucose (UA) Urine Ketones Urine Occult Blood Urine Nitrate Urine Bilirubin Urine Ictotest Urine Urobilinogen Ur Leukocyte Esterase Urine RBC Urine WBC Urine WBC Clumps Ur Squamous Epith Cells Urine Bacteria Hyaline Casts Urine Mucus Micro UA Comment Ur Microscopic Review Urine Culture Comments 12/24/17 12/24/17 07:11 07:11 WBC 9.3 RBC 3.62 L Hgb 10.9 L D Hct 33.1 L MCV 91.5 MCH 30.2 MCHC 33.0 RDW 14.0 Plt Count 258 MPV 9.0 Neut % (Auto) 81.4 H Lymph % (Auto) 6.7 L [place] % (Auto) 11.7 H Eos % (Auto) 0.0 Baso % (Auto) 0.2 Neut # (Auto) 7.6 Lymph # (Auto) 0.6 L [place] # (Auto) 1.1 H Eos # (Auto) 0.0 Baso # (Auto) 0.0 WBC Differential . Differential Comment Auto diff final PT INR APTT Sodium 147 H Potassium 2.9 L* D Chloride 111 H Carbon Dioxide 24.1 Anion Gap 12 BUN 40 H Creatinine 1.57 H Estimated GFR 52 L Random Glucose 85 Lactic Acid Calcium 8.2 L D Total Bilirubin AST ALT Alkaline Phosphatase Total Protein Albumin Urine Color Urine Clarity Urine pH Ur Specific [place] Urine Protein Urine Glucose (UA) Urine Ketones Urine Occult Blood Urine Nitrate Urine Bilirubin Urine Ictotest Urine Urobilinogen Ur Leukocyte Esterase Urine RBC Urine WBC Urine WBC Clumps Ur Squamous Epith Cells Urine Bacteria Hyaline Casts Urine Mucus Micro UA Comment Ur Microscopic Review Urine Culture Comments Microbiology 12/23/17 18:00 Blood - Peripheral Aerobic Blood Culture - Preliminary No growth in 1 day 12/23/17 18:00 Blood - Peripheral Anaerobic Blood Culture - Preliminary gram negative rods 12/23/17 17:50 Blood - Peripheral Aerobic Blood Culture - Preliminary No growth in 1 day 12/23/17 17:50 Blood - Peripheral Anaerobic Blood Culture - Preliminary gram negative rods Assessment and Plan - Plan //Severe sepsis on admission. -Acute kidney injury on admission secondary to sepsis. Patient tachycardic, with leukocytosis, elevated lactic acid and fever UA consistent with urinary tract infection Blood/urine cultures pending Rocephin Repeat lactic acid pending IV fluid hydration = 12/24. Positive blood cultures for gram-negative rods. Switch to Zosyn. Recheck blood cultures. Consult infectious disease. //Acute kidney injury. Secondary to sepsis. =12/24 Creatinine 1.5. Improving with treatment for sepsis above. Continue to monitor. // Coronary artery disease/status post stent placement Continue aspirin, Plavix Patient is supposed to undergo CABG 3, will follow-up as outpatient //Hypertension/hyperlipidemia Continue home medications //History of TIA Continue Eliquis FEN Heart healthy diet Electrolytes: Monitor and replete as needed NS at 100 cc/hour Eliquis Discharge Planning: Continue treatment for sepsis.
[2017-12-24] MEDS ORDERED: Piperacil/Tazo 4.5 GM Premix 4.5 GM/100 ML BAG IV.SIG SCH (12:30)
[2017-12-24] MEDS: Potassium Chlor 10 mEq Premix 10 MEQ/100 ML PIGGYBACK IV.SIG SCH ×4 (16:02→18:53)
[2017-12-24] MEDS: KCL 20 mEq/NACL 0.45% Inj 1,000 ML IV.CONT SCH (16:03)
[2017-12-24] MEDS: Acetaminophen 325 MG Tablet PO PRN (17:32)
--- NOTE | 2017-12-24 17:33 | P.CONID ---
History of Present Illness Service: Infectious Disease Consult date: 12/24/17 Requesting Physician: Doroteo Massey Reason for Consult: Evaluation and Mment of Sepsis, Gram neg bacteremia, GNR UTI Primary Care Provider: Khadra Ruiz MD Family Provider: Khadra Ruiz MD History of Present Illness: Mr. Angel is a 77-year-old -[place] male with past medical history significant for previous TIA, coronary artery disease status post stent placement, hypertension and hyperlipidemia. Patient's past medical history is also significant for ureteral stricture for which she was seeing a urologist in the past. Patient also reports that once he turned 70 he stopped seeing the urologist as he was stopped checking his PSA levels. He is currently not on any medications like Flomax but does report increase in the frequency of urination and also urinary tract infections. He denies having a Ramos catheterization during his last hospitalization for a TIA. Patient was diagnosed with a UTI during that admission and pain. Patient reports increased urinary frequency and burning with urination for the last several days prior to admission. He states reports feeling fatigued and nauseated and some anorexia. His T-max at home was 103. He denies any chest pain or shortness of breath he denies any abdominal pain and denies any other new symptoms. Infectious disease is consulted for evaluation and management of sepsis, gram- negative bacteremia as well as gram-negative UTI. Review of Systems All other systems reviewed negative except as stated in HPI PMFSH - History History Provided By: Patient - Medical History Medical History: Medical History (Last Updated 12/23/17 @ 20:12 by Kristie Roland MD) Coronary artery disease TIA (transient ischemic attack) AAA (abdominal aortic aneurysm) Hyperlipemia Hypertension Urethral stricture - Surgical History Surgical History: Surgical History (Last Updated 12/23/17 @ 20:12 by Kristie Roland MD) H/O cardiac catheterization H/O abdominal aortic aneurysm repair - Family History Family History: Family History (Last Reviewed 12/23/17 @ 17:41 by Kristie Chapin) Mother Pituitary abnormality Father Stroke - Tobacco History Second Hand Smoke Exposure: No Tobacco Use In Past 30 Days: No Smoking Status: Never smoker - Alcohol History How Often Do You Have a Drink Containing Alcohol: Never - Substance Use History Substance History: No History of Abuse - Travel History Recent Travel in the [facility] Within the Last 8 Weeks: No Recent Travel Out of the Country Within the Last 8 Weeks: No - Immunization History Tetanus Immunization: Unsure Hx Influenza Vaccine This Season: Yes Medications and Allergies Active Medications: Active Medications Acetaminophen (Tylenol) 650 mg PO Q4H PRN PRN Reason: Temp > 100.4 Last Admin: 12/24/17 17:32 Dose: 650 mg Al Hydroxide/Mg Hydroxide (Milk Of Magnesia Liq) 30 ml PO Q12H PRN PRN Reason: Mild Constipation Amlodipine Besylate (Norvasc) 10 mg PO DAILY [facility] Last Admin: 12/24/17 08:48 Dose: 10 mg Apixaban (Eliquis) 5 mg PO BID [facility] Last Admin: 12/24/17 08:50 Dose: 5 mg Aspirin (Aspirin Chew) 81 mg PO DAILY [facility] Last Admin: 12/24/17 08:49 Dose: 81 mg Atorvastatin Calcium (Lipitor) 20 mg PO HS [facility] Last Admin: 12/23/17 21:25 Dose: Not Given Bisacodyl (Dulcolax Supp) 10 mg RECTAL DAILY PRN PRN Reason: SEVERE CONSITIPATION Clopidogrel Bisulfate (Plavix) 75 mg PO DAILY [facility] Last Admin: 12/24/17 08:51 Dose: 75 mg Hydrochlorothiazide (Hydrodiuril) 25 mg PO DAILY [facility] Last Admin: 12/24/17 08:48 Dose: 25 mg Sodium Chloride (Ns Inj) 1,000 mls @ 0 mls/hr IV.SIG BOLUS [facility] Last Infusion: 12/24/17 07:30 Dose: Infused Sodium Chloride (Ns Inj) 1,000 mls @ 0 mls/hr IV.SIG BOLUS [facility] Potassium Chloride/Sodium Chloride (Potassium Chlor 20 Meq/Nacl 0.45% Inj) 1, 000 mls @ 84 mls/hr IV.CONT .[id number] [facility] Last Admin: 12/24/17 16:03 Dose: 84 mls/hr Piperacillin/Tazobactam/Dextrose (Zosyn 4.5 Gm Premix) 4.5 gm in 100 mls @ 200 mls/hr IV.SIG Q6H [facility] Last Admin: 12/24/17 17:32 Dose: 200 mls/hr Lactulose (Lactulose Liq) 30 ml PO DAILY PRN PRN Reason: SEVERE CONSITIPATION Losartan Potassium (Cozaar) 100 mg PO DAILY [facility] Last Admin: 12/24/17 08:49 Dose: 100 mg Ondansetron HCl (Zofran Inj) 4 mg IV.PUSH Q6H PRN PRN Reason: NAUSEA OR VOMITING Propranolol HCl (Inderal La) 80 mg PO DAILY [facility] Last Admin: 12/24/17 09:52 Dose: 80 mg Senna/Docusate Sodium (Ruth-Colace) 1 tab PO BID [facility] Last Admin: 12/24/17 08:48 Dose: 1 tab Sennosides (Senokot) 17.2 mg PO Q12H PRN PRN Reason: Moderate Constipation Sodium Chloride (Ns Flush) 2 ml IV.FLUSH PRN PRN PRN Reason: FLUSH AFTER USING IV ACCESS Allergies Allergy/AdvReac Type Severity Reaction Status Date / Time No Known Allergies Allergy Unverified 11/21/17 09:58 Home Medications Medication Instructions Recorded Confirmed Type atorvastatin 20 mg PO HS 12/23/17 12/23/17 History hydrochlorothiazide 25 mg PO DAILY 12/23/17 12/23/17 History Exam Vital signs: Vital Signs 12/23/17 17:45 12/23/17 18:23 12/23/17 20:00 Temperature 99.7 F H 101.7 F H 97.4 F L Pulse Rate 103 H 107 H 97 H Respiratory Rate 18 18 18 Blood Pressure 142/63 H 109/61 Pulse Oximetry 92 L 97 99 12/23/17 21:00 12/23/17 23:16 12/24/17 00:00 Temperature 97.9 F 99.1 F Pulse Rate 92 H 105 H 88 Respiratory Rate 18 18 Blood Pressure 103/57 L 122/58 L Pulse Oximetry 92 L 12/24/17 04:00 12/24/17 08:00 12/24/17 12:00 Temperature 100.7 F H 99.0 F 98.8 F Pulse Rate 96 H 105 H 94 H Respiratory Rate 18 18 18 Blood Pressure 113/62 156/82 H 105/65 Pulse Oximetry 93 L 92 L 92 L Intake & Output 12/23/17 12/24/17 12/24/17 18:59 06:59 18:59 Intake Total 2340 / 2340 1675 / 1675 Output Total 400 / 400 Balance 1940 / 1940 1675 / 1675 Weight 84.368 kg 83.3 kg Intake: IV 2099 / 2099 1675 / 1675 NS Inj 1,000 ML @ 100 mls/hr IV 1000 / 1000 675 / 675 .CONT .Q10H [facility] Rx#:[id number] NS Inj 1,000 ML @ Wide Open IV. 1000 / 1000 1000 / 1000 SIG BOLUS [facility] Rx#:[id number] Rocephin Inj 1,000 MG In NS Inj 100 / 100 100 ML @ 200 mls/hr IV.SIG ONCE ONE Rx#:[id number] Oral 240 / 240 Output: Urine 400 / 400 Other: Date of Last Bowel Movement 12/23/17 Weight On Admission 83.3 kg Narrative: GENERAL: Well-nourished well-developed, not in acute distress SKIN: Cool and dry, no generalized rash HEAD: Atraumatic. Normocephalic. No temporal or scalp tenderness. EYES: Pupils equal round and reactive. Scleral icterus. No injection or drainage. No petechia ENT: Nothing abnormal detected NECK: Trachea midline. Supple, nontender, no meningeal signs. CARDIOVASCULAR: HS audible. RESPIRATORY: Clear to auscultation bilaterally. GASTROINTESTINAL: Abdomen soft nontender. MUSCULOSKELETAL: Extremities without clubbing, cyanosis. NEUROLOGICAL: Alert oriented 3. Psych cooperative IV line sites ok. Results - Labs CBC & Chem 7: 12/24/17 07:11 12/24/17 07:11 Labs: Laboratory Results - last 24 hr 12/23/17 12/23/17 12/23/17 17:30 17:45 17:45 WBC 13.1 H RBC 4.47 L Hgb 13.9 Hct 41.8 MCV 93.6 MCH 31.1 MCHC 33.3 RDW 14.6 Plt Count 359 MPV 9.1 Neut % (Auto) 80.5 H Lymph % (Auto) 7.5 L [place] % (Auto) 11.6 H Eos % (Auto) 0.1 Baso % (Auto) 0.3 Neut # (Auto) 10.6 H Lymph # (Auto) 1.0 [place] # (Auto) 1.5 H Eos # (Auto) 0.0 Baso # (Auto) 0.0 WBC Differential . Differential Comment Auto diff final PT INR APTT Sodium 140 Potassium 5.0 Chloride 106 Carbon Dioxide 18.2 L Anion Gap 16 H BUN 53 H Creatinine 2.35 H Estimated GFR 33 L Random Glucose 77 Lactic Acid Calcium 10.0 Total Bilirubin 1.0 AST 56 H ALT 48 Alkaline Phosphatase 97 Total Protein 9.3 H Albumin 2.5 L Urine Color Meme Urine Clarity Cloudy H Urine pH 5.0 Ur Specific [place] 1.020 Urine Protein 100 H Urine Glucose (UA) Negative Urine Ketones Trace H Urine Occult Blood Small H Urine Nitrate Negative Urine Bilirubin Small H Urine Ictotest Positive H Urine Urobilinogen 4 or greater Ur Leukocyte Esterase Large H Urine RBC 6 H Urine WBC Urine WBC Clumps Rare H Ur Squamous Epith Cells 2 Urine Bacteria Many H Hyaline Casts 35 Urine Mucus Few H Micro UA Comment Culture indicated Ur Microscopic Review Not Reportable Urine Culture Comments Culture indicated 12/23/17 12/23/17 12/23/17 18:00 18:00 22:40 WBC RBC Hgb Hct MCV MCH MCHC RDW Plt Count MPV Neut % (Auto) Lymph % (Auto) [place] % (Auto) Eos % (Auto) Baso % (Auto) Neut # (Auto) Lymph # (Auto) [place] # (Auto) Eos # (Auto) Baso # (Auto) WBC Differential Differential Comment PT 11.4 INR 1.1 APTT 31.9 H Sodium Potassium Chloride Carbon Dioxide Anion Gap BUN Creatinine Estimated GFR Random Glucose Lactic Acid 3.8 H 1.5 Calcium Total Bilirubin AST ALT Alkaline Phosphatase Total Protein Albumin Urine Color Urine Clarity Urine pH Ur Specific [place] Urine Protein Urine Glucose (UA) Urine Ketones Urine Occult Blood Urine Nitrate Urine Bilirubin Urine Ictotest Urine Urobilinogen Ur Leukocyte Esterase Urine RBC Urine WBC Urine WBC Clumps Ur Squamous Epith Cells Urine Bacteria Hyaline Casts Urine Mucus Micro UA Comment Ur Microscopic Review Urine Culture Comments 12/24/17 12/24/17 07:11 07:11 WBC 9.3 RBC 3.62 L Hgb 10.9 L D Hct 33.1 L MCV 91.5 MCH 30.2 MCHC 33.0 RDW 14.0 Plt Count 258 MPV 9.0 Neut % (Auto) 81.4 H Lymph % (Auto) 6.7 L [place] % (Auto) 11.7 H Eos % (Auto) 0.0 Baso % (Auto) 0.2 Neut # (Auto) 7.6 Lymph # (Auto) 0.6 L [place] # (Auto) 1.1 H Eos # (Auto) 0.0 Baso # (Auto) 0.0 WBC Differential . Differential Comment Auto diff final PT INR APTT Sodium 147 H Potassium 2.9 L* D Chloride 111 H Carbon Dioxide 24.1 Anion Gap 12 BUN 40 H Creatinine 1.57 H Estimated GFR 52 L Random Glucose 85 Lactic Acid Calcium 8.2 L D Total Bilirubin AST ALT Alkaline Phosphatase Total Protein Albumin Urine Color Urine Clarity Urine pH Ur Specific [place] Urine Protein Urine Glucose (UA) Urine Ketones Urine Occult Blood Urine Nitrate Urine Bilirubin Urine Ictotest Urine Urobilinogen Ur Leukocyte Esterase Urine RBC Urine WBC Urine WBC Clumps Ur Squamous Epith Cells Urine Bacteria Hyaline Casts Urine Mucus Micro UA Comment Ur Microscopic Review Urine Culture Comments Assessment and Plan - Plan Sepsis present on admission Gram-negative bacteremia likely E. coli. Verigene testing negative for ESBL on preliminary report. Gram-negative UTI Rule out prostatitis check PSA Likely has benign prostatic hypertrophy based on his symptoms. Recommendations: Discontinue Zosyn IV Restart ceftriaxone 2 g IV every 24 hours for bacteremia dosing Repeat blood cultures 2 Check PSA level Consult urology patient known to Dr. rasheed content Consider starting low-dose of Flomax blood pressure permitting will defer to primary team. Follow cultures. Hopefully this is a transient bacteremia from gram-negative UTI, in which case endocarditis workup would not be indicated. Follow clinical course.
[2017-12-25] MEDS: Acetaminophen 325 MG Tablet PO PRN ×2 (01:22→16:24)
[2017-12-25] MEDS: KCL 20 mEq/NACL 0.45% Inj 1,000 ML IV.CONT SCH ×2 (01:23→14:35)
[2017-12-25 07:39] LABS: Baso % (Auto) 0.2 % (0.0-2.0); Eos % (Auto) 0.3 % (0.0-4.0); Hematocrit 34.1 % (39.0-51.0); Hemoglobin 11.2 gm/dL (13.0-17.0); Lymph # (Auto) 0.6 th/mm3 (1.0-4.8); Lymph % (Auto) 5.7 % (9.0-44.0); Mean Corpuscular HGB Conc 32.7 % (32.0-36.0); Mean Corpuscular Hemoglobin 30.5 pg (27.0-34.0); Mean Corpuscular Volume 93.2 fL (80.0-100.0); Mean Platelet Volume 9.6 fL (7.0-11.0); Mono # (Auto) 0.9 th/mm3 (0.0-0.9); Neut # (Auto) 9.1 th/mm3 (1.8-7.7); Neut % (Auto) 85.8 % (16.0-70.0); Platelet Count 239 th/mm3 (150-450); Red Blood Count 3.66 mil/mm3 (4.50-5.90); Red Cell Distribution Width 14.3 % (11.6-17.2); White Blood Count 10.7 th/mm3 (4.0-11.0)
[2017-12-25 07:58] LABS: Calcium 8.4 mg/dL (8.5-10.1); Carbon Dioxide 22.9 meq/L (21.0-32.0); Magnesium 2.2 mg/dL (1.5-2.5); Potassium 3.3 meq/L (3.5-5.1)
[2017-12-25 07:59] LABS: Phosphorus 2.2 mg/dL (2.5-4.9)
[2017-12-25] MEDS: hydroCHLOROthiazide 25 MG Tablet PO SCH (10:06)
[2017-12-25] MEDS: Senna/Docusate Sodium 8.6/50 MG Tablet PO SCH ×2 (10:06→21:14)
[2017-12-25] MEDS: amLODIPine 10 MG Tablet PO SCH (10:06)
[2017-12-25] MEDS: Propranolol LA 80 MG Capsule PO SCH (10:07)
--- NOTE | 2017-12-25 12:51 | P.CONURO ---
History of Present Illness Service: urology Consult date: 12/25/17 Requesting Physician: Kristie Roland Reason for Consult: Urosepsis Primary Care Provider: Khadra Ruiz MD Family Provider: Khadra Ruiz MD History of Present Illness: Patient is a 77-year-old male who presents to the emergency room for evaluation of possible UTI. Patient reports that on Friday/Friday he began to have fevers and chills, reports that he is also had urinary urgency and frequency. Patient reports that he just completed treatment for UTI with amoxicillin. Patient denies any chest pain or shortness of breath, denies any abdominal pain, patient with no other complaints. Urology consulted form evaluation. He came with mild leukocytosis and slightly elevated Cr, all is now back to normal after IV fluids and antbx. He is afebrile. UC is pending. BC is growing E coli. He was a pt of Dr Early, saw him last time about 10y/a. He denies any hematuria, dysuria, perineal or testicular pain. States that ususally voids without difficulties but has frequent urinations which is raising a question if he is able to empty bladder well. He denies taking any meds at home ID is on board Review of Systems All other systems reviewed negative except as stated in HPI PMFSH - History History Provided By: Patient - Medical History Medical History: Medical History (Last Updated 12/23/17 @ 20:12 by Kristie Roland MD) Coronary artery disease TIA (transient ischemic attack) AAA (abdominal aortic aneurysm) Hyperlipemia Hypertension Urethral stricture - Surgical History Surgical History: Surgical History (Last Updated 12/23/17 @ 20:12 by Kristie Roland MD) H/O cardiac catheterization H/O abdominal aortic aneurysm repair - Family History Family History: Family History (Last Reviewed 12/23/17 @ 17:41 by Kristie Chapin) Mother Pituitary abnormality Father Stroke - Tobacco History Second Hand Smoke Exposure: No Tobacco Use In Past 30 Days: No Smoking Status: Never smoker - Alcohol History How Often Do You Have a Drink Containing Alcohol: Never - Substance Use History Substance History: No History of Abuse - Travel History Recent Travel in the [place] Within the Last 8 Weeks: No Recent Travel Out of the Country Within the Last 8 Weeks: No - Immunization History Tetanus Immunization: Unsure Hx Influenza Vaccine This Season: Yes Medications and Allergies Active Medications: Active Medications Acetaminophen (Tylenol) 650 mg PO Q4H PRN PRN Reason: Temp > 100.4 Last Admin: 12/25/17 01:22 Dose: 650 mg Al Hydroxide/Mg Hydroxide (Milk Of Magnesia Liq) 30 ml PO Q12H PRN PRN Reason: Mild Constipation Amlodipine Besylate (Norvasc) 10 mg PO DAILY [facility] Last Admin: 12/25/17 10:06 Dose: 10 mg Apixaban (Eliquis) 5 mg PO BID [facility] Last Admin: 12/25/17 10:06 Dose: 5 mg Aspirin (Aspirin Chew) 81 mg PO DAILY [facility] Last Admin: 12/25/17 10:06 Dose: 81 mg Atorvastatin Calcium (Lipitor) 20 mg PO HS [facility] Last Admin: 12/24/17 21:37 Dose: 20 mg Bisacodyl (Dulcolax Supp) 10 mg RECTAL DAILY PRN PRN Reason: SEVERE CONSITIPATION Clopidogrel Bisulfate (Plavix) 75 mg PO DAILY [facility] Last Admin: 12/25/17 10:05 Dose: 75 mg Hydrochlorothiazide (Hydrodiuril) 25 mg PO DAILY [facility] Last Admin: 12/25/17 10:06 Dose: 25 mg Sodium Chloride (Ns Inj) 1,000 mls @ 0 mls/hr IV.SIG BOLUS [facility] Last Infusion: 12/24/17 07:30 Dose: Infused Sodium Chloride (Ns Inj) 1,000 mls @ 0 mls/hr IV.SIG BOLUS [facility] Potassium Chloride/Sodium Chloride (Potassium Chlor 20 Meq/Nacl 0.45% Inj) 1, 000 mls @ 84 mls/hr IV.CONT .[id number] [facility] Last Infusion: 12/25/17 07:25 Dose: Infused Ceftriaxone Sodium 2,000 mg/ (Sodium Chloride) 100 mls @ 200 mls/hr IV.SIG Q24H [facility] Last Infusion: 12/24/17 22:10 Dose: Infused Lactulose (Lactulose Liq) 30 ml PO DAILY PRN PRN Reason: SEVERE CONSITIPATION Losartan Potassium (Cozaar) 100 mg PO DAILY [facility] Last Admin: 12/25/17 10:05 Dose: 100 mg Ondansetron HCl (Zofran Inj) 4 mg IV.PUSH Q6H PRN PRN Reason: NAUSEA OR VOMITING Propranolol HCl (Inderal La) 80 mg PO DAILY [facility] Last Admin: 12/25/17 10:07 Dose: 80 mg Senna/Docusate Sodium (Ruth-Colace) 1 tab PO BID [facility] Last Admin: 12/25/17 10:06 Dose: 1 tab Sennosides (Senokot) 17.2 mg PO Q12H PRN PRN Reason: Moderate Constipation Sodium Chloride (Ns Flush) 2 ml IV.FLUSH PRN PRN PRN Reason: FLUSH AFTER USING IV ACCESS Allergies Allergy/AdvReac Type Severity Reaction Status Date / Time No Known Allergies Allergy Unverified 11/21/17 09:58 Home Medications Medication Instructions Recorded Confirmed Type atorvastatin 20 mg PO HS 12/23/17 12/23/17 History hydrochlorothiazide 25 mg PO DAILY 12/23/17 12/23/17 History Physical Exam Vital Signs - 24 hr 12/24/17 16:00 12/24/17 20:00 12/25/17 00:00 Temperature 101.0 F H 98.1 F 100.3 F H Pulse Rate 87 114 H 75 Respiratory Rate 18 19 18 Blood Pressure 122/56 L 91/50 L 131/75 Pulse Oximetry 92 L 92 L 91 L 12/25/17 04:00 12/25/17 08:00 12/25/17 09:01 Temperature 97.3 F L 97.3 F L Pulse Rate 107 H 96 H 83 Respiratory Rate 18 17 Blood Pressure 135/68 106/71 142/69 H Pulse Oximetry 94 L 96 12/25/17 12:00 Temperature 97.9 F Pulse Rate 102 H Respiratory Rate 17 Blood Pressure 160/55 H Pulse Oximetry 94 L Physical Exam: GENERAL: This is a well-nourished, well-developed patient, in no apparent distress. SKIN: No rashes, ecchymoses or lesions. Cool and dry. HEAD: Atraumatic. Normocephalic. NECK: Supple, nontender, no meningeal signs. CARDIOVASCULAR: Regular rate and rhythm without murmurs, gallops, or rubs. RESPIRATORY: Clear to auscultation. Breath sounds equal bilaterally. No wheezes , rales, or rhonchi. slightly tachypneic. ; Bladder not distended, no CVAT NEUROLOGICAL: Awake and alert. Laboratory Results - last 24 hr 12/23/17 12/24/1718 17:30 19:37 04:40 WBC 10.7 RBC 3.66 L Hgb 11.2 L Hct 34.1 L MCV 93.2 MCH 30.5 MCHC 32.7 RDW 14.3 Plt Count 239 MPV 9.6 Neut % (Auto) 85.8 H Lymph % (Auto) 5.7 L [place] % (Auto) 8.0 Eos % (Auto) 0.3 Baso % (Auto) 0.2 Neut # (Auto) 9.1 H Lymph # (Auto) 0.6 L [place] # (Auto) 0.9 Eos # (Auto) 0.0 Baso # (Auto) 0.0 WBC Differential . Differential Comment Auto diff final Sodium Potassium Chloride Carbon Dioxide Anion Gap BUN Creatinine Estimated GFR Random Glucose Calcium Phosphorus Magnesium C-Reactive Protein 21.00 H Albumin Urine Color Meme Urine Clarity Cloudy H Urine pH 5.0 Ur Specific [place] 1.020 Urine Protein 100 H Urine Glucose (UA) Negative Urine Ketones Trace H Urine Occult Blood Small H Urine Nitrate Negative Urine Bilirubin Small H Urine Ictotest Positive H Urine Urobilinogen 4 or greater Ur Leukocyte Esterase Large H Urine RBC 6 H Urine WBC Urine WBC Clumps Rare H Ur Squamous Epith Cells 2 Urine Bacteria Many H Hyaline Casts 35 Urine Mucus Few H Micro UA Comment Culture indicated Urine Culture Comments Culture indicated 12/25/17 04:40 WBC RBC Hgb Hct MCV MCH MCHC RDW Plt Count MPV Neut % (Auto) Lymph % (Auto) [place] % (Auto) Eos % (Auto) Baso % (Auto) Neut # (Auto) Lymph # (Auto) [place] # (Auto) Eos # (Auto) Baso # (Auto) WBC Differential Differential Comment Sodium 144 Potassium 3.3 L Chloride 110 H Carbon Dioxide 22.9 Anion Gap 11 BUN 31 H Creatinine 1.26 Estimated GFR 67 L Random Glucose 127 H Calcium 8.4 L Phosphorus 2.2 L Magnesium 2.2 C-Reactive Protein Albumin 2.0 L Urine Color Urine Clarity Urine pH Ur Specific [place] Urine Protein Urine Glucose (UA) Urine Ketones Urine Occult Blood Urine Nitrate Urine Bilirubin Urine Ictotest Urine Urobilinogen Ur Leukocyte Esterase Urine RBC Urine WBC Urine WBC Clumps Ur Squamous Epith Cells Urine Bacteria Hyaline Casts Urine Mucus Micro UA Comment Urine Culture Comments Microbiology 12/23/17 18:00 Aerobic Blood Culture - Preliminary Blood - Peripheral No growth in 2 days Anaerobic Blood Culture - Final Escherichia coli 12/23/17 17:50 Aerobic Blood Culture - Preliminary Blood - Peripheral No growth in 2 days Anaerobic Blood Culture - Preliminary Escherichia coli 12/23/17 17:30 Urine Culture - Final Random Urine Escherichia coli 12/24/17 14:00 Aerobic Blood Culture - Preliminary Blood - Peripheral No growth in 1 day Anaerobic Blood Culture - Preliminary No growth in 1 day 12/24/17 14:05 Aerobic Blood Culture - Preliminary Blood - Peripheral No growth in 1 day Anaerobic Blood Culture - Preliminary No growth in 1 day Result Diagrams: 12/25/17 04:40 12/25/17 04:40 Assessment and Plan - Plan 77y.o M with urosepsis Labs / VS are improving Growing E coli on BC - No acute intervention needed - Continue care as per primary team. Follow ID recs - IV antbx and fluids - Follow up on final cultures results to adjust antbx as needed - Monitor PVR with bladder scan after voiding to make sure pt is able to empty bladder well. If retains >200cc place iraheta catheter - Start Flomax daily - Pt to see as outpt after D/c Urology remaines available as needed Discussed Condition With: Dr Fletcher attending who agrees with this plan
--- NOTE | 2017-12-25 13:58 | P.PNIM ---
Subjective Interval history: Patient reports some shortness of breath worse since yesterday. Denies nausea or vomiting. Denies chest pain. Physical Exam Vital signs: Vital Signs 12/24/17 16:00 12/24/17 20:00 12/25/17 00:00 Temperature 101.0 F H 98.1 F 100.3 F H Pulse Rate 87 114 H 75 Respiratory Rate 18 19 18 Blood Pressure 122/56 L 91/50 L 131/75 Pulse Oximetry 92 L 92 L 91 L 12/25/17 04:00 12/25/17 08:00 12/25/17 09:01 Temperature 97.3 F L 97.3 F L Pulse Rate 107 H 96 H 83 Respiratory Rate 18 17 Blood Pressure 135/68 106/71 142/69 H Pulse Oximetry 94 L 96 12/25/17 12:00 Temperature 97.9 F Pulse Rate 102 H Respiratory Rate 17 Blood Pressure 160/55 H Pulse Oximetry 94 L Intake & Output 12/24/17 12/25/17 12/25/17 18:59 06:59 18:59 Intake Total 3075 / 3075 1880 / 1880 1100 / 1100 Output Total 800 / 800 500 / 500 Balance 2275 / 2275 1380 / 1380 1100 / 1100 Weight 83.3 kg Intake: IV 2075 / 2075 1100 / 1100 1100 / 1100 Potassium Chlor 20 mEq/NACL 0. 1000 / 1000 1000 / 1000 45% Inj 1,000 ML @ 84 mls/hr IV .CONT .[id number] [facility] Rx#:[id number] NS Inj 1,000 ML @ 100 mls/hr IV 675 / 675 .CONT .Q10H [facility] Rx#:[id number] Zosyn 4.5 GM Premix 4.5 gm In 100 / 100 100 ml @ 200 mls/hr IV.SIG Q6H [facility] Rx#:[id number] KCl 10 mEq Premix Inj 10 meq In 300 / 300 100 ml @ 100 mls/hr IV.SIG Q1H [facility] Rx#:[id number] NS Inj 1,000 ML @ Wide Open IV. 1000 / 1000 SIG BOLUS [facility] Rx#:[id number] Rocephin Inj 2,000 MG In NS Inj 100 / 100 100 ML @ 200 mls/hr IV.SIG Q24H [facility] Rx#:[id number] Oral 1000 / 1000 780 / 780 Output: Urine 800 / 800 500 / 500 Narrative: GENERAL: Patient lying in bed. Appears comfortable. SKIN: Warm and dry. HEAD: Normocephalic. EYES: No scleral icterus. No injection or drainage. NECK: Supple, trachea midline. No JVD . CARDIOVASCULAR: Regular rate and rhythm without murmurs, gallops, or rubs. RESPIRATORY: Breath sounds equal bilaterally, with some crackles in the bases. No accessory muscle use. GASTROINTESTINAL: Abdomen soft, non-tender, nondistended. MUSCULOSKELETAL: No cyanosis. +1 bilateral lower extremity edema. BACK: Nontender without obvious deformity. No CVA tenderness. Results - Labs CBC & Chem 7: 12/25/17 04:40 12/25/17 04:40 Laboratory Results - last 24 hr 12/23/17 12/24/17 12/25/17 17:30 19:37 04:40 WBC 10.7 RBC 3.66 L Hgb 11.2 L Hct 34.1 L MCV 93.2 MCH 30.5 MCHC 32.7 RDW 14.3 Plt Count 239 MPV 9.6 Neut % (Auto) 85.8 H Lymph % (Auto) 5.7 L [place] % (Auto) 8.0 Eos % (Auto) 0.3 Baso % (Auto) 0.2 Neut # (Auto) 9.1 H Lymph # (Auto) 0.6 L [place] # (Auto) 0.9 Eos # (Auto) 0.0 Baso # (Auto) 0.0 WBC Differential . Differential Comment Auto diff final Sodium Potassium Chloride Carbon Dioxide Anion Gap BUN Creatinine Estimated GFR Random Glucose Calcium Phosphorus Magnesium C-Reactive Protein 21.00 H Albumin Urine Color Meme Urine Clarity Cloudy H Urine pH 5.0 Ur Specific [place] 1.020 Urine Protein 100 H Urine Glucose (UA) Negative Urine Ketones Trace H Urine Occult Blood Small H Urine Nitrate Negative Urine Bilirubin Small H Urine Ictotest Positive H Urine Urobilinogen 4 or greater Ur Leukocyte Esterase Large H Urine RBC 6 H Urine WBC Urine WBC Clumps Rare H Ur Squamous Epith Cells 2 Urine Bacteria Many H Hyaline Casts 35 Urine Mucus Few H Micro UA Comment Culture indicated Urine Culture Comments Culture indicated 12/25/17 04:40 WBC RBC Hgb Hct MCV MCH MCHC RDW Plt Count MPV Neut % (Auto) Lymph % (Auto) [place] % (Auto) Eos % (Auto) Baso % (Auto) Neut # (Auto) Lymph # (Auto) [place] # (Auto) Eos # (Auto) Baso # (Auto) WBC Differential Differential Comment Sodium 144 Potassium 3.3 L Chloride 110 H Carbon Dioxide 22.9 Anion Gap 11 BUN 31 H Creatinine 1.26 Estimated GFR 67 L Random Glucose 127 H Calcium 8.4 L Phosphorus 2.2 L Magnesium 2.2 C-Reactive Protein Albumin 2.0 L Urine Color Urine Clarity Urine pH Ur Specific [place] Urine Protein Urine Glucose (UA) Urine Ketones Urine Occult Blood Urine Nitrate Urine Bilirubin Urine Ictotest Urine Urobilinogen Ur Leukocyte Esterase Urine RBC Urine WBC Urine WBC Clumps Ur Squamous Epith Cells Urine Bacteria Hyaline Casts Urine Mucus Micro UA Comment Urine Culture Comments Microbiology 12/23/17 18:00 Blood - Peripheral Aerobic Blood Culture - Preliminary No growth in 2 days 12/23/17 18:00 Blood - Peripheral Anaerobic Blood Culture - Final Escherichia coli 12/23/17 17:50 Blood - Peripheral Aerobic Blood Culture - Preliminary No growth in 2 days 12/23/17 17:50 Blood - Peripheral Anaerobic Blood Culture - Preliminary Escherichia coli 12/23/17 17:30 Random Urine Urine Culture - Final Escherichia coli 12/24/17 14:00 Blood - Peripheral Aerobic Blood Culture - Preliminary No growth in 1 day 12/24/17 14:00 Blood - Peripheral Anaerobic Blood Culture - Preliminary No growth in 1 day 12/24/17 14:05 Blood - Peripheral Aerobic Blood Culture - Preliminary No growth in 1 day 12/24/17 14:05 Blood - Peripheral Anaerobic Blood Culture - Preliminary No growth in 1 day Assessment and Plan - Plan //Severe sepsis on admission. -Acute kidney injury on admission secondary to sepsis. Patient tachycardic, with leukocytosis, elevated lactic acid and fever UA consistent with urinary tract infection Blood/urine cultures pending Rocephin Repeat lactic acid pending IV fluid hydration = 12/24. Positive blood cultures for gram-negative rods. Switch to Zosyn. Recheck blood cultures. Consult infectious disease. = 12/25. Repeat blood cultures negative. ID following. Continue IV antibiotics as per ID. Follow-up repeat cultures. //BPH Appreciate urology assistance. No intervention at this time We will start on Flomax. //Acute kidney injury. Secondary to sepsis. =12/24 Creatinine 1.5. Improving with treatment for sepsis above. Continue to monitor. = Resolved. //Shortness of breath. 12/25 -Without chest pain With some crackles on exam, new +1 bilateral lower extremity edema. Likely secondary to IV fluids Check BNP, check chest x-ray, discontinue IV fluids and give single dose of IV Lasix. //Hypokalemia 3.3. Will replace and monitor. // Coronary artery disease/status post stent placement Continue aspirin, Plavix Patient is supposed to undergo CABG 3, will follow-up as outpatient //Hypertension/hyperlipidemia Continue home medications //History of TIA Continue Eliquis DVT: on Eliquis Discharge Planning: Continue treatment for sepsis. 12/25. Some fluid overload secondary to IV fluids. Workup and treatment pending The consult ordered and pending. -We will need ID and neurology clearance. Possibly home the next 1-2 days.
[2017-12-25] MEDS ORDERED: Potassium Phos/Sodium Phos 250 MG Tablet PO ONE (14:24)
--- NOTE | 2017-12-25 14:43 | XR ---
EXAM DATE: 12/25/2017 2:40 PM EDT AGE/SEX: 77 years / Male INDICATIONS: Congestive heart failure. CLINICAL DATA: This is the patient's initial encounter. Patient reports that signs and symptoms have been present for 1 day and indicates a pain score of 0/10. MEDICAL/SURGICAL HISTORY: Hypertension. CABG. Coronary stent. COMPARISON: [facility] [place], CHEST 1V SINGLE AP, 11/20/2017. . FINDINGS: There is infiltrate in the right perihilar region and right lung base. No significant effusion. Left lung is clear. Cardiac contours are satisfactory. CONCLUSION: Right lung infiltrates Electronically signed by: Sohail Huang MD 12/25/2017 2:41 PM EDT
[2017-12-25] MEDS ORDERED: Heparin Drip 25,000 UNIT/250 ML BAG IV.CONT PRN (14:58)
[2017-12-25] MEDS ORDERED: Amiodarone Inj 150 MG in Dextrose 5% in Water Inj 97 ML IV.SIG ONE ×2 (15:00)
[2017-12-25 16:13] LABS: Activated Partial Thrombo Time 32.4 sec (24.3-30.1); INR 1.1 Ratio; Prothrombin Time 11.6 sec (9.8-11.6)
[2017-12-25 17:43] LABS: Hematocrit 36.7 % (39.0-51.0); Mean Corpuscular HGB Conc 32.8 % (32.0-36.0); Mean Corpuscular Hemoglobin 30.5 pg (27.0-34.0); Mean Corpuscular Volume 92.9 fL (80.0-100.0); Mean Platelet Volume 8.9 fL (7.0-11.0); Platelet Count 251 th/mm3 (150-450); Red Blood Count 3.95 mil/mm3 (4.50-5.90); Red Cell Distribution Width 14.7 % (11.6-17.2); White Blood Count 10.1 th/mm3 (4.0-11.0)
--- NOTE | 2017-12-26 03:39 | XR ---
EXAM DATE: 12/26/2017 3:24 AM EDT AGE/SEX: 77 years / Male INDICATIONS: Shortness of breath CLINICAL DATA: This is the patient's initial encounter. Patient reports that signs and symptoms have been present for 1 day and indicates a pain score of 0/10. MEDICAL/SURGICAL HISTORY: Hypertension. CABG. Coronary artery stent. COMPARISON: [facility], CHEST 1V SINGLE AP, 12/25/2017. . FINDINGS: There is persistent nonconsolidative infiltrate in the right infrahilar region. There is a new noncon solidative infiltrate in the central right midlung. The left lung is clear. Both hemidiaphragms are w ell delineated. The heart is normal in size. CONCLUSION: Persistent right lower lung infiltrate and new nonconsolidative infiltrate in the central/upper right lung. Electronically signed by: Sudhakar Villeda MD 12/26/2017 3:37 AM EDT
[2017-12-26 04:23] LABS: Hematocrit 37.2 % (39.0-51.0); Hemoglobin 12.3 gm/dL (13.0-17.0); Mean Corpuscular HGB Conc 33.1 % (32.0-36.0); Mean Corpuscular Hemoglobin 30.1 pg (27.0-34.0); Mean Corpuscular Volume 91.1 fL (80.0-100.0); Mean Platelet Volume 9.2 fL (7.0-11.0); Platelet Count 289 th/mm3 (150-450); Red Blood Count 4.08 mil/mm3 (4.50-5.90); Red Cell Distribution Width 14.4 % (11.6-17.2); White Blood Count 13.5 th/mm3 (4.0-11.0)
[2017-12-26 04:56] LABS: Free PSA/PSA Ratio 0 ratio
[2017-12-26 04:58] LABS: Albumin 2.1 g/dL (3.4-5.0); Calcium 8.7 mg/dL (8.5-10.1); Carbon Dioxide 24.8 meq/L (21.0-32.0); Magnesium 2.1 mg/dL (1.5-2.5); Phosphorus 2.1 mg/dL (2.5-4.9); Potassium 3.4 meq/L (3.5-5.1)
[2017-12-26 05:02] LABS: Troponin I 0.12 ng/mL (0.02-0.05)
[2017-12-26 05:37] LABS: ABG Base Excess -0.1 mmol/L (-2-2); ABG PCO2 33 mmHg (38-42); ABG PO2 97 mmHg (61-120)
--- NOTE | 2017-12-26 08:34 | P.PNIM ---
Subjective Interval history: Follow-up for V. tach, shortness of breath, UTI Still on amiodarone drip, no overnight events. Denies any chest pain, fever, still short of breath but better than yesterday, cough productive with yellowish sputum, nonbloody. No urinary symptoms but with mild dysuria. No nausea or vomiting. Still positive fluid balance despite Lasix yesterday. Physical Exam Vital signs: Vital Signs 12/25/17 09:01 12/25/17 12:00 12/25/17 15:08 Temperature 97.9 F Pulse Rate 83 124 H 158 H Respiratory Rate 17 Blood Pressure 142/69 H 160/55 H Pulse Oximetry 94 L 12/25/17 16:00 12/25/17 17:00 12/25/17 18:00 Temperature 102.1 F H Pulse Rate 107 H 105 H 93 H Respiratory Rate 16 Blood Pressure 147/69 H Pulse Oximetry 95 12/25/17 20:00 12/25/17 21:00 12/25/17 22:00 Temperature 97.7 F Pulse Rate 94 H 105 H 100 H Respiratory Rate 16 Blood Pressure 106/55 L Pulse Oximetry 95 12/25/17 23:00 12/26/17 00:00 12/26/17 01:00 Temperature 97.6 F Pulse Rate 93 H 90 110 H Respiratory Rate 16 Blood Pressure 111/63 Pulse Oximetry 98 12/26/17 02:00 12/26/17 02:45 12/26/17 03:00 Temperature Pulse Rate 116 H 119 H 109 H Respiratory Rate 40 H Blood Pressure Pulse Oximetry 98 12/26/17 04:00 12/26/17 05:00 12/26/17 05:59 Temperature 98 F Pulse Rate 110 H 111 H 96 H Respiratory Rate 16 Blood Pressure 130/83 Pulse Oximetry 98 12/26/17 06:08 12/26/17 07:00 12/26/17 08:00 Temperature Pulse Rate 97 H Respiratory Rate Blood Pressure Pulse Oximetry 98 96 Intake & Output 12/25/17 12/26/17 12/26/17 18:59 06:59 18:59 Intake Total 2890 / 2890 830 / 830 Output Total 1300 / 1300 400 / 400 Balance 1590 / 1590 430 / 430 Weight 85 kg Intake: IV 1969 / 1969 350 / 350 Cordarone Inj 450 MG In D5W Inj 250 / 250 241 ML @ 1 MG/MIN 33.33 mls/hr IV.CONT TITRATE PRN Rx#: [id number] Potassium Chlor 20 mEq/NACL 0. 1770 / 1770 45% Inj 1,000 ML @ 84 mls/hr IV .CONT .[id number] [facility] Rx#:[id number] Cordarone Inj 150 MG In D5W Inj 100 / 100 97 ML @ 600 mls/hr IV.SIG ONCE ONE Rx#:[id number] Rocephin Inj 2,000 MG In NS Inj 100 / 100 100 ML @ 200 mls/hr IV.SIG Q24H [facility] Rx#:[id number] Oral 920 / 920 480 / 480 Output: Urine 1300 / 1300 400 / 400 Narrative: GENERAL: Not in distress, in a recliner CARDIOVASCULAR: Tachycardic, irregular rhythm, no murmur appreciated. RESPIRATORY: Crackles in the left base, no wheezing. GASTROINTESTINAL: Abdomen soft, non-tender, nondistended. MUSCULOSKELETAL: No cyanosis. +1 bilateral lower extremity edema. BACK: Nontender without obvious deformity. No CVA tenderness. Alert awake oriented 3, no focal deficits. Results - Labs CBC & Chem 7: 12/26/17 03:44 12/26/17 03:44 Laboratory Results - last 24 hr 12/24/17 12/25/17 12/25/17 19:37 15:29 15:29 WBC RBC Hgb Hct MCV MCH MCHC RDW Plt Count MPV PT 11.6 INR 1.1 APTT 32.4 H Puncture Site Patient Temperature O2 Saturation ABG pH ABG pCO2 ABG pO2 ABG HCO3 ABG O2 Content ABG Base Excess ABG Methemoglobin Ji Test Hemoglobin Carboxyhemoglobin O2 Delivery Device Vent Setting Inspired O2 Critical Value Sodium Potassium Chloride Carbon Dioxide Anion Gap BUN Creatinine Estimated GFR Random Glucose Calcium Phosphorus Magnesium Troponin I B-Natriuretic Peptide 586 H Albumin Free PSA Less than 0.1 Total PSA 0.5 PSA Free/Total Ratio 0 12/25/17 12/25/17 12/25/17 17:31 17:31 20:57 WBC 10.1 RBC 3.95 L Hgb 12.0 L Hct 36.7 L MCV 92.9 MCH 30.5 MCHC 32.8 RDW 14.7 Plt Count 251 MPV 8.9 PT INR APTT Puncture Site Patient Temperature O2 Saturation ABG pH ABG pCO2 ABG pO2 ABG HCO3 ABG O2 Content ABG Base Excess ABG Methemoglobin Ji Test Hemoglobin Carboxyhemoglobin O2 Delivery Device Vent Setting Inspired O2 Critical Value Sodium Potassium Chloride Carbon Dioxide Anion Gap BUN Creatinine Estimated GFR Random Glucose Calcium Phosphorus Magnesium Troponin I 0.31 H 0.24 H B-Natriuretic Peptide Albumin Free PSA Total PSA PSA Free/Total Ratio 12/26/17 12/26/17 12/26/17 03:43 03:44 03:44 WBC 13.5 H RBC 4.08 L Hgb 12.3 L Hct 37.2 L MCV 91.1 MCH 30.1 MCHC 33.1 RDW 14.4 Plt Count 289 MPV 9.2 PT INR APTT Puncture Site Right radial Patient Temperature 98.6 O2 Saturation 96 ABG pH 7.46 H ABG pCO2 33 L ABG pO2 97 ABG HCO3 23 ABG O2 Content 21.5 H ABG Base Excess -0.1 ABG Methemoglobin 0.6 Ji Test Present Hemoglobin 15.9 Carboxyhemoglobin 0.6 O2 Delivery Device Bipap Vent Setting 14 ipap/8 epap Inspired O2 60 Critical Value No Sodium 145 Potassium 3.4 L Chloride 108 H Carbon Dioxide 24.8 Anion Gap 12 BUN 29 H Creatinine 1.24 Estimated GFR 69 L Random Glucose 161 H Calcium 8.7 Phosphorus 2.1 L Magnesium 2.1 Troponin I 0.12 H B-Natriuretic Peptide Albumin 2.1 L Free PSA Total PSA PSA Free/Total Ratio Microbiology 12/23/17 18:00 Blood - Peripheral Aerobic Blood Culture - Preliminary No growth in 2 days 12/23/17 18:00 Blood - Peripheral Anaerobic Blood Culture - Final Escherichia coli 12/23/17 17:50 Blood - Peripheral Aerobic Blood Culture - Preliminary No growth in 2 days 12/23/17 17:50 Blood - Peripheral Anaerobic Blood Culture - Preliminary Escherichia coli 12/23/17 17:30 Random Urine Urine Culture - Final Escherichia coli 12/24/17 14:00 Blood - Peripheral Aerobic Blood Culture - Preliminary No growth in 1 day 12/24/17 14:00 Blood - Peripheral Anaerobic Blood Culture - Preliminary No growth in 1 day 12/24/17 14:05 Blood - Peripheral Aerobic Blood Culture - Preliminary No growth in 1 day 12/24/17 14:05 Blood - Peripheral Anaerobic Blood Culture - Preliminary No growth in 1 day - Imaging Impressions Chest X-Ray 12/25/17 00:00 CONCLUSION: Right lung infiltrates Chest X-Ray 12/26/17 00:00 CONCLUSION: Persistent right lower lung infiltrate and new nonconsolidative infiltrate in the central/upper right lung. Assessment and Plan - Plan 77-year-old male with past medical history significant for previous TIA, CAD status post stent placement, hypertension and hyperlipidemia presents to the emergency department for evaluation of fever and fatigue Severe sepsis secondary to urinary tract infection-blood culture and urine culture showing E. coli, sensitive to ceftriaxone, continue ceftriaxone 2 g every 24 hours (12/24--), infectious disease following, stop IVF. Leukocytosis is worsening. Recheck CBC tomorrow. ventricular tachycardia-cardiology consulted, still on amiodarone drip, consulted cardiothoracic surgery per cardiology. Troponin peaked at 0.24, trending down. Monitor and replace potassium and magnesium as needed. Management per cardiology. Acute renal failure- likely secondary to hypovolemia/severe sepsis,resolving, creatinine back to baseline. Recheck BMP tomorrow. Hypoxic respiratory failure secondary to pulmonary edema-BNP is high, Echocardiogram done November 2017 showed an ejection fraction of 55-60%, chest x- ray showed persistent non-consolidative right lower lung infiltrate, new non- consolidative infiltrate in the right upper lung. IV fluids stopped, Lasix given yesterday, will give another dose of Lasix today, oxygen support. Coronary artery disease/status post stent placement - Continue aspirin, Plavix , statins, propranolol, patient is supposed to undergo CABG 3, consulted cardiothoracic surgery with recent ventricular tachycardia, recommendation is to revisit CABG once bacteremia and sepsis resolved. He will also need to be off Plavix 5 days prior to surgery. BPHAppreciate urology assistance. No intervention at this time, continue Flomax, PSA within normal limits. Cleared by urology for discharge. Hypertension-continue Norvasc, hydrochlorothiazide, losartan, propranolol Hypokalemia3.3. Will replace and monitor. Hypophosphatemia-replace, recheck in a few days. TIA-on Eliquis DVT: Eliquis
[2017-12-26] MEDS: Propranolol LA 80 MG Capsule PO SCH (09:32)
[2017-12-26] MEDS: amLODIPine 10 MG Tablet PO SCH (09:32)
[2017-12-26] MEDS: Senna/Docusate Sodium 8.6/50 MG Tablet PO SCH (09:32)
[2017-12-26] MEDS: hydroCHLOROthiazide 25 MG Tablet PO SCH (09:32)
--- NOTE | 2017-12-26 09:34 | P.CON ---
History of Present Illness Service: Cardiothoracic surgery Consult date: 12/26/17 Reason for Consult: Coronary artery disease Primary Care Provider: Khadra Ruiz MD Family Provider: Khadra Ruiz MD Chief Complaint: Fevers History of Present Illness: Mr. Angel is a very pleasant 77-year-old gentleman who is well known to me from his previous encounters. Briefly he was admitted in early November for presenting diagnosis of a acute stroke as well as an acute myocardial infarction. At that time he underwent further workup including a coronary angiogram by Dr. Nolen which revealed significant multivessel coronary artery disease. Given the fact that he had had an acute CVA, with a small brain bleed, it was decided to proceed with percutaneous intervention to his culprit coronary vessel with plans to follow-up with coronary revascularization surgery following resolution of his acute neurologic event. He was subsequent discharged and I have seen him on 2 different occasions in the office to discuss the surgical procedure. Most recently he was just seen last Friday my office at which time he had complained of fevers, chills and night sweats with associated urinary complaints. He was advised to see his PCP who [place] and therefore he was sent to the emergency department for further evaluation. At that point he was noted to have significant sepsis with positive bacteremia. He has since been admitted to the hospital and was noted to be in atrial fibrillation with rapid ventricular response and urosepsis and is being treated for those 2 entities. He did have an episode of ventricular versus supraventricular tachyarrhythmia and is currently in atrial fibrillation on IV amiodarone drip. At the present time he denies any chest pressure, pain or syncopal episodes. He does report significant fatigue and progressive shortness of breath with minimal ambulation. Review of Systems All other systems reviewed negative except as stated in HPI PMFSH - History History Provided By: Patient - Medical History Medical History: Medical History (Last Reviewed 12/26/17 @ 07:51 by Barrett Xiong) Coronary artery disease TIA (transient ischemic attack) AAA (abdominal aortic aneurysm) Hyperlipemia Hypertension Urethral stricture - Surgical History Surgical History: Surgical History (Last Reviewed 12/26/17 @ 07:51 by Barrett Xiong) H/O cardiac catheterization H/O abdominal aortic aneurysm repair - Family History Family History: Family History (Last Reviewed 12/23/17 @ 17:41 by Kristie Chapin) Mother Pituitary abnormality Father Stroke - Tobacco History Second Hand Smoke Exposure: No Tobacco Use In Past 30 Days: No Smoking Status: Never smoker - Alcohol History How Often Do You Have a Drink Containing Alcohol: Never - Substance Use History Substance History: No History of Abuse - Travel History Recent Travel in the [place] Within the Last 8 Weeks: No Recent Travel Out of the Country Within the Last 8 Weeks: No - Immunization History Tetanus Immunization: Unsure Hx Influenza Vaccine This Season: Yes Medications and Allergies Active Medications: Active Medications Acetaminophen (Tylenol) 650 mg PO Q4H PRN PRN Reason: Temp > 100.4 Last Admin: 12/25/17 16:24 Dose: 650 mg Al Hydroxide/Mg Hydroxide (Milk Of Magnumesh Liq) 30 ml PO Q12H PRN PRN Reason: Mild Constipation Amlodipine Besylate (Norvasc) 10 mg PO DAILY [facility] Last Admin: 12/25/17 10:06 Dose: 10 mg Apixaban (Eliquis) 5 mg PO BID [facility] Last Admin: 12/25/17 21:14 Dose: 5 mg Aspirin (Aspirin Chew) 81 mg PO DAILY [facility] Last Admin: 12/25/17 10:06 Dose: 81 mg Atorvastatin Calcium (Lipitor) 20 mg PO HS [facility] Last Admin: 12/25/17 21:14 Dose: 20 mg Bisacodyl (Dulcolax Supp) 10 mg RECTAL DAILY PRN PRN Reason: SEVERE CONSITIPATION Clopidogrel Bisulfate (Plavix) 75 mg PO DAILY [facility] Last Admin: 12/25/17 10:05 Dose: 75 mg Hydrochlorothiazide (Hydrodiuril) 25 mg PO DAILY [facility] Last Admin: 12/25/17 10:06 Dose: 25 mg Sodium Chloride (Ns Inj) 1,000 mls @ 0 mls/hr IV.SIG BOLUS ASCENCION Last Infusion: 12/24/17 07:30 Dose: Infused Sodium Chloride (Ns Inj) 1,000 mls @ 0 mls/hr IV.SIG BOLUS ASCENCION Ceftriaxone Sodium 2,000 mg/ (Sodium Chloride) 100 mls @ 200 mls/hr IV.SIG Q24H [facility] Last Infusion: 12/25/17 22:58 Dose: Infused Amiodarone HCl 450 mg/ (Dextrose) 250 mls @ 33.33 mls/hr IV.CONT TITRATE PRN; Protocol PRN Reason: Per Protocol Last Admin: 12/25/17 23:17 Dose: 0.5 mg/min, 17 mls/hr Potassium Chloride (Kcl 10 Meq Premix Inj) 10 meq in 100 mls @ 100 mls/hr IV.SIG Q1H [facility] Stop: 12/26/17 11:59 Lactulose (Lactulose Liq) 30 ml PO DAILY PRN PRN Reason: SEVERE CONSITIPATION Losartan Potassium (Cozaar) 100 mg PO DAILY [facility] Last Admin: 12/25/17 10:05 Dose: 100 mg Ondansetron HCl (Zofran Inj) 4 mg IV.PUSH Q6H PRN PRN Reason: NAUSEA OR VOMITING Potassium Phosphate (K-Phos Original) 500 mg PO DAILY [facility] Propranolol HCl (Inderal La) 80 mg PO DAILY [facility] Last Admin: 12/25/17 10:07 Dose: 80 mg Senna/Docusate Sodium (Ruth-Colace) 1 tab PO BID [facility] Last Admin: 12/25/17 21:14 Dose: 1 tab Sennosides (Senokot) 17.2 mg PO Q12H PRN PRN Reason: Moderate Constipation Sodium Chloride (Ns Flush) 2 ml IV.FLUSH PRN PRN PRN Reason: FLUSH AFTER USING IV ACCESS Tamsulosin HCl (Flomax) 0.4 mg PO DAILY [facility] Last Admin: 12/25/17 14:43 Dose: 0.4 mg Allergies Allergy/AdvReac Type Severity Reaction Status Date / Time No Known Allergies Allergy Unverified 11/21/17 09:58 Home Medications Medication Instructions Recorded Confirmed Type atorvastatin 20 mg PO HS 12/23/17 12/23/17 History hydrochlorothiazide 25 mg PO DAILY 12/23/17 12/23/17 History Physical Exam Vital signs: Vital Signs 12/25/17 12:00 12/25/17 15:08 12/25/17 16:00 Temperature 97.9 F 102.1 F H Pulse Rate 124 H 158 H 107 H Respiratory Rate 17 16 Blood Pressure 160/55 H 147/69 H Pulse Oximetry 94 L 95 12/25/17 17:00 12/25/17 18:00 12/25/17 20:00 Temperature 97.7 F Pulse Rate 105 H 93 H 94 H Respiratory Rate 16 Blood Pressure 106/55 L Pulse Oximetry 95 12/25/17 21:00 12/25/17 22:00 12/25/17 23:00 Temperature Pulse Rate 105 H 100 H 93 H Respiratory Rate Blood Pressure Pulse Oximetry 12/26/17 00:00 12/26/17 01:00 12/26/17 02:00 Temperature 97.6 F Pulse Rate 90 110 H 116 H Respiratory Rate 16 Blood Pressure 111/63 Pulse Oximetry 98 12/26/17 02:45 12/26/17 03:00 12/26/17 04:00 Temperature 98 F Pulse Rate 119 H 109 H 110 H Respiratory Rate 40 H 16 Blood Pressure 130/83 Pulse Oximetry 98 98 12/26/17 05:00 12/26/17 05:59 12/26/17 06:08 Temperature Pulse Rate 111 H 96 H Respiratory Rate Blood Pressure Pulse Oximetry 98 12/26/17 07:00 12/26/17 08:00 Temperature Pulse Rate 97 H Respiratory Rate Blood Pressure Pulse Oximetry 96 Intake & Output 12/25/17 12/26/17 12/26/17 18:59 06:59 18:59 Intake Total 2890 / 2890 830 / 830 Output Total 1300 / 1300 400 / 400 Balance 1590 / 1590 430 / 430 Weight 85 kg Intake: IV 1969 / 1969 350 / 350 Cordarone Inj 450 MG In D5W Inj 250 / 250 241 ML @ 1 MG/MIN 33.33 mls/hr IV.CONT TITRATE PRN Rx#: [id number] Potassium Chlor 20 mEq/NACL 0. 1770 / 1770 45% Inj 1,000 ML @ 84 mls/hr IV .CONT .[id number] [facility] Rx#:[id number] Cordarone Inj 150 MG In D5W Inj 100 / 100 97 ML @ 600 mls/hr IV.SIG ONCE ONE Rx#:[id number] Rocephin Inj 2,000 MG In NS Inj 100 / 100 100 ML @ 200 mls/hr IV.SIG Q24H [facility] Rx#:[id number] Oral 920 / 920 480 / 480 Output: Urine 1300 / 1300 400 / 400 - Constitutional no acute distress, thin - Routine HEENT Exam Head: Present: normocephalic, atraumatic Eye: Present: EOMI, PERRL ENT: Present: mucous membranes moist - Routine Neck Exam Present: supple, full ROM. Absent: JVD, carotid bruit - Routine Respiratory Exam Present: CTA bilaterally. Absent: accessory muscle use - Routine Cardiovascular Exam Present: S1, S2, tachycardia, irregularly irregular. Absent: murmur, gallop, rubs - Routine Abdominal Exam Present: soft, normoactive bowel sounds. Absent: tenderness, distended, rebound , guarding - Routine Extremities Exam Present: full ROM, pulses intact, normal capillary refill. Absent: cyanosis, clubbing, edema, calf tenderness - Routine Skin Exam Present: intact. Absent: cyanosis, erythema - Routine Neurological Exam Present: alert, oriented X3, CN II-XII intact, normal reflexes - Routine Psychiatric Exam Present: normal affect, normal thought process Assessment and Plan - Assessment (1) Acute UTI Code(s): N39.0 - Urinary tract infection, site not specified Status: Acute (2) CAD (coronary artery disease) Code(s): I25.10 - Atherosclerotic heart disease of [place] coronary artery without angina pectoris Status: Acute (3) CVA (cerebral vascular accident) Code(s): I63.9 - Cerebral infarction, unspecified Status: Acute (4) Sepsis Code(s): A41.9 - Sepsis, unspecified organism Status: Acute - Plan The clinical findings were again discussed with the patient, his as well as his daughter today. At this point I would like to see resolution of his urosepsis, leukocytosis and bacteremia prior to revisiting the topic of coronary vascular since surgery. Furthermore, he will need to be off of his antiplatelet therapy for at least 5 days prior to cardiac surgery. Obviously, this plan with change should he experience hemodynamic or electrical evidence of coronary ischemia. His most recent echo on an outpatient basis has demonstrated preserved ventricular function. We will continue to follow with you. Thank you for allowing me to participate in the care of this patient (4) Sepsis Qualifiers: Sepsis type: sepsis due to unspecified organism Qualified Code(s): A41.9 - Sepsis, unspecified organism
[2017-12-26] MEDS: Potassium Chlor 10 mEq Premix 10 MEQ/100 ML PIGGYBACK IV.SIG SCH ×3 (09:37→12:21)
[2017-12-26] MEDS: Potassium Phosphate 500 MG Soluble Tablet PO SCH (09:39)
--- NOTE | 2017-12-26 12:36 | MB ---
cc: Jonathan Nolen MD DATE: 12/26/2017 HISTORY OF PRESENT ILLNESS: Jonathan is a very pleasant 77-year-old gentleman with history of severe coronary artery disease, status post PCI, TIA, CVA, abdominal aortic aneurysm status post repair, coronary artery disease, admitted with UTI. He has been followed as an outpatient by Dr. Menchaca for workup of CABG. CABG has been deferred due to issues with infection and fever. The patient developed ventricular tachycardia up to 30 seconds yesterday. He was transferred to the fourth floor cardiovascular care unit, placed on amiodarone bolus and drip by myself. He is anticoagulated with Eliquis, currently sitting up in his chair, resting in no acute distress. Denies fever, chills, cough, GI or bleeding. PND, orthopnea. Syncope or dizziness or chest pain, although he does feel palpitations. PAST MEDICAL HISTORY: Per history of present illness. He also has a history of urethral stricture, hypertension. ALLERGIES: NONE. SOCIAL HISTORY: Denies tobacco use. Denies alcohol use. HOSPITAL MEDICATIONS: 1. Amiodarone IV. 2. Amlodipine 10 mg daily. 3. Eliquis 5 mg b.i.d. 4. Aspirin 81 mg daily. 5. Atorvastatin 20 mg at bedtime. 6. Clopidogrel 75 mg daily. 7. Hydrochlorothiazide 25 mg daily. 8. Losartan 100 mg daily. 9. Potassium. 10. Propranolol 80 mg daily. PHYSICAL EXAMINATION: VITAL SIGNS: Pulse range between 100-120, saturations 96% on 5 liters nasal cannula, blood pressure 145/74, respiratory rate 32, temperature 98. GENERAL: He is alert and oriented x3, in no acute distress. NECK: Supple. No JVD. No bruit. CARDIOVASCULAR: S1, S2. No murmurs, rubs, or gallops. LUNGS: Clear to auscultation bilaterally. ABDOMEN: Soft, nontender, nondistended, positive bowel sounds. EXTREMITIES: No extremity edema. LABORATORY DATA: White count 13.5, hemoglobin 12.3, hematocrit 37.2, platelet count 289. INR is 1.1. Blood gas: pH 7.46, pCO2 of 33, pO2 97 on 60% oxygen, IPAP. Sodium 145, potassium 3.4, chloride 108, bicarbonate 24.8, BUN 29, creatinine 1.24. Troponin 0.31, 0.24, 0.12. BNP is 586. Albumin 2.0, magnesium 2.2. EKG: AFib at a rate of 107 beats per minute, ST depression of 1-2 mm in lead II, III, aVF, V4, V5, V6. QRS duration of 108 milliseconds. Wide complex B, either representing PVCs and/or aberrantly conducted PAC. Chest x-ray: Persistent right lower lobe lung infiltrate and a new nonconsolidative infiltrate in the central upper right lung. FINAL DIAGNOSES: 1. Ajw-[id number]-clenzonzo myocardial infarction. 2. Severe coronary artery disease. 3. Decompensated congestive heart failure. 4. Peripheral vascular disease. 5. Status post percutaneous coronary intervention.\ 6. Hypertension. 7. Ventricular tachycardia. 8. Urinary tract infection. 9. Pneumonia. 10. Hypokalemia. 11. Hypoalbuminemia. 12. Hyperglycemia. 13. Hypoxia. 14. Atrial fibrillation. 15. Anemia. 16. Elevated white count. 17. History of cerebrovascular accident. DISCUSSION: At this point in time, it appears the patient is failing medical management. He is high risk for poor outcome without revascularization. He has resting ischemia on his EKG. Dr. Menchaca has been consulted and Dr. Looney has been consulted. At this point in time I will continue Eliquis, amiodarone drip, propranolol, aspirin, Plavix, and Cozaar. He is receiving antibiotics for pneumonia and UTI and recommend coronary artery bypass graft procedure as soon as medically cleared. Jonathan Nolen MD Stefanie/ , 11:21 AM , 11:33 AM
--- NOTE | 2017-12-26 13:03 | P.PNID ---
Subjective Remarks: Mr. Angel is a 77-year-old -[place] male with past medical history significant for previous TIA, coronary artery disease status post stent placement, hypertension and hyperlipidemia. Patient's past medical history is also significant for ureteral stricture for which she was seeing a urologist in the past. Patient also reports that once he turned 70 he stopped seeing the urologist as he was stopped checking his PSA levels. He is currently not on any medications like Flomax but does report increase in the frequency of urination and also urinary tract infections. He denies having a Ramos catheterization during his last hospitalization for a TIA. Patient was diagnosed with a UTI during that admission and pain. Patient reports increased urinary frequency and burning with urination for the last several days prior to admission. He states reports feeling fatigued and nauseated and some anorexia. His T-max at home was 103. He denies any chest pain or shortness of breath he denies any abdominal pain and denies any other new symptoms. Infectious disease is consulted for evaluation and management of sepsis, gram- negative bacteremia as well as gram-negative UTI. Overnight events reviewed Transferred to CCU and was on Bipap. Now on O2. Patient not on Oxygen at home. Concern for Pulm edema related to cardiac events over the last 2 days. No fever No rash No diarrhea Antibiotics: Ceftriaxone IV Lines: Lines ok Past Medical History: reviewed Allergies/Adverse Reactions: Allergies No Known Allergies Allergy (Unverified 11/21/17 09:58) Objective Vital Signs 12/25/17 15:08 12/25/17 16:00 12/25/17 17:00 Temperature 102.1 F H Pulse Rate 158 H 107 H 105 H Respiratory Rate 16 Blood Pressure 147/69 H Pulse Oximetry 95 12/25/17 18:00 12/25/17 20:00 12/25/17 21:00 Temperature 97.7 F Pulse Rate 93 H 94 H 105 H Respiratory Rate 16 Blood Pressure 106/55 L Pulse Oximetry 95 12/25/17 22:00 12/25/17 23:00 12/26/17 00:00 Temperature 97.6 F Pulse Rate 100 H 93 H 90 Respiratory Rate 16 Blood Pressure 111/63 Pulse Oximetry 98 12/26/17 01:00 12/26/17 02:00 12/26/17 02:45 Temperature Pulse Rate 110 H 116 H 119 H Respiratory Rate 40 H Blood Pressure Pulse Oximetry 98 12/26/17 03:00 12/26/17 04:00 12/26/17 05:00 Temperature 98 F Pulse Rate 109 H 110 H 111 H Respiratory Rate 16 Blood Pressure 130/83 Pulse Oximetry 98 12/26/17 05:59 12/26/17 06:08 12/26/17 07:00 Temperature 98 F Pulse Rate 96 H 99 H Respiratory Rate 32 H Blood Pressure 145/74 H Pulse Oximetry 98 95 12/26/17 08:00 12/26/17 09:00 12/26/17 10:00 Temperature Pulse Rate 102 H 112 H 104 H Respiratory Rate Blood Pressure Pulse Oximetry 96 12/26/17 11:00 12/26/17 11:42 12/26/17 12:00 Temperature 98 F Pulse Rate 107 H 100 H Respiratory Rate 20 Blood Pressure 110/66 Pulse Oximetry 92 L 92 L Intake & Output 12/25/17 12/26/17 12/26/17 18:59 06:59 18:59 Intake Total 2890 / 2890 830 / 830 200 / 200 Output Total 1300 / 1300 400 / 400 Balance 1590 / 1590 430 / 430 200 / 200 Weight 85 kg Intake: IV 1969 / 1969 350 / 350 200 / 200 Cordarone Inj 450 MG In D5W Inj 250 / 250 241 ML @ 1 MG/MIN 33.33 mls/hr IV.CONT TITRATE PRN Rx#: [id number] Potassium Chlor 20 mEq/NACL 0. 1770 / 1770 45% Inj 1,000 ML @ 84 mls/hr IV .CONT .[id number] [facility] Rx#:[id number] Cordarone Inj 150 MG In D5W Inj 100 / 100 97 ML @ 600 mls/hr IV.SIG ONCE ONE Rx#:[id number] KCl 10 mEq Premix Inj 10 meq In 200 / 200 100 ml @ 100 mls/hr IV.SIG Q1H [facility] Rx#:[id number] Rocephin Inj 2,000 MG In NS Inj 100 / 100 100 ML @ 200 mls/hr IV.SIG Q24H [facility] Rx#:[id number] Oral 920 / 920 480 / 480 Output: Urine 1300 / 1300 400 / 400 12/24/17 14:00 Blood - Peripheral Aerobic Blood Culture - Preliminary No growth in 2 days 12/24/17 14:00 Blood - Peripheral Anaerobic Blood Culture - Preliminary No growth in 2 days 12/24/17 14:05 Blood - Peripheral Aerobic Blood Culture - Preliminary No growth in 2 days 12/24/17 14:05 Blood - Peripheral Anaerobic Blood Culture - Preliminary No growth in 2 days 12/23/17 18:00 Blood - Peripheral Aerobic Blood Culture - Preliminary No growth in 3 days 12/23/17 18:00 Blood - Peripheral Anaerobic Blood Culture - Final Escherichia coli 12/23/17 17:50 Blood - Peripheral Aerobic Blood Culture - Preliminary No growth in 3 days 12/23/17 17:50 Blood - Peripheral Anaerobic Blood Culture - Final Escherichia coli 12/23/17 17:30 Random Urine Urine Culture - Final Escherichia coli Lab - Hematology Results 12/25/17 12/25/17 12/26/17 04:40 17:31 03:44 WBC 10.7 10.1 13.5 H RBC 3.66 L 3.95 L 4.08 L Hgb 11.2 L 12.0 L 12.3 L Hct 34.1 L 36.7 L 37.2 L MCV 93.2 92.9 91.1 MCH 30.5 30.5 30.1 MCHC 32.7 32.8 33.1 RDW 14.3 14.7 14.4 Plt Count 239 251 289 MPV 9.6 8.9 9.2 Neut % (Auto) 85.8 H Lymph % (Auto) 5.7 L [place] % (Auto) 8.0 Eos % (Auto) 0.3 Baso % (Auto) 0.2 Neut # (Auto) 9.1 H Lymph # (Auto) 0.6 L [place] # (Auto) 0.9 Eos # (Auto) 0.0 Baso # (Auto) 0.0 WBC Differential . Differential Comment Auto diff final Lab - Chemistry Results 12/24/17 12/24/17 12/25/17 19:37 19:37 04:40 Sodium 144 Potassium 3.3 L Chloride 110 H Carbon Dioxide 22.9 Anion Gap 11 BUN 31 H Creatinine 1.26 Estimated GFR 67 L Random Glucose 127 H Calcium 8.4 L Phosphorus 2.2 L Magnesium 2.2 Troponin I C-Reactive Protein 21.00 H B-Natriuretic Peptide Albumin 2.0 L Free PSA Less than 0.1 Total PSA 0.5 PSA Free/Total Ratio 0 12/25/17 12/25/17 12/25/17 15:29 17:31 20:57 Sodium Potassium Chloride Carbon Dioxide Anion Gap BUN Creatinine Estimated GFR Random Glucose Calcium Phosphorus Magnesium Troponin I 0.31 H 0.24 H C-Reactive Protein B-Natriuretic Peptide 586 H Albumin Free PSA Total PSA PSA Free/Total Ratio 12/26/17 03:44 Sodium 145 Potassium 3.4 L Chloride 108 H Carbon Dioxide 24.8 Anion Gap 12 BUN 29 H Creatinine 1.24 Estimated GFR 69 L Random Glucose 161 H Calcium 8.7 Phosphorus 2.1 L Magnesium 2.1 Troponin I 0.12 H C-Reactive Protein B-Natriuretic Peptide Albumin 2.1 L Free PSA Total PSA PSA Free/Total Ratio Imaging: ITS Impressions Chest X-Ray 12/26/17 00:00 CONCLUSION: Persistent right lower lung infiltrate and new nonconsolidative infiltrate in the central/upper right lung. Physical Exam: GENERAL: Well-nourished well-developed, not in acute distress SKIN: Cool and dry, no generalized rash HEAD: Atraumatic. Normocephalic. No temporal or scalp tenderness. EYES: Pupils equal round and reactive. Scleral icterus. No injection or drainage. No petechia ENT: Nothing abnormal detected NECK: Trachea midline. Supple, nontender, no meningeal signs. CARDIOVASCULAR: HS audible. RESPIRATORY: Clear to auscultation bilaterally. GASTROINTESTINAL: Abdomen soft nontender. MUSCULOSKELETAL: Extremities without clubbing, cyanosis. NEUROLOGICAL: Alert oriented 3. Psych cooperative IV line sites ok. Assessment and Plan - Plan Sepsis present on admission Gram-negative bacteremia likely E. coli. Verigene testing negative for ESBL on preliminary report. Gram-negative UTI Rule out prostatitis check PSA Likely has benign prostatic hypertrophy based on his symptoms. Recommendations: Continue ceftriaxone 2 g IV every 24 hours for bacteremia dosing Follow Repeat blood cultures PSA level normal no e.o prostatitis. Follow clinical course. If Clinically doing well over weekend, and blood cultures negative at 72 hours may be discharged from ID standpoint provided cardiology clears him to receive Levaquin for bacteremia and QT interval normal. If QT interval prolonged and cardiology does not clear him for Levaquin will need IV antibiotics set up for outpatient.
--- NOTE | 2017-12-26 13:56 | ECG ---
Date Performed: 12/26/2017 Time Performed: 03:09:36 PTAGE: 77 years EKG: Atrial fibrillation with rapid ventricular response with PVC(s) or aberrant ventricular con duction Possible anterior infarct - age undetermined Inferior/lateral ST-T changes may be due to myoc ardial ischemia Abnormal ECG Since the PREVIOUS TRACING , no significant change noted PREVIOUS TRACING DOCTOR: Sarah Cabrera Interpretating Date/Time 12/26/2017 13:54:16
--- NOTE | 2017-12-26 13:56 | ECG ---
Date Performed: 12/25/2017 Time Performed: 21:24:08 PTAGE: 77 years EKG: Atrial fibrillation with PVC(s) Possible anterior infarct - age undetermined Inferior/later al ST-T changes are nonspecific Low QRS voltages in precordial leads Abnormal ECG Since the PREVIOUS TRACING , no significant change noted PREVIOUS TRACIN12/25/2017 16.04 DOCTOR: Sarah Cabrera Interpretating Date/Time 12/26/2017 13:54:02
--- NOTE | 2017-12-26 14:34 | ECG ---
Date Performed: 12/25/2017 Time Performed: 16:04:00 PTAGE: 77 years EKG: ATRIAL FIBRILLATION WITH RAPID VENTRICULAR RESPONSE MODERATE INTRAVENTRICULAR CONDUCTION DE LAY NONSPECIFIC ST & T-WAVE ABNORMALITY ABNORMAL RHYTHM ECG Compared to PREVIOUS TRACING , there has been a singificant improvement in the inferolateral ST segme nt changes but otherwise no signifcant change. PREVIOUS TRACIN11/20/2017 03.32 DOCTOR: Sarah Cabrera Interpretating Date/Time 12/26/2017 14:32:29
--- NOTE | 2017-12-26 17:37 | XR ---
EXAM DATE: 12/26/2017 5:31 PM EDT AGE/SEX: 77 years / Male INDICATIONS: Short of breath. Tachypnea. Pre op for CABG CLINICAL DATA: This is the patient's subsequent encounter. Patient reports that signs and symptoms h ave been present for 3 days and indicates a pain score of 0/10. MEDICAL/SURGICAL HISTORY: Cardiovascular disease. None. COMPARISON: [facility], CHEST 1V SINGLE AP, 12/26/2017. . FINDINGS: Single AP portable upright view of the chest demonstrates progressive airspace consolidation involvin g the right lower lobe and basilar aspect of the right upper lobe. Findings are concerning for pneumo eleazar. Left hemithorax is clear. Heart size appears mildly enlarged. CONCLUSION: Progressive airspace disease within the right lower lobe and basilar aspect of the right upper lobe c oncerning for multifocal pneumonia. Electronically signed by: Lucretia Longoria MD 12/26/2017 5:36 PM EDT
[2017-12-26] MEDS ORDERED: Vancomycin Consult Pharmacy OTHER PRN (19:08)
[2017-12-26] MEDS ORDERED: Vancomycin Inj 2,200 MG in Sodium Chlor 0.9% Inj 500 ML IV.SIG ONE (20:30)
[2017-12-26] MEDS ORDERED: Atropine Inj 1 MG/10 ML Syringe ONE (20:44)
--- NOTE | 2017-12-26 21:41 | CT ---
EXAM DATE: 12/26/2017 9:31 PM EDT AGE/SEX: 77 years / Male INDICATIONS: Shortness of breath, elevated D-dimer. CLINICAL DATA: This is the patient's initial encounter. Patient reports that signs and symptoms have been present for 1 day and indicates a pain score of 0/10. MEDICAL/SURGICAL HISTORY: Aneurysm, abdominal. Hypertension. Transient ischemic attack. . Cardiac cath. RADIATION DOSE: 22.99 CTDI (mGy) COMPARISON: No prior exams available for comparison. TECHNIQUE: Volumetric scanning was performed using a multi-row detector CT scanner during bolus infu jj of 70 ml Omnipaque 350 (iohexol) nonionic water-soluble contrast as a single exam dose. The kristina a was post processed with a variety of visualization algorithms including full volume maximum intensi ty projection and sliding thin slab reformation. Using automated exposure control and adjustment of t he mA and/or kV according to patient size, radiation dose was kept as low as reasonably achievable to obtain optimal diagnostic quality images. DICOM format image data is available electronically for r eview and comparison. FINDINGS: Pulmonary Arteries: No filling defects are seen in the pulmonary arteries out to the subsegmental ve ssels. The left and right pulmonary arteries are normal in diameter. Lung: Right perihilar infiltrates are noted consistent with asymmetric pulmonary edema versus pneumo eleazar. Clinical correlation is recommended. Scattered peripheral bleb formation is noted bilaterally. N o pulmonary nodule or mass. Effusion: Small bilateral pleural effusions are noted. Mediastinum: No evidence of mediastinal or hilar adenopathy. The heart is enlarged. Coronary artery calcifications are noted. Other: The axilla is unremarkable. Scattered low-density lesions are noted within the liver which ar e indeterminate on this examination. CONCLUSION: 1. No evidence of pulmonary embolism. 2. Right perihilar infiltrates are noted consistent with asymmetric pulmonary edema versus pneumonia . Clinical correlation is recommended. 3. Scattered peripheral bleb formation is noted bilaterally. 4. Small bilateral pleural effusions. 5. Cardiomegaly and coronary artery calcifications. 6. Low-density lesions within the liver which are nonspecific. Electronically signed by: Ross Santana MD 12/26/2017 9:39 PM EDT
[2017-12-26] MEDS: Piperacil/Tazo 3.375 GM Premix 50 ML IV.SIG SCH (22:21)
[2017-12-27] MEDS: Senna/Docusate Sodium 8.6/50 MG Tablet PO SCH ×3 (00:10→20:53)
[2017-12-27 01:42] LABS: ABG Base Excess 2.3 mmol/L (-2-2); ABG PCO2 29 mmHg (38-42); ABG PO2 61 mmHG (61-120)
[2017-12-27] MEDS: Piperacil/Tazo 3.375 GM Premix 50 ML IV.SIG SCH ×4 (02:57→20:52)
[2017-12-27] MEDS ORDERED: Chlorhexidine Gluconate 2% 1 Pack (2 Cloths) TOPICAL PRN (04:00)
[2017-12-27 05:30] LABS: Baso % (Auto) 0.4 % (0.0-2.0); Eos # (Auto) 0.1 th/mm3 (0.0-0.4); Eos % (Auto) 1.3 % (0.0-4.0); Hematocrit 35.4 % (39.0-51.0); Hemoglobin 11.5 gm/dL (13.0-17.0); Lymph # (Auto) 0.6 th/mm3 (1.0-4.8); Lymph % (Auto) 6.6 % (9.0-44.0); Mean Corpuscular HGB Conc 32.6 % (32.0-36.0); Mean Platelet Volume 9.6 fL (7.0-11.0); Mono # (Auto) 0.6 th/mm3 (0.0-0.9); Mono % (Auto) 6.6 % (0.0-8.0); Neut # (Auto) 7.2 th/mm3 (1.8-7.7); Neut % (Auto) 85.1 % (16.0-70.0); Platelet Count 276 th/mm3 (150-450); Red Blood Count 3.84 mil/mm3 (4.50-5.90); Red Cell Distribution Width 14.4 % (11.6-17.2); White Blood Count 8.4 th/mm3 (4.0-11.0)
[2017-12-27 05:55] LABS: Calcium 8.8 mg/dL (8.5-10.1); Carbon Dioxide 27.3 meq/L (21.0-32.0); Magnesium 1.8 mg/dL (1.5-2.5)
[2017-12-27 05:57] LABS: Potassium 2.9 meq/L (3.5-5.1)
[2017-12-27] MEDS: Chlorhexidine Gluconate 2% 1 Pack (2 Cloths) TOPICAL SCH (06:06)
[2017-12-27] MEDS ORDERED: Potassium Chlor 40 mEq Premix 40 MEQ/100 ML PIGGYBACK IV.SIG PRN ×2 (06:46)
[2017-12-27] MEDS ORDERED: Potassium Phosphate 500 MG Soluble Tablet PO PRN ×2 (06:46)
[2017-12-27] MEDS ORDERED: Potassium Phosphate Inj 30 MMOL in Sodium Chlor 0.9% Inj 250 ML IV.SIG PRN (06:46)
[2017-12-27] MEDS ORDERED: Potassium Chloride 25 MEQ Effervescent Tablet PO PRN (06:46)
[2017-12-27] MEDS ORDERED: Magnesium Sulfate Inj 4 GM in Sodium Chlor 0.9% Inj 92 ML IV.SIG PRN (06:46)
[2017-12-27] MEDS ORDERED: Sodium Phosphate Inj 30 MMOL in Sodium Chlor 0.9% Inj 250 ML IV.SIG PRN (06:46)
[2017-12-27] MEDS ORDERED: Magnesium Sulfate Inj 2 GM in Sodium Chlor 0.9% Inj 96 ML IV.SIG PRN (06:46)
[2017-12-27] MEDS ORDERED: Magnesium Oxide 400 MG Tablet PO PRN (06:46)
[2017-12-27] MEDS ORDERED: Potassium Chlor 20 mEq Premix 20 MEQ/100 ML PIGGYBACK IV.SIG PRN (06:46)
[2017-12-27] MEDS: Potassium Phosphate 500 MG Soluble Tablet PO SCH (08:52)
[2017-12-27] MEDS: amLODIPine 10 MG Tablet PO SCH (08:56)
[2017-12-27] MEDS: hydroCHLOROthiazide 25 MG Tablet PO SCH (08:56)
[2017-12-27] MEDS: Propranolol LA 80 MG Capsule PO SCH (10:53)
[2017-12-27] MEDS: Potassium Chlor 20 mEq Premix 20 MEQ/100 ML PIGGYBACK IV.SIG PRN ×4 (10:55→18:16)
--- NOTE | 2017-12-27 11:05 | P.PNCA ---
Subjective Interval history: alert in nad Physical Exam Vital signs: Vital Signs 12/26/17 11:42 12/26/17 12:00 12/26/17 13:00 Temperature Pulse Rate 100 H 103 H Respiratory Rate Blood Pressure Pulse Oximetry 92 L 12/26/17 14:00 12/26/17 15:00 12/26/17 16:00 Temperature 98.2 F Pulse Rate 104 H 98 H 104 H Respiratory Rate 40 H Blood Pressure 116/75 Pulse Oximetry 98 12/26/17 16:45 12/26/17 17:00 12/26/17 18:00 Temperature Pulse Rate 102 H 105 H 103 H Respiratory Rate 28 H Blood Pressure Pulse Oximetry 93 L 12/26/17 19:00 12/26/17 19:45 12/26/17 20:00 Temperature Pulse Rate 102 H Respiratory Rate Blood Pressure Pulse Oximetry 93 L 95 12/26/17 22:00 12/27/17 00:00 12/27/17 01:00 Temperature Pulse Rate 105 H 106 H 106 H Respiratory Rate Blood Pressure Pulse Oximetry 86 L 12/27/17 01:56 12/27/17 02:00 12/27/17 03:00 Temperature Pulse Rate 108 H 98 H Respiratory Rate Blood Pressure Pulse Oximetry 96 12/27/17 04:00 12/27/17 04:59 12/27/17 06:00 Temperature Pulse Rate 108 H 110 H Respiratory Rate Blood Pressure Pulse Oximetry 94 L 12/27/17 06:48 12/27/17 08:26 Temperature Pulse Rate 109 H Respiratory Rate Blood Pressure Pulse Oximetry 94 L Intake & Output 12/26/17 12/27/17 12/27/17 18:59 06:59 18:59 Intake Total 1030 / 1030 340 / 340 Output Total 660 / 660 1100 / 1100 Balance 370 / 370 -760 / -760 Weight 85 kg Intake: IV 550 / 550 100 / 100 Cordarone Inj 450 MG In D5W Inj 250 / 250 241 ML @ 1 MG/MIN 33.33 mls/hr IV.CONT TITRATE PRN Rx#: [id number] Zosyn 3.375 GM Premix 50 ML @ 100 / 100 100 mls/hr IV.SIG Q6H [facility] Rx#: [id number] KCl 10 mEq Premix Inj 10 meq In 300 / 300 100 ml @ 100 mls/hr IV.SIG Q1H [facility] Rx#:[id number] Oral 480 / 480 240 / 240 Output: Urine 660 / 660 1100 / 1100 Other: Date of Last Bowel Movement 12/23/17 Assessment and Plan - Assessment (1) NSTEMI (non-ST elevated myocardial infarction) Code(s): I21.4 - Non-ST elevation (NSTEMI) myocardial infarction Status: Acute (2) CHF (congestive heart failure) Code(s): I50.9 - Heart failure, unspecified Status: Acute (3) Acute decompensated heart failure Code(s): I50.9 - Heart failure, unspecified Status: Acute (4) Afib Code(s): I48.91 - Unspecified atrial fibrillation Status: Acute (5) Wide-complex tachycardia Code(s): I47.2 - Ventricular tachycardia Status: Acute (6) Acute UTI Code(s): N39.0 - Urinary tract infection, site not specified Status: Acute (7) CAD (coronary artery disease) Code(s): I25.10 - Atherosclerotic heart disease of [place] coronary artery without angina pectoris Status: Acute (8) CVA (cerebral vascular accident) Code(s): I63.9 - Cerebral infarction, unspecified Status: Acute (9) Sepsis Code(s): A41.9 - Sepsis, unspecified organism Status: Acute - Plan 1.) CAD - high risk presentation with nstemi with decompensated chf, wide complex tachycardia, afib, sepsis, uti; I reviewed his cath films from 11/21/17; he has a 60-70% distal left main, 75% ost lcx, 70% prox rca(dom), 95% prox rpla , ef@ 50%; he appears to be failing and/or responding poorly to medical management; rec cabg, i dont if he will be stable enough for discharge prior to cabg, d/w patient, his and son and nurse at the bedside, continue eliquis, aspirin, plavix, iv amio, beta meg held due to decompensated chf (9) Sepsis Qualifiers: Sepsis type: sepsis due to unspecified organism Qualified Code(s): A41.9 - Sepsis, unspecified organism
--- NOTE | 2017-12-27 11:35 | P.PN ---
Subjective Interval history: F/u resp failure, pna and VT. Patient seen in ICU on Ventimask. States he is feeling better. Denies chest pain, shortness of breath, cough, fever and chills. Seen with family. Discussed with nursing Physical Exam Vital signs: Vital Signs 12/26/17 11:42 12/26/17 12:00 12/26/17 13:00 Temperature Pulse Rate 100 H 103 H Respiratory Rate Blood Pressure Pulse Oximetry 92 L 12/26/17 14:00 12/26/17 15:00 12/26/17 16:00 Temperature 98.2 F Pulse Rate 104 H 98 H 104 H Respiratory Rate 40 H Blood Pressure 116/75 Pulse Oximetry 98 12/26/17 16:45 12/26/17 17:00 12/26/17 18:00 Temperature Pulse Rate 102 H 105 H 103 H Respiratory Rate 28 H Blood Pressure Pulse Oximetry 93 L 12/26/17 19:00 12/26/17 19:45 12/26/17 20:00 Temperature Pulse Rate 102 H Respiratory Rate Blood Pressure Pulse Oximetry 93 L 95 12/26/17 22:00 12/27/17 00:00 12/27/17 01:00 Temperature Pulse Rate 105 H 106 H 106 H Respiratory Rate Blood Pressure Pulse Oximetry 86 L 12/27/17 01:56 12/27/17 02:00 12/27/17 03:00 Temperature Pulse Rate 108 H 98 H Respiratory Rate Blood Pressure Pulse Oximetry 96 12/27/17 04:00 12/27/17 04:59 12/27/17 06:00 Temperature Pulse Rate 108 H 110 H Respiratory Rate Blood Pressure Pulse Oximetry 94 L 12/27/17 06:48 12/27/17 08:26 Temperature Pulse Rate 109 H Respiratory Rate Blood Pressure Pulse Oximetry 94 L Intake & Output 12/26/17 12/27/17 12/27/17 18:59 06:59 18:59 Intake Total 1030 / 1030 340 / 340 Output Total 660 / 660 1100 / 1100 Balance 370 / 370 -760 / -760 Weight 85 kg Intake: IV 550 / 550 100 / 100 Cordarone Inj 450 MG In D5W Inj 250 / 250 241 ML @ 1 MG/MIN 33.33 mls/hr IV.CONT TITRATE PRN Rx#: [id number] Zosyn 3.375 GM Premix 50 ML @ 100 / 100 100 mls/hr IV.SIG Q6H [facility] Rx#: [id number] KCl 10 mEq Premix Inj 10 meq In 300 / 300 100 ml @ 100 mls/hr IV.SIG Q1H [facility] Rx#:[id number] Oral 480 / 480 240 / 240 Output: Urine 660 / 660 1100 / 1100 Other: Date of Last Bowel Movement 12/23/17 Narrative: GENERAL: Not in distress, well-developed well-nourished on Ventimask CARDIOVASCULAR: Irregularly irregular RESPIRATORY: Crackles in the left base, no wheezing. GASTROINTESTINAL: Abdomen soft, non-tender, nondistended. MUSCULOSKELETAL: No cyanosis. +1 bilateral lower extremity edema. BACK: Nontender without obvious deformity. No CVA tenderness. Alert awake oriented 3, no focal deficits. Results - Labs CBC & Chem 7: 12/27/17 04:27 12/27/17 04:27 Laboratory Results - last 24 hr 12/26/17 12/26/17 12/26/17 17:18 17:18 21:28 WBC RBC Hgb Hct MCV MCH MCHC RDW Plt Count MPV Neut % (Auto) Lymph % (Auto) [place] % (Auto) Eos % (Auto) Baso % (Auto) Neut # (Auto) Lymph # (Auto) [place] # (Auto) Eos # (Auto) Baso # (Auto) WBC Differential Differential Comment D-Dimer Quant (PE/DVT) 2.47 H Puncture Site Patient Temperature O2 Saturation ABG pH ABG pCO2 ABG pO2 ABG HCO3 ABG O2 Content ABG Base Excess ABG Methemoglobin Ji Test Hemoglobin Carboxyhemoglobin O2 Delivery Device Liter Flow Inspired O2 Critical Value Sodium Potassium Chloride Carbon Dioxide Anion Gap BUN Creatinine Estimated GFR Random Glucose Calcium Magnesium Troponin I 0.09 H TSH Nasal Screen MRSA (PCR) Not detected 12/26/17 12/27/17 12/27/17 22:17 01:27 04:27 WBC RBC Hgb Hct MCV MCH MCHC RDW Plt Count MPV Neut % (Auto) Lymph % (Auto) [place] % (Auto) Eos % (Auto) Baso % (Auto) Neut # (Auto) Lymph # (Auto) [place] # (Auto) Eos # (Auto) Baso # (Auto) WBC Differential Differential Comment D-Dimer Quant (PE/DVT) Puncture Site Left radial Patient Temperature 98.6 O2 Saturation 91 ABG pH 7.54 H* ABG pCO2 29 L ABG pO2 61 ABG HCO3 25 ABG O2 Content 15.2 ABG Base Excess 2.3 H ABG Methemoglobin 1.4 Ji Test Present Hemoglobin 11.9 L Carboxyhemoglobin 0.8 O2 Delivery Device Venti mask Liter Flow 7.00 Inspired O2 50 Critical Value Yes Sodium 143 Potassium 2.9 L* Chloride 106 Carbon Dioxide 27.3 Anion Gap 10 BUN 23 H Creatinine 1.19 Estimated GFR 72 L Random Glucose 109 H Calcium 8.8 Magnesium 1.8 Troponin I 0.07 H TSH Nasal Screen MRSA (PCR) 12/27/17 12/27/17 04:27 04:27 WBC 8.4 RBC 3.84 L Hgb 11.5 L Hct 35.4 L MCV 92.0 MCH 30.0 MCHC 32.6 RDW 14.4 Plt Count 276 MPV 9.6 Neut % (Auto) 85.1 H Lymph % (Auto) 6.6 L [place] % (Auto) 6.6 Eos % (Auto) 1.3 Baso % (Auto) 0.4 Neut # (Auto) 7.2 Lymph # (Auto) 0.6 L [place] # (Auto) 0.6 Eos # (Auto) 0.1 Baso # (Auto) 0.0 WBC Differential . Differential Comment Auto diff final D-Dimer Quant (PE/DVT) Puncture Site Patient Temperature O2 Saturation ABG pH ABG pCO2 ABG pO2 ABG HCO3 ABG O2 Content ABG Base Excess ABG Methemoglobin Ji Test Hemoglobin Carboxyhemoglobin O2 Delivery Device Liter Flow Inspired O2 Critical Value Sodium Potassium Chloride Carbon Dioxide Anion Gap BUN Creatinine Estimated GFR Random Glucose Calcium Magnesium Troponin I TSH 2.370 Nasal Screen MRSA (PCR) Microbiology 12/24/17 14:00 Blood - Peripheral Aerobic Blood Culture - Preliminary No growth in 3 days 12/24/17 14:00 Blood - Peripheral Anaerobic Blood Culture - Preliminary No growth in 3 days 12/24/17 14:05 Blood - Peripheral Aerobic Blood Culture - Preliminary No growth in 3 days 12/24/17 14:05 Blood - Peripheral Anaerobic Blood Culture - Preliminary No growth in 3 days 12/23/17 18:00 Blood - Peripheral Aerobic Blood Culture - Preliminary No growth in 4 days 12/23/17 18:00 Blood - Peripheral Anaerobic Blood Culture - Final Escherichia coli 12/23/17 17:50 Blood - Peripheral Aerobic Blood Culture - Preliminary No growth in 4 days 12/23/17 17:50 Blood - Peripheral Anaerobic Blood Culture - Final Escherichia coli - Imaging Impressions Chest CTA 12/26/17 00:00 CONCLUSION: 1. No evidence of pulmonary embolism. 2. Right perihilar infiltrates are noted consistent with asymmetric pulmonary edema versus pneumonia. Clinical correlation is recommended. 3. Scattered peripheral bleb formation is noted bilaterally. 4. Small bilateral pleural effusions. 5. Cardiomegaly and coronary artery calcifications. 6. Low-density lesions within the liver which are nonspecific. Chest X-Ray 12/26/17 00:00 CONCLUSION: Progressive airspace disease within the right lower lobe and basilar aspect of the right upper lobe concerning for multifocal pneumonia. Assessment and Plan - Plan 77-year-old male with past medical history significant for previous TIA, CAD status post stent placement, hypertension and hyperlipidemia presents to the emergency department for evaluation of fever and fatigue Hypoxic respiratory failure secondary to pulmonary edema and hospital-acquired pneumonia. BNP is high, Echocardiogram done November 2017 showed an ejection fraction of 55-60%. Wean oxygen to keep saturations at least 92%. IV Lasix 1. Hospital-acquired pneumonia. Continue IV Zosyn and vancomycin obtain sputum studies, Legionella and pneumococcal antigen. Albuterol as needed. Severe sepsis secondary to urinary tract infection-blood culture and urine culture showing E. coli. Resolved leukocytosis. Antibiotics as above. ventricular tachycardia-cardiology consulted, resolved switch to p.o. amiodarone Acute renal failure- likely secondary to hypovolemia/severe sepsis,resolving, creatinine back to baseline. Coronary artery disease/status post stent placement - Continue aspirin, Plavix , statins, propranolol, patient is supposed to undergo CABG 3, consulted cardiothoracic surgery with recent ventricular tachycardia, recommendation is to revisit CABG once bacteremia and sepsis resolved. He will also need to be off Plavix 5 days prior to surgery. Cardiology still wants patient to be on Plavix at this time BPHAppreciate urology assistance. No intervention at this time, continue Flomax, PSA within normal limits. Cleared by urology for discharge. Hypertension-continue Norvasc, hydrochlorothiazide, losartan, propranolol Hypokalemia. Will replace and monitor. Hypophosphatemia-replace TIA-on Eliquis DVT: Eliquis Discharge Planning: Keep in ICU today consider transfer to [facility] tomorrow
[2017-12-27] MEDS: Amiodarone 200 MG Tablet PO SCH ×2 (11:48→20:52)
[2017-12-27] MEDS: Vancomycin Inj 1,250 MG in Sodium Chlor 0.9% Inj 250 ML IV.SIG SCH (18:20)
[2017-12-28 01:14] LABS: Magnesium 1.9 mg/dL (1.5-2.5)
[2017-12-28] MEDS: Piperacil/Tazo 3.375 GM Premix 50 ML IV.SIG SCH ×4 (02:21→19:57)
[2017-12-28] MEDS: Potassium Chlor 20 mEq Premix 20 MEQ/100 ML PIGGYBACK IV.SIG PRN ×4 (02:22→09:40)
[2017-12-28] MEDS: Chlorhexidine Gluconate 2% 1 Pack (2 Cloths) TOPICAL SCH (05:40)
[2017-12-28] MEDS: amLODIPine 10 MG Tablet PO SCH (08:17)
[2017-12-28] MEDS: Propranolol LA 80 MG Capsule PO SCH (08:17)
[2017-12-28] MEDS: hydroCHLOROthiazide 25 MG Tablet PO SCH (08:18)
[2017-12-28] MEDS: Senna/Docusate Sodium 8.6/50 MG Tablet PO SCH ×2 (08:18→20:14)
[2017-12-28] MEDS: Amiodarone 200 MG Tablet PO SCH ×2 (08:18→20:15)
[2017-12-28] MEDS: Potassium Phosphate 500 MG Soluble Tablet PO SCH (08:18)
--- NOTE | 2017-12-28 10:23 | P.PN ---
Subjective Interval history: Follow-up sepsis. Patient has no complaints denies shortness of breath tolerating nasal cannula. Telemetry shows A. fib with controlled ventricular response. Physical Exam Vital signs: Vital Signs 12/27/17 11:00 12/27/17 12:00 12/27/17 13:00 Pulse Rate 116 H 103 H 106 H Respiratory Rate Pulse Oximetry 94 L 12/27/17 14:00 12/27/17 15:00 12/27/17 15:45 Pulse Rate 118 H 99 H Respiratory Rate Pulse Oximetry 96 12/27/17 18:00 12/27/17 19:00 12/27/17 19:35 Pulse Rate 110 H 109 H Respiratory Rate Pulse Oximetry 95 12/27/17 20:00 12/27/17 21:24 12/27/17 22:00 Pulse Rate 104 H 109 H 98 H Respiratory Rate Pulse Oximetry 95 12/27/17 23:00 12/28/17 00:00 12/28/17 01:00 Pulse Rate 97 H 94 H 93 H Respiratory Rate 27 H Pulse Oximetry 95 12/28/17 02:00 12/28/17 03:00 12/28/17 04:00 Pulse Rate 95 H 90 86 Respiratory Rate 23 Pulse Oximetry 92 L 12/28/17 05:00 12/28/17 06:00 12/28/17 07:00 Pulse Rate 92 H 86 86 Respiratory Rate Pulse Oximetry 12/28/17 07:47 12/28/17 08:00 12/28/17 09:00 Pulse Rate 95 H 98 H Respiratory Rate Pulse Oximetry 92 L 92 L Intake & Output 12/27/17 12/28/17 12/28/17 18:59 06:59 18:59 Intake Total 640 / 640 1574.5 / 1574.5 250 / 250 Output Total 1400 / 1400 600 / 600 Balance -760 / -760 974.5 / 974.5 250 / 250 Weight 85 kg Intake: IV 400 / 400 1334.5 / 1334.5 250 / 250 Cordarone Inj 450 MG In D5W Inj 250 / 250 241 ML @ 1 MG/MIN 33.33 mls/hr IV.CONT TITRATE PRN Rx#: [id number] Zosyn 3.375 GM Premix 50 ML @ 100 / 100 100 / 100 50 / 50 100 mls/hr IV.SIG Q6H [facility] Rx#: [id number] KCl 20 mEq Premix Inj 20 meq In 300 / 300 200 / 200 200 / 200 100 ml @ 50 mls/hr IV.SIG Q2H PRN Rx#:[id number] Vancomycin Inj 1,250 MG In NS 262.5 / 262.5 Inj 250 ML @ 250 mls/hr IV.SIG Q18H [facility] Rx#:[id number] Oral 240 / 240 240 / 240 Output: Urine 1400 / 1400 600 / 600 Other: Date of Last Bowel Movement 12/24/17 12/24/17 12/24/17 # Bowel Movements 0 Narrative: GENERAL: Not in distress, well-developed well-nourished on NC CARDIOVASCULAR: Irregularly irregular RESPIRATORY: Decreased equal breath sounds, no wheezing. GASTROINTESTINAL: Abdomen soft, non-tender, nondistended. MUSCULOSKELETAL: No cyanosis. +1 bilateral lower extremity edema. BACK: Nontender without obvious deformity. No CVA tenderness. Alert awake oriented 3, no focal deficits. Results - Labs CBC & Chem 7: 12/27/17 04:27 12/27/17 23:50 Laboratory Results - last 24 hr 12/27/17 12/27/17 12/27/17 04:27 23:50 23:50 Potassium Creatinine 1.19 Estimated GFR 72 L Magnesium 1.9 B-Natriuretic Peptide 416 H TSH 2.370 12/27/17 23:50 Potassium 3.2 L Creatinine Estimated GFR Magnesium B-Natriuretic Peptide TSH Microbiology 12/27/17 12:05 Urine - Clean Catch Urine Streptococcus pneumoniae Antigen ( M - Final Presumptive negative for streptococcus pneumoniae antigen, suggesting no current or recent infection. Infection due to Streptococcus pneumoniae cannot be ruled out since the antigen present in the sample may be below the detection limit of the test. 12/27/17 12:05 Urine - Clean Catch Urine Legionella Antigen - Final Presumptive negative for Legionella pneumophila serogroup 1 antigen in urine, suggesting no recent or recurrent infection. Infection due to Legionella cannot be ruled out since other serogroups and species may cause disease, antigen may not be present in urine in early infection, and the level of antigen present in the urine may be below the detection limit of the test. 12/24/17 14:00 Blood - Peripheral Aerobic Blood Culture - Preliminary No growth in 3 days 12/24/17 14:00 Blood - Peripheral Anaerobic Blood Culture - Preliminary No growth in 3 days 12/24/17 14:05 Blood - Peripheral Aerobic Blood Culture - Preliminary No growth in 3 days 12/24/17 14:05 Blood - Peripheral Anaerobic Blood Culture - Preliminary No growth in 3 days 12/23/17 18:00 Blood - Peripheral Aerobic Blood Culture - Preliminary No growth in 4 days 12/23/17 18:00 Blood - Peripheral Anaerobic Blood Culture - Final Escherichia coli 12/23/17 17:50 Blood - Peripheral Aerobic Blood Culture - Preliminary No growth in 4 days 12/23/17 17:50 Blood - Peripheral Anaerobic Blood Culture - Final Escherichia coli Assessment and Plan - Plan 77-year-old male with past medical history significant for previous TIA, CAD status post stent placement, hypertension and hyperlipidemia presents to the emergency department for evaluation of fever and fatigue Hypoxic respiratory failure secondary to pulmonary edema and hospital-acquired pneumonia. BNP is high, Echocardiogram done November 2017 showed an ejection fraction of 55-60%. Improving. Wean oxygen to keep saturations at least 92%. Continue diuresis with IV Lasix Hospital-acquired pneumonia. Continue IV Zosyn and vancomycin obtain sputum studies, negative legionella and pneumococcal antigen. Albuterol as needed. Severe sepsis secondary to urinary tract infection-blood culture and urine culture showing E. coli. Resolved leukocytosis. Antibiotics as above. ventricular tachycardia-cardiology consulted, resolved switch to p.o. amiodarone Acute renal failure- likely secondary to hypovolemia/severe sepsis,resolving, creatinine back to baseline. Coronary artery disease/status post stent placement - Continue aspirin, Plavix , statins, propranolol, patient is supposed to undergo CABG 3, consulted cardiothoracic surgery with recent ventricular tachycardia, recommendation is to revisit CABG once bacteremia and sepsis resolved. He will also need to be off Plavix 5 days prior to surgery. Cardiology still wants patient to be on Plavix at this time BPHAppreciate urology assistance. No intervention at this time, continue Flomax, PSA within normal limits. Cleared by urology for discharge. Hypertension-continue Norvasc, hydrochlorothiazide (on hold patient on Lasix), losartan, propranolol Hypokalemia. Will replace and monitor. Hypophosphatemia-replace TIA-on Eliquis DVT: Eliquis Discharge Planning: transfer to [facility]
[2017-12-28] MEDS: Vancomycin Inj 1,250 MG in Sodium Chlor 0.9% Inj 250 ML IV.SIG SCH (11:25)
--- NOTE | 2017-12-28 12:05 | P.PNCA ---
Subjective Interval history: alert in nad Physical Exam Vital signs: Vital Signs 12/27/17 12:30 12/27/17 13:00 12/27/17 14:00 Pulse Rate 102 H 106 H 118 H Respiratory Rate 26 H 32 H 32 H Blood Pressure 148/71 H 127/82 134/95 H Pulse Oximetry 91 L 91 L 92 L 12/27/17 15:00 12/27/17 15:45 12/27/17 16:00 Pulse Rate 99 H 94 H Respiratory Rate 28 H 28 H Blood Pressure 133/67 134/73 Pulse Oximetry 92 L 96 92 L 12/27/17 17:00 12/27/17 18:00 12/27/17 19:00 Pulse Rate 105 H 110 H 109 H Respiratory Rate 27 H 38 H 35 H Blood Pressure 159/82 H 135/86 128/67 Pulse Oximetry 89 L 90 L 93 L 12/27/17 19:35 12/27/17 20:00 12/27/17 21:00 Pulse Rate 104 H 109 H Respiratory Rate 24 32 H Blood Pressure 132/75 146/68 H Pulse Oximetry 95 92 L 92 L 12/27/17 21:24 12/27/17 22:00 12/27/17 23:00 Pulse Rate 109 H 98 H 97 H Respiratory Rate 25 H 17 Blood Pressure 141/67 H 124/73 Pulse Oximetry 91 L 94 L 12/28/17 00:00 12/28/17 01:00 12/28/17 02:00 Pulse Rate 94 H 96 H 99 H Respiratory Rate 27 H 26 H 33 H Blood Pressure 137/81 116/88 129/73 Pulse Oximetry 90 L 93 L 90 L 12/28/17 03:00 12/28/17 04:00 12/28/17 05:00 Pulse Rate 94 H 86 92 H Respiratory Rate 27 H 23 27 H Blood Pressure 120/68 117/71 136/84 Pulse Oximetry 92 L 92 L 94 L 12/28/17 06:00 12/28/17 07:00 12/28/17 07:47 Pulse Rate 86 90 Respiratory Rate 27 H 32 H Blood Pressure 144/74 H 135/77 Pulse Oximetry 91 L 92 L 92 L 12/28/17 08:00 12/28/17 09:00 12/28/17 10:00 Pulse Rate 95 H 98 H 93 H Respiratory Rate 40 H 39 H 26 H Blood Pressure 143/85 H 134/77 125/76 Pulse Oximetry 92 L 94 L 94 L Intake & Output 12/27/17 12/28/17 12/28/17 18:59 06:59 18:59 Intake Total 640 / 640 1574.5 / 1574.5 250 / 250 Output Total 1400 / 1400 600 / 600 Balance -760 / -760 974.5 / 974.5 250 / 250 Weight 85 kg Intake: IV 400 / 400 1334.5 / 1334.5 250 / 250 Cordarone Inj 450 MG In D5W Inj 250 / 250 241 ML @ 1 MG/MIN 33.33 mls/hr IV.CONT TITRATE PRN Rx#: [id number] Zosyn 3.375 GM Premix 50 ML @ 100 / 100 100 / 100 50 / 50 100 mls/hr IV.SIG Q6H [facility] Rx#: [id number] KCl 20 mEq Premix Inj 20 meq In 300 / 300 200 / 200 200 / 200 100 ml @ 50 mls/hr IV.SIG Q2H PRN Rx#:[id number] Vancomycin Inj 1,250 MG In NS 262.5 / 262.5 Inj 250 ML @ 250 mls/hr IV.SIG Q18H [facility] Rx#:[id number] Oral 240 / 240 240 / 240 Output: Urine 1400 / 1400 600 / 600 Other: Date of Last Bowel Movement 12/24/17 12/24/17 12/24/17 # Bowel Movements 0 Assessment and Plan - Assessment (1) NSTEMI (non-ST elevated myocardial infarction) Code(s): I21.4 - Non-ST elevation (NSTEMI) myocardial infarction Status: Acute (2) CHF (congestive heart failure) Code(s): I50.9 - Heart failure, unspecified Status: Acute (3) Acute decompensated heart failure Code(s): I50.9 - Heart failure, unspecified Status: Acute (4) Afib Code(s): I48.91 - Unspecified atrial fibrillation Status: Acute (5) Wide-complex tachycardia Code(s): I47.2 - Ventricular tachycardia Status: Acute (6) Acute UTI Code(s): N39.0 - Urinary tract infection, site not specified Status: Acute (7) CAD (coronary artery disease) Code(s): I25.10 - Atherosclerotic heart disease of [place] coronary artery without angina pectoris Status: Acute (8) CVA (cerebral vascular accident) Code(s): I63.9 - Cerebral infarction, unspecified Status: Acute (9) Sepsis Code(s): A41.9 - Sepsis, unspecified organism Status: Acute - Plan 1.) CAD - high risk presentation with nstemi with decompensated chf, wide complex tachycardia, afib, sepsis, uti; I reviewed his cath films from 11/21/17; he has a 60-70% distal left main, 75% ost lcx, 70% prox rca(dom), 95% prox rpla , ef@ 50%; he appears to be failing and/or responding poorly to medical management; rec cabg, i dont think he will be stable enough for discharge prior to cabg, d/w patient, and son d/w Dr lara, continue eliquis, aspirin, plavix, iv amio, beta meg held due to decompensated chf (9) Sepsis Qualifiers: Sepsis type: sepsis due to unspecified organism Qualified Code(s): A41.9 - Sepsis, unspecified organism
--- NOTE | 2017-12-28 13:10 | ECG ---
Date Performed: 12/26/2017 Time Performed: 21:51:08 PTAGE: 77 years EKG: ATRIAL FIBRILLATION POSSIBLE LATERAL MYOCARDIAL INFARCTION , OF INDETERMINATE AGE ST DEPRES EMILY, CONSIDER SUBENDOCARDIAL INJURY ABNORMAL ECG PREVIOUS TRACING : 12/26/2017 03.09 Since the previous tracing, no significant change noted DOCTOR: Jony Cooper Interpretating Date/Time 12/28/2017 13:08:28
[2017-12-28 13:32] LABS: Calcium 8.9 mg/dL (8.5-10.1); Carbon Dioxide 24.9 meq/L (21.0-32.0); Potassium 4.4 meq/L (3.5-5.1)
[2017-12-29] MEDS: Piperacil/Tazo 3.375 GM Premix 50 ML IV.SIG SCH ×4 (01:13→20:03)
[2017-12-29] MEDS ORDERED: Pharmacy Ordered Lab Info OTHER ONE (04:45)
[2017-12-29] MEDS: Chlorhexidine Gluconate 2% 1 Pack (2 Cloths) TOPICAL SCH (05:13)
[2017-12-29] MEDS: Vancomycin Inj 1,250 MG in Sodium Chlor 0.9% Inj 250 ML IV.SIG SCH (05:14)
[2017-12-29 05:45] LABS: Magnesium 1.9 mg/dL (1.5-2.5); Potassium 3.8 meq/L (3.5-5.1)
--- NOTE | 2017-12-29 09:04 | P.PNID ---
Subjective Remarks: Mr. Angel is a 77-year-old -[place] male with past medical history significant for previous TIA, coronary artery disease status post stent placement, hypertension and hyperlipidemia. Patient's past medical history is also significant for ureteral stricture for which she was seeing a urologist in the past. Patient also reports that once he turned 70 he stopped seeing the urologist as he was stopped checking his PSA levels. He is currently not on any medications like Flomax but does report increase in the frequency of urination and also urinary tract infections. He denies having a Ramos catheterization during his last hospitalization for a TIA. Patient was diagnosed with a UTI during that admission and pain. Patient reports increased urinary frequency and burning with urination for the last several days prior to admission. He states reports feeling fatigued and nauseated and some anorexia. His T-max at home was 103. He denies any chest pain or shortness of breath he denies any abdominal pain and denies any other new symptoms. Infectious disease is consulted for evaluation and management of sepsis, gram- negative bacteremia as well as gram-negative UTI. Overnight events reviewed Still in ICU Afib with RVR No fever No rash No diarrhea Antibiotics: Ceftriaxone IV Lines: Lines ok Past Medical History: reviewed Allergies/Adverse Reactions: Allergies No Known Allergies Allergy (Unverified 11/21/17 09:58) Objective Vital Signs 12/28/17 10:00 12/28/17 11:00 12/28/17 12:00 Temperature 97.7 F Pulse Rate 93 H 88 92 H Respiratory Rate 26 H 29 H 25 H Blood Pressure 125/76 124/65 135/96 H Pulse Oximetry 94 L 93 L 93 L 12/28/17 13:00 12/28/17 14:00 12/28/17 15:00 Temperature Pulse Rate 94 H 90 90 Respiratory Rate 30 H 29 H 26 H Blood Pressure 141/66 H 103/75 126/83 Pulse Oximetry 94 L 93 L 92 L 12/28/17 16:00 12/28/17 17:00 12/28/17 18:00 Temperature 97.5 F L Pulse Rate 89 110 H 93 H Respiratory Rate 20 35 H 28 H Blood Pressure 118/68 113/89 102/75 Pulse Oximetry 95 91 L 94 L 12/28/17 19:00 12/28/17 20:00 12/28/17 20:01 Temperature 97.6 F Pulse Rate 94 H 104 H 106 H Respiratory Rate 30 H 29 H 25 H Blood Pressure 126/75 147/101 H Pulse Oximetry 93 L 92 L 97 12/28/17 20:10 12/28/17 21:00 12/28/17 21:55 Temperature Pulse Rate 86 88 Respiratory Rate 32 H 28 H Blood Pressure 127/66 133/86 Pulse Oximetry 95 93 L 98 12/28/17 22:00 12/28/17 23:00 12/29/17 00:00 Temperature 97.6 F Pulse Rate 93 H 84 87 Respiratory Rate 28 H 38 H 24 Blood Pressure 132/74 128/80 120/72 Pulse Oximetry 94 L 93 L 89 L 12/29/17 01:00 12/29/17 01:59 12/29/17 02:00 Temperature Pulse Rate 84 81 87 Respiratory Rate 26 H 30 H 30 H Blood Pressure 125/73 131/75 Pulse Oximetry 93 L 89 L 88 L 12/29/17 03:00 12/29/17 04:00 12/29/17 05:00 Temperature 97.6 F Pulse Rate 79 88 87 Respiratory Rate 29 H 24 10 L Blood Pressure 131/84 129/68 122/79 Pulse Oximetry 90 L 90 L 94 L 12/29/17 06:00 12/29/17 06:01 Temperature Pulse Rate 88 83 Respiratory Rate 24 22 Blood Pressure 144/86 H Pulse Oximetry 92 L 95 Intake & Output 12/28/17 12/29/17 12/29/17 18:59 06:59 18:59 Intake Total 902.5 / 902.5 220 / 220 Output Total 1000 / 1000 650 / 650 Balance -97.5 / -97.5 -430 / -430 Weight 86.5 kg Intake: IV 662.5 / 662.5 100 / 100 Zosyn 3.375 GM Premix 50 ML @ 100 / 100 100 / 100 100 mls/hr IV.SIG Q6H [facility] Rx#: [id number] KCl 20 mEq Premix Inj 20 meq In 300 / 300 100 ml @ 50 mls/hr IV.SIG Q2H PRN Rx#:[id number] Vancomycin Inj 1,250 MG In NS 262.5 / 262.5 Inj 250 ML @ 250 mls/hr IV.SIG Q18H [facility] Rx#:[id number] Oral 240 / 240 120 / 120 Output: Urine 1000 / 1000 650 / 650 Other: Date of Last Bowel Movement 12/28/17 12/28/17 # Bowel Movements 1 0 12/24/17 14:00 Blood - Peripheral Aerobic Blood Culture - Preliminary No growth in 4 days 12/24/17 14:00 Blood - Peripheral Anaerobic Blood Culture - Preliminary No growth in 4 days 12/24/17 14:05 Blood - Peripheral Aerobic Blood Culture - Preliminary No growth in 4 days 12/24/17 14:05 Blood - Peripheral Anaerobic Blood Culture - Preliminary No growth in 4 days 12/23/17 18:00 Blood - Peripheral Aerobic Blood Culture - Final No growth in 5 days 12/23/17 18:00 Blood - Peripheral Anaerobic Blood Culture - Final Escherichia coli 12/23/17 17:50 Blood - Peripheral Aerobic Blood Culture - Final No growth in 5 days 12/23/17 17:50 Blood - Peripheral Anaerobic Blood Culture - Final Escherichia coli 12/27/17 12:05 Urine - Clean Catch Urine Streptococcus pneumoniae Antigen ( M - Final Presumptive negative for streptococcus pneumoniae antigen, suggesting no current or recent infection. Infection due to Streptococcus pneumoniae cannot be ruled out since the antigen present in the sample may be below the detection limit of the test. 12/27/17 12:05 Urine - Clean Catch Urine Legionella Antigen - Final Presumptive negative for Legionella pneumophila serogroup 1 antigen in urine, suggesting no recent or recurrent infection. Infection due to Legionella cannot be ruled out since other serogroups and species may cause disease, antigen may not be present in urine in early infection, and the level of antigen present in the urine may be below the detection limit of the test. Lab - Chemistry Results 12/27/17 12/27/17 12/27/17 04:27 23:50 23:50 Sodium Potassium Chloride Carbon Dioxide Anion Gap BUN Creatinine 1.19 Estimated GFR 72 L Random Glucose Calcium Phosphorus Magnesium 1.9 B-Natriuretic Peptide 416 H TSH 2.370 12/27/17 12/28/17 12/28/17 23:50 12:14 17:23 Sodium 141 Potassium 3.2 L 4.4 D 3.8 Chloride 106 Carbon Dioxide 24.9 Anion Gap 10 BUN 23 H Creatinine 1.19 Estimated GFR 72 L Random Glucose 118 H Calcium 8.9 Phosphorus 3.0 Magnesium 2.0 B-Natriuretic Peptide TSH 12/29/17 04:55 Sodium 142 Potassium 3.8 Chloride 107 Carbon Dioxide 26.0 Anion Gap 9 BUN 22 H Creatinine 1.22 Estimated GFR 70 L Random Glucose 99 Calcium 9.0 Phosphorus Magnesium 1.9 B-Natriuretic Peptide TSH Imaging: ITS Impressions Chest CTA 12/26/17 00:00 CONCLUSION: 1. No evidence of pulmonary embolism. 2. Right perihilar infiltrates are noted consistent with asymmetric pulmonary edema versus pneumonia. Clinical correlation is recommended. 3. Scattered peripheral bleb formation is noted bilaterally. 4. Small bilateral pleural effusions. 5. Cardiomegaly and coronary artery calcifications. 6. Low-density lesions within the liver which are nonspecific. Chest X-Ray 12/26/17 00:00 CONCLUSION: Progressive airspace disease within the right lower lobe and basilar aspect of the right upper lobe concerning for multifocal pneumonia. Physical Exam: GENERAL: Well-nourished well-developed, not in acute distress SKIN: Cool and dry, no generalized rash HEAD: Atraumatic. Normocephalic. No temporal or scalp tenderness. EYES: Pupils equal round and reactive. Scleral icterus. No injection or drainage. No petechia ENT: Nothing abnormal detected NECK: Trachea midline. Supple, nontender, no meningeal signs. CARDIOVASCULAR: HS audible. RESPIRATORY: Clear to auscultation bilaterally. GASTROINTESTINAL: Abdomen soft nontender. MUSCULOSKELETAL: Extremities without clubbing, cyanosis. NEUROLOGICAL: Alert oriented 3. Psych cooperative IV line sites ok. Assessment and Plan - Plan Sepsis present on admission Gram-negative bacteremia likely E. coli. Verigene testing negative for ESBL on preliminary report. Gram-negative UTI Rule out prostatitis check PSA Likely has benign prostatic hypertrophy based on his symptoms. Recommendations: Continue Zosyn IV DC Vanco IV Start Zyvox oral Check Procalcitonin. Follow Repeat blood cultures PSA level normal no e.o prostatitis. Follow clinical course.
[2017-12-29] MEDS: Potassium Phosphate 500 MG Soluble Tablet PO SCH (09:15)
[2017-12-29] MEDS: Propranolol LA 80 MG Capsule PO SCH (09:15)
[2017-12-29] MEDS: Amiodarone 200 MG Tablet PO SCH ×2 (09:15→20:03)
[2017-12-29] MEDS: Senna/Docusate Sodium 8.6/50 MG Tablet PO SCH ×2 (09:16→20:03)
[2017-12-29] MEDS: amLODIPine 10 MG Tablet PO SCH (09:16)
--- NOTE | 2017-12-29 09:32 | P.PN ---
Subjective Interval history: Follow-up sepsis. He is doing okay no fever. Discussed with infectious disease. Physical Exam Vital signs: Vital Signs 12/28/17 10:00 12/28/17 11:00 12/28/17 12:00 Temperature 97.7 F Pulse Rate 93 H 88 92 H Respiratory Rate 26 H 29 H 25 H Blood Pressure 125/76 124/65 135/96 H Pulse Oximetry 94 L 93 L 93 L 12/28/17 13:00 12/28/17 14:00 12/28/17 15:00 Temperature Pulse Rate 94 H 90 90 Respiratory Rate 30 H 29 H 26 H Blood Pressure 141/66 H 103/75 126/83 Pulse Oximetry 94 L 93 L 92 L 12/28/17 16:00 12/28/17 17:00 12/28/17 18:00 Temperature 97.5 F L Pulse Rate 89 110 H 93 H Respiratory Rate 20 35 H 28 H Blood Pressure 118/68 113/89 102/75 Pulse Oximetry 95 91 L 94 L 12/28/17 19:00 12/28/17 20:00 12/28/17 20:01 Temperature 97.6 F Pulse Rate 94 H 104 H 106 H Respiratory Rate 30 H 29 H 25 H Blood Pressure 126/75 147/101 H Pulse Oximetry 93 L 92 L 97 12/28/17 20:10 12/28/17 21:00 12/28/17 21:55 Temperature Pulse Rate 86 88 Respiratory Rate 32 H 28 H Blood Pressure 127/66 133/86 Pulse Oximetry 95 93 L 98 12/28/17 22:00 12/28/17 23:00 12/29/17 00:00 Temperature 97.6 F Pulse Rate 93 H 84 87 Respiratory Rate 28 H 38 H 24 Blood Pressure 132/74 128/80 120/72 Pulse Oximetry 94 L 93 L 89 L 12/29/17 01:00 12/29/17 01:59 12/29/17 02:00 Temperature Pulse Rate 84 81 87 Respiratory Rate 26 H 30 H 30 H Blood Pressure 125/73 131/75 Pulse Oximetry 93 L 89 L 88 L 12/29/17 03:00 12/29/17 04:00 12/29/17 05:00 Temperature 97.6 F Pulse Rate 79 88 87 Respiratory Rate 29 H 24 10 L Blood Pressure 131/84 129/68 122/79 Pulse Oximetry 90 L 90 L 94 L 12/29/17 06:00 12/29/17 06:01 Temperature Pulse Rate 88 83 Respiratory Rate 24 22 Blood Pressure 144/86 H Pulse Oximetry 92 L 95 Intake & Output 12/28/17 12/29/17 12/29/17 18:59 06:59 18:59 Intake Total 902.5 / 902.5 220 / 220 262.5 / 262.5 Output Total 1000 / 1000 650 / 650 Balance -97.5 / -97.5 -430 / -430 262.5 / 262.5 Weight 86.5 kg Intake: IV 662.5 / 662.5 100 / 100 262.5 / 262.5 Zosyn 3.375 GM Premix 50 ML @ 100 / 100 100 / 100 100 mls/hr IV.SIG Q6H [facility] Rx#: [id number] KCl 20 mEq Premix Inj 20 meq In 300 / 300 100 ml @ 50 mls/hr IV.SIG Q2H PRN Rx#:[id number] Vancomycin Inj 1,250 MG In NS 262.5 / 262.5 262.5 / 262.5 Inj 250 ML @ 250 mls/hr IV.SIG Q18H [facility] Rx#:[id number] Oral 240 / 240 120 / 120 Output: Urine 1000 / 1000 650 / 650 Other: Date of Last Bowel Movement 12/28/17 12/28/17 # Bowel Movements 1 0 Narrative: GENERAL: Not in distress, well-developed well-nourished on NC CARDIOVASCULAR: Irregularly irregular RESPIRATORY: Decreased equal breath sounds, no wheezing. GASTROINTESTINAL: Abdomen soft, non-tender, nondistended. MUSCULOSKELETAL: No cyanosis. +1 bilateral lower extremity edema. BACK: Nontender without obvious deformity. No CVA tenderness. Alert awake oriented 3, no focal deficits. Results - Labs CBC & Chem 7: 12/27/17 04:27 12/29/17 04:55 Laboratory Results - last 24 hr 12/28/17 12/28/17 12/29/17 12:14 17:23 04:55 Sodium 141 Potassium 4.4 D 3.8 Chloride 106 Carbon Dioxide 24.9 Anion Gap 10 BUN 23 H Creatinine 1.19 Estimated GFR 72 L Random Glucose 118 H Calcium 8.9 Phosphorus 3.0 Magnesium 2.0 Vancomycin Trough 16.6 H 12/29/17 04:55 Sodium 142 Potassium 3.8 Chloride 107 Carbon Dioxide 26.0 Anion Gap 9 BUN 22 H Creatinine 1.22 Estimated GFR 70 L Random Glucose 99 Calcium 9.0 Phosphorus Magnesium 1.9 Vancomycin Trough Microbiology 12/24/17 14:00 Blood - Peripheral Aerobic Blood Culture - Preliminary No growth in 4 days 12/24/17 14:00 Blood - Peripheral Anaerobic Blood Culture - Preliminary No growth in 4 days 12/24/17 14:05 Blood - Peripheral Aerobic Blood Culture - Preliminary No growth in 4 days 12/24/17 14:05 Blood - Peripheral Anaerobic Blood Culture - Preliminary No growth in 4 days 12/23/17 18:00 Blood - Peripheral Aerobic Blood Culture - Final No growth in 5 days 12/23/17 18:00 Blood - Peripheral Anaerobic Blood Culture - Final Escherichia coli 12/23/17 17:50 Blood - Peripheral Aerobic Blood Culture - Final No growth in 5 days 12/23/17 17:50 Blood - Peripheral Anaerobic Blood Culture - Final Escherichia coli 12/27/17 12:05 Urine - Clean Catch Urine Streptococcus pneumoniae Antigen ( M - Final Presumptive negative for streptococcus pneumoniae antigen, suggesting no current or recent infection. Infection due to Streptococcus pneumoniae cannot be ruled out since the antigen present in the sample may be below the detection limit of the test. 12/27/17 12:05 Urine - Clean Catch Urine Legionella Antigen - Final Presumptive negative for Legionella pneumophila serogroup 1 antigen in urine, suggesting no recent or recurrent infection. Infection due to Legionella cannot be ruled out since other serogroups and species may cause disease, antigen may not be present in urine in early infection, and the level of antigen present in the urine may be below the detection limit of the test. Assessment and Plan - Plan 77-year-old male with past medical history significant for previous TIA, CAD status post stent placement, hypertension and hyperlipidemia presents to the emergency department for evaluation of fever and fatigue Hypoxic respiratory failure secondary to pulmonary edema and hospital-acquired pneumonia. BNP is high, Echocardiogram done November 2017 showed an ejection fraction of 55-60%. Improving. Wean oxygen to keep saturations at least 92%. Continue diuresis with IV Lasix Hospital-acquired pneumonia. Discussed with infectious disease, check pro- calcitonin switch to p.o. Zyvox and continue IV Zosyn. Follow-up sputum studies , negative legionella and pneumococcal antigen. Albuterol as needed. Severe sepsis secondary to urinary tract infection-blood culture and urine culture showing E. coli. Resolved leukocytosis. Antibiotics as above. Repeat blood cultures end of treatment about 4 days from today to ensure clearance prior to consideration of CABG. ventricular tachycardia-cardiology consulted, resolved switch to p.o. amiodarone Acute renal failure- likely secondary to hypovolemia/severe sepsis,resolving, creatinine back to baseline. Coronary artery disease/status post stent placement - Continue aspirin, Plavix , statins, propranolol, patient is supposed to undergo CABG 3, consulted cardiothoracic surgery with recent ventricular tachycardia, recommendation is to revisit CABG once bacteremia and sepsis resolved. He will also need to be off Plavix 5 days prior to surgery. Cardiology still wants patient to be on Plavix at this time BPHAppreciate urology assistance. No intervention at this time, continue Flomax, PSA within normal limits. Cleared by urology for discharge. Hypertension-continue Norvasc, hydrochlorothiazide (on hold patient on Lasix), losartan, propranolol Hypokalemia. Will replace and monitor. Hypophosphatemia-replace TIA-on Eliquis DVT: Eliquis Discharge Planning: transfer to [facility]
[2017-12-29] MEDS: Linezolid 600 MG Tablet PO SCH ×2 (11:27→23:28)
--- NOTE | 2017-12-29 14:06 | P.PNCV ---
- Note Subjective/Hospital Course: Mr. Angel is a very pleasant 77-year-old gentleman who is well known to me from his previous encounters. Briefly he was admitted in early November for presenting diagnosis of a acute stroke as well as an acute myocardial infarction. At that time he underwent further workup including a coronary angiogram by Dr. Nolen which revealed significant multivessel coronary artery disease. Given the fact that he had had an acute CVA, with a small brain bleed, it was decided to proceed with percutaneous intervention to his culprit coronary vessel with plans to follow-up with coronary revascularization surgery following resolution of his acute neurologic event. He was subsequent discharged and I have seen him on 2 different occasions in the office to discuss the surgical procedure. Most recently he was just seen last Friday my office at which time he had complained of fevers, chills and night sweats with associated urinary complaints. He was advised [place] and therefore he was sent to the emergency department for further evaluation. At that point he was noted to have significant sepsis with positive bacteremia. He has since been admitted to the hospital and was noted to be in atrial fibrillation with rapid ventricular response and urosepsis and is being treated for those 2 entities. 9/10 Blood cultures and urine culture + Ecoli 9/5 BC neg x 5 days on zyvox and zosyn WBC 8.4K no fever > 48 hrs remains in afib, rate controlled on 3 liter nasal cannula continue current medical therapy will need clearance and timing for CABG approval from ID will need to hold eliquis > 48 hrs and plavix >5 days prior to consideration for surgery Objective: Vital Signs - 24 hr 12/28/17 14:00 12/28/17 15:00 12/28/17 16:00 Temperature 97.5 F L Pulse Rate 90 90 89 Respiratory Rate 29 H 26 H 20 Blood Pressure 103/75 126/83 118/68 Pulse Oximetry 93 L 92 L 95 12/28/17 17:00 12/28/17 18:00 12/28/17 19:00 Temperature Pulse Rate 110 H 93 H 94 H Respiratory Rate 35 H 28 H 30 H Blood Pressure 113/89 102/75 126/75 Pulse Oximetry 91 L 94 L 93 L 12/28/17 20:00 12/28/17 20:01 12/28/17 20:10 Temperature 97.6 F Pulse Rate 104 H 106 H 86 Respiratory Rate 29 H 25 H 32 H Blood Pressure 147/101 H 127/66 Pulse Oximetry 92 L 97 95 12/28/17 21:00 12/28/17 21:55 12/28/17 22:00 Temperature Pulse Rate 88 93 H Respiratory Rate 28 H 28 H Blood Pressure 133/86 132/74 Pulse Oximetry 93 L 98 94 L 12/28/17 23:00 12/29/17 00:00 12/29/17 01:00 Temperature 97.6 F Pulse Rate 84 87 84 Respiratory Rate 38 H 24 26 H Blood Pressure 128/80 120/72 125/73 Pulse Oximetry 93 L 89 L 93 L 12/29/17 01:59 12/29/17 02:00 12/29/17 03:00 Temperature Pulse Rate 81 87 79 Respiratory Rate 30 H 30 H 29 H Blood Pressure 131/75 131/84 Pulse Oximetry 89 L 88 L 90 L 12/29/17 04:00 12/29/17 05:00 12/29/17 06:00 Temperature 97.6 F Pulse Rate 88 87 88 Respiratory Rate 24 10 L 24 Blood Pressure 129/68 122/79 Pulse Oximetry 90 L 94 L 92 L 12/29/17 06:01 12/29/17 07:00 12/29/17 08:00 Temperature 97.3 F L Pulse Rate 83 90 87 Respiratory Rate 22 24 23 Blood Pressure 144/86 H 143/76 H 149/76 H Pulse Oximetry 95 92 L 94 L 12/29/17 09:00 12/29/17 10:00 12/29/17 10:49 Temperature Pulse Rate 103 H 94 H Respiratory Rate 30 H 27 H Blood Pressure 168/85 H 137/85 Pulse Oximetry 96 95 94 L 12/29/17 11:00 12/29/17 12:00 12/29/17 12:14 Temperature 97.7 F Pulse Rate 103 H 94 H 84 Respiratory Rate 18 31 H 28 H Blood Pressure 119/72 126/60 126/60 Pulse Oximetry 91 L 97 90 L 12/29/17 13:00 Temperature Pulse Rate 84 Respiratory Rate 30 H Blood Pressure 110/69 Pulse Oximetry 94 L GENERAL: SKIN: Warm and dry. HEAD: Normocephalic. EYES: No scleral icterus. No injection or drainage. NECK: Supple, trachea midline. No JVD or lymphadenopathy. CARDIOVASCULAR: irregular rate and rhythm without murmurs, gallops, or rubs. RESPIRATORY: Breath sounds equal bilaterally. No accessory muscle use. few basilar crackles GASTROINTESTINAL: Abdomen soft, non-tender, nondistended. MUSCULOSKELETAL: No cyanosis, or edema. BACK: Nontender without obvious deformity. No CVA tenderness. Labs: Laboratory Results - last 12 hr 12/29/17 12/29/17 04:55 04:55 Sodium 142 Potassium 3.8 Chloride 107 Carbon Dioxide 26.0 Anion Gap 9 BUN 22 H Creatinine 1.22 Estimated GFR 70 L Random Glucose 99 Calcium 9.0 Magnesium 1.9 Vancomycin Trough 16.6 H Result Diagrams: 12/27/17 04:27 12/29/17 04:55 - Plan (2) CAD (coronary artery disease) Plan: ASA, inderal , statin timing for surgery to be determined once cleared by ID (3) CVA (cerebral vascular accident) Plan: on plavix (4) Sepsis Plan: on antibiotics per ID (4) Sepsis Qualifiers: Sepsis type: Escherichia coli Qualified Code(s): A41.51 - Sepsis due to Escherichia coli [E. coli]
--- NOTE | 2017-12-29 14:44 | P.PNCA ---
Subjective Interval history: alert in nad Physical Exam Vital signs: Vital Signs 12/28/17 15:00 12/28/17 16:00 12/28/17 17:00 Temperature 97.5 F L Pulse Rate 90 89 110 H Respiratory Rate 26 H 20 35 H Blood Pressure 126/83 118/68 113/89 Pulse Oximetry 92 L 95 91 L 12/28/17 18:00 12/28/17 19:00 12/28/17 20:00 Temperature 97.6 F Pulse Rate 93 H 94 H 104 H Respiratory Rate 28 H 30 H 29 H Blood Pressure 102/75 126/75 Pulse Oximetry 94 L 93 L 92 L 12/28/17 20:01 12/28/17 20:10 12/28/17 21:00 Temperature Pulse Rate 106 H 86 88 Respiratory Rate 25 H 32 H 28 H Blood Pressure 147/101 H 127/66 133/86 Pulse Oximetry 97 95 93 L 12/28/17 21:55 12/28/17 22:00 12/28/17 23:00 Temperature Pulse Rate 93 H 84 Respiratory Rate 28 H 38 H Blood Pressure 132/74 128/80 Pulse Oximetry 98 94 L 93 L 12/29/17 00:00 12/29/17 01:00 12/29/17 01:59 Temperature 97.6 F Pulse Rate 87 84 81 Respiratory Rate 24 26 H 30 H Blood Pressure 120/72 125/73 Pulse Oximetry 89 L 93 L 89 L 12/29/17 02:00 12/29/17 03:00 12/29/17 04:00 Temperature 97.6 F Pulse Rate 87 79 88 Respiratory Rate 30 H 29 H 24 Blood Pressure 131/75 131/84 129/68 Pulse Oximetry 88 L 90 L 90 L 12/29/17 05:00 12/29/17 06:00 12/29/17 06:01 Temperature Pulse Rate 87 88 83 Respiratory Rate 10 L 24 22 Blood Pressure 122/79 144/86 H Pulse Oximetry 94 L 92 L 95 12/29/17 07:00 12/29/17 08:00 12/29/17 09:00 Temperature 97.3 F L Pulse Rate 90 87 103 H Respiratory Rate 24 23 30 H Blood Pressure 143/76 H 149/76 H 168/85 H Pulse Oximetry 92 L 94 L 96 12/29/17 10:00 12/29/17 10:49 12/29/17 11:00 Temperature Pulse Rate 94 H 103 H Respiratory Rate 27 H 18 Blood Pressure 137/85 119/72 Pulse Oximetry 95 94 L 91 L 12/29/17 12:00 12/29/17 12:14 12/29/17 13:00 Temperature 97.7 F Pulse Rate 86 84 84 Respiratory Rate 31 H 28 H 30 H Blood Pressure 126/60 126/60 110/69 Pulse Oximetry 97 90 L 94 L 12/29/17 14:00 Temperature Pulse Rate 80 Respiratory Rate Blood Pressure Pulse Oximetry Intake & Output 12/28/17 12/29/17 12/29/17 18:59 06:59 18:59 Intake Total 902.5 / 902.5 220 / 220 362.5 / 362.5 Output Total 1000 / 1000 650 / 650 Balance -97.5 / -97.5 -430 / -430 362.5 / 362.5 Weight 86.5 kg Intake: IV 662.5 / 662.5 100 / 100 362.5 / 362.5 Zosyn 3.375 GM Premix 50 ML @ 100 / 100 100 / 100 100 / 100 100 mls/hr IV.SIG Q6H [facility] Rx#: [id number] KCl 20 mEq Premix Inj 20 meq In 300 / 300 100 ml @ 50 mls/hr IV.SIG Q2H PRN Rx#:[id number] Vancomycin Inj 1,250 MG In NS 262.5 / 262.5 262.5 / 262.5 Inj 250 ML @ 250 mls/hr IV.SIG Q18H [facility] Rx#:[id number] Oral 240 / 240 120 / 120 Output: Urine 1000 / 1000 650 / 650 Other: Date of Last Bowel Movement 12/28/17 12/28/17 12/28/17 # Bowel Movements 1 0 Assessment and Plan - Assessment (1) NSTEMI (non-ST elevated myocardial infarction) Code(s): I21.4 - Non-ST elevation (NSTEMI) myocardial infarction Status: Acute (2) CHF (congestive heart failure) Code(s): I50.9 - Heart failure, unspecified Status: Acute (3) Acute decompensated heart failure Code(s): I50.9 - Heart failure, unspecified Status: Acute (4) Afib Code(s): I48.91 - Unspecified atrial fibrillation Status: Acute (5) Wide-complex tachycardia Code(s): I47.2 - Ventricular tachycardia Status: Acute (6) Acute UTI Code(s): N39.0 - Urinary tract infection, site not specified Status: Acute (7) CAD (coronary artery disease) Code(s): I25.10 - Atherosclerotic heart disease of [place] coronary artery without angina pectoris Status: Acute (8) CVA (cerebral vascular accident) Code(s): I63.9 - Cerebral infarction, unspecified Status: Acute (9) Sepsis Code(s): A41.9 - Sepsis, unspecified organism Status: Acute - Plan 1.) CAD - high risk presentation with nstemi with decompensated chf, wide complex tachycardia, afib, sepsis, uti; I reviewed his cath films from 11/21/17; he has a 60-70% distal left main, 75% ost lcx, 70% prox rca(dom), 95% prox rpla , ef@ 50%; he appears to be failing and/or responding poorly to medical management; rec cabg, i dont think he will be stable enough for discharge prior to cabg, d/w patient, and son d/w Dr lara, continue eliquis, aspirin, plavix, beta meg held due to decompensated chf (9) Sepsis Qualifiers: Sepsis type: Escherichia coli Qualified Code(s): A41.51 - Sepsis due to Escherichia coli [E. coli]
[2017-12-30] MEDS: Piperacil/Tazo 3.375 GM Premix 50 ML IV.SIG SCH ×4 (01:29→21:28)
[2017-12-30] MEDS: Chlorhexidine Gluconate 2% 1 Pack (2 Cloths) TOPICAL SCH (05:51)
[2017-12-30 06:11] LABS: Calcium 9.5 mg/dL (8.5-10.1); Carbon Dioxide 25.9 meq/L (21.0-32.0); Magnesium 1.9 mg/dL (1.5-2.5); Phosphorus 4.1 mg/dL (2.5-4.9)
[2017-12-30] MEDS: Potassium Phosphate 500 MG Soluble Tablet PO SCH (08:33)
[2017-12-30] MEDS: Amiodarone 200 MG Tablet PO SCH ×2 (08:34→21:27)
[2017-12-30] MEDS: Senna/Docusate Sodium 8.6/50 MG Tablet PO SCH ×2 (08:34→21:28)
[2017-12-30] MEDS: Propranolol LA 80 MG Capsule PO SCH (08:34)
[2017-12-30] MEDS: amLODIPine 10 MG Tablet PO SCH (08:34)
[2017-12-30] MEDS: Linezolid 600 MG Tablet PO SCH ×2 (11:01→23:00)
--- NOTE | 2017-12-30 11:01 | P.PN ---
Subjective Interval history: Patient follow-up pneumonia and heart failure. Patient has no complaints stable on nasal cannula. Discussed with infectious disease Physical Exam Vital signs: Vital Signs 12/29/17 11:00 12/29/17 12:00 12/29/17 12:14 Temperature 97.7 F Pulse Rate 103 H 86 84 Respiratory Rate 18 31 H 28 H Blood Pressure 119/72 126/60 126/60 Pulse Oximetry 91 L 97 90 L 12/29/17 13:00 12/29/17 14:00 12/29/17 15:00 Temperature Pulse Rate 84 83 76 Respiratory Rate 30 H 28 H 30 H Blood Pressure 110/69 110/85 96/60 L Pulse Oximetry 94 L 93 L 92 L 12/29/17 16:00 12/29/17 17:00 12/29/17 18:00 Temperature 97.6 F Pulse Rate 86 79 74 Respiratory Rate 26 H 26 H 27 H Blood Pressure 106/71 108/81 120/77 Pulse Oximetry 92 L 93 L 93 L 12/29/17 19:00 12/29/17 19:03 12/29/17 19:05 Temperature Pulse Rate 83 75 Respiratory Rate 28 H 29 H Blood Pressure 139/75 Pulse Oximetry 94 L 94 L 95 12/29/17 20:00 12/29/17 20:02 12/29/17 21:00 Temperature 97.5 F L Pulse Rate 85 83 86 Respiratory Rate 20 31 H 27 H Blood Pressure 117/72 121/68 Pulse Oximetry 95 96 92 L 12/29/17 22:00 12/29/17 23:00 12/30/17 00:00 Temperature 97.6 F Pulse Rate 78 84 77 Respiratory Rate 27 H 29 H 16 Blood Pressure 117/66 140/80 131/88 Pulse Oximetry 93 L 93 L 92 L 12/30/17 01:00 12/30/17 02:00 12/30/17 03:00 Temperature Pulse Rate 81 87 78 Respiratory Rate 26 H 23 26 H Blood Pressure 136/77 114/69 114/79 Pulse Oximetry 90 L 95 92 L 12/30/17 04:00 12/30/17 04:01 12/30/17 05:00 Temperature 97.5 F L Pulse Rate 81 81 83 Respiratory Rate 24 11 L Blood Pressure 124/65 Pulse Oximetry 89 L 96 12/30/17 06:00 12/30/17 07:00 12/30/17 08:00 Temperature 98.1 F Pulse Rate 78 76 89 Respiratory Rate 36 H Blood Pressure 125/83 Pulse Oximetry 94 L 12/30/17 09:00 12/30/17 10:00 Temperature Pulse Rate 83 78 Respiratory Rate Blood Pressure Pulse Oximetry Intake & Output 12/29/17 12/30/17 12/30/17 18:59 06:59 18:59 Intake Total 1082.5 / 1082.5 160 / 160 Output Total 1050 / 1050 600 / 600 Balance 32.5 / 32.5 -440 / -440 Weight 86 kg Intake: IV 362.5 / 362.5 100 / 100 Zosyn 3.375 GM Premix 50 ML @ 100 / 100 100 / 100 100 mls/hr IV.SIG Q6H [facility] Rx#: [id number] Vancomycin Inj 1,250 MG In NS 262.5 / 262.5 Inj 250 ML @ 250 mls/hr IV.SIG Q18H [facility] Rx#:[id number] Oral 720 / 720 60 / 60 Output: Urine 1050 / 1050 600 / 600 Other: # Voids 6 4 Date of Last Bowel Movement 12/28/17 12/28/17 12/28/17 # Bowel Movements 0 Narrative: GENERAL: Not in distress, well-developed well-nourished on NC CARDIOVASCULAR: Irregularly irregular RESPIRATORY: Decreased equal breath sounds, no wheezing. GASTROINTESTINAL: Abdomen soft, non-tender, nondistended. MUSCULOSKELETAL: No cyanosis. Improving +1 bilateral lower extremity edema. BACK: Nontender without obvious deformity. No CVA tenderness. Alert awake oriented 3, no focal deficits. Results - Labs CBC & Chem 7: 12/27/17 04:27 12/30/17 03:38 Laboratory Results - last 24 hr 12/29/17 12/30/17 12/30/17 11:21 03:38 03:38 Sodium 143 Potassium 4.0 Chloride 106 Carbon Dioxide 25.9 Anion Gap 11 BUN 24 H Creatinine 1.50 H Estimated GFR 55 L Random Glucose 85 Calcium 9.5 Phosphorus 4.1 D Magnesium 1.9 B-Natriuretic Peptide 359 H Procalcitonin 1.18 H Microbiology 12/24/17 14:00 Blood - Peripheral Aerobic Blood Culture - Final No growth in 5 days 12/24/17 14:00 Blood - Peripheral Anaerobic Blood Culture - Final No growth in 5 days 12/24/17 14:05 Blood - Peripheral Aerobic Blood Culture - Final No growth in 5 days 12/24/17 14:05 Blood - Peripheral Anaerobic Blood Culture - Final No growth in 5 days Assessment and Plan - Plan 77-year-old male with past medical history significant for previous TIA, CAD status post stent placement, hypertension and hyperlipidemia presents to the emergency department for evaluation of fever and fatigue Hypoxic respiratory failure secondary to pulmonary edema and hospital-acquired pneumonia. BNP is high, Echocardiogram done November 2017 showed an ejection fraction of 55-60%. Improving. Wean oxygen to keep saturations at least 92%. Continue diuresis with IV Lasix when renal function improves Hospital-acquired pneumonia. Pro-calcitonin 1.18 continue Zyvox and IV Zosyn and repeat level by . Follow-up sputum studies, negative legionella and pneumococcal antigen. Albuterol as needed. Severe sepsis secondary to urinary tract infection-blood culture and urine culture showing E. coli. Resolved leukocytosis. Antibiotics as above. Repeat blood cultures end of treatment by to ensure clearance prior to consideration of CABG. ventricular tachycardia-cardiology consulted, resolved switch to p.o. amiodarone Acute renal failure- likely secondary to hypovolemia/severe sepsis,resolving, creatinine up to 1.5 again on IV Lasix which has been discontinued. I recauterized is also on hold. Coronary artery disease/status post stent placement - Continue aspirin, Plavix , statins, propranolol, patient is supposed to undergo CABG 3, consulted cardiothoracic surgery with recent ventricular tachycardia, recommendation is to revisit CABG once bacteremia and sepsis resolved. He will also need to be off Plavix 5 days prior to surgery. Cardiology still wants patient to be on Plavix at this time BPHAppreciate urology assistance. No intervention at this time, continue Flomax, PSA within normal limits. Cleared by urology for discharge. Hypertension-continue Norvasc, hydrochlorothiazide (on hold), losartan (may need to be discontinued if worsening renal function), propranolol Hypokalemia. Will replace and monitor. Hypophosphatemia-replace TIA-on Eliquis DVT: Eliquis Discharge Planning: transfer to [facility]
--- NOTE | 2017-12-30 13:36 | P.PNCA ---
Subjective Interval history: alert in nad, eating lunch Physical Exam Vital signs: Vital Signs 12/29/17 14:00 12/29/17 15:00 12/29/17 16:00 Temperature 97.6 F Pulse Rate 83 76 86 Respiratory Rate 28 H 30 H 26 H Blood Pressure 110/85 96/60 L 106/71 Pulse Oximetry 93 L 92 L 92 L 12/29/17 17:00 12/29/17 18:00 12/29/17 19:00 Temperature Pulse Rate 79 74 83 Respiratory Rate 26 H 27 H 28 H Blood Pressure 108/81 120/77 Pulse Oximetry 93 L 93 L 94 L 12/29/17 19:03 12/29/17 19:05 12/29/17 20:00 Temperature 97.5 F L Pulse Rate 75 85 Respiratory Rate 29 H 20 Blood Pressure 139/75 Pulse Oximetry 94 L 95 95 12/29/17 20:02 12/29/17 21:00 12/29/17 22:00 Temperature Pulse Rate 83 86 78 Respiratory Rate 31 H 27 H 27 H Blood Pressure 117/72 121/68 117/66 Pulse Oximetry 96 92 L 93 L 12/29/17 23:00 12/30/17 00:00 12/30/17 01:00 Temperature 97.6 F Pulse Rate 84 77 81 Respiratory Rate 29 H 16 26 H Blood Pressure 140/80 131/88 136/77 Pulse Oximetry 93 L 92 L 90 L 12/30/17 02:00 12/30/17 03:00 12/30/17 04:00 Temperature Pulse Rate 87 78 81 Respiratory Rate 23 26 H 24 Blood Pressure 114/69 114/79 Pulse Oximetry 95 92 L 89 L 12/30/17 04:01 12/30/17 05:00 12/30/17 06:00 Temperature 97.5 F L Pulse Rate 81 83 78 Respiratory Rate 11 L Blood Pressure 124/65 Pulse Oximetry 96 12/30/17 07:00 12/30/17 08:00 12/30/17 09:00 Temperature 98.1 F Pulse Rate 76 89 83 Respiratory Rate 36 H Blood Pressure 125/83 Pulse Oximetry 94 L 12/30/17 10:00 12/30/17 11:00 12/30/17 12:37 Temperature Pulse Rate 78 82 Respiratory Rate Blood Pressure Pulse Oximetry 96 Intake & Output 12/29/17 12/30/17 12/30/17 18:59 06:59 18:59 Intake Total 1082.5 / 1082.5 160 / 160 50 / 50 Output Total 1050 / 1050 600 / 600 Balance 32.5 / 32.5 -440 / -440 50 / 50 Weight 86 kg Intake: IV 362.5 / 362.5 100 / 100 50 / 50 Zosyn 3.375 GM Premix 50 ML @ 100 / 100 100 / 100 50 / 50 100 mls/hr IV.SIG Q6H [facility] Rx#: [id number] Vancomycin Inj 1,250 MG In NS 262.5 / 262.5 Inj 250 ML @ 250 mls/hr IV.SIG Q18H [facility] Rx#:[id number] Oral 720 / 720 60 / 60 Output: Urine 1050 / 1050 600 / 600 Other: # Voids 6 4 Date of Last Bowel Movement 12/28/17 12/28/17 12/28/17 # Bowel Movements 0 Assessment and Plan - Assessment (1) NSTEMI (non-ST elevated myocardial infarction) Code(s): I21.4 - Non-ST elevation (NSTEMI) myocardial infarction Status: Acute (2) CHF (congestive heart failure) Code(s): I50.9 - Heart failure, unspecified Status: Acute (3) Acute decompensated heart failure Code(s): I50.9 - Heart failure, unspecified Status: Acute (4) Afib Code(s): I48.91 - Unspecified atrial fibrillation Status: Acute (5) Wide-complex tachycardia Code(s): I47.2 - Ventricular tachycardia Status: Acute (6) Acute UTI Code(s): N39.0 - Urinary tract infection, site not specified Status: Acute (7) CAD (coronary artery disease) Code(s): I25.10 - Atherosclerotic heart disease of [place] coronary artery without angina pectoris Status: Acute (8) CVA (cerebral vascular accident) Code(s): I63.9 - Cerebral infarction, unspecified Status: Acute (9) Sepsis Code(s): A41.9 - Sepsis, unspecified organism Status: Acute - Plan 1.) CAD - high risk presentation with nstemi with decompensated chf, wide complex tachycardia, afib, sepsis, uti; I reviewed his cath films from 11/21/17; he has a 60-70% distal left main, 75% ost lcx, 70% prox rca(dom), 95% prox rpla , ef@ 50%; he appears to be failing and/or responding poorly to medical management; rec cabg, i dont think he will be stable enough for discharge prior to cabg, d/w patient, and son d/w Dr lara, continue eliquis, aspirin, plavix, beta meg held due to decompensated chf (9) Sepsis Qualifiers: Sepsis type: Escherichia coli Qualified Code(s): A41.51 - Sepsis due to Escherichia coli [E. coli]
[2017-12-31] MEDS: Piperacil/Tazo 3.375 GM Premix 50 ML IV.SIG SCH ×4 (04:49→21:08)
[2017-12-31] MEDS: Chlorhexidine Gluconate 2% 1 Pack (2 Cloths) TOPICAL SCH (04:50)
[2017-12-31 05:07] LABS: Calcium 9.2 mg/dL (8.5-10.1); Carbon Dioxide 25.9 meq/L (21.0-32.0); Potassium 3.6 meq/L (3.5-5.1)
[2017-12-31] MEDS: Propranolol LA 80 MG Capsule PO SCH (09:03)
[2017-12-31] MEDS: Senna/Docusate Sodium 8.6/50 MG Tablet PO SCH ×2 (09:04→21:09)
[2017-12-31] MEDS: Potassium Phosphate 500 MG Soluble Tablet PO SCH (09:04)
[2017-12-31] MEDS: amLODIPine 10 MG Tablet PO SCH (09:04)
[2017-12-31] MEDS: Amiodarone 200 MG Tablet PO SCH ×2 (09:04→21:09)
[2017-12-31] MEDS: Linezolid 600 MG Tablet PO SCH ×2 (11:20→23:00)
--- NOTE | 2017-12-31 11:44 | P.PNCV ---
- Note Subjective/Hospital Course: Mr. Angel is a very pleasant 77-year-old gentleman who is well known to me from his previous encounters. Briefly he was admitted in early November for presenting diagnosis of a acute stroke as well as an acute myocardial infarction. At that time he underwent further workup including a coronary angiogram by Dr. Nolen which revealed significant multivessel coronary artery disease. Given the fact that he had had an acute CVA, with a small brain bleed, it was decided to proceed with percutaneous intervention to his culprit coronary vessel with plans to follow-up with coronary revascularization surgery following resolution of his acute neurologic event. He was subsequent discharged and I have seen him on 2 different occasions in the office to discuss the surgical procedure. Most recently he was just seen last Friday my office at which time he had complained of fevers, chills and night sweats with associated urinary complaints. He was advised [place] and therefore he was sent to the emergency department for further evaluation. At that point he was noted to have significant sepsis with positive bacteremia. He has since been admitted to the hospital and was noted to be in atrial fibrillation with rapid ventricular response and urosepsis and is being treated for those 2 entities. 12/29 Blood cultures and urine culture + Ecoli 12/24 BC neg x 5 days on zyvox and zosyn WBC 8.4K no fever > 48 hrs remains in afib, rate controlled on 3 liter nasal cannula continue current medical therapy will need clearance and timing for CABG approval from ID will need to hold eliquis > 48 hrs and plavix >5 days prior to consideration for surgery 12/31 discussed with ID CXR and cultures and labs in 3 days if neg and improved, will then discuss clearance currently being treated for bacteremia and pneumonia pt is currently on room air , has been transferred out fo ICU Objective: Vital Signs - 24 hr 12/30/17 12:00 12/30/17 12:37 12/30/17 13:00 Temperature 97.7 F Pulse Rate 88 83 Respiratory Rate 25 H Blood Pressure 115/69 Pulse Oximetry 94 L 96 12/30/17 14:00 12/30/17 16:00 12/30/17 17:00 Temperature 98.6 F Pulse Rate 70 89 87 Respiratory Rate 18 Blood Pressure 122/74 Pulse Oximetry 96 12/30/17 18:00 12/30/17 19:00 12/30/17 20:00 Temperature 97.4 F L Pulse Rate 86 86 78 Respiratory Rate 18 Blood Pressure 129/77 Pulse Oximetry 97 12/30/17 23:00 12/31/17 00:00 12/31/17 04:00 Temperature 97.6 F 97.6 F Pulse Rate 83 88 85 Respiratory Rate 16 16 Blood Pressure 119/70 122/71 Pulse Oximetry 97 98 12/31/17 06:00 12/31/17 07:00 12/31/17 08:00 Temperature 97.7 F Pulse Rate 80 76 75 Respiratory Rate 16 Blood Pressure 121/82 Pulse Oximetry 95 12/31/17 09:00 12/31/17 09:41 12/31/17 11:00 Temperature 97.9 F Pulse Rate 83 86 76 Respiratory Rate 18 Blood Pressure 143/60 H Pulse Oximetry Labs: Laboratory Results - last 12 hr 12/31/17 03:46 Sodium 145 Potassium 3.6 Chloride 109 H Carbon Dioxide 25.9 Anion Gap 10 BUN 25 H Creatinine 1.35 H Estimated GFR 62 L Random Glucose 96 Calcium 9.2 Magnesium 2.0 Result Diagrams: 12/27/17 04:27 12/31/17 03:46 - Plan (2) CAD (coronary artery disease) Plan: ASA, inderal , statin timing for surgery to be determined once cleared by ID (3) CVA (cerebral vascular accident) Plan: on plavix (4) Sepsis Plan: on antibiotics per ID treatment for pneumonia and bacteremia (4) Sepsis Qualifiers: Sepsis type: Escherichia coli Qualified Code(s): A41.51 - Sepsis due to Escherichia coli [E. coli]
--- NOTE | 2017-12-31 12:12 | P.PNCA ---
Subjective Interval history: off O2, in nad, assymptomatic Physical Exam Vital signs: Vital Signs 12/30/17 12:37 12/30/17 13:00 12/30/17 14:00 Temperature Pulse Rate 83 70 Respiratory Rate Blood Pressure Pulse Oximetry 96 12/30/17 16:00 12/30/17 17:00 12/30/17 18:00 Temperature 98.6 F Pulse Rate 89 87 86 Respiratory Rate 18 Blood Pressure 122/74 Pulse Oximetry 96 12/30/17 19:00 12/30/17 20:00 12/30/17 23:00 Temperature 97.4 F L Pulse Rate 86 78 83 Respiratory Rate 18 Blood Pressure 129/77 Pulse Oximetry 97 12/31/17 00:00 12/31/17 04:00 12/31/17 06:00 Temperature 97.6 F 97.6 F Pulse Rate 88 85 80 Respiratory Rate 16 16 Blood Pressure 119/70 122/71 Pulse Oximetry 97 98 12/31/17 07:00 12/31/17 08:00 12/31/17 09:00 Temperature 97.7 F Pulse Rate 76 75 83 Respiratory Rate 16 Blood Pressure 121/82 Pulse Oximetry 95 12/31/17 09:41 12/31/17 11:00 Temperature 97.9 F Pulse Rate 86 76 Respiratory Rate 18 Blood Pressure 143/60 H Pulse Oximetry Intake & Output 12/30/17 12/31/17 12/31/17 18:59 06:59 18:59 Intake Total 580 / 580 340 / 340 50 / 50 Output Total 200 / 200 Balance 380 / 380 340 / 340 50 / 50 Weight 83 kg Intake: IV 100 / 100 100 / 100 50 / 50 Zosyn 3.375 GM Premix 50 ML @ 100 / 100 100 / 100 50 / 50 100 mls/hr IV.SIG Q6H [facility] Rx#: [id number] Oral 480 / 480 240 / 240 Output: Urine 200 / 200 Other: # Voids 2 2 Date of Last Bowel Movement 12/30/17 12/31/17 # Bowel Movements 1 1 Assessment and Plan - Assessment (1) NSTEMI (non-ST elevated myocardial infarction) Code(s): I21.4 - Non-ST elevation (NSTEMI) myocardial infarction Status: Acute (2) CHF (congestive heart failure) Code(s): I50.9 - Heart failure, unspecified Status: Acute (3) Acute decompensated heart failure Code(s): I50.9 - Heart failure, unspecified Status: Acute (4) Afib Code(s): I48.91 - Unspecified atrial fibrillation Status: Acute (5) Wide-complex tachycardia Code(s): I47.2 - Ventricular tachycardia Status: Acute (6) Acute UTI Code(s): N39.0 - Urinary tract infection, site not specified Status: Acute (7) CAD (coronary artery disease) Code(s): I25.10 - Atherosclerotic heart disease of [place] coronary artery without angina pectoris Status: Acute (8) CVA (cerebral vascular accident) Code(s): I63.9 - Cerebral infarction, unspecified Status: Acute (9) Sepsis Code(s): A41.9 - Sepsis, unspecified organism Status: Acute - Plan 1.) CAD - high risk presentation with nstemi with decompensated chf, wide complex tachycardia, afib, sepsis, uti; I reviewed his cath films from 11/21/17; he has a 60-70% distal left main, 75% ost lcx, 70% prox rca(dom), 95% prox rpla , ef@ 50%; he appears to be failing and/or responding poorly to medical management; rec cabg, i dont think he will be stable enough for discharge prior to cabg, d/w patient, and son d/w Dr lara, continue eliquis, aspirin, plavix, beta meg held due to decompensated chf; cabg timing per ID and Dr Knott (9) Sepsis Qualifiers: Sepsis type: Escherichia coli Qualified Code(s): A41.51 - Sepsis due to Escherichia coli [E. coli]
--- NOTE | 2017-12-31 16:19 | P.PN ---
Subjective Interval history: Follow-up A. fib, pneumonia, sepsis and CAD. He is doing good on room air Physical Exam Vital signs: Vital Signs 12/30/17 17:00 12/30/17 18:00 12/30/17 19:00 Temperature Pulse Rate 87 86 86 Respiratory Rate Blood Pressure Pulse Oximetry 12/30/17 20:00 12/30/17 23:00 12/31/17 00:00 Temperature 97.4 F L 97.6 F Pulse Rate 78 83 88 Respiratory Rate 18 16 Blood Pressure 129/77 119/70 Pulse Oximetry 97 97 12/31/17 04:00 12/31/17 06:00 12/31/17 07:00 Temperature 97.6 F 97.7 F Pulse Rate 85 80 76 Respiratory Rate 16 16 Blood Pressure 122/71 121/82 Pulse Oximetry 98 12/31/17 08:00 12/31/17 09:00 12/31/17 09:41 Temperature Pulse Rate 75 83 86 Respiratory Rate Blood Pressure Pulse Oximetry 95 12/31/17 11:00 12/31/17 12:00 12/31/17 13:00 Temperature 97.9 F Pulse Rate 76 79 62 Respiratory Rate 18 Blood Pressure 143/60 H Pulse Oximetry 96 Intake & Output 12/30/17 12/31/17 12/31/17 18:59 06:59 18:59 Intake Total 580 / 580 340 / 340 100 / 100 Output Total 200 / 200 Balance 380 / 380 340 / 340 100 / 100 Weight 83 kg Intake: IV 100 / 100 100 / 100 100 / 100 Zosyn 3.375 GM Premix 50 ML @ 100 / 100 100 / 100 100 / 100 100 mls/hr IV.SIG Q6H [facility] Rx#: [id number] Oral 480 / 480 240 / 240 Output: Urine 200 / 200 Other: # Voids 2 2 Date of Last Bowel Movement 12/30/17 12/31/17 # Bowel Movements 1 1 Narrative: GENERAL: Not in distress, well-developed well-nourished on room air CARDIOVASCULAR: Irregularly irregular RESPIRATORY: Decreased equal breath sounds, no wheezing. GASTROINTESTINAL: Abdomen soft, non-tender, nondistended. MUSCULOSKELETAL: No cyanosis. Improving +1 bilateral lower extremity edema. BACK: Nontender without obvious deformity. No CVA tenderness. Alert awake oriented 3, no focal deficits. Results - Labs CBC & Chem 7: 12/27/17 04:27 12/31/17 03:46 Laboratory Results - last 24 hr 12/31/17 03:46 Sodium 145 Potassium 3.6 Chloride 109 H Carbon Dioxide 25.9 Anion Gap 10 BUN 25 H Creatinine 1.35 H Estimated GFR 62 L Random Glucose 96 Calcium 9.2 Magnesium 2.0 - Imaging ITS Impressions Chest CTA 12/26/17 00:00 CONCLUSION: 1. No evidence of pulmonary embolism. 2. Right perihilar infiltrates are noted consistent with asymmetric pulmonary edema versus pneumonia. Clinical correlation is recommended. 3. Scattered peripheral bleb formation is noted bilaterally. 4. Small bilateral pleural effusions. 5. Cardiomegaly and coronary artery calcifications. 6. Low-density lesions within the liver which are nonspecific. Chest X-Ray 12/26/17 00:00 CONCLUSION: Progressive airspace disease within the right lower lobe and basilar aspect of the right upper lobe concerning for multifocal pneumonia. - Procedures none Assessment and Plan - Plan 77-year-old male with past medical history significant for previous TIA, CAD status post stent placement, hypertension and hyperlipidemia presents to the emergency department for evaluation of fever and fatigue Hypoxic respiratory failure secondary to pulmonary edema and hospital-acquired pneumonia. BNP is high, Echocardiogram done November 2017 showed an ejection fraction of 55-60%. Resolved tolerating room air. Oxygen as needed to keep saturations at least 92%. Status post diuresis with IV Lasix keep negative fluid balance. Consider as needed diuresis Hospital-acquired pneumonia. Pro-calcitonin 1.18 continue Zyvox and IV Zosyn and repeat level by Tuesday 01/02. Follow-up sputum studies, negative legionella and pneumococcal antigen. Albuterol as needed. Severe sepsis secondary to urinary tract infection-blood culture and urine culture showing E. coli. Resolved leukocytosis. Antibiotics as above. Repeat blood cultures end of treatment by Friday. If still negative x 48 hrs may clear for CABG ventricular tachycardia-cardiology consulted, resolved switch to p.o. amiodarone Acute renal failure- likely secondary to hypovolemia/severe sepsis. Improving diuretics currently discontinued. Avoid nephrotoxins Coronary artery disease/status post stent placement - Continue aspirin, Plavix , statins, propranolol, patient is supposed to undergo CABG 3, consulted cardiothoracic surgery with recent ventricular tachycardia, recommendation is to revisit CABG once bacteremia and sepsis resolved. He will also need to be off Plavix and Eliquis 5 days prior to surgery. Cardiology still wants patient to be on Plavix at this time. Discussed with CVT, may schedule surgery next 01/08 provided there is clearance. Will need bridging with heparin drip history of A. fib BPHAppreciate urology assistance. No intervention at this time, continue Flomax, PSA within normal limits. Cleared by urology for discharge. Hypertension-continue Norvasc, hydrochlorothiazide (on hold), losartan (may need to be discontinued if worsening renal function), propranolol Hypokalemia. Will replace and monitor. Hypophosphatemia-replace TIA-on Eliquis DVT: Eliquis Discharge Planning: Patient not cleared for discharge by cardiology will stay in-house until CABG
[2018-01-01] MEDS: Piperacil/Tazo 3.375 GM Premix 50 ML IV.SIG SCH ×4 (03:00→20:14)
[2018-01-01] MEDS ORDERED: Pharmacy Ordered Lab Info OTHER ONE (04:45)
[2018-01-01 04:57] LABS: Calcium 8.8 mg/dL (8.5-10.1); Carbon Dioxide 24.5 meq/L (21.0-32.0); Magnesium 2.2 mg/dL (1.5-2.5); Potassium 3.7 meq/L (3.5-5.1)
--- NOTE | 2018-01-01 07:37 | P.PNIM ---
Subjective Interval history: Patient doing well overnight. Denies chest pain, shortness of breath, fever, and chills. Patient has been tolerating p.o. but has been n.p.o. since midnight. No concerns. Physical Exam Vital signs: Vital Signs 12/31/17 08:00 12/31/17 09:00 12/31/17 09:41 Temperature Pulse Rate 75 83 86 Respiratory Rate Blood Pressure Pulse Oximetry 95 12/31/17 11:00 12/31/17 12:00 12/31/17 13:00 Temperature 97.9 F Pulse Rate 76 79 62 Respiratory Rate 18 Blood Pressure 143/60 H Pulse Oximetry 96 12/31/17 14:00 12/31/17 15:00 12/31/17 16:00 Temperature 98 F Pulse Rate 62 67 62 Respiratory Rate 16 Blood Pressure 114/65 Pulse Oximetry 97 12/31/17 17:00 12/31/17 18:00 12/31/17 19:00 Temperature 97.4 F L Pulse Rate 69 72 68 Respiratory Rate 22 Blood Pressure 129/68 Pulse Oximetry 97 12/31/17 20:00 12/31/17 21:00 12/31/17 22:00 Temperature Pulse Rate 72 74 70 Respiratory Rate Blood Pressure Pulse Oximetry 12/31/17 23:00 01/01/18 00:00 01/01/18 01:00 Temperature 97.1 F L Pulse Rate 81 70 72 Respiratory Rate 22 Blood Pressure 132/67 Pulse Oximetry 95 01/01/18 02:00 01/01/18 03:00 01/01/18 04:00 Temperature 97.5 F L Pulse Rate 70 72 74 Respiratory Rate 22 Blood Pressure 100/67 Pulse Oximetry 96 01/01/18 05:00 01/01/18 06:00 Temperature Pulse Rate 70 71 Respiratory Rate Blood Pressure Pulse Oximetry Intake & Output 12/31/17 01/01/18 01/01/18 18:59 06:59 18:59 Intake Total 820 / 820 340 / 340 Balance 820 / 820 340 / 340 Weight 82 kg Intake: IV 100 / 100 100 / 100 Zosyn 3.375 GM Premix 50 ML @ 100 / 100 100 / 100 100 mls/hr IV.SIG Q6H [facility] Rx#: [id number] Oral 720 / 720 240 / 240 Other: # Voids 2 2 Date of Last Bowel Movement 12/31/17 12/31/17 # Bowel Movements 1 Narrative: GENERAL: NAD, lying comfortable in bed, pleasant CARDIOVASCULAR: Irregularly irregular, no M/R/G. RESPIRATORY: CTA x2. GASTROINTESTINAL: Abdomen soft, non-tender, nondistended. MUSCULOSKELETAL: No cyanosis. Trace bilateral lower extremity edema. BACK: Nontender without obvious deformity. No CVA tenderness. NEURO: Alert awake oriented 3. Results - Labs CBC & Chem 7: 12/27/17 04:27 01/01/18 11:33 Laboratory Results - last 24 hr 01/01/18 03:35 Sodium 146 H Potassium 3.7 Chloride 110 H Carbon Dioxide 24.5 Anion Gap 12 BUN 18 Creatinine 1.30 Estimated GFR 65 L Random Glucose 91 Calcium 8.8 Magnesium 2.2 - Procedures none Assessment and Plan - Assessment (1) Acute UTI Code(s): N39.0 - Urinary tract infection, site not specified Status: Acute (2) Sepsis Code(s): A41.9 - Sepsis, unspecified organism Status: Acute (3) Bacteremia Code(s): R78.81 - Bacteremia Status: Acute (4) Afib Code(s): I48.91 - Unspecified atrial fibrillation Status: Chronic (5) CHF (congestive heart failure) Code(s): I50.9 - Heart failure, unspecified Status: Acute (6) NSTEMI (non-ST elevated myocardial infarction) Code(s): I21.4 - Non-ST elevation (NSTEMI) myocardial infarction Status: Acute - Plan This is a 77-year-old AAM with PMHx of TIA, HTN, HLD and CAD status post stent recent placement with re-admission due to fever and fatigue. Patient was found to have hospital acquired PNA and was started on Zosyn, followed by a Dx of E. Coli UTI and Bacteremia treated also with Zosyn started on 12/26 and Linezolid started on 12/29. Patient also was having a CHF exacerbation that improved with diuresis. Patient is supposed to undergo CABG 3 once bacteremia and sepsis have resolved, HD#10 1. PULMONARY: -RESPIRATORY FAILURE DUE TO PULM EDEMA/PNA BNP 561 on admission, last Echocardiogram 11/2017 ef 55-60%, sx resolved and on RA. Oxygen PRN to keep saturations at least 92%. s/p IV Lasix for diuresis Rpt BNP in AM -HOSPITAL ACQUIRED PNEUMONIA Pro-calcitonin 1.18, will repeat in AM Continue Zyvox PO started 12/29 and Zosyn IV started on 12/26, rpt sputum cx today as never collected Negative legionella, Neg Strep pneumo antigen 2. SEPSIS +Urine Cx E. Coli and +Bld Cx x2 on 12/23 both sensitive to Zosyn Repeat blood cultures after completion of Zosyn treatment which is tomorrow. If Bld Cx Neg x48hrs may be cleared for CABG (Neg Bld Cx x2 on 12/24) 3. CARDIOLOGY/VASCULAR -Ventricular tachycardia: cardiology consulted, on Amiodarone PO, appreciate assistance with mgmt. -Coronary artery disease/status post recent stent placement: cont. ASA, Plavix, Statins, and Propranolol. Plan for CABG 3, recommendation is to revisit CABG once bacteremia and sepsis resolved. He will also need to be off Plavix and Eliquis 5 days prior to surgery. Cardiology still wants patient to be on Plavix at this time. Discussed with CVT, may schedule surgery next 01/08 provided there is clearance. Will need bridging with Heparin Drip due to hx of Afib. -Hypertension: stable, continue Norvasc, HCTZ (on hold), Losartan (may need to be discontinued if worsening renal function), and Propranolol. -Hx of TIA: on Eliquis and ASA -AFIB: Cont. Amiodarone PO and Eliquis. 4. RENAL -Acute kidney injury: secondary to hypovolemia. Avoid nephrotoxins. Creatinine 1.30 today from 1.35. F/U BMP in AM. 5. URO BPH: Appreciate urology assistance with mgmt. No intervention at this time, continue Flomax. PSA WNL on admission. 6. DVT PPX: on Eliquis/ASA/Plavix 7. DISPO: Tomorrow ABX can be discontinued, rpt Bld cx and procalcitonin at that time, once Bld Cx Neg x48hrs consider CABG, will need Hep Drip due to AFib to bridge if off of anticoagulants x5 days prior to surgery as CV recommends. (2) Sepsis Qualifiers: Sepsis type: Escherichia coli Qualified Code(s): A41.51 - Sepsis due to Escherichia coli [E. coli]
[2018-01-01] MEDS: amLODIPine 10 MG Tablet PO SCH (08:54)
[2018-01-01] MEDS: Amiodarone 200 MG Tablet PO SCH ×2 (08:55→20:14)
[2018-01-01] MEDS: Propranolol LA 80 MG Capsule PO SCH (08:55)
[2018-01-01] MEDS: Potassium Phosphate 500 MG Soluble Tablet PO SCH (08:56)
[2018-01-01] MEDS: Senna/Docusate Sodium 8.6/50 MG Tablet PO SCH ×2 (08:56→21:44)
--- NOTE | 2018-01-01 11:38 | XR ---
EXAM DATE: 01/01/2018 11:22 AM EDT AGE/SEX: 77 years / Male INDICATIONS: Evaluate for pneumonia CLINICAL DATA: This is the patient's subsequent encounter. Patient reports that signs and symptoms h ave been present for 3 days and indicates a pain score of 0/10. MEDICAL/SURGICAL HISTORY: Cardiovascular disease. None. COMPARISON: [facility] [place], CTA PULMONARY W CONTRAST W 3D, 12/26/2017. . FINDINGS: Cardiomegaly. Clear lungs. Osseous structures are intact. CONCLUSION: Negative examination. Electronically signed by: Ray Castro MD 01/01/2018 11:37 AM EDT
[2018-01-01 12:17] LABS: Vancomycin,Trough 4.4 mcg/mL (5.0-10.0)
--- NOTE | 2018-01-01 12:46 | P.PNCA ---
Subjective Interval history: alert in nad, assymptomatic Physical Exam Vital signs: Vital Signs 12/31/17 13:00 12/31/17 14:00 12/31/17 15:00 Temperature 98 F Pulse Rate 62 62 67 Respiratory Rate 16 Blood Pressure 114/65 Pulse Oximetry 12/31/17 16:00 12/31/17 17:00 12/31/17 18:00 Temperature Pulse Rate 62 69 72 Respiratory Rate Blood Pressure Pulse Oximetry 97 12/31/17 19:00 12/31/17 20:00 12/31/17 21:00 Temperature 97.4 F L Pulse Rate 68 72 74 Respiratory Rate 22 Blood Pressure 129/68 Pulse Oximetry 97 12/31/17 22:00 12/31/17 23:00 01/01/18 00:00 Temperature 97.1 F L Pulse Rate 70 81 70 Respiratory Rate 22 Blood Pressure 132/67 Pulse Oximetry 95 01/01/18 01:00 01/01/18 02:00 01/01/18 03:00 Temperature 97.5 F L Pulse Rate 72 70 72 Respiratory Rate 22 Blood Pressure 100/67 Pulse Oximetry 96 01/01/18 04:00 01/01/18 05:00 01/01/18 06:00 Temperature Pulse Rate 74 70 71 Respiratory Rate Blood Pressure Pulse Oximetry 01/01/18 08:00 01/01/18 12:00 Temperature 98.2 F 98.4 F Pulse Rate 80 72 Respiratory Rate 18 18 Blood Pressure 106/68 145/69 H Pulse Oximetry 93 L 97 Intake & Output 12/31/17 01/01/18 01/01/18 18:59 06:59 18:59 Intake Total 820 / 820 340 / 340 Balance 820 / 820 340 / 340 Weight 82 kg Intake: IV 100 / 100 100 / 100 Zosyn 3.375 GM Premix 50 ML @ 100 / 100 100 / 100 100 mls/hr IV.SIG Q6H [facility] Rx#: [id number] Oral 720 / 720 240 / 240 Other: # Voids 2 2 Date of Last Bowel Movement 12/31/17 12/31/17 12/31/17 # Bowel Movements 1 Assessment and Plan - Assessment (1) NSTEMI (non-ST elevated myocardial infarction) Code(s): I21.4 - Non-ST elevation (NSTEMI) myocardial infarction Status: Acute (2) CHF (congestive heart failure) Code(s): I50.9 - Heart failure, unspecified Status: Acute (3) Acute decompensated heart failure Code(s): I50.9 - Heart failure, unspecified Status: Acute (4) Afib Code(s): I48.91 - Unspecified atrial fibrillation Status: Acute (5) Wide-complex tachycardia Code(s): I47.2 - Ventricular tachycardia Status: Acute (6) Acute UTI Code(s): N39.0 - Urinary tract infection, site not specified Status: Acute (7) CAD (coronary artery disease) Code(s): I25.10 - Atherosclerotic heart disease of [place] coronary artery without angina pectoris Status: Acute (8) CVA (cerebral vascular accident) Code(s): I63.9 - Cerebral infarction, unspecified Status: Acute (9) Sepsis Code(s): A41.9 - Sepsis, unspecified organism Status: Acute - Plan 1.) CAD - high risk presentation with nstemi with decompensated chf, wide complex tachycardia, afib, sepsis, uti; I reviewed his cath films from 11/21/17; he has a 60-70% distal left main, 75% ost lcx, 70% prox rca(dom), 95% prox rpla , ef@ 50%; he appears to be failing and/or responding poorly to medical management; rec cabg, i dont think he will be stable enough for discharge prior to cabg, d/w patient, and son d/w Dr lara, continue eliquis, aspirin, plavix, beta meg held due to decompensated chf; cabg timing per ID and Dr Knott (9) Sepsis Qualifiers: Sepsis type: Escherichia coli Qualified Code(s): A41.51 - Sepsis due to Escherichia coli [E. coli]
[2018-01-02] MEDS: Piperacil/Tazo 3.375 GM Premix 50 ML IV.SIG SCH ×4 (02:55→21:40)
[2018-01-02] MEDS ORDERED: Metoprolol Tartrate 25 MG Tablet PO SCH (05:00)
--- NOTE | 2018-01-02 08:08 | P.PNCA ---
Subjective Interval history: alert in nad Physical Exam Vital signs: Vital Signs 01/01/18 09:00 01/01/18 10:00 01/01/18 11:00 Temperature Pulse Rate 76 72 73 Respiratory Rate Blood Pressure Pulse Oximetry 01/01/18 12:00 01/01/18 13:00 01/01/18 14:00 Temperature 98.4 F Pulse Rate 80 66 70 Respiratory Rate 18 Blood Pressure 145/69 H Pulse Oximetry 97 01/01/18 15:00 01/01/18 16:00 01/01/18 17:00 Temperature 97.6 F Pulse Rate 75 70 70 Respiratory Rate 18 Blood Pressure 126/60 Pulse Oximetry 94 L 94 L 01/01/18 18:00 01/01/18 19:00 01/01/18 20:00 Temperature 97.6 F Pulse Rate 76 72 72 Respiratory Rate 22 Blood Pressure 125/65 Pulse Oximetry 99 01/01/18 21:00 01/01/18 22:00 01/01/18 23:00 Temperature 97.6 F Pulse Rate 68 72 64 Respiratory Rate 22 Blood Pressure 147/73 H Pulse Oximetry 96 01/02/18 00:00 01/02/18 01:00 01/02/18 02:00 Temperature Pulse Rate 70 68 76 Respiratory Rate Blood Pressure Pulse Oximetry 01/02/18 03:00 01/02/18 04:00 01/02/18 05:00 Temperature 97.5 F L Pulse Rate 79 70 76 Respiratory Rate 22 Blood Pressure 146/65 H Pulse Oximetry 96 01/02/18 06:00 Temperature Pulse Rate 82 Respiratory Rate Blood Pressure Pulse Oximetry Intake & Output 01/01/18 01/02/18 01/02/18 18:59 06:59 18:59 Intake Total 100 / 100 220 / 220 Balance 100 / 100 220 / 220 Weight 83 kg Intake: IV 100 / 100 100 / 100 Zosyn 3.375 GM Premix 50 ML @ 100 / 100 100 / 100 100 mls/hr IV.SIG Q6H [facility] Rx#: [id number] Oral 120 / 120 Other: # Voids 2 Date of Last Bowel Movement 12/31/17 01/01/18 Assessment and Plan - Assessment (1) NSTEMI (non-ST elevated myocardial infarction) Code(s): I21.4 - Non-ST elevation (NSTEMI) myocardial infarction Status: Acute (2) CHF (congestive heart failure) Code(s): I50.9 - Heart failure, unspecified Status: Acute (3) Acute decompensated heart failure Code(s): I50.9 - Heart failure, unspecified Status: Acute (4) Afib Code(s): I48.91 - Unspecified atrial fibrillation Status: Chronic (5) Wide-complex tachycardia Code(s): I47.2 - Ventricular tachycardia Status: Acute (6) Acute UTI Code(s): N39.0 - Urinary tract infection, site not specified Status: Acute (7) CAD (coronary artery disease) Code(s): I25.10 - Atherosclerotic heart disease of [place] coronary artery without angina pectoris Status: Acute (8) CVA (cerebral vascular accident) Code(s): I63.9 - Cerebral infarction, unspecified Status: Acute (9) Sepsis Code(s): A41.9 - Sepsis, unspecified organism Status: Acute - Plan 1.) CAD - high risk presentation with nstemi with decompensated chf, wide complex tachycardia, afib, sepsis, uti; I reviewed his cath films from 11/21/17; he has a 60-70% distal left main, 75% ost lcx, 70% prox rca(dom), 95% prox rpla , ef@ 50%; he appears to be failing and/or responding poorly to medical management; cabg possibly next week, continue eliquis, aspirin, plavix held, beta meg held due to decompensated chf; cabg timing per ID and Dr Knott; eliquis will be replaced with iv heparin or lovenox pre-op; d/w Dr Knott (9) Sepsis Qualifiers: Sepsis type: Escherichia coli Qualified Code(s): A41.51 - Sepsis due to Escherichia coli [E. coli]
[2018-01-02] MEDS: Potassium Phosphate 500 MG Soluble Tablet PO SCH (09:22)
[2018-01-02] MEDS: Propranolol LA 80 MG Capsule PO SCH (09:23)
[2018-01-02] MEDS: Amiodarone 200 MG Tablet PO SCH ×2 (09:23→21:41)
[2018-01-02] MEDS: Senna/Docusate Sodium 8.6/50 MG Tablet PO SCH ×2 (09:23→21:40)
[2018-01-02] MEDS: amLODIPine 10 MG Tablet PO SCH (09:28)
--- NOTE | 2018-01-02 13:02 | P.PN ---
Subjective Interval history: Follow up for gram negative bacteremia, CAD. Patient is currently doing well. Denies any chest pain, shortness of breath, fever or chills. Physical Exam Vital signs: Vital Signs 01/01/18 14:00 01/01/18 15:00 01/01/18 16:00 Temperature 97.6 F Pulse Rate 70 75 70 Respiratory Rate 18 Blood Pressure 126/60 Pulse Oximetry 94 L 94 L 01/01/18 17:00 01/01/18 18:00 01/01/18 19:00 Temperature 97.6 F Pulse Rate 70 76 72 Respiratory Rate 22 Blood Pressure 125/65 Pulse Oximetry 99 01/01/18 20:00 01/01/18 21:00 01/01/18 22:00 Temperature Pulse Rate 72 68 72 Respiratory Rate Blood Pressure Pulse Oximetry 01/01/18 23:00 01/02/18 00:00 01/02/18 01:00 Temperature 97.6 F Pulse Rate 64 70 68 Respiratory Rate 22 Blood Pressure 147/73 H Pulse Oximetry 96 01/02/18 02:00 01/02/18 03:00 01/02/18 04:00 Temperature 97.5 F L Pulse Rate 76 79 70 Respiratory Rate 22 Blood Pressure 146/65 H Pulse Oximetry 96 01/02/18 05:00 01/02/18 06:00 01/02/18 07:00 Temperature 98.3 F Pulse Rate 76 82 90 Respiratory Rate 20 Blood Pressure 138/78 Pulse Oximetry 97 01/02/18 08:00 01/02/18 09:00 01/02/18 10:00 Temperature Pulse Rate 90 86 75 Respiratory Rate Blood Pressure Pulse Oximetry 98 01/02/18 11:00 01/02/18 11:37 Temperature 98.6 F Pulse Rate 74 79 Respiratory Rate 20 Blood Pressure 123/71 Pulse Oximetry 96 99 Intake & Output 01/01/18 01/02/18 01/02/18 18:59 06:59 18:59 Intake Total 100 / 100 220 / 220 50 / 50 Balance 100 / 100 220 / 220 50 / 50 Weight 83 kg Intake: IV 100 / 100 100 / 100 50 / 50 Zosyn 3.375 GM Premix 50 ML @ 100 / 100 100 / 100 50 / 50 100 mls/hr IV.SIG Q6H [facility] Rx#: [id number] Oral 120 / 120 Other: # Voids 2 Date of Last Bowel Movement 12/31/17 01/01/18 01/01/18 Narrative: GENERAL: NAD, lying comfortable in bed, pleasant CARDIOVASCULAR: Irregularly irregular, no M/R/G. RESPIRATORY: CTA x2. GASTROINTESTINAL: Abdomen soft, non-tender, nondistended. MUSCULOSKELETAL: No cyanosis. Trace bilateral lower extremity edema. BACK: Nontender without obvious deformity. No CVA tenderness. NEURO: Alert awake oriented 3. Results - Labs CBC & Chem 7: 12/27/17 04:27 01/01/18 11:33 Laboratory Results - last 24 hr 01/02/18 01/02/18 05:05 05:05 B-Natriuretic Peptide 411 H Procalcitonin 0.19 H - Procedures none Assessment and Plan - Assessment (1) Acute UTI Code(s): N39.0 - Urinary tract infection, site not specified Status: Acute (2) Sepsis Code(s): A41.9 - Sepsis, unspecified organism Status: Acute (3) Bacteremia Code(s): R78.81 - Bacteremia Status: Acute (4) Afib Code(s): I48.91 - Unspecified atrial fibrillation Status: Chronic (5) CHF (congestive heart failure) Code(s): I50.9 - Heart failure, unspecified Status: Acute (6) NSTEMI (non-ST elevated myocardial infarction) Code(s): I21.4 - Non-ST elevation (NSTEMI) myocardial infarction Status: Acute - Plan This is a 77-year-old AAM with PMHx of TIA, HTN, HLD and CAD status post stent recent placement with re-admission due to fever and fatigue. Patient was found to have hospital acquired PNA and was started on Zosyn, followed by a Dx of E. Coli UTI and Bacteremia treated also with Zosyn started on 12/26 and Linezolid started on 12/29. Patient also was having a CHF exacerbation that improved with diuresis. Patient is supposed to undergo CABG 3 once bacteremia and sepsis have resolved. Sepsis (Temp 101.7, HR 107, WBC 13.1K, UTI) Urinary tract infection E. Coli Bacteremia -Sepsis resolved. ID following -Patient is currently on Zosyn 3.375g Q6hrs. -Blood cultures from 01/02/2018 negative so far. -Probable clearance from ID on 01/05/2018 for CABG. Coronary artery disease Atrial fibrillation Hypertension -Cardiology following as well as Cardiothoracic surgery -Probable CABG late next week ~ 01/09/2018. -Apixaban, Plavix stopped. Patient was started on Lovenox. D/C Lovenox after AM dose on 01/07/2018. -Currently on Amiodarone 400mg Q12 -Continue Aspirin 81mg, Amlodipine 10mg Qday, Losartan 100mg Qday. -Continue Atorvastatin 20mg Qday. Acute kidney injury -Creatinine improved from 2.35 on admission to 1.44. He likely has baseline CKD. Full code. Lovenox. (2) Sepsis Qualifiers: Sepsis type: Escherichia coli Qualified Code(s): A41.51 - Sepsis due to Escherichia coli [E. coli]
[2018-01-02] MEDS ORDERED: Dextrose 50% in Water 50 ML Vial IV.PUSH PRN (15:11)
[2018-01-02] MEDS ORDERED: Sodium Chlor 0.9% Inj 77.5 ML, Papaverine Inj 60 MG, Nitroglycerin Inj 100 MCG, dilTIAZ... IRRIGATION SCH ×3 (15:15)
[2018-01-02] MEDS ORDERED: Chlorhexidine 4% Topical 120 APPLIC/120 ML Bottle TOPICAL SCH (15:15)
[2018-01-02] MEDS ORDERED: Sodium Chloride 0.9% Irr Bot 500 ML, ceFAZolin Inj 500 MG IRRIGATION SCH ×2 (15:15)
--- NOTE | 2018-01-02 15:19 | P.PNCV ---
- Note Subjective/Hospital Course: Mr. Angel is a very pleasant 77-year-old gentleman who is well known to me from his previous encounters. Briefly he was admitted in early November for presenting diagnosis of a acute stroke as well as an acute myocardial infarction. At that time he underwent further workup including a coronary angiogram by Dr. Nolen which revealed significant multivessel coronary artery disease. Given the fact that he had had an acute CVA, with a small brain bleed, it was decided to proceed with percutaneous intervention to his culprit coronary vessel with plans to follow-up with coronary revascularization surgery following resolution of his acute neurologic event. He was subsequent discharged and I have seen him on 2 different occasions in the office to discuss the surgical procedure. Most recently he was just seen last Friday my office at which time he had complained of fevers, chills and night sweats with associated urinary complaints. He was advised to [place] and therefore he was sent to the emergency department for further evaluation. At that point he was noted to have significant sepsis with positive bacteremia. He has since been admitted to the hospital and was noted to be in atrial fibrillation with rapid ventricular response and urosepsis and is being treated for those 2 entities. 12/29 Blood cultures and urine culture + Ecoli 12/24 BC neg x 5 days on zyvox and zosyn WBC 8.4K no fever > 48 hrs remains in afib, rate controlled on 3 liter nasal cannula continue current medical therapy will need clearance and timing for CABG approval from ID will need to hold eliquis > 48 hrs and plavix >5 days prior to consideration for surgery 12/31 discussed with ID CXR and cultures and labs in 3 days if neg and improved, will then discuss clearance currently being treated for bacteremia and pneumonia pt is currently on room air , has been transferred out fo ICU 01/02 discussed with ID plan is for CABG 01/09 after completely cleared by ID will stop eliquis and plavix in am / start lovenox will dc lovenox after am dose 01/07 Objective: Vital Signs - 24 hr 01/01/18 16:00 01/01/18 17:00 01/01/18 18:00 Temperature Pulse Rate 70 70 76 Respiratory Rate Blood Pressure Pulse Oximetry 94 L 01/01/18 19:00 01/01/18 20:00 01/01/18 21:00 Temperature 97.6 F Pulse Rate 72 72 68 Respiratory Rate 22 Blood Pressure 125/65 Pulse Oximetry 99 01/01/18 22:00 01/01/18 23:00 01/02/18 00:00 Temperature 97.6 F Pulse Rate 72 64 70 Respiratory Rate 22 Blood Pressure 147/73 H Pulse Oximetry 96 01/02/18 01:00 01/02/18 02:00 01/02/18 03:00 Temperature 97.5 F L Pulse Rate 68 76 79 Respiratory Rate 22 Blood Pressure 146/65 H Pulse Oximetry 96 01/02/18 04:00 01/02/18 05:00 01/02/18 06:00 Temperature Pulse Rate 70 76 82 Respiratory Rate Blood Pressure Pulse Oximetry 01/02/18 07:00 01/02/18 08:00 01/02/18 09:00 Temperature 98.3 F Pulse Rate 90 90 86 Respiratory Rate 20 Blood Pressure 138/78 Pulse Oximetry 97 98 01/02/18 10:00 01/02/18 11:00 01/02/18 11:37 Temperature 98.6 F Pulse Rate 75 74 79 Respiratory Rate 20 Blood Pressure 123/71 Pulse Oximetry 96 99 01/02/18 13:00 Temperature Pulse Rate 73 Respiratory Rate Blood Pressure Pulse Oximetry GENERAL: SKIN: Warm and dry. HEAD: Normocephalic. EYES: No scleral icterus. No injection or drainage. NECK: Supple, trachea midline. No JVD or lymphadenopathy. CARDIOVASCULAR: Regular rate and rhythm without murmurs, gallops, or rubs. RESPIRATORY: Breath sounds equal bilaterally. No accessory muscle use. GASTROINTESTINAL: Abdomen soft, non-tender, nondistended. MUSCULOSKELETAL: No cyanosis, or edema. BACK: Nontender without obvious deformity. No CVA tenderness. Labs: Laboratory Results - last 12 hr 01/02/18 01/02/18 05:05 05:05 B-Natriuretic Peptide 411 H Procalcitonin 0.19 H Result Diagrams: 12/27/17 04:27 01/01/18 11:33 - Plan (2) CAD (coronary artery disease) Plan: ASA, inderal , statin timing for surgery tentatively 01/09 (3) CVA (cerebral vascular accident) Plan: on lovenox (4) Sepsis Plan: on antibiotics per ID treatment for pneumonia and bacteremia (4) Sepsis Qualifiers: Sepsis type: Escherichia coli Qualified Code(s): A41.51 - Sepsis due to Escherichia coli [E. coli]
--- NOTE | 2018-01-02 15:50 | P.PNID ---
Infectious Disease Brief Note LUCY LITTLE for CTS stop date for antibiotics is 01/03/2018. Will stop antibiotics on 01/04/2018. Repeat blood cultures on 01/05/2018. if the Blood cultures from 01/05/2018 are negative at 48 hours patient will be cleared provided no new ID issues. Will see prn over the weekend. please call if any change in clinical condition or questions. Vital Signs - 24 hr 01/01/18 16:00 01/01/18 17:00 01/01/18 18:00 Temperature Pulse Rate 70 70 76 Respiratory Rate Blood Pressure Pulse Oximetry 94 L 01/01/18 19:00 01/01/18 20:00 01/01/18 21:00 Temperature 97.6 F Pulse Rate 72 72 68 Respiratory Rate 22 Blood Pressure 125/65 Pulse Oximetry 99 01/01/18 22:00 01/01/18 23:00 01/02/18 00:00 Temperature 97.6 F Pulse Rate 72 64 70 Respiratory Rate 22 Blood Pressure 147/73 H Pulse Oximetry 96 01/02/18 01:00 01/02/18 02:00 01/02/18 03:00 Temperature 97.5 F L Pulse Rate 68 76 79 Respiratory Rate 22 Blood Pressure 146/65 H Pulse Oximetry 96 01/02/18 04:00 01/02/18 05:00 01/02/18 06:00 Temperature Pulse Rate 70 76 82 Respiratory Rate Blood Pressure Pulse Oximetry 01/02/18 07:00 01/02/18 08:00 01/02/18 09:00 Temperature 98.3 F Pulse Rate 90 90 86 Respiratory Rate 20 Blood Pressure 138/78 Pulse Oximetry 97 98 01/02/18 10:00 01/02/18 11:00 01/02/18 11:37 Temperature 98.6 F Pulse Rate 75 74 79 Respiratory Rate 20 Blood Pressure 123/71 Pulse Oximetry 96 99 01/02/18 13:00 Temperature Pulse Rate 73 Respiratory Rate Blood Pressure Pulse Oximetry Laboratory Results - last 24 hr 01/02/18 01/02/18 05:05 05:05 B-Natriuretic Peptide 411 H Procalcitonin 0.19 H
[2018-01-02] MEDS ORDERED: Insulin Regular (For Infusion) 100 UNIT in Sodium Chlor 0.9% Inj 99 ML IV.CONT PRN (16:00)
[2018-01-02] MEDS ORDERED: ceFAZolin Inj 2,000 MG in Sodium Chlor 0.9% Inj 80 ML IV.SIG SCH (16:00)
[2018-01-03] MEDS: Piperacil/Tazo 3.375 GM Premix 50 ML IV.SIG SCH ×4 (01:25→20:37)
[2018-01-03] MEDS: Potassium Phosphate 500 MG Soluble Tablet PO SCH (08:26)
[2018-01-03] MEDS: Enoxaparin Inj 80 MG/0.8 ML Syringe SQ SCH ×2 (08:26→20:38)
[2018-01-03] MEDS: amLODIPine 10 MG Tablet PO SCH (08:26)
[2018-01-03] MEDS: Amiodarone 200 MG Tablet PO SCH ×2 (08:26→20:38)
[2018-01-03] MEDS: Propranolol LA 80 MG Capsule PO SCH (08:26)
[2018-01-03] MEDS: Senna/Docusate Sodium 8.6/50 MG Tablet PO SCH ×2 (08:27→20:38)
--- NOTE | 2018-01-03 10:25 | P.PNCA ---
Subjective Interval history: assymptomatic, in nad Physical Exam Vital signs: Vital Signs 01/02/18 11:00 01/02/18 11:37 01/02/18 13:00 Temperature 98.6 F Pulse Rate 74 79 73 Respiratory Rate 20 Blood Pressure 123/71 Pulse Oximetry 96 99 01/02/18 14:00 01/02/18 15:00 01/02/18 16:00 Temperature 98.3 F Pulse Rate 80 79 81 Respiratory Rate 18 Blood Pressure 120/70 Pulse Oximetry 96 99 01/02/18 17:00 01/02/18 17:20 01/02/18 19:00 Temperature 97.7 F Pulse Rate 74 76 75 Respiratory Rate 20 Blood Pressure 136/70 Pulse Oximetry 95 01/02/18 20:00 01/02/18 21:00 01/02/18 22:00 Temperature Pulse Rate 71 70 79 Respiratory Rate Blood Pressure Pulse Oximetry 95 01/02/18 23:00 01/03/18 00:00 01/03/18 01:00 Temperature 98.2 F Pulse Rate 73 74 68 Respiratory Rate 22 Blood Pressure 126/70 Pulse Oximetry 96 96 01/03/18 02:00 01/03/18 03:00 01/03/18 04:00 Temperature 98.6 F Pulse Rate 71 75 67 Respiratory Rate 18 Blood Pressure 134/68 Pulse Oximetry 95 97 01/03/18 05:00 01/03/18 06:00 01/03/18 07:00 Temperature Pulse Rate 64 61 69 Respiratory Rate Blood Pressure Pulse Oximetry 01/03/18 07:59 01/03/18 08:00 01/03/18 09:00 Temperature 97.9 F Pulse Rate 75 84 76 Respiratory Rate 16 Blood Pressure 150/79 H Pulse Oximetry 100 01/03/18 10:00 Temperature Pulse Rate 74 Respiratory Rate Blood Pressure Pulse Oximetry Intake & Output 01/02/18 01/03/18 01/03/18 18:59 06:59 18:59 Intake Total 1050 / 1050 340 / 340 50 / 50 Output Total 1000 / 1000 Balance 50 / 50 340 / 340 50 / 50 Weight 83 kg Intake: IV 100 / 100 100 / 100 50 / 50 Zosyn 3.375 GM Premix 50 ML @ 100 / 100 100 / 100 50 / 50 100 mls/hr IV.SIG Q6H [facility] Rx#: [id number] Oral 950 / 950 240 / 240 Output: Urine 1000 / 1000 Other: # Voids 2 Date of Last Bowel Movement 01/02/18 01/03/18 01/02/18 # Bowel Movements 1 1 Assessment and Plan - Assessment (1) NSTEMI (non-ST elevated myocardial infarction) Code(s): I21.4 - Non-ST elevation (NSTEMI) myocardial infarction Status: Acute (2) CHF (congestive heart failure) Code(s): I50.9 - Heart failure, unspecified Status: Acute (3) Acute decompensated heart failure Code(s): I50.9 - Heart failure, unspecified Status: Acute (4) Afib Code(s): I48.91 - Unspecified atrial fibrillation Status: Chronic (5) Wide-complex tachycardia Code(s): I47.2 - Ventricular tachycardia Status: Acute (6) Acute UTI Code(s): N39.0 - Urinary tract infection, site not specified Status: Acute (7) CAD (coronary artery disease) Code(s): I25.10 - Atherosclerotic heart disease of [place] coronary artery without angina pectoris Status: Acute (8) CVA (cerebral vascular accident) Code(s): I63.9 - Cerebral infarction, unspecified Status: Acute (9) Sepsis Code(s): A41.9 - Sepsis, unspecified organism Status: Acute - Plan 1.) CAD - high risk presentation with nstemi with decompensated chf, wide complex tachycardia, afib, sepsis, uti; I reviewed his cath films from 11/21/17; he has a 60-70% distal left main, 75% ost lcx, 70% prox rca(dom), 95% prox rpla , ef@ 50%; he appears to be failing and/or responding poorly to medical management; cabg possibly next week, continue eliquis, aspirin, plavix held, beta meg held due to decompensated chf; cabg timing per ID and Dr Knott; eliquis will be replaced with iv heparin or lovenox pre-op; d/w Dr Knott (9) Sepsis Qualifiers: Sepsis type: Escherichia coli Qualified Code(s): A41.51 - Sepsis due to Escherichia coli [E. coli]
--- NOTE | 2018-01-03 19:21 | P.PN ---
Subjective Interval history: Follow up for gram negative bacteremia, CAD. Patient continues to do well. No fever, chills, chest pain, SOB. Physical Exam Vital signs: Vital Signs 01/02/18 20:00 01/02/18 21:00 01/02/18 22:00 Temperature Pulse Rate 71 70 79 Respiratory Rate Blood Pressure Pulse Oximetry 95 01/02/18 23:00 01/03/18 00:00 01/03/18 01:00 Temperature 98.2 F Pulse Rate 73 74 68 Respiratory Rate 22 Blood Pressure 126/70 Pulse Oximetry 96 96 01/03/18 02:00 01/03/18 03:00 01/03/18 04:00 Temperature 98.6 F Pulse Rate 71 75 67 Respiratory Rate 18 Blood Pressure 134/68 Pulse Oximetry 95 97 01/03/18 05:00 01/03/18 06:00 01/03/18 07:00 Temperature Pulse Rate 64 61 69 Respiratory Rate Blood Pressure Pulse Oximetry 01/03/18 07:59 01/03/18 08:00 01/03/18 09:00 Temperature 97.9 F Pulse Rate 75 84 76 Respiratory Rate 16 Blood Pressure 150/79 H Pulse Oximetry 100 01/03/18 10:00 01/03/18 11:00 01/03/18 11:15 Temperature 97.4 F L Pulse Rate 74 81 74 Respiratory Rate 16 Blood Pressure 107/58 L Pulse Oximetry 98 01/03/18 12:00 01/03/18 12:43 01/03/18 13:00 Temperature Pulse Rate 68 74 Respiratory Rate Blood Pressure Pulse Oximetry 98 01/03/18 14:00 01/03/18 14:48 01/03/18 15:00 Temperature 97.7 F Pulse Rate 74 71 71 Respiratory Rate 16 Blood Pressure 125/61 Pulse Oximetry 97 01/03/18 16:00 01/03/18 16:13 01/03/18 17:00 Temperature Pulse Rate 70 74 Respiratory Rate Blood Pressure Pulse Oximetry 97 01/03/18 18:00 Temperature Pulse Rate 68 Respiratory Rate Blood Pressure Pulse Oximetry Intake & Output 01/03/18 01/03/18 01/04/18 06:59 18:59 06:59 Intake Total 340 / 340 1060 / 1060 Balance 340 / 340 1060 / 1060 Weight 83 kg Intake: IV 100 / 100 100 / 100 Zosyn 3.375 GM Premix 50 ML @ 100 / 100 100 / 100 100 mls/hr IV.SIG Q6H [facility] Rx#: [id number] Oral 240 / 240 960 / 960 Other: # Voids 2 4 Date of Last Bowel Movement 01/03/18 01/03/18 # Bowel Movements 1 1 Results - Labs CBC & Chem 7: 12/27/17 04:27 01/01/18 11:33 Microbiology 01/02/18 05:13 Blood - Peripheral Aerobic Blood Culture - Preliminary No growth in 1 day 01/02/18 05:13 Blood - Peripheral Anaerobic Blood Culture - Preliminary No growth in 1 day 01/02/18 05:05 Blood - Peripheral Aerobic Blood Culture - Preliminary No growth in 1 day 01/02/18 05:05 Blood - Peripheral Anaerobic Blood Culture - Preliminary No growth in 1 day - Procedures none Assessment and Plan - Assessment (1) Acute UTI Code(s): N39.0 - Urinary tract infection, site not specified Status: Acute (2) Sepsis Code(s): A41.9 - Sepsis, unspecified organism Status: Acute (3) Bacteremia Code(s): R78.81 - Bacteremia Status: Acute (4) Afib Code(s): I48.91 - Unspecified atrial fibrillation Status: Chronic (5) CHF (congestive heart failure) Code(s): I50.9 - Heart failure, unspecified Status: Acute (6) NSTEMI (non-ST elevated myocardial infarction) Code(s): I21.4 - Non-ST elevation (NSTEMI) myocardial infarction Status: Acute - Plan This is a 77-year-old AAM with PMHx of TIA, HTN, HLD and CAD status post stent recent placement with re-admission due to fever and fatigue. Patient was found to have hospital acquired PNA and was started on Zosyn, followed by a Dx of E. Coli UTI and Bacteremia treated also with Zosyn started on 12/26 and Linezolid started on 12/29. Patient also was having a CHF exacerbation that improved with diuresis. Patient is supposed to undergo CABG 3 once bacteremia and sepsis have resolved. Sepsis (Temp 101.7, HR 107, WBC 13.1K, UTI) Urinary tract infection E. Coli Bacteremia -Sepsis resolved. ID following -Patient is currently on Zosyn 3.375g Q6hrs. -Blood cultures from 01/02/2018 negative so far. -Probable clearance from ID on 01/05/2018 for CABG. Coronary artery disease Atrial fibrillation Hypertension -Cardiology following as well as Cardiothoracic surgery -Probable CABG late next week ~ 01/09/2018. -Apixaban, Plavix stopped. Patient was started on Lovenox. D/C Lovenox after AM dose on 01/07/2018. -Currently on Amiodarone 400mg Q12 -Continue Aspirin 81mg, Amlodipine 10mg Qday, Losartan 100mg Qday. -Continue Atorvastatin 20mg Qday. Acute kidney injury Mild Hypernatremia -Creatinine improved from 2.35 on admission to 1.44. He likely has baseline CKD. -Needs to increase free water intake by mouth. -Will re-check BMP in 1-2 days. Full code. Lovenox. Discharge: Possible discharge on 01/05 and then patient can come back to the hospital for CABG pre-arranged by CV surgery. (2) Sepsis Qualifiers: Sepsis type: Escherichia coli Qualified Code(s): A41.51 - Sepsis due to Escherichia coli [E. coli]
[2018-01-04] MEDS: Piperacil/Tazo 3.375 GM Premix 50 ML IV.SIG SCH ×4 (02:00→20:19)
[2018-01-04] MEDS: Enoxaparin Inj 80 MG/0.8 ML Syringe SQ SCH ×2 (08:58→20:19)
[2018-01-04] MEDS: Propranolol LA 80 MG Capsule PO SCH (08:59)
[2018-01-04] MEDS: amLODIPine 10 MG Tablet PO SCH (08:59)
[2018-01-04] MEDS: Amiodarone 200 MG Tablet PO SCH ×2 (08:59→20:19)
[2018-01-04] MEDS: Potassium Phosphate 500 MG Soluble Tablet PO SCH (09:00)
[2018-01-04] MEDS: Senna/Docusate Sodium 8.6/50 MG Tablet PO SCH ×2 (09:00→21:10)
--- NOTE | 2018-01-04 10:27 | P.PNCA ---
Subjective Interval history: assymptomatic in nad Physical Exam Vital signs: Vital Signs 01/03/18 11:00 01/03/18 11:15 01/03/18 12:00 Temperature 97.4 F L Pulse Rate 81 74 68 Respiratory Rate 16 Blood Pressure 107/58 L Pulse Oximetry 98 01/03/18 12:43 01/03/18 13:00 01/03/18 14:00 Temperature Pulse Rate 74 74 Respiratory Rate Blood Pressure Pulse Oximetry 98 01/03/18 14:48 01/03/18 15:00 01/03/18 16:00 Temperature 97.7 F Pulse Rate 71 71 70 Respiratory Rate 16 Blood Pressure 125/61 Pulse Oximetry 97 01/03/18 16:13 01/03/18 17:00 01/03/18 18:00 Temperature Pulse Rate 74 68 Respiratory Rate Blood Pressure Pulse Oximetry 97 01/03/18 19:00 01/03/18 20:00 01/03/18 21:00 Temperature 97.8 F Pulse Rate 74 81 80 Respiratory Rate 16 Blood Pressure 153/70 H Pulse Oximetry 99 97 01/03/18 22:00 01/03/18 22:57 01/03/18 23:00 Temperature 97.7 F Pulse Rate 68 76 73 Respiratory Rate 16 Blood Pressure 136/71 Pulse Oximetry 99 01/03/18 23:58 01/03/18 23:59 01/04/18 01:00 Temperature Pulse Rate 74 73 Respiratory Rate Blood Pressure Pulse Oximetry 97 01/04/18 02:00 01/04/18 02:40 01/04/18 03:00 Temperature 98 F Pulse Rate 74 78 81 Respiratory Rate 16 Blood Pressure 152/75 H Pulse Oximetry 96 01/04/18 04:00 01/04/18 04:58 01/04/18 05:52 Temperature Pulse Rate 67 78 67 Respiratory Rate Blood Pressure Pulse Oximetry 97 01/04/18 07:00 01/04/18 08:00 01/04/18 09:00 Temperature 97.7 F Pulse Rate 82 70 77 Respiratory Rate 17 Blood Pressure 159/78 H Pulse Oximetry 99 Intake & Output 01/03/18 01/04/18 01/04/18 18:59 06:59 18:59 Intake Total 1060 / 1060 580 / 580 Balance 1060 / 1060 580 / 580 Weight 83 kg Intake: IV 100 / 100 100 / 100 Zosyn 3.375 GM Premix 50 ML @ 100 / 100 100 / 100 100 mls/hr IV.SIG Q6H [facility] Rx#: [id number] Oral 960 / 960 480 / 480 Other: # Voids 4 3 Date of Last Bowel Movement 01/03/18 01/03/18 # Bowel Movements 1 Assessment and Plan - Assessment (1) NSTEMI (non-ST elevated myocardial infarction) Code(s): I21.4 - Non-ST elevation (NSTEMI) myocardial infarction Status: Acute (2) CHF (congestive heart failure) Code(s): I50.9 - Heart failure, unspecified Status: Acute (3) Acute decompensated heart failure Code(s): I50.9 - Heart failure, unspecified Status: Acute (4) Afib Code(s): I48.91 - Unspecified atrial fibrillation Status: Chronic (5) Wide-complex tachycardia Code(s): I47.2 - Ventricular tachycardia Status: Acute (6) Acute UTI Code(s): N39.0 - Urinary tract infection, site not specified Status: Acute (7) CAD (coronary artery disease) Code(s): I25.10 - Atherosclerotic heart disease of [place] coronary artery without angina pectoris Status: Acute (8) CVA (cerebral vascular accident) Code(s): I63.9 - Cerebral infarction, unspecified Status: Acute (9) Sepsis Code(s): A41.9 - Sepsis, unspecified organism Status: Acute - Plan 1.) CAD - high risk presentation with nstemi with decompensated chf, wide complex tachycardia, afib, sepsis, uti; I reviewed his cath films from 11/21/17; he has a 60-70% distal left main, 75% ost lcx, 70% prox rca(dom), 95% prox rpla , ef@ 50%; he appears to be failing and/or responding poorly to medical management; cabg possibly next week, continue eliquis, aspirin, plavix held, beta meg held due to decompensated chf; cabg timing per ID and Dr Knott; eliquis will be replaced with iv heparin or lovenox pre-op; d/w Dr Knott (9) Sepsis Qualifiers: Sepsis type: Escherichia coli Qualified Code(s): A41.51 - Sepsis due to Escherichia coli [E. coli]
--- NOTE | 2018-01-04 12:59 | P.PN ---
Subjective Interval history: Follow up for gram negative bacteremia, CAD. Patient is currently doing well. No chest pain, shortness of breath, fever or chills. On room air. Physical Exam Vital signs: Vital Signs 01/03/18 13:00 01/03/18 14:00 01/03/18 14:48 Temperature 97.7 F Pulse Rate 74 74 71 Respiratory Rate 16 Blood Pressure 125/61 Pulse Oximetry 97 01/03/18 15:00 01/03/18 16:00 01/03/18 16:13 Temperature Pulse Rate 71 70 Respiratory Rate Blood Pressure Pulse Oximetry 97 01/03/18 17:00 01/03/18 18:00 01/03/18 19:00 Temperature 97.8 F Pulse Rate 74 68 74 Respiratory Rate 16 Blood Pressure 153/70 H Pulse Oximetry 99 01/03/18 20:00 01/03/18 21:00 01/03/18 22:00 Temperature Pulse Rate 81 80 68 Respiratory Rate Blood Pressure Pulse Oximetry 97 01/03/18 22:57 01/03/18 23:00 01/03/18 23:58 Temperature 97.7 F Pulse Rate 76 73 74 Respiratory Rate 16 Blood Pressure 136/71 Pulse Oximetry 99 01/03/18 23:59 01/04/18 01:00 01/04/18 02:00 Temperature Pulse Rate 73 74 Respiratory Rate Blood Pressure Pulse Oximetry 97 01/04/18 02:40 01/04/18 03:00 01/04/18 04:00 Temperature 98 F Pulse Rate 78 81 67 Respiratory Rate 16 Blood Pressure 152/75 H Pulse Oximetry 96 97 01/04/18 04:58 01/04/18 05:52 01/04/18 07:00 Temperature 97.7 F Pulse Rate 78 67 82 Respiratory Rate 17 Blood Pressure 159/78 H Pulse Oximetry 99 01/04/18 08:00 01/04/18 09:00 Temperature Pulse Rate 70 77 Respiratory Rate Blood Pressure Pulse Oximetry Intake & Output 01/03/18 01/04/18 01/04/18 18:59 06:59 18:59 Intake Total 1060 / 1060 580 / 580 50 / 50 Balance 1060 / 1060 580 / 580 50 / 50 Weight 83 kg Intake: IV 100 / 100 100 / 100 50 / 50 Zosyn 3.375 GM Premix 50 ML @ 100 / 100 100 / 100 50 / 50 100 mls/hr IV.SIG Q6H [facility] Rx#: [id number] Oral 960 / 960 480 / 480 Other: # Voids 4 3 Date of Last Bowel Movement 01/03/18 01/03/18 # Bowel Movements 1 Results - Labs CBC & Chem 7: 12/27/17 04:27 01/01/18 11:33 Microbiology 01/02/18 05:13 Blood - Peripheral Aerobic Blood Culture - Preliminary No growth in 2 days 01/02/18 05:13 Blood - Peripheral Anaerobic Blood Culture - Preliminary No growth in 2 days 01/02/18 05:05 Blood - Peripheral Aerobic Blood Culture - Preliminary No growth in 2 days 01/02/18 05:05 Blood - Peripheral Anaerobic Blood Culture - Preliminary No growth in 2 days - Procedures none Assessment and Plan - Assessment (1) Acute UTI Code(s): N39.0 - Urinary tract infection, site not specified Status: Acute (2) Sepsis Code(s): A41.9 - Sepsis, unspecified organism Status: Acute (3) Bacteremia Code(s): R78.81 - Bacteremia Status: Acute (4) Afib Code(s): I48.91 - Unspecified atrial fibrillation Status: Chronic (5) CHF (congestive heart failure) Code(s): I50.9 - Heart failure, unspecified Status: Acute (6) NSTEMI (non-ST elevated myocardial infarction) Code(s): I21.4 - Non-ST elevation (NSTEMI) myocardial infarction Status: Acute - Plan This is a 77-year-old AAM with PMHx of TIA, HTN, HLD and CAD status post stent recent placement with re-admission due to fever and fatigue. Patient was found to have hospital acquired PNA and was started on Zosyn, followed by a Dx of E. Coli UTI and Bacteremia treated also with Zosyn started on 12/26 and Linezolid started on 12/29. Patient also was having a CHF exacerbation that improved with diuresis. Patient is supposed to undergo CABG 3 once bacteremia and sepsis have resolved. Sepsis (Temp 101.7, HR 107, WBC 13.1K, UTI) Urinary tract infection E. Coli Bacteremia -Sepsis resolved. ID following -Patient is currently on Zosyn 3.375g Q6hrs. -Blood cultures from 01/02/2018 negative so far. -We will repeat the blood culture on 01/05/2018 per ID recommendations. If this blood culture remains negative for 48 hours, patient can undergo CABG. Coronary artery disease Atrial fibrillation Hypertension -Cardiology following as well as Cardiothoracic surgery -Probable CABG late next week ~ 01/09/2018. -Apixaban, Plavix stopped. Patient was started on Lovenox. D/C Lovenox after AM dose on 01/07/2018. -Currently on Amiodarone 400mg Q12 -Continue Aspirin 81mg, Amlodipine 10mg Qday, Losartan 100mg Qday. -Continue Atorvastatin 20mg Qday. Acute kidney injury Mild Hypernatremia -Creatinine improved from 2.35 on admission to 1.44. He likely has baseline CKD. -Needs to increase free water intake by mouth. -CBC, BMP in the morning. Full code. Lovenox. (2) Sepsis Qualifiers: Sepsis type: Escherichia coli Qualified Code(s): A41.51 - Sepsis due to Escherichia coli [E. coli]
[2018-01-05] MEDS: Piperacil/Tazo 3.375 GM Premix 50 ML IV.SIG SCH ×2 (02:29→09:04)
[2018-01-05 04:24] LABS: Baso % (Auto) 0.8 % (0.0-2.0); Eos # (Auto) 0.2 th/mm3 (0.0-0.4); Eos % (Auto) 4.2 % (0.0-4.0); Hematocrit 36.2 % (39.0-51.0); Hemoglobin 11.8 gm/dL (13.0-17.0); Lymph # (Auto) 0.9 th/mm3 (1.0-4.8); Lymph % (Auto) 22.1 % (9.0-44.0); Mean Corpuscular HGB Conc 32.5 % (32.0-36.0); Mean Corpuscular Hemoglobin 30.1 pg (27.0-34.0); Mean Corpuscular Volume 92.5 fL (80.0-100.0); Mono # (Auto) 0.4 th/mm3 (0.0-0.9); Mono % (Auto) 10.2 % (0.0-8.0); Neut # (Auto) 2.4 th/mm3 (1.8-7.7); Neut % (Auto) 62.7 % (16.0-70.0); Platelet Count 287 th/mm3 (150-450); Red Blood Count 3.91 mil/mm3 (4.50-5.90); Red Cell Distribution Width 14.5 % (11.6-17.2); White Blood Count 3.9 th/mm3 (4.0-11.0)
[2018-01-05 04:52] LABS: Calcium 8.9 mg/dL (8.5-10.1); Carbon Dioxide 23.4 meq/L (21.0-32.0); Potassium 3.5 meq/L (3.5-5.1)
[2018-01-05] MEDS: Enoxaparin Inj 80 MG/0.8 ML Syringe SQ SCH ×2 (08:18→21:03)
[2018-01-05] MEDS: amLODIPine 10 MG Tablet PO SCH (08:19)
[2018-01-05] MEDS: Propranolol LA 80 MG Capsule PO SCH (08:19)
[2018-01-05] MEDS: Amiodarone 200 MG Tablet PO SCH ×2 (08:20→21:03)
[2018-01-05] MEDS: Potassium Phosphate 500 MG Soluble Tablet PO SCH (08:20)
[2018-01-05] MEDS: Senna/Docusate Sodium 8.6/50 MG Tablet PO SCH ×2 (08:21→22:25)
--- NOTE | 2018-01-05 09:55 | P.PNCV ---
- Note Subjective/Hospital Course: Mr. Angel is a very pleasant 77-year-old gentleman who is well known to me from his previous encounters. Briefly he was admitted in early November for presenting diagnosis of a acute stroke as well as an acute myocardial infarction. At that time he underwent further workup including a coronary angiogram by Dr. Nolen which revealed significant multivessel coronary artery disease. Given the fact that he had had an acute CVA, with a small brain bleed, it was decided to proceed with percutaneous intervention to his culprit coronary vessel with plans to follow-up with coronary revascularization surgery following resolution of his acute neurologic event. He was subsequent discharged and I have seen him on 2 different occasions in the office to discuss the surgical procedure. Most recently he was just seen last Friday my office at which time he had complained of fevers, chills and night sweats with associated urinary complaints. He was advised to [place]CP [place] and therefore he was sent to the emergency department for further evaluation. At that point he was noted to have significant sepsis with positive bacteremia. He has since been admitted to the hospital and was noted to be in atrial fibrillation with rapid ventricular response and urosepsis and is being treated for those 2 entities. 12/29 Blood cultures and urine culture + Ecoli 12/24 BC neg x 5 days on zyvox and zosyn WBC 8.4K no fever > 48 hrs remains in afib, rate controlled on 3 liter nasal cannula continue current medical therapy will need clearance and timing for CABG approval from ID will need to hold eliquis > 48 hrs and plavix >5 days prior to consideration for surgery 12/31 discussed with ID CXR and cultures and labs in 3 days if neg and improved, will then discuss clearance currently being treated for bacteremia and pneumonia pt is currently on room air , has been transferred out fo ICU 01/02 discussed with ID plan is for CABG 01/09 after completely cleared by ID will stop eliquis and plavix in am / start lovenox will dc lovenox after am dose 01/07 01/05 on lovenox, no chest pain over the weekend for surgery on friday if completely cleared by ID Objective: Vital Signs - 24 hr 01/04/18 10:00 01/04/18 11:00 01/04/18 12:00 Temperature 97.9 F Pulse Rate 70 80 81 Respiratory Rate 17 Blood Pressure 144/82 H Pulse Oximetry 98 98 01/04/18 13:00 01/04/18 14:00 01/04/18 15:00 Temperature 98.7 F Pulse Rate 77 97 H 71 Respiratory Rate 15 Blood Pressure 125/72 Pulse Oximetry 99 01/04/18 17:00 01/04/18 18:00 01/04/18 19:00 Temperature 98 F Pulse Rate 69 69 62 Respiratory Rate 16 Blood Pressure 130/63 Pulse Oximetry 96 01/04/18 20:00 01/04/18 21:00 01/04/18 22:00 Temperature Pulse Rate 70 64 67 Respiratory Rate Blood Pressure Pulse Oximetry 97 01/04/18 23:00 01/05/18 00:00 01/05/18 01:00 Temperature 97.9 F Pulse Rate 74 75 67 Respiratory Rate 16 Blood Pressure 139/86 Pulse Oximetry 98 97 01/05/18 02:00 01/05/18 03:00 01/05/18 03:59 Temperature 98.5 F Pulse Rate 71 77 64 Respiratory Rate 16 Blood Pressure 129/61 Pulse Oximetry 96 01/05/18 05:00 01/05/18 06:00 01/05/18 07:00 Temperature 98.3 F Pulse Rate 67 70 75 Respiratory Rate 18 Blood Pressure 127/72 Pulse Oximetry 97 01/05/18 08:00 01/05/18 09:00 01/05/18 09:25 Temperature Pulse Rate 72 77 74 Respiratory Rate Blood Pressure Pulse Oximetry 97 GENERAL: SKIN: Warm and dry. HEAD: Normocephalic. EYES: No scleral icterus. No injection or drainage. NECK: Supple, trachea midline. No JVD or lymphadenopathy. CARDIOVASCULAR: Regular rate and rhythm without murmurs, gallops, or rubs. RESPIRATORY: Breath sounds equal bilaterally. No accessory muscle use. GASTROINTESTINAL: Abdomen soft, non-tender, nondistended. MUSCULOSKELETAL: No cyanosis, or edema. BACK: Nontender without obvious deformity. No CVA tenderness. Labs: Laboratory Results - last 12 hr 01/05/18 01/05/18 03:40 03:40 WBC 3.9 L RBC 3.91 L Hgb 11.8 L Hct 36.2 L MCV 92.5 MCH 30.1 MCHC 32.5 RDW 14.5 Plt Count 287 MPV 8.0 Neut % (Auto) 62.7 Lymph % (Auto) 22.1 [place] % (Auto) 10.2 H Eos % (Auto) 4.2 H Baso % (Auto) 0.8 Neut # (Auto) 2.4 Lymph # (Auto) 0.9 L [place] # (Auto) 0.4 Eos # (Auto) 0.2 Baso # (Auto) 0.0 WBC Differential . Differential Comment Auto diff final Sodium 143 Potassium 3.5 Chloride 110 H Carbon Dioxide 23.4 Anion Gap 10 BUN 15 Creatinine 1.23 Estimated GFR 69 L Random Glucose 86 Calcium 8.9 Result Diagrams: 01/05/18 03:40 01/05/18 03:40 - Plan (2) CAD (coronary artery disease) Plan: ASA, inderal , statin timing for surgery tentatively 01/09 (3) CVA (cerebral vascular accident) Plan: on lovenox (4) Sepsis Plan: resolved repeat BC pending today (4) Sepsis Qualifiers: Sepsis type: Escherichia coli Qualified Code(s): A41.51 - Sepsis due to Escherichia coli [E. coli]
--- NOTE | 2018-01-05 12:08 | P.PNCA ---
Subjective Interval history: assymptomatic, in nad Physical Exam Vital signs: Vital Signs 01/04/18 13:00 01/04/18 14:00 01/04/18 15:00 Temperature 98.7 F Pulse Rate 77 97 H 71 Respiratory Rate 15 Blood Pressure 125/72 Pulse Oximetry 99 01/04/18 17:00 01/04/18 18:00 01/04/18 19:00 Temperature 98 F Pulse Rate 69 69 62 Respiratory Rate 16 Blood Pressure 130/63 Pulse Oximetry 96 01/04/18 20:00 01/04/18 21:00 01/04/18 22:00 Temperature Pulse Rate 70 64 67 Respiratory Rate Blood Pressure Pulse Oximetry 97 01/04/18 23:00 01/05/18 00:00 01/05/18 01:00 Temperature 97.9 F Pulse Rate 74 75 67 Respiratory Rate 16 Blood Pressure 139/86 Pulse Oximetry 98 97 01/05/18 02:00 01/05/18 03:00 01/05/18 03:59 Temperature 98.5 F Pulse Rate 71 77 64 Respiratory Rate 16 Blood Pressure 129/61 Pulse Oximetry 96 01/05/18 05:00 01/05/18 06:00 01/05/18 07:00 Temperature 98.3 F Pulse Rate 67 70 75 Respiratory Rate 18 Blood Pressure 127/72 Pulse Oximetry 97 01/05/18 08:00 01/05/18 09:00 01/05/18 09:25 Temperature Pulse Rate 72 77 74 Respiratory Rate Blood Pressure Pulse Oximetry 97 01/05/18 11:00 01/05/18 12:00 Temperature 98.4 F Pulse Rate 82 81 Respiratory Rate 18 Blood Pressure 126/70 Pulse Oximetry 99 Intake & Output 01/04/18 01/05/18 01/05/18 18:59 06:59 18:59 Intake Total 580 / 580 340 / 340 Output Total 300 / 300 Balance 580 / 580 40 / 40 Weight 83.5 kg Intake: IV 100 / 100 100 / 100 Zosyn 3.375 GM Premix 50 ML @ 100 / 100 100 / 100 100 mls/hr IV.SIG Q6H [facility] Rx#: [id number] Oral 480 / 480 240 / 240 Output: Urine 300 / 300 Other: Date of Last Bowel Movement 01/04/18 # Bowel Movements 2 Assessment and Plan - Assessment (1) NSTEMI (non-ST elevated myocardial infarction) Code(s): I21.4 - Non-ST elevation (NSTEMI) myocardial infarction Status: Acute (2) CHF (congestive heart failure) Code(s): I50.9 - Heart failure, unspecified Status: Acute (3) Acute decompensated heart failure Code(s): I50.9 - Heart failure, unspecified Status: Acute (4) Afib Code(s): I48.91 - Unspecified atrial fibrillation Status: Chronic (5) Wide-complex tachycardia Code(s): I47.2 - Ventricular tachycardia Status: Acute (6) Acute UTI Code(s): N39.0 - Urinary tract infection, site not specified Status: Acute (7) CAD (coronary artery disease) Code(s): I25.10 - Atherosclerotic heart disease of [place] coronary artery without angina pectoris Status: Acute (8) CVA (cerebral vascular accident) Code(s): I63.9 - Cerebral infarction, unspecified Status: Acute (9) Sepsis Code(s): A41.9 - Sepsis, unspecified organism Status: Acute - Plan 1.) CAD - high risk presentation with nstemi with decompensated chf, wide complex tachycardia, afib, sepsis, uti; I reviewed his cath films from 11/21/17; he has a 60-70% distal left main, 75% ost lcx, 70% prox rca(dom), 95% prox rpla , ef@ 50%; he appears to be failing and/or responding poorly to medical management; cabg possibly next week, continue eliquis, aspirin, plavix held, beta meg held due to decompensated chf; cabg timing per ID and Dr Knott; eliquis will be replaced with iv heparin or lovenox pre-op; d/w Dr Knott () Sepsis Qualifiers: Sepsis type: Escherichia coli Qualified Code(s): A41.51 - Sepsis due to Escherichia coli [E. coli]
--- NOTE | 2018-01-05 18:04 | P.PN ---
Subjective Interval history: Follow up for gram negative bacteremia, CAD. Patient is currently doing well. No acute concerns. Physical Exam Vital signs: Vital Signs 01/04/18 19:00 01/04/18 20:00 01/04/18 21:00 Temperature 98 F Pulse Rate 62 70 64 Respiratory Rate 16 Blood Pressure 130/63 Pulse Oximetry 96 97 01/04/18 22:00 01/04/18 23:00 01/05/18 00:00 Temperature 97.9 F Pulse Rate 67 74 75 Respiratory Rate 16 Blood Pressure 139/86 Pulse Oximetry 98 97 01/05/18 01:00 01/05/18 02:00 01/05/18 03:00 Temperature 98.5 F Pulse Rate 67 71 77 Respiratory Rate 16 Blood Pressure 129/61 Pulse Oximetry 96 01/05/18 03:59 01/05/18 05:00 01/05/18 06:00 Temperature Pulse Rate 64 67 70 Respiratory Rate Blood Pressure Pulse Oximetry 01/05/18 07:00 01/05/18 08:00 01/05/18 09:00 Temperature 98.3 F Pulse Rate 75 72 77 Respiratory Rate 18 Blood Pressure 127/72 Pulse Oximetry 97 97 01/05/18 09:25 01/05/18 11:00 01/05/18 12:00 Temperature 98.4 F Pulse Rate 74 82 81 Respiratory Rate 18 Blood Pressure 126/70 Pulse Oximetry 99 01/05/18 13:00 01/05/18 14:00 01/05/18 15:00 Temperature 98.2 F Pulse Rate 84 78 67 Respiratory Rate 18 Blood Pressure 113/62 Pulse Oximetry 98 01/05/18 16:00 01/05/18 16:38 01/05/18 17:40 Temperature Pulse Rate 69 86 72 Respiratory Rate Blood Pressure Pulse Oximetry Intake & Output 01/04/18 01/05/18 01/05/18 18:59 06:59 18:59 Intake Total 580 / 580 340 / 340 480 / 480 Output Total 300 / 300 Balance 580 / 580 40 / 40 480 / 480 Weight 83.5 kg Intake: IV 100 / 100 100 / 100 Zosyn 3.375 GM Premix 50 ML @ 100 / 100 100 / 100 100 mls/hr IV.SIG Q6H ASCENC[facility] Rx#: [id number] Oral 480 / 480 240 / 240 480 / 480 Output: Urine 300 / 300 Other: # Voids 3 Date of Last Bowel Movement 01/04/18 01/05/18 # Bowel Movements 2 1 Results - Labs CBC & Chem 7: 01/05/18 03:40 01/05/18 03:40 Laboratory Results - last 24 hr 01/05/18 01/05/18 03:40 03:40 WBC 3.9 L RBC 3.91 L Hgb 11.8 L Hct 36.2 L MCV 92.5 MCH 30.1 MCHC 32.5 RDW 14.5 Plt Count 287 MPV 8.0 Neut % (Auto) 62.7 Lymph % (Auto) 22.1 [place] % (Auto) 10.2 H Eos % (Auto) 4.2 H Baso % (Auto) 0.8 Neut # (Auto) 2.4 Lymph # (Auto) 0.9 L [place] # (Auto) 0.4 Eos # (Auto) 0.2 Baso # (Auto) 0.0 WBC Differential . Differential Comment Auto diff final Sodium 143 Potassium 3.5 Chloride 110 H Carbon Dioxide 23.4 Anion Gap 10 BUN 15 Creatinine 1.23 Estimated GFR 69 L Random Glucose 86 Calcium 8.9 Microbiology 01/02/18 05:13 Blood - Peripheral Aerobic Blood Culture - Preliminary No growth in 3 days 01/02/18 05:13 Blood - Peripheral Anaerobic Blood Culture - Preliminary No growth in 3 days 01/02/18 05:05 Blood - Peripheral Aerobic Blood Culture - Preliminary No growth in 3 days 01/02/18 05:05 Blood - Peripheral Anaerobic Blood Culture - Preliminary No growth in 3 days - Procedures none Assessment and Plan - Assessment (1) Acute UTI Code(s): N39.0 - Urinary tract infection, site not specified Status: Acute (2) Sepsis Code(s): A41.9 - Sepsis, unspecified organism Status: Acute (3) Bacteremia Code(s): R78.81 - Bacteremia Status: Acute (4) Afib Code(s): I48.91 - Unspecified atrial fibrillation Status: Chronic (5) CHF (congestive heart failure) Code(s): I50.9 - Heart failure, unspecified Status: Acute (6) NSTEMI (non-ST elevated myocardial infarction) Code(s): I21.4 - Non-ST elevation (NSTEMI) myocardial infarction Status: Acute - Plan This is a 77-year-old AAM with PMHx of TIA, HTN, HLD and CAD status post stent recent placement with re-admission due to fever and fatigue. Patient was found to have hospital acquired PNA and was started on Zosyn, followed by a Dx of E. Coli UTI and Bacteremia treated also with Zosyn started on 12/26 and Linezolid started on 12/29. Patient also was having a CHF exacerbation that improved with diuresis. Patient is supposed to undergo CABG 3 once bacteremia and sepsis have resolved. Sepsis (Temp 101.7, HR 107, WBC 13.1K, UTI) Urinary tract infection E. Coli Bacteremia -Sepsis resolved. ID following -Patient is currently on Zosyn 3.375g Q6hrs. -Blood cultures from 01/02/2018 negative so far. -We will follow the blood culture on 01/05/2018 per ID recommendations. If this blood culture remains negative for 48 hours, patient can undergo CABG. Coronary artery disease Atrial fibrillation Hypertension -Cardiology following as well as Cardiothoracic surgery -Probable CABG late next week ~ 01/09/2018. -Apixaban, Plavix stopped. Patient was started on Lovenox. D/C Lovenox after AM dose on 01/07/2018. -Currently on Amiodarone 400mg Q12 -Continue Aspirin 81mg, Amlodipine 10mg Qday, Losartan 100mg Qday. -Continue Atorvastatin 20mg Qday. Acute kidney injury Mild Hypernatremia -Creatinine improved from 2.35 on admission to 1.44. He likely has baseline CKD. -Hypernatremia resolved. Full code. Lovenox. (2) Sepsis Qualifiers: Sepsis type: Escherichia coli Qualified Code(s): A41.51 - Sepsis due to Escherichia coli [E. coli]
[2018-01-06] MEDS: Propranolol LA 80 MG Capsule PO SCH (09:04)
[2018-01-06] MEDS: amLODIPine 10 MG Tablet PO SCH (09:05)
[2018-01-06] MEDS: Potassium Phosphate 500 MG Soluble Tablet PO SCH (09:06)
[2018-01-06] MEDS: Amiodarone 200 MG Tablet PO SCH ×2 (09:06→20:47)
[2018-01-06] MEDS: Senna/Docusate Sodium 8.6/50 MG Tablet PO SCH ×2 (09:08→20:50)
[2018-01-06] MEDS: Enoxaparin Inj 80 MG/0.8 ML Syringe SQ SCH ×2 (09:08→20:48)
--- NOTE | 2018-01-06 09:40 | P.PNCV ---
- Note Subjective/Hospital Course: Mr. Angel is a very pleasant 77-year-old gentleman who is well known to me from his previous encounters. Briefly he was admitted in early November for presenting diagnosis of a acute stroke as well as an acute myocardial infarction. At that time he underwent further workup including a coronary angiogram by Dr. Nolen which revealed significant multivessel coronary artery disease. Given the fact that he had had an acute CVA, with a small brain bleed, it was decided to proceed with percutaneous intervention to his culprit coronary vessel with plans to follow-up with coronary revascularization surgery following resolution of his acute neurologic event. He was subsequent discharged and I have seen him on 2 different occasions in the office to discuss the surgical procedure. Most recently he was just seen last Friday my office at which time he had complained of fevers, chills and night sweats with associated urinary complaints. He was advised to [place] and therefore he was sent to the emergency department for further evaluation. At that point he was noted to have significant sepsis with positive bacteremia. He has since been admitted to the hospital and was noted to be in atrial fibrillation with rapid ventricular response and urosepsis and is being treated for those 2 entities. 12/29 Blood cultures and urine culture + Ecoli 12/24 BC neg x 5 days on zyvox and zosyn WBC 8.4K no fever > 48 hrs remains in afib, rate controlled on 3 liter nasal cannula continue current medical therapy will need clearance and timing for CABG approval from ID will need to hold eliquis > 48 hrs and plavix >5 days prior to consideration for surgery 12/31 discussed with ID CXR and cultures and labs in 3 days if neg and improved, will then discuss clearance currently being treated for bacteremia and pneumonia pt is currently on room air , has been transferred out fo ICU 01/02 discussed with ID plan is for CABG 01/09 after completely cleared by ID will stop eliquis and plavix in am / start lovenox will dc lovenox after am dose 01/07 01/05 on lovenox, no chest pain over the weekend for surgery on friday if completely cleared by ID 01/06 await BC results no chest pain , remains in afib rate controlled, some PVC's noted Objective: Vital Signs - 24 hr 01/05/18 11:00 01/05/18 12:00 01/05/18 13:00 Temperature 98.4 F Pulse Rate 82 81 84 Respiratory Rate 18 Blood Pressure 126/70 Pulse Oximetry 99 01/05/18 14:00 01/05/18 15:00 01/05/18 16:00 Temperature 98.2 F Pulse Rate 78 67 69 Respiratory Rate 18 Blood Pressure 113/62 Pulse Oximetry 98 01/05/18 16:38 01/05/18 17:40 01/05/18 19:00 Temperature 97.7 F Pulse Rate 86 72 70 Respiratory Rate 16 Blood Pressure 123/61 Pulse Oximetry 99 01/05/18 20:00 01/05/18 21:00 01/05/18 22:00 Temperature Pulse Rate 70 70 80 Respiratory Rate Blood Pressure Pulse Oximetry 01/05/18 23:00 01/06/18 00:00 01/06/18 01:00 Temperature 97.7 F Pulse Rate 75 72 74 Respiratory Rate 16 Blood Pressure 124/70 Pulse Oximetry 98 01/06/18 02:00 01/06/18 03:00 01/06/18 04:00 Temperature 97.9 F Pulse Rate 73 75 71 Respiratory Rate 16 Blood Pressure 135/67 Pulse Oximetry 97 01/06/18 05:00 01/06/18 06:00 01/06/18 07:00 Temperature 98.0 F Pulse Rate 75 72 74 Respiratory Rate 16 Blood Pressure 140/79 Pulse Oximetry 97 01/06/18 08:00 01/06/18 09:00 Temperature Pulse Rate 66 66 Respiratory Rate Blood Pressure Pulse Oximetry GENERAL: SKIN: Warm and dry. HEAD: Normocephalic. EYES: No scleral icterus. No injection or drainage. NECK: Supple, trachea midline. No JVD or lymphadenopathy. CARDIOVASCULAR: irregular rate and rhythm without murmurs, gallops, or rubs. RESPIRATORY: Breath sounds equal bilaterally. No accessory muscle use. GASTROINTESTINAL: Abdomen soft, non-tender, nondistended. MUSCULOSKELETAL: No cyanosis, or edema. BACK: Nontender without obvious deformity. No CVA tenderness. Result Diagrams: 01/05/18 03:40 01/05/18 03:40 - Plan (2) CAD (coronary artery disease) Plan: ASA, inderal , statin timing for surgery tentatively 01/09 (3) CVA (cerebral vascular accident) Plan: on lovenox (4) Sepsis Plan: resolved repeat BC pending today (5) Afib Plan: decrease amiodarone on lovenox (4) Sepsis Qualifiers: Sepsis type: Escherichia coli Qualified Code(s): A41.51 - Sepsis due to Escherichia coli [E. coli]
--- NOTE | 2018-01-06 13:29 | P.PN ---
Subjective Interval history: Follow up for gram negative bacteremia, CAD. Patient is doing well. No acute concerns. No fever, chills. Physical Exam Vital signs: Vital Signs 01/05/18 14:00 01/05/18 15:00 01/05/18 16:00 Temperature 98.2 F Pulse Rate 78 67 69 Respiratory Rate 18 Blood Pressure 113/62 Pulse Oximetry 98 01/05/18 16:38 01/05/18 17:40 01/05/18 19:00 Temperature 97.7 F Pulse Rate 86 72 70 Respiratory Rate 16 Blood Pressure 123/61 Pulse Oximetry 99 01/05/18 20:00 01/05/18 21:00 01/05/18 22:00 Temperature Pulse Rate 70 70 80 Respiratory Rate Blood Pressure Pulse Oximetry 01/05/18 23:00 01/06/18 00:00 01/06/18 01:00 Temperature 97.7 F Pulse Rate 75 72 74 Respiratory Rate 16 Blood Pressure 124/70 Pulse Oximetry 98 01/06/18 02:00 01/06/18 03:00 01/06/18 04:00 Temperature 97.9 F Pulse Rate 73 75 71 Respiratory Rate 16 Blood Pressure 135/67 Pulse Oximetry 97 01/06/18 05:00 01/06/18 06:00 01/06/18 07:00 Temperature 98.0 F Pulse Rate 75 72 74 Respiratory Rate 16 Blood Pressure 140/79 Pulse Oximetry 97 01/06/18 08:00 01/06/18 09:00 01/06/18 10:00 Temperature Pulse Rate 66 66 64 Respiratory Rate Blood Pressure Pulse Oximetry 01/06/18 11:00 01/06/18 12:00 01/06/18 13:00 Temperature 98.2 F Pulse Rate 76 72 78 Respiratory Rate 18 Blood Pressure 138/62 Pulse Oximetry 97 Intake & Output 01/05/18 01/06/18 01/06/18 18:59 06:59 18:59 Intake Total 480 / 480 240 / 240 Balance 480 / 480 240 / 240 Weight 82.5 kg Intake: Oral 480 / 480 240 / 240 Other: # Voids 3 Date of Last Bowel Movement 01/05/18 01/05/18 01/05/18 # Bowel Movements 1 Results - Labs CBC & Chem 7: 01/05/18 03:40 01/05/18 03:40 Microbiology 01/05/18 03:40 Blood - Peripheral Aerobic Blood Culture - Preliminary No growth in 1 day 01/05/18 03:40 Blood - Peripheral Anaerobic Blood Culture - Preliminary No growth in 1 day 01/05/18 03:45 Blood - Peripheral Aerobic Blood Culture - Preliminary No growth in 1 day 01/05/18 03:45 Blood - Peripheral Anaerobic Blood Culture - Preliminary No growth in 1 day 01/02/18 05:13 Blood - Peripheral Aerobic Blood Culture - Preliminary No growth in 4 days 01/02/18 05:13 Blood - Peripheral Anaerobic Blood Culture - Preliminary No growth in 4 days 01/02/18 05:05 Blood - Peripheral Aerobic Blood Culture - Preliminary No growth in 4 days 01/02/18 05:05 Blood - Peripheral Anaerobic Blood Culture - Preliminary No growth in 4 days - Procedures none Assessment and Plan - Assessment (1) Acute UTI Code(s): N39.0 - Urinary tract infection, site not specified Status: Acute (2) Sepsis Code(s): A41.9 - Sepsis, unspecified organism Status: Acute (3) Bacteremia Code(s): R78.81 - Bacteremia Status: Acute (4) Afib Code(s): I48.91 - Unspecified atrial fibrillation Status: Chronic (5) CHF (congestive heart failure) Code(s): I50.9 - Heart failure, unspecified Status: Acute (6) NSTEMI (non-ST elevated myocardial infarction) Code(s): I21.4 - Non-ST elevation (NSTEMI) myocardial infarction Status: Acute - Plan This is a 77-year-old AAM with PMHx of TIA, HTN, HLD and CAD status post stent recent placement with re-admission due to fever and fatigue. Patient was found to have hospital acquired PNA and was started on Zosyn, followed by a Dx of E. Coli UTI and Bacteremia treated also with Zosyn started on 12/26 and Linezolid started on 12/29. Patient also was having a CHF exacerbation that improved with diuresis. Patient is supposed to undergo CABG 3 once bacteremia and sepsis have resolved. Sepsis (Temp 101.7, HR 107, WBC 13.1K, UTI) Urinary tract infection E. Coli Bacteremia -Sepsis resolved. ID following -Patient is currently on Zosyn 3.375g Q6hrs. -Blood cultures from 01/02/2018, 01/05/2018 negative so far. -If this blood culture remains negative for 48 hours, patient can undergo CABG on Friday01/09/2018. Coronary artery disease Atrial fibrillation Hypertension -Cardiology following as well as Cardiothoracic surgery -Probable CABG late next week ~ 01/09/2018. -Apixaban, Plavix stopped. Patient was started on Lovenox. D/C Lovenox after AM dose on 01/07/2018. -Currently on Amiodarone 400mg Q12 -Continue Aspirin 81mg, Amlodipine 10mg Qday, Losartan 100mg Qday. -Continue Atorvastatin 20mg Qday. Acute kidney injury Mild Hypernatremia -Creatinine improved from 2.35 on admission to 1.44. He likely has baseline CKD. -Hypernatremia resolved. Full code. Lovenox. (2) Sepsis Qualifiers: Sepsis type: Escherichia coli Qualified Code(s): A41.51 - Sepsis due to Escherichia coli [E. coli]
--- NOTE | 2018-01-06 13:54 | P.PNCA ---
Subjective Interval history: assymptomatic in nad Physical Exam Vital signs: Vital Signs 01/05/18 14:00 01/05/18 15:00 01/05/18 16:00 Temperature 98.2 F Pulse Rate 78 67 69 Respiratory Rate 18 Blood Pressure 113/62 Pulse Oximetry 98 01/05/18 16:38 01/05/18 17:40 01/05/18 19:00 Temperature 97.7 F Pulse Rate 86 72 70 Respiratory Rate 16 Blood Pressure 123/61 Pulse Oximetry 99 01/05/18 20:00 01/05/18 21:00 01/05/18 22:00 Temperature Pulse Rate 70 70 80 Respiratory Rate Blood Pressure Pulse Oximetry 01/05/18 23:00 01/06/18 00:00 01/06/18 01:00 Temperature 97.7 F Pulse Rate 75 72 74 Respiratory Rate 16 Blood Pressure 124/70 Pulse Oximetry 98 01/06/18 02:00 01/06/18 03:00 01/06/18 04:00 Temperature 97.9 F Pulse Rate 73 75 71 Respiratory Rate 16 Blood Pressure 135/67 Pulse Oximetry 97 01/06/18 05:00 01/06/18 06:00 01/06/18 07:00 Temperature 98.0 F Pulse Rate 75 72 74 Respiratory Rate 16 Blood Pressure 140/79 Pulse Oximetry 97 01/06/18 08:00 01/06/18 09:00 01/06/18 10:00 Temperature Pulse Rate 66 66 64 Respiratory Rate Blood Pressure Pulse Oximetry 01/06/18 11:00 01/06/18 12:00 01/06/18 13:00 Temperature 98.2 F Pulse Rate 76 72 78 Respiratory Rate 18 Blood Pressure 138/62 Pulse Oximetry 97 Intake & Output 01/05/18 01/06/18 01/06/18 18:59 06:59 18:59 Intake Total 480 / 480 240 / 240 Balance 480 / 480 240 / 240 Weight 82.5 kg Intake: Oral 480 / 480 240 / 240 Other: # Voids 3 Date of Last Bowel Movement 01/05/18 01/05/18 01/05/18 # Bowel Movements 1 Assessment and Plan - Assessment (1) NSTEMI (non-ST elevated myocardial infarction) Code(s): I21.4 - Non-ST elevation (NSTEMI) myocardial infarction Status: Acute (2) CHF (congestive heart failure) Code(s): I50.9 - Heart failure, unspecified Status: Acute (3) Acute decompensated heart failure Code(s): I50.9 - Heart failure, unspecified Status: Acute (4) Afib Code(s): I48.91 - Unspecified atrial fibrillation Status: Chronic (5) Wide-complex tachycardia Code(s): I47.2 - Ventricular tachycardia Status: Acute (6) Acute UTI Code(s): N39.0 - Urinary tract infection, site not specified Status: Acute (7) CAD (coronary artery disease) Code(s): I25.10 - Atherosclerotic heart disease of [place] coronary artery without angina pectoris Status: Acute (8) CVA (cerebral vascular accident) Code(s): I63.9 - Cerebral infarction, unspecified Status: Acute (9) Sepsis Code(s): A41.9 - Sepsis, unspecified organism Status: Acute - Plan 1.) CAD - high risk presentation with nstemi with decompensated chf, wide complex tachycardia, afib, sepsis, uti; I reviewed his cath films from 11/21/17; he has a 60-70% distal left main, 75% ost lcx, 70% prox rca(dom), 95% prox rpla , ef@ 50%; he appears to be failing and/or responding poorly to medical management; cabg possibly next week, continue eliquis, aspirin, plavix held, beta meg held due to decompensated chf; cabg timing per ID and Dr Knott; eliquis will be replaced with iv heparin or lovenox pre-op; d/w Dr Knott (9) Sepsis Qualifiers: Sepsis type: Escherichia coli Qualified Code(s): A41.51 - Sepsis due to Escherichia coli [E. coli]
[2018-01-07] MEDS: amLODIPine 10 MG Tablet PO SCH (08:43)
[2018-01-07] MEDS: Propranolol LA 80 MG Capsule PO SCH (08:44)
[2018-01-07] MEDS: Amiodarone 200 MG Tablet PO SCH ×2 (08:44→21:17)
[2018-01-07] MEDS: Potassium Phosphate 500 MG Soluble Tablet PO SCH (08:44)
[2018-01-07] MEDS: Enoxaparin Inj 80 MG/0.8 ML Syringe SQ SCH ×2 (08:44→21:17)
[2018-01-07] MEDS: Senna/Docusate Sodium 8.6/50 MG Tablet PO SCH ×2 (08:45→21:17)
--- NOTE | 2018-01-07 11:41 | P.PNCV ---
- Note Subjective/Hospital Course: Mr. Angel is a very pleasant 77-year-old gentleman who is well known to me from his previous encounters. Briefly he was admitted in early November for presenting diagnosis of a acute stroke as well as an acute myocardial infarction. At that time he underwent further workup including a coronary angiogram by Dr. Nolen which revealed significant multivessel coronary artery disease. Given the fact that he had had an acute CVA, with a small brain bleed, it was decided to proceed with percutaneous intervention to his culprit coronary vessel with plans to follow-up with coronary revascularization surgery following resolution of his acute neurologic event. He was subsequent discharged and I have seen him on 2 different occasions in the office to discuss the surgical procedure. Most recently he was just seen last Friday my office at which time he had complained of fevers, chills and night sweats with associated urinary complaints. He was advised to see [place]CP [place] and therefore he was sent to the emergency department for further evaluation. At that point he was noted to have significant sepsis with positive bacteremia. He has since been admitted to the hospital and was noted to be in atrial fibrillation with rapid ventricular response and urosepsis and is being treated for those 2 entities. 12/29 Blood cultures and urine culture + Ecoli 12/24 BC neg x 5 days on zyvox and zosyn WBC 8.4K no fever > 48 hrs remains in afib, rate controlled on 3 liter nasal cannula continue current medical therapy will need clearance and timing for CABG approval from ID will need to hold eliquis > 48 hrs and plavix >5 days prior to consideration for surgery 12/31 discussed with ID CXR and cultures and labs in 3 days if neg and improved, will then discuss clearance currently being treated for bacteremia and pneumonia pt is currently on room air , has been transferred out fo ICU 01/02 discussed with ID plan is for CABG 01/09 after completely cleared by ID will stop eliquis and plavix in am / start lovenox will dc lovenox after am dose 01/07 01/05 on lovenox, no chest pain over the weekend for surgery on friday if completely cleared by ID 01/06 await BC results no chest pain , remains in afib rate controlled, some PVC's noted 01/07 repeat BC preliminary no growth in 24 hrs no chest pain Objective: Vital Signs - 24 hr 01/06/18 12:00 01/06/18 13:00 01/06/18 14:00 Temperature Pulse Rate 72 78 74 Respiratory Rate Blood Pressure Pulse Oximetry 01/06/18 15:00 01/06/18 16:00 01/06/18 17:00 Temperature 98.0 F Pulse Rate 74 68 72 Respiratory Rate 18 Blood Pressure 119/60 Pulse Oximetry 96 01/06/18 18:00 01/06/18 19:00 01/06/18 20:00 Temperature 97.9 F Pulse Rate 74 74 72 Respiratory Rate 22 Blood Pressure 132/71 Pulse Oximetry 99 01/06/18 21:00 01/06/18 22:00 01/06/18 23:00 Temperature 97.7 F Pulse Rate 70 72 65 Respiratory Rate 22 Blood Pressure 126/58 L Pulse Oximetry 97 01/07/18 00:00 01/07/18 01:00 01/07/18 02:00 Temperature Pulse Rate 66 74 68 Respiratory Rate Blood Pressure Pulse Oximetry 01/07/18 03:00 01/07/18 04:00 01/07/18 05:00 Temperature 97.8 F Pulse Rate 66 72 74 Respiratory Rate 22 Blood Pressure 117/61 Pulse Oximetry 96 01/07/18 06:00 01/07/18 07:00 01/07/18 07:56 Temperature Pulse Rate 70 67 Respiratory Rate Blood Pressure Pulse Oximetry 100 01/07/18 08:00 01/07/18 08:05 01/07/18 09:00 Temperature 98.5 F Pulse Rate 78 86 72 Respiratory Rate 16 Blood Pressure 122/80 Pulse Oximetry 100 01/07/18 10:00 01/07/18 11:00 01/07/18 11:03 Temperature 97.7 F Pulse Rate 82 71 75 Respiratory Rate 16 Blood Pressure 128/61 Pulse Oximetry 97 GENERAL: SKIN: Warm and dry. HEAD: Normocephalic. EYES: No scleral icterus. No injection or drainage. NECK: Supple, trachea midline. No JVD or lymphadenopathy. CARDIOVASCULAR: Regular rate and rhythm without murmurs, gallops, or rubs. RESPIRATORY: Breath sounds equal bilaterally. No accessory muscle use. GASTROINTESTINAL: Abdomen soft, non-tender, nondistended. MUSCULOSKELETAL: No cyanosis, or edema. BACK: Nontender without obvious deformity. No CVA tenderness. Result Diagrams: 01/05/18 03:40 01/05/18 03:40 - Plan (2) CAD (coronary artery disease) Plan: ASA, inderal , statin surgery tentatively 01/09 (3) CVA (cerebral vascular accident) Plan: on lovenox (4) Sepsis Plan: resolved repeat BC pending today (5) Afib Plan: decrease amiodarone on lovenox (4) Sepsis Qualifiers: Sepsis type: Escherichia coli Qualified Code(s): A41.51 - Sepsis due to Escherichia coli [E. coli]
--- NOTE | 2018-01-07 12:52 | P.PNCA ---
Subjective Interval history: assymptomatic in nad Physical Exam Vital signs: Vital Signs 01/06/18 13:00 01/06/18 14:00 01/06/18 15:00 Temperature 98.0 F Pulse Rate 78 74 74 Respiratory Rate 18 Blood Pressure 119/60 Pulse Oximetry 96 01/06/18 16:00 01/06/18 17:00 01/06/18 18:00 Temperature Pulse Rate 68 72 74 Respiratory Rate Blood Pressure Pulse Oximetry 01/06/18 19:00 01/06/18 20:00 01/06/18 21:00 Temperature 97.9 F Pulse Rate 74 72 70 Respiratory Rate 22 Blood Pressure 132/71 Pulse Oximetry 99 01/06/18 22:00 01/06/18 23:00 01/07/18 00:00 Temperature 97.7 F Pulse Rate 72 65 66 Respiratory Rate 22 Blood Pressure 126/58 L Pulse Oximetry 97 01/07/18 01:00 01/07/18 02:00 01/07/18 03:00 Temperature 97.8 F Pulse Rate 74 68 66 Respiratory Rate 22 Blood Pressure 117/61 Pulse Oximetry 96 01/07/18 04:00 01/07/18 05:00 01/07/18 06:00 Temperature Pulse Rate 72 74 70 Respiratory Rate Blood Pressure Pulse Oximetry 01/07/18 07:00 01/07/18 07:56 01/07/18 08:00 Temperature Pulse Rate 67 78 Respiratory Rate Blood Pressure Pulse Oximetry 100 01/07/18 08:05 01/07/18 09:00 01/07/18 10:00 Temperature 98.5 F Pulse Rate 86 72 82 Respiratory Rate 16 Blood Pressure 122/80 Pulse Oximetry 100 01/07/18 11:00 01/07/18 11:03 01/07/18 12:00 Temperature 97.7 F Pulse Rate 71 75 66 Respiratory Rate 16 Blood Pressure 128/61 Pulse Oximetry 97 Intake & Output 01/06/18 01/07/18 01/07/18 18:59 06:59 18:59 Intake Total 1075 / 1075 120 / 120 Balance 1075 / 1075 120 / 120 Weight 81 kg Intake: Oral 1075 / 1075 120 / 120 Other: # Voids 4 2 Date of Last Bowel Movement 01/05/18 01/07/18 # Bowel Movements 1 Assessment and Plan - Assessment (1) NSTEMI (non-ST elevated myocardial infarction) Code(s): I21.4 - Non-ST elevation (NSTEMI) myocardial infarction Status: Acute (2) CHF (congestive heart failure) Code(s): I50.9 - Heart failure, unspecified Status: Acute (3) Acute decompensated heart failure Code(s): I50.9 - Heart failure, unspecified Status: Acute (4) Afib Code(s): I48.91 - Unspecified atrial fibrillation Status: Chronic (5) Wide-complex tachycardia Code(s): I47.2 - Ventricular tachycardia Status: Acute (6) Acute UTI Code(s): N39.0 - Urinary tract infection, site not specified Status: Acute (7) CAD (coronary artery disease) Code(s): I25.10 - Atherosclerotic heart disease of [place] coronary artery without angina pectoris Status: Acute (8) CVA (cerebral vascular accident) Code(s): I63.9 - Cerebral infarction, unspecified Status: Acute (9) Sepsis Code(s): A41.9 - Sepsis, unspecified organism Status: Acute - Plan 1.) CAD - high risk presentation with nstemi with decompensated chf, wide complex tachycardia, afib, sepsis, uti; I reviewed his cath films from 11/21/17; he has a 60-70% distal left main, 75% ost lcx, 70% prox rca(dom), 95% prox rpla , ef@ 50%; he appears to be failing and/or responding poorly to medical management; cabg possibly next week, continue eliquis, aspirin, plavix held, beta meg held due to decompensated chf; cabg timing per ID and Dr Knott; eliquis will be replaced with iv heparin or lovenox pre-op; d/w Dr Knott (9) Sepsis Qualifiers: Sepsis type: Escherichia coli Qualified Code(s): A41.51 - Sepsis due to Escherichia coli [E. coli]
[2018-01-07 13:47] LABS: Bilirubin,Urine Negative (Negative); Clarity,Urine Clear (Clear); Color,Urine Yellow (Yellw/Straw); Glucose,Urine (UA) Negative (Negative); Leukocyte Esterase,Urine Negative (Negative); Mucus,Urine Few /lpf (Occasional); Nitrite,Urine Negative (Negative); Specific Gravity,Urine 1.011 (1.002-1.035); Squamous Epithelial Cell,Urine 1 /hpf (0-5)
--- NOTE | 2018-01-07 16:18 | P.PN ---
Subjective Interval history: Follow up for gram negative bacteremia, CAD. Patient is doing well. No acute concerns - no fever, chills. Physical Exam Vital signs: Vital Signs 01/06/18 17:00 01/06/18 18:00 01/06/18 19:00 Temperature 97.9 F Pulse Rate 72 74 74 Respiratory Rate 22 Blood Pressure 132/71 Pulse Oximetry 99 01/06/18 20:00 01/06/18 21:00 01/06/18 22:00 Temperature Pulse Rate 72 70 72 Respiratory Rate Blood Pressure Pulse Oximetry 01/06/18 23:00 01/07/18 00:00 01/07/18 01:00 Temperature 97.7 F Pulse Rate 65 66 74 Respiratory Rate 22 Blood Pressure 126/58 L Pulse Oximetry 97 01/07/18 02:00 01/07/18 03:00 01/07/18 04:00 Temperature 97.8 F Pulse Rate 68 66 72 Respiratory Rate 22 Blood Pressure 117/61 Pulse Oximetry 96 01/07/18 05:00 01/07/18 06:00 01/07/18 07:00 Temperature Pulse Rate 74 70 67 Respiratory Rate Blood Pressure Pulse Oximetry 01/07/18 07:56 01/07/18 08:00 01/07/18 08:05 Temperature 98.5 F Pulse Rate 78 86 Respiratory Rate 16 Blood Pressure 122/80 Pulse Oximetry 100 100 01/07/18 09:00 01/07/18 10:00 01/07/18 11:00 Temperature Pulse Rate 72 82 71 Respiratory Rate Blood Pressure Pulse Oximetry 01/07/18 11:03 01/07/18 12:00 01/07/18 13:00 Temperature 97.7 F Pulse Rate 75 66 72 Respiratory Rate 16 Blood Pressure 128/61 Pulse Oximetry 97 01/07/18 14:04 01/07/18 15:00 01/07/18 15:11 Temperature 97.8 F Pulse Rate 65 74 Respiratory Rate 20 Blood Pressure 109/63 Pulse Oximetry 98 98 Intake & Output 01/06/18 01/07/18 01/07/18 18:59 06:59 18:59 Intake Total 1075 / 1075 120 / 120 Balance 1075 / 1075 120 / 120 Weight 81 kg Intake: Oral 1075 / 1075 120 / 120 Other: # Voids 4 2 Date of Last Bowel Movement 01/05/18 01/07/18 # Bowel Movements 1 Narrative: GENERAL: NAD, lying comfortable in bed, pleasant CARDIOVASCULAR: Irregularly irregular, no M/R/G. RESPIRATORY: CTA x2. GASTROINTESTINAL: Abdomen soft, non-tender, nondistended. MUSCULOSKELETAL: No cyanosis. Trace bilateral lower extremity edema. BACK: Nontender without obvious deformity. No CVA tenderness. NEURO: Alert awake oriented 3. Results - Labs CBC & Chem 7: 01/05/18 03:40 01/05/18 03:40 Laboratory Results - last 24 hr 01/07/18 11:55 Urine Color Yellow Urine Clarity Clear Urine pH 6.0 Ur Specific [place] 1.011 Urine Protein Negative Urine Glucose (UA) Negative Urine Ketones Negative Urine Occult Blood Negative Urine Nitrate Negative Urine Bilirubin Negative Urine Urobilinogen Less than 2 Ur Leukocyte Esterase Negative Urine RBC Less than 1 Urine WBC 1 Ur Squamous Epith Cells 1 Urine Mucus Few H Micro UA Comment Culture not ind Ur Microscopic Review Not Reportable Urine Culture Comments Culture not ind Microbiology 01/05/18 03:40 Blood - Peripheral Aerobic Blood Culture - Preliminary No growth in 2 days 01/05/18 03:40 Blood - Peripheral Anaerobic Blood Culture - Preliminary No growth in 2 days 01/05/18 03:45 Blood - Peripheral Aerobic Blood Culture - Preliminary No growth in 2 days 01/05/18 03:45 Blood - Peripheral Anaerobic Blood Culture - Preliminary No growth in 2 days 01/02/18 05:13 Blood - Peripheral Aerobic Blood Culture - Final No growth in 5 days 01/02/18 05:13 Blood - Peripheral Anaerobic Blood Culture - Final No growth in 5 days 01/02/18 05:05 Blood - Peripheral Aerobic Blood Culture - Final No growth in 5 days 01/02/18 05:05 Blood - Peripheral Anaerobic Blood Culture - Final No growth in 5 days - Procedures none Assessment and Plan - Assessment (1) Acute UTI Code(s): N39.0 - Urinary tract infection, site not specified Status: Acute (2) Sepsis Code(s): A41.9 - Sepsis, unspecified organism Status: Acute (3) Bacteremia Code(s): R78.81 - Bacteremia Status: Acute (4) Afib Code(s): I48.91 - Unspecified atrial fibrillation Status: Chronic (5) CHF (congestive heart failure) Code(s): I50.9 - Heart failure, unspecified Status: Acute (6) NSTEMI (non-ST elevated myocardial infarction) Code(s): I21.4 - Non-ST elevation (NSTEMI) myocardial infarction Status: Acute - Plan This is a 77-year-old AAM with PMHx of TIA, HTN, HLD and CAD status post stent recent placement with re-admission due to fever and fatigue. Patient was found to have hospital acquired PNA and was started on Zosyn, followed by a Dx of E. Coli UTI and Bacteremia treated also with Zosyn started on 12/26 and Linezolid started on 12/29. Patient also was having a CHF exacerbation that improved with diuresis. Patient is supposed to undergo CABG 3 once bacteremia and sepsis have resolved. Sepsis (Temp 101.7, HR 107, WBC 13.1K, UTI) Urinary tract infection E. Coli Bacteremia -Sepsis resolved. ID following -Patient is currently off abx. -Blood cultures from 01/02/2018, 01/05/2018 negative so far. -CABG on Friday01/09/2018. Patient will likely need SNF after surgery. Coronary artery disease Atrial fibrillation Hypertension -Cardiology following as well as Cardiothoracic surgery -CABG this week on 01/09/2018. -Apixaban, Plavix stopped. Patient was started on Lovenox. D/C Lovenox after PM dose on 01/07/2018. -Currently on Amiodarone 200mg Q12H -Continue Aspirin 81mg, Amlodipine 10mg Qday. -Continue Atorvastatin 20mg Qday. Acute kidney injury Mild Hypernatremia -Creatinine improved from 2.35 on admission to 1.44. He likely has baseline CKD. -Hypernatremia resolved. Full code. Lovenox. (2) Sepsis Qualifiers: Sepsis type: Escherichia coli Qualified Code(s): A41.51 - Sepsis due to Escherichia coli [E. coli]
[2018-01-08 05:36] LABS: Baso % (Auto) 0.6 % (0.0-2.0); Eos # (Auto) 0.1 th/mm3 (0.0-0.4); Eos % (Auto) 3.1 % (0.0-4.0); Hematocrit 37.3 % (39.0-51.0); Hemoglobin 11.9 gm/dL (13.0-17.0); Lymph % (Auto) 20.9 % (9.0-44.0); Mean Corpuscular Hemoglobin 29.7 pg (27.0-34.0); Mean Corpuscular Volume 92.8 fL (80.0-100.0); Mean Platelet Volume 8.2 fL (7.0-11.0); Mono # (Auto) 0.4 th/mm3 (0.0-0.9); Mono % (Auto) 8.6 % (0.0-8.0); Neut # (Auto) 3.1 th/mm3 (1.8-7.7); Neut % (Auto) 66.8 % (16.0-70.0); Platelet Count 237 th/mm3 (150-450); Red Blood Count 4.01 mil/mm3 (4.50-5.90); White Blood Count 4.7 th/mm3 (4.0-11.0)
[2018-01-08 05:51] LABS: INR 1.1 Ratio; Prothrombin Time 11.1 sec (9.8-11.6)
[2018-01-08 05:59] LABS: Albumin 2.6 g/dL (3.4-5.0); Anion Gap 11 meq/L (5-15); Aspartate Aminotransferase 30 U/L (15-37); Blood Urea Nitrogen 17 mg/dL (7-18); Calcium 8.8 mg/dL (8.5-10.1); Carbon Dioxide 20.9 meq/L (21.0-32.0); Chloride 111 meq/L (98-107); Glomerular Filtration Rate 70 mL/min (>89); Glucose,Random 80 mg/dL (74-106); Potassium 3.7 meq/L (3.5-5.1); Sodium 143 meq/L (136-145)
[2018-01-08 06:00] LABS: Alanine Aminotransferase 58 U/L (12-78)
[2018-01-08 06:03] LABS: Alkaline Phosphatase 81 U/L (45-117); Total Protein 6.7 g/dL (6.4-8.2)
[2018-01-08] MEDS: Amiodarone 200 MG Tablet PO SCH ×2 (08:57→22:29)
[2018-01-08] MEDS: amLODIPine 10 MG Tablet PO SCH (08:57)
[2018-01-08] MEDS: Potassium Phosphate 500 MG Soluble Tablet PO SCH (08:57)
[2018-01-08] MEDS: Propranolol LA 80 MG Capsule PO SCH (08:57)
[2018-01-08] MEDS: Senna/Docusate Sodium 8.6/50 MG Tablet PO SCH ×2 (09:01→21:02)
--- NOTE | 2018-01-08 10:02 | P.PNCV ---
- Note Subjective/Hospital Course: Mr. Angel is a very pleasant 77-year-old gentleman who is well known to me from his previous encounters. Briefly he was admitted in early November for presenting diagnosis of a acute stroke as well as an acute myocardial infarction. At that time he underwent further workup including a coronary angiogram by Dr. Nolen which revealed significant multivessel coronary artery disease. Given the fact that he had had an acute CVA, with a small brain bleed, it was decided to proceed with percutaneous intervention to his culprit coronary vessel with plans to follow-up with coronary revascularization surgery following resolution of his acute neurologic event. He was subsequent discharged and I have seen him on 2 different occasions in the office to discuss the surgical procedure. Most recently he was just seen last Friday my office at which time he had complained of fevers, chills and night sweats with associated urinary complaints. He was advised to [place] and therefore he was sent to the emergency department for further evaluation. At that point he was noted to have significant sepsis with positive bacteremia. He has since been admitted to the hospital and was noted to be in atrial fibrillation with rapid ventricular response and urosepsis and is being treated for those 2 entities. 12/29 Blood cultures and urine culture + Ecoli 12/24 BC neg x 5 days on zyvox and zosyn WBC 8.4K no fever > 48 hrs remains in afib, rate controlled on 3 liter nasal cannula continue current medical therapy will need clearance and timing for CABG approval from ID will need to hold eliquis > 48 hrs and plavix >5 days prior to consideration for surgery 12/31 discussed with ID CXR and cultures and labs in 3 days if neg and improved, will then discuss clearance currently being treated for bacteremia and pneumonia pt is currently on room air , has been transferred out fo ICU 01/02 discussed with ID plan is for CABG 01/09 after completely cleared by ID will stop eliquis and plavix in am / start lovenox will dc lovenox after am dose 01/07 01/05 on lovenox, no chest pain over the weekend for surgery on friday if completely cleared by ID 01/06 await BC results no chest pain , remains in afib rate controlled, some PVC's noted 01/07 repeat BC preliminary no growth in 24 hrs no chest pain 01/08 BC neg x 48hrs U/A neg stable for surgery in am Objective: Vital Signs - 24 hr 01/07/18 11:00 01/07/18 11:03 01/07/18 12:00 Temperature 97.7 F Pulse Rate 71 75 66 Respiratory Rate 16 Blood Pressure 128/61 Pulse Oximetry 97 01/07/18 13:00 01/07/18 14:04 01/07/18 15:00 Temperature 97.8 F Pulse Rate 72 65 74 Respiratory Rate 20 Blood Pressure 109/63 Pulse Oximetry 98 01/07/18 15:11 01/07/18 16:00 01/07/18 17:00 Temperature Pulse Rate 74 68 Respiratory Rate Blood Pressure Pulse Oximetry 98 01/07/18 18:02 01/07/18 19:00 01/07/18 20:00 Temperature 97.6 F Pulse Rate 73 67 74 Respiratory Rate 18 Blood Pressure 138/73 Pulse Oximetry 98 01/07/18 21:00 01/07/18 22:00 01/07/18 23:00 Temperature 97.8 F Pulse Rate 88 66 81 Respiratory Rate 18 Blood Pressure 138/73 Pulse Oximetry 98 01/08/18 00:00 01/08/18 01:00 01/08/18 02:00 Temperature Pulse Rate 70 79 67 Respiratory Rate Blood Pressure Pulse Oximetry 01/08/18 03:00 01/08/18 04:00 01/08/18 05:00 Temperature 98.2 F Pulse Rate 64 79 77 Respiratory Rate 20 Blood Pressure 115/67 Pulse Oximetry 97 01/08/18 05:54 01/08/18 08:00 Temperature 98.4 F Pulse Rate 60 78 Respiratory Rate 18 Blood Pressure 134/78 Pulse Oximetry 100 GENERAL: SKIN: Warm and dry. HEAD: Normocephalic. EYES: No scleral icterus. No injection or drainage. NECK: Supple, trachea midline. No JVD or lymphadenopathy. CARDIOVASCULAR: Regular rate and rhythm without murmurs, gallops, or rubs. RESPIRATORY: Breath sounds equal bilaterally. No accessory muscle use. GASTROINTESTINAL: Abdomen soft, non-tender, nondistended. MUSCULOSKELETAL: No cyanosis, or edema. BACK: Nontender without obvious deformity. No CVA tenderness. Labs: Laboratory Results - last 12 hr 01/08/18 01/08/18 01/08/18 04:44 04:44 04:44 WBC 4.7 RBC 4.01 L Hgb 11.9 L Hct 37.3 L MCV 92.8 MCH 29.7 MCHC 32.0 RDW 15.0 Plt Count 237 MPV 8.2 Neut % (Auto) 66.8 Lymph % (Auto) 20.9 [place] % (Auto) 8.6 H Eos % (Auto) 3.1 Baso % (Auto) 0.6 Neut # (Auto) 3.1 Lymph # (Auto) 1.0 [place] # (Auto) 0.4 Eos # (Auto) 0.1 Baso # (Auto) 0.0 WBC Differential . Differential Comment Auto diff final PT 11.1 INR 1.1 Sodium 143 Potassium 3.7 Chloride 111 H Carbon Dioxide 20.9 L Anion Gap 11 BUN 17 Creatinine 1.21 Estimated GFR 70 L Random Glucose 80 Calcium 8.8 Total Bilirubin 0.3 AST 30 ALT 58 Alkaline Phosphatase 81 Total Protein 6.7 Albumin 2.6 L Result Diagrams: 01/08/18 04:44 01/08/18 04:44 - Plan (2) CAD (coronary artery disease) Plan: ASA, inderal , statin surgery in am 01/09 (3) CVA (cerebral vascular accident) Plan: on lovenox (4) Sepsis Plan: resolved repeat BC pending today (5) Afib Plan: decrease amiodarone on lovenox (4) Sepsis Qualifiers: Sepsis type: Escherichia coli Qualified Code(s): A41.51 - Sepsis due to Escherichia coli [E. coli]
--- NOTE | 2018-01-08 10:13 | P.PNID ---
Infectious Disease Brief Note dw Dr.Ahmad Villagomez if no fever, normal WBC and no evidence of new infection or sepsis on day of surgery ok to clear for surgery from ID standpoint. Will sign off please call back if any change in clinical condition or questions. Vital Signs - 24 hr 01/07/18 11:00 01/07/18 11:03 01/07/18 12:00 Temperature 97.7 F Pulse Rate 71 75 66 Respiratory Rate 16 Blood Pressure 128/61 Pulse Oximetry 97 01/07/18 13:00 01/07/18 14:04 01/07/18 15:00 Temperature 97.8 F Pulse Rate 72 65 74 Respiratory Rate 20 Blood Pressure 109/63 Pulse Oximetry 98 01/07/18 15:11 01/07/18 16:00 01/07/18 17:00 Temperature Pulse Rate 74 68 Respiratory Rate Blood Pressure Pulse Oximetry 98 01/07/18 18:02 01/07/18 19:00 01/07/18 20:00 Temperature 97.6 F Pulse Rate 73 67 74 Respiratory Rate 18 Blood Pressure 138/73 Pulse Oximetry 98 01/07/18 21:00 01/07/18 22:00 01/07/18 23:00 Temperature 97.8 F Pulse Rate 88 66 81 Respiratory Rate 18 Blood Pressure 138/73 Pulse Oximetry 98 01/08/18 00:00 01/08/18 01:00 01/08/18 02:00 Temperature Pulse Rate 70 79 67 Respiratory Rate Blood Pressure Pulse Oximetry 01/08/18 03:00 01/08/18 04:00 01/08/18 05:00 Temperature 98.2 F Pulse Rate 64 79 77 Respiratory Rate 20 Blood Pressure 115/67 Pulse Oximetry 97 01/08/18 05:54 01/08/18 08:00 Temperature 98.4 F Pulse Rate 60 78 Respiratory Rate 18 Blood Pressure 134/78 Pulse Oximetry 100 Laboratory Results - last 24 hr 01/07/18 01/08/18 01/08/18 11:55 04:44 04:44 WBC 4.7 RBC 4.01 L Hgb 11.9 L Hct 37.3 L MCV 92.8 MCH 29.7 MCHC 32.0 RDW 15.0 Plt Count 237 MPV 8.2 Neut % (Auto) 66.8 Lymph % (Auto) 20.9 [facility] % (Auto) 8.6 H Eos % (Auto) 3.1 Baso % (Auto) 0.6 Neut # (Auto) 3.1 Lymph # (Auto) 1.0 [facility] # (Auto) 0.4 Eos # (Auto) 0.1 Baso # (Auto) 0.0 WBC Differential . Differential Comment Auto diff final PT 11.1 INR 1.1 Sodium Potassium Chloride Carbon Dioxide Anion Gap BUN Creatinine Estimated GFR Random Glucose Calcium Total Bilirubin AST ALT Alkaline Phosphatase Total Protein Albumin Urine Color Yellow Urine Clarity Clear Urine pH 6.0 Ur Specific [place] 1.011 Urine Protein Negative Urine Glucose (UA) Negative Urine Ketones Negative Urine Occult Blood Negative Urine Nitrate Negative Urine Bilirubin Negative Urine Urobilinogen Less than 2 Ur Leukocyte Esterase Negative Urine RBC Less than 1 Urine WBC 1 Ur Squamous Epith Cells 1 Urine Mucus Few H Micro UA Comment Culture not ind Ur Microscopic Review Not Reportable Urine Culture Comments Culture not ind MTS Gel Crossmatch 01/08/18 01/08/18 04:44 09:47 WBC RBC Hgb Hct MCV MCH MCHC RDW Plt Count MPV Neut % (Auto) Lymph % (Auto) [facility] % (Auto) Eos % (Auto) Baso % (Auto) Neut # (Auto) Lymph # (Auto) [facility] # (Auto) Eos # (Auto) Baso # (Auto) WBC Differential Differential Comment PT INR Sodium 143 Potassium 3.7 Chloride 111 H Carbon Dioxide 20.9 L Anion Gap 11 BUN 17 Creatinine 1.21 Estimated GFR 70 L Random Glucose 80 Calcium 8.8 Total Bilirubin 0.3 AST 30 ALT 58 Alkaline Phosphatase 81 Total Protein 6.7 Albumin 2.6 L Urine Color Urine Clarity Urine pH Ur Specific [place] Urine Protein Urine Glucose (UA) Urine Ketones Urine Occult Blood Urine Nitrate Urine Bilirubin Urine Urobilinogen Ur Leukocyte Esterase Urine RBC Urine WBC Ur Squamous Epith Cells Urine Mucus Micro UA Comment Ur Microscopic Review Urine Culture Comments MTS Gel Crossmatch See Detail
--- NOTE | 2018-01-08 12:28 | P.PNCA ---
Subjective Interval history: assymptomatic in nad Physical Exam Vital signs: Vital Signs 01/07/18 13:00 01/07/18 14:04 01/07/18 15:00 Temperature 97.8 F Pulse Rate 72 65 74 Respiratory Rate 20 Blood Pressure 109/63 Pulse Oximetry 98 01/07/18 15:11 01/07/18 16:00 01/07/18 17:00 Temperature Pulse Rate 74 68 Respiratory Rate Blood Pressure Pulse Oximetry 98 01/07/18 18:02 01/07/18 19:00 01/07/18 20:00 Temperature 97.6 F Pulse Rate 73 67 74 Respiratory Rate 18 Blood Pressure 138/73 Pulse Oximetry 98 01/07/18 21:00 01/07/18 22:00 01/07/18 23:00 Temperature 97.8 F Pulse Rate 88 66 81 Respiratory Rate 18 Blood Pressure 138/73 Pulse Oximetry 98 01/08/18 00:00 01/08/18 01:00 01/08/18 02:00 Temperature Pulse Rate 70 79 67 Respiratory Rate Blood Pressure Pulse Oximetry 01/08/18 03:00 01/08/18 04:00 01/08/18 05:00 Temperature 98.2 F Pulse Rate 64 79 77 Respiratory Rate 20 Blood Pressure 115/67 Pulse Oximetry 97 01/08/18 05:54 01/08/18 07:00 01/08/18 08:00 Temperature 98.4 F Pulse Rate 60 73 86 Respiratory Rate 18 Blood Pressure 134/78 Pulse Oximetry 100 01/08/18 09:00 01/08/18 10:00 01/08/18 11:00 Temperature 97.6 F Pulse Rate 84 82 74 Respiratory Rate 18 Blood Pressure 130/82 Pulse Oximetry 98 Intake & Output 01/07/18 01/08/18 01/08/18 18:59 06:59 18:59 Intake Total 1200 / 1200 480 / 480 Output Total 400 / 400 Balance 1200 / 1200 80 / 80 Weight 82 kg Intake: Oral 1200 / 1200 480 / 480 Output: Urine 400 / 400 Other: # Voids 3 2 Date of Last Bowel Movement 01/07/18 01/07/18 01/07/18 # Bowel Movements 1 Assessment and Plan - Assessment (1) NSTEMI (non-ST elevated myocardial infarction) Code(s): I21.4 - Non-ST elevation (NSTEMI) myocardial infarction Status: Acute (2) CHF (congestive heart failure) Code(s): I50.9 - Heart failure, unspecified Status: Acute (3) Acute decompensated heart failure Code(s): I50.9 - Heart failure, unspecified Status: Acute (4) Afib Code(s): I48.91 - Unspecified atrial fibrillation Status: Chronic (5) Wide-complex tachycardia Code(s): I47.2 - Ventricular tachycardia Status: Acute (6) Acute UTI Code(s): N39.0 - Urinary tract infection, site not specified Status: Acute (7) CAD (coronary artery disease) Code(s): I25.10 - Atherosclerotic heart disease of [place] coronary artery without angina pectoris Status: Acute (8) CVA (cerebral vascular accident) Code(s): I63.9 - Cerebral infarction, unspecified Status: Acute (9) Sepsis Code(s): A41.9 - Sepsis, unspecified organism Status: Acute - Plan 1.) CAD - high risk presentation with nstemi with decompensated chf, wide complex tachycardia, afib, sepsis, uti; I reviewed his cath films from 11/21/17; he has a 60-70% distal left main, 75% ost lcx, 70% prox rca(dom), 95% prox rpla , ef@ 50%; he appears to be failing and/or responding poorly to medical management; cabg possibly next week, continue eliquis, aspirin, plavix held, beta meg held due to decompensated chf; cabg 01/09/[address] Knott; off eliquis, on lovenox pre-op; d/w Dr Knott 01/01/18 (9) Sepsis Qualifiers: Sepsis type: Escherichia coli Qualified Code(s): A41.51 - Sepsis due to Escherichia coli [E. coli]
[2018-01-08 15:32] LABS: Hemoglobin A1c 6.5 % (4.3-6.0)
--- NOTE | 2018-01-08 22:54 | P.PN ---
Subjective Interval history: Follow up for gram negative bacteremia, CAD. Patient is doing well. no acute concerns. CABG in the AM. Physical Exam Vital signs: Vital Signs 01/07/18 23:00 01/08/18 00:00 01/08/18 01:00 Temperature 97.8 F Pulse Rate 81 70 79 Respiratory Rate 18 Blood Pressure 138/73 Pulse Oximetry 98 01/08/18 02:00 01/08/18 03:00 01/08/18 04:00 Temperature 98.2 F Pulse Rate 67 64 79 Respiratory Rate 20 Blood Pressure 115/67 Pulse Oximetry 97 01/08/18 05:00 01/08/18 05:54 01/08/18 07:00 Temperature Pulse Rate 77 60 73 Respiratory Rate Blood Pressure Pulse Oximetry 01/08/18 08:00 01/08/18 09:00 01/08/18 10:00 Temperature 98.4 F Pulse Rate 86 84 82 Respiratory Rate 18 Blood Pressure 134/78 Pulse Oximetry 100 01/08/18 11:00 01/08/18 12:00 01/08/18 13:25 Temperature 97.6 F Pulse Rate 74 88 71 Respiratory Rate 18 Blood Pressure 130/82 Pulse Oximetry 98 01/08/18 14:00 01/08/18 15:00 01/08/18 15:08 Temperature 97.8 F Pulse Rate 70 77 76 Respiratory Rate 18 Blood Pressure 128/76 Pulse Oximetry 99 01/08/18 16:19 01/08/18 17:15 01/08/18 18:10 Temperature Pulse Rate 69 77 78 Respiratory Rate Blood Pressure Pulse Oximetry Intake & Output 01/08/18 01/08/18 01/09/18 06:59 18:59 06:59 Intake Total 480 / 480 1200 / 1200 Output Total 400 / 400 Balance 80 / 80 1200 / 1200 Weight 82 kg Intake: Oral 480 / 480 1200 / 1200 Output: Urine 400 / 400 Other: # Voids 2 4 Date of Last Bowel Movement 01/07/18 01/07/18 Narrative: GENERAL: NAD, lying comfortable in bed, pleasant CARDIOVASCULAR: Irregularly irregular, no M/R/G. RESPIRATORY: CTA x2. GASTROINTESTINAL: Abdomen soft, non-tender, nondistended. MUSCULOSKELETAL: No cyanosis. Trace bilateral lower extremity edema. BACK: Nontender without obvious deformity. No CVA tenderness. NEURO: Alert awake oriented 3. Results - Labs CBC & Chem 7: 01/08/18 04:44 01/08/18 04:44 Laboratory Results - last 24 hr 01/08/18 01/08/18 01/08/18 04:44 04:44 04:44 WBC 4.7 RBC 4.01 L Hgb 11.9 L Hct 37.3 L MCV 92.8 MCH 29.7 MCHC 32.0 RDW 15.0 Plt Count 237 MPV 8.2 Neut % (Auto) 66.8 Lymph % (Auto) 20.9 Alger % (Auto) 8.6 H Eos % (Auto) 3.1 Baso % (Auto) 0.6 Neut # (Auto) 3.1 Lymph # (Auto) 1.0 Alger # (Auto) 0.4 Eos # (Auto) 0.1 Baso # (Auto) 0.0 WBC Differential . Differential Comment Auto diff final PT 11.1 INR 1.1 Sodium 143 Potassium 3.7 Chloride 111 H Carbon Dioxide 20.9 L Anion Gap 11 BUN 17 Creatinine 1.21 Estimated GFR 70 L Random Glucose 80 Hemoglobin A1c Calcium 8.8 Total Bilirubin 0.3 AST 30 ALT 58 Alkaline Phosphatase 81 Total Protein 6.7 Albumin 2.6 L Blood Type Antibody Screen MTS Gel Crossmatch 01/08/18 01/08/18 04:44 09:47 WBC RBC Hgb Hct MCV MCH MCHC RDW Plt Count MPV Neut % (Auto) Lymph % (Auto) Alger % (Auto) Eos % (Auto) Baso % (Auto) Neut # (Auto) Lymph # (Auto) Alger # (Auto) Eos # (Auto) Baso # (Auto) WBC Differential Differential Comment PT INR Sodium Potassium Chloride Carbon Dioxide Anion Gap BUN Creatinine Estimated GFR Random Glucose Hemoglobin A1c 6.5 H Calcium Total Bilirubin AST ALT Alkaline Phosphatase Total Protein Albumin Blood Type O Positive Antibody Screen Negative MTS Gel Crossmatch See Detail Microbiology 01/05/18 03:40 Blood - Peripheral Aerobic Blood Culture - Preliminary No growth in 3 days 01/05/18 03:40 Blood - Peripheral Anaerobic Blood Culture - Preliminary No growth in 3 days 01/05/18 03:45 Blood - Peripheral Aerobic Blood Culture - Preliminary No growth in 3 days 01/05/18 03:45 Blood - Peripheral Anaerobic Blood Culture - Preliminary No growth in 3 days - Procedures none Assessment and Plan - Assessment (1) Acute UTI Code(s): N39.0 - Urinary tract infection, site not specified Status: Acute (2) Sepsis Code(s): A41.9 - Sepsis, unspecified organism Status: Acute (3) Bacteremia Code(s): R78.81 - Bacteremia Status: Acute (4) Afib Code(s): I48.91 - Unspecified atrial fibrillation Status: Chronic (5) CHF (congestive heart failure) Code(s): I50.9 - Heart failure, unspecified Status: Acute (6) NSTEMI (non-ST elevated myocardial infarction) Code(s): I21.4 - Non-ST elevation (NSTEMI) myocardial infarction Status: Acute - Plan This is a 77-year-old AAM with PMHx of TIA, HTN, HLD and CAD status post stent recent placement with re-admission due to fever and fatigue. Patient was found to have hospital acquired PNA and was started on Zosyn, followed by a Dx of E. Coli UTI and Bacteremia treated also with Zosyn started on 12/26 and Linezolid started on 12/29. Patient also was having a CHF exacerbation that improved with diuresis. Patient is supposed to undergo CABG 3 once bacteremia and sepsis have resolved. Sepsis (Temp 101.7, HR 107, WBC 13.1K, UTI) Urinary tract infection E. Coli Bacteremia -Sepsis resolved. ID following -Patient is currently off abx. -Blood cultures from 01/02/2018, 01/05/2018 negative so far. -CABG on Friday01/09/2018. Patient will likely need SNF after surgery. Coronary artery disease Atrial fibrillation Hypertension -Cardiology following as well as Cardiothoracic surgery -CABG this week on 01/09/2018. -Apixaban, Plavix stopped. Patient was started on Lovenox. D/C Lovenox after PM dose on 01/07/2018. -Currently on Amiodarone 200mg Q12H -Continue Aspirin 81mg, Amlodipine 10mg Qday. -Continue Atorvastatin 20mg Qday. Acute kidney injury Mild Hypernatremia -Creatinine improved from 2.35 on admission to 1.44. He likely has baseline CKD. -Hypernatremia resolved. Full code. Lovenox. 01/08/2018: No acute change in management. CABG in the AM. (2) Sepsis Qualifiers: Sepsis type: Escherichia coli Qualified Code(s): A41.51 - Sepsis due to Escherichia coli [E. coli]
[2018-01-09] MEDS ORDERED: Chlorhexidine Gluconate 2% 1 Pack (2 Cloths) TOPICAL ONE (00:15)
[2018-01-09] MEDS ORDERED: Sodium Chlor 0.9% Inj 500 ML IV.SIG SCH (01:00)
[2018-01-09] MEDS: Propranolol LA 80 MG Capsule PO SCH (06:20)
[2018-01-09] MEDS ORDERED: Sodium Chlor 0.9% Inj 500 ML IV.CONT ONE (07:30)
[2018-01-09] MEDS ORDERED: Phenylephrine/NS 1000 MCG/10ML Syringe IV.PUSH ONE (07:30)
[2018-01-09] MEDS ORDERED: Sodium Chlor 0.9% Inj 750 ML IV.CONT ONE (07:30)
[2018-01-09] MEDS ORDERED: Tranexamic Acid Inj 1,000 MG/10 ML Ampul IV.SIG ONE (07:30)
[2018-01-09] MEDS ORDERED: Sodium Chlor 0.9% Inj 300 ML IV.CONT ONE (07:30)
[2018-01-09] MEDS: Heparin - SQ 10,000 UNITS/ML Vial ONE ×2 (07:53→08:53)
[2018-01-09] MEDS ORDERED: ceFAZolin Inj 2,000 MG in Sodium Chlor 0.9% Inj 80 ML IV.SIG SCH (08:00)
[2018-01-09] MEDS ORDERED: Heparin - SQ 10,000 UNITS/ML Vial OTHER ONE (08:34)
[2018-01-09] MEDS ORDERED: Sugammadex Inj 200 MG/2 ML Vial IV.PUSH ONE (09:22)
[2018-01-09] MEDS ORDERED: Protamine Sulfate Inj 50 MG/5 ML Vial IV.PUSH ONE (11:41)
[2018-01-09] MEDS ORDERED: Dexmedetomidine Inj 200 MCG/2 ML Vial IV.CONT ONE (12:30)
[2018-01-09] MEDS ORDERED: Calcium Chloride Inj 1 GM/10 ML Syringe IV.PUSH ONE (12:30)
[2018-01-09] MEDS ORDERED: Potassium Chlor 20 mEq Premix 20 MEQ/100 ML PIGGYBACK IV.SIG PRN ×3 (12:37)
[2018-01-09] MEDS ORDERED: Calcium Chloride Inj 1 GM/10 ML Syringe IV.PUSH PRN (12:37)
[2018-01-09] MEDS ORDERED: Ketorolac Inj 30 MG/ML (IVP) Vial IV.PUSH PRN (12:37)
[2018-01-09] MEDS ORDERED: Morphine Sulfate Inj 2 MG/ML Vial IV.PUSH PRN (12:37)
[2018-01-09] MEDS ORDERED: fentaNYL Citrate Inj 100 MCG/2 ML Ampul IV.PUSH PRN (12:37)
[2018-01-09] MEDS ORDERED: Dextrose 50% in Water 50 ML Vial IV.PUSH PRN (12:37)
[2018-01-09] MEDS ORDERED: Magnesium Sulfate Inj 2 GM in Sodium Chlor 0.9% Inj 96 ML IV.SIG PRN ×4 (12:37)
[2018-01-09] MEDS ORDERED: Post-op Orders (for Pharmacy) OTHER STA (12:37)
[2018-01-09] MEDS ORDERED: RESP: Racemic Epinephrine 2.25% 0.5 ML Neb NEB SCH (12:37)
[2018-01-09] MEDS ORDERED: Phenylephrine Inj 40 MG in Sodium Chlor 0.9% Inj 496 ML IV.CONT PRN (12:37)
--- NOTE | 2018-01-09 12:49 | P.OP ---
Date of procedure: 01/09/18 Anesthesia: GETA Surgeon: Latha Knott MD Operation and Findings: PREPROCEDURE DIAGNOSES 1. Severe Multi Vessel Coronary Artery Disease. 2. Myocardial infarction status post emergent PCI 3. Stroke 4. Urosepsis 5. Moderate left ventricular dysfunction 6. Paroxysmal atrial fibrillation POSTPROCEDURE DIAGNOSES Same SURGICAL PROCEDURE 1. Urgent Off-pump Coronary Artery Bypass Grafting x 3 with Left Internal Mammary Artery (HEAD) to Left Anterior Descending (LAD), reverse saphenous vein graft to Obtuse Marginal branch of the Left Circumflex artery, reverse saphenous vein graft to Right Coronary artery 2. Left leg Endoscopic Vein Graham 3. Left atrial appendage excision 4. Synchronized cardioversion 5. Intraoperative Vein Mapping. SURGEON Latha Knott MD [employer] NELSON Najera ANESTHESIA General endotracheal HAZARDOUS WASTE MATERIAL TECHNICIAN Marielle Torre, SHA German MD PREPARATION ChloraPrep. COUNTS Needle, sponge, and instrument counts were correct. DRAINS Two 32-Urdu mediastinal tubes. COMPLICATIONS None. INDICATIONS FOR PROCEDURE The patient is a 77-year-old presenting with chest pain. Patient was noted to have multi-vessel coronary artery disease with left main stenosis. The patient is being brought to the operating room for surgical revascularization therapy. PROCEDURE Patient was brought to the operating room and placed supine on the OR table. Following the induction of adequate general endotracheal anesthesia and placement of appropriate monitoring devices, intraoperative vein mapping was performed which revealed small and thickened-caliber conduit in bilateral lower extremities. The patient was then prepped and draped in standard sterile fashion. Next, 2500 units of intravenous heparin was given. The left greater saphenous vein was harvested endoscopically. This appeared to be a very small- caliber conduit. Simultaneously, a median sternotomy was performed and the left internal mammary artery dissected free off the posterior sternal table. The patient was systemically heparinized and anticoagulation monitored by serial ACT measurements. The internal mammary artery had good pulsatile flow in it and was a good-caliber conduit. The pericardium was then divided in the midline , the cradle created and targets analyzed. At this point, all anastomoses were performed in a beating-heart fashion using the 3C Plus stabilizing system. The left internal mammary artery was anastomosed to the mid LAD (2 mm) in an end-to- side fashion using 7-0 Prolene. Segment of saphenous vein graft was then anastomosed to the OM1 (1.5 mm) in an end-to-side fashion using 7-0 Prolene. The final segment was anastomosed to the RCA (2.5 mm) in an end-to-side fashion using 7-0 Prolene. The proximal anastomoses were then constructed to the ascending aorta in a running manner using 6-0 Prolene. All anastomotic sites were inspected and appeared to be hemostatic and patent. The left atrial appendage was then excised using the surgical stapler. Direct synchronized cardioversion was then performed with resumption of normal sinus rhythm. Protamine solution was given. Strict hemostasis was assured. The closure was undertaken. 2 chest tubes and 2 ventricular wires were placed. The pericardium was reapproximated in the midline. The sternum was approximated using sternal wires. The muscular and fascial layer were then closed in 3 layers. The endoscopic vein harvest site was closed in 2 layers. The patient tolerated the procedure well and was transferred to CVICU in stable condition.
--- NOTE | 2018-01-09 13:19 | P.DCO ---
- Diagnosis (2) CAD (coronary artery disease) (4) Sepsis - Home Health Nursing Order: Medical education, Signs/symptoms of disease process, Wound care and dressing changes, Nursing assessment with vital signs Instructions: Heart and Vascular Surgery patients *Special attention to sternal dressing Mandatory frequency Assess and evaluation, 4 days in a row The next week 3X week 2 times a week for 4 weeks 1 time a week for 5 weeks Schedule Heart and Vascular patients for full 60 day certification period Initial visit Review Open Heart Surgery Discharge Instructions (Sternal precautions, Activity, Elastic hose, Incision care, Driving, Incentive spirometry, Smoking, [place], Work and other) Need Betadine to paint incision Medication reconciliation Importance of follow up care/ check on appointments Make calendar record temperature daily When to call [facility] nurse, review instructions, phone list Incentive Spirometry, demonstration Visit 1- Begin discharge instruction for patient family and/ or caregiver using teach back method- Signs and symptoms of infection Disease characteristics Medicines and side effects Foods and nutrition/ appetite Infection control/ hand washing/ hygiene Visit 2- Continue teaching Discharge instructions- include additional information on smoking cessation , sternal dressing (sternal vac) Visit 3- Continue teaching- Cough and deep breathing, incision monitoring. Choose my plate Visit 4- Continue teaching- Discuss limitations Discuss how they are feeling Discuss progress toward goals Remaining visits- continue teaching and monitoring For any questions please call : Friday 8am-5pm Heart & Vascular Surgery Office ( Dr. Knott & Dr. Winn), After Hours / Nights (5pm -8am) Weekends and Holidays Please call [facility] Cardiac Intermediate Care Unit (CIC) Charge Nurse PREVENA Single Use Negative Wound Therapy System Caregiver Instruction Sheet 1. A Prevena dressing system was applied to the chest incision during surgery , to promote wound healing. It works via a suction device (negative pressure wound therapy) to remove low to moderate levels of exudate (drainage) and infectious materials. We recommend that the device stay in place for up to seven days, from day of surgery. 2. Day of Surgery___/ Day of Removal ___/ 3. The dressing should only be removed by a health rn coronary care unit. Please arrange removal of device to coincide with Home Health visit and or with Nursing staff at Rehab 4. If skin reddening or irritation of skin occurs, or excessive drainage, please notify the Cardiovascular Surgeons office at [phone]. 5. Light showering is permissible; however the pump should be disconnected and placed in safe location, where it will not get wet. The dressing should not be exposed to direct spray or submerged in water. No bath tub / shower only. Ensure the end of the tubing attached to the dressing is facing down so that water does not enter the top of the tube. 6. To remove Prevena dressing: press purple button to turn off device / remove the suction. Then disconnect the tubing from the pump. The fixation strips should be stretched away from the skin and the dressing lifted at one corner and peeled back until it has been fully removed. 7. After removal, it is ok to shower daily using liquid dial soap and clean wash cloth, rinse and pat dry, and leave incision open to air dry. For any concerns regarding Prevena dressing, and or wounds, please contact Sharri Avelar, patient navigator at [phone] or notify the Cardiovascular Surgeons office at [phone]. Incentive spirometry Q1 hr x 10, while awake, also use acapella device hourly whole awake Sternal Breast Bone Precautions: NO pushing or pulling, ( pt must use sternal pillow to support chest with all activities and with coughing ( takes up to 3 months breast bone to heal ) All females to wear sternal bra , launder as needed Daily incision care: ok to shower daily, no tub bath. Wash all incisions with liquid dial soap, clean wash cloth to each site, rinse and pat dry. Observe for any signs of infection, such as drainage which is dark yellow, parkinson, green or foul smelling. Immediately report to the surgeon any drainage from the chest incision, or legs, and for any abnormal drainage from the chest tube sites. Notify surgeon if any temp >101.5 degrees F. When specialty dressing removed/ or if you do not have one, continue to shower daily as above, then rinse and pat incision dry and paint with betadine daily x 5 days. Allow steri strips to fall off if you have any. Avoid lotions, creams, salves, oils, etc. for the first month Please see attached forms for additional instructions regarding post Open Heart specialty wound vacuum dressings. ELÍAS or Prevena , Dressing to be removed by Nursing staff on __01/16/18 F/U appointment: as per DC instructions: PCP in 2 weeks, CV surgeon 2 weeks, Cable Tool Operator 3-4 weeks For any questions regarding incisions/ dressing / meds / post op care or above Symptoms, Friday 8am-5pm Heart & Vascular Surgery Office ( Dr. Knott & Dr. Winn), After Hours / Nights (5pm -8am) Weekends and Holidays Please call [facility] Cardiac Intermediate Care Unit (CIC) Charge Nurse - Case Management Consult Yes - Certification I have seen patient Jonathan Angel on 01/09/18. My clinical findings support the need for the requested home health care services because: Deconditioned with increased weakness I certify that my clinical findings support that this patient is homebound because: Post-op weakness (2) CAD (coronary artery disease) Qualifiers: Coronary Disease-Associated Artery/Lesion type: mcgrath artery (4) Sepsis Qualifiers: Sepsis type: Escherichia coli Qualified Code(s): A41.51 - Sepsis due to Escherichia coli [E. coli]
[2018-01-09] MEDS ORDERED: fentaNYL Citrate Inj 250 MCG/5 ML Ampul ONE (13:41)
[2018-01-09] MEDS ORDERED: Dexmedetomidine Inj 200 MCG in Sodium Chlor 0.9% Inj 48 ML IV.CONT PRN (14:00)
[2018-01-09] MEDS: DOPamine 400 MG/250 ML Premix 400 MG/250 ML BAG IV.CONT PRN (14:00)
[2018-01-09] MEDS ORDERED: Insulin Regular (For Infusion) 100 UNIT in Sodium Chlor 0.9% Inj 99 ML IV.CONT PRN (14:00)
[2018-01-09] MEDS ORDERED: Calcium Chloride Inj 1 GM in Sodium Chlor 0.9% Inj 100 ML IV.SIG PRN (14:00)
--- NOTE | 2018-01-09 14:16 | P.CONCC ---
History of Present Illness Service: Critical care medicine Consult date: 01/09/18 Requesting Physician: Latha Knott Reason for Consult: Critical care management Primary Care Provider: Khadra Ruiz MD Family Provider: Khadra Ruiz MD Chief Complaint: Fevers History of Present Illness: This is a 77-year-old AA male. Date of admission 12/26/2017. Date of consultation 01/09/2018. Past medical history includes known severe coronary disease, decompensated systolic heart failure, non-STEMI history of coronary disease with a PCI, history of AAA repair, hypertension hyperlipidemia, urethral stricture. Patient originally presented to [place] of November 2017 with syncope. Patient had a cardiac catheterization at that time which revealed severe three-vessel coronary disease, severe left main disease. At that time patient had a bare-metal stent to his LAD. Was seen by cardiothoracic surgery with outpatient workup for CABG plan. Patient originally presented to [place] and 12/26 urinary tract symptoms consistent with urinary tract infections fevers, chills dysuria and frequency. Please note that this patient reports that he just completed treatment for UTI with amoxicillin. At time of admission, patient denied any chest pain, shortness of breath. Patient was noted to have E. coli in his urine and his blood. Infectious count was consulted. Initially placed on piperacillin/tazobactam and treated with ceftriaxone through 01/04 and was cleared from their standpoint for surgical intervention. Patient was seen by Dr. Olguin/cardiology recommended CABG. Patient was seen by Dr. Knott who waited the clearance of a bacterial infection as above prior to intervention. Today, the patient underwent three-vessel CABG -HEAD to LAD, reverse saphenous graft to OM and reverse is going to RCA. Left EVH. 3500 cc crystalloid. Cell Saver to 30 cc. EBL was 500. Urine output 700. During the procedure, patient had a direct synchronized cardioversion into a sinus bradycardia. Patient was recovered and transferred room 445. Patient is currently on dopamine at 5 mcg/kg/min, Jacques-Synephrine drip at 80 mcg/ min, epinephrine 10 mcg/min and dexmedetomidine drip for sedation. Insulin drip is currently at 3 units an hour. Patient is slowly recovering on the ventilator with heart rate currently 63 with saturation 93. Review of Systems unobtainable due to endotracheal tube PMFSH - History History Provided By: Patient - Medical History Medical History: Medical History (Last Reviewed 01/09/18 @ 14:14 by Lucio Germain MD) Coronary artery disease TIA (transient ischemic attack) AAA (abdominal aortic aneurysm) Hyperlipemia Hypertension Urethral stricture - Surgical History Surgical History: Surgical History (Last Reviewed 01/09/18 @ 14:14 by Lucio Germain MD) H/O cardiac catheterization H/O abdominal aortic aneurysm repair - Family History Family History: Family History (Last Reviewed 01/09/18 @ 14:14 by Lucio Germain MD) Mother Pituitary abnormality Father Stroke - Tobacco History Second Hand Smoke Exposure: No Tobacco Use In Past 30 Days: No Smoking Status: Never smoker - Alcohol History How Often Do You Have a Drink Containing Alcohol: Never - Substance Use History Substance History: No History of Abuse - Travel History Recent Travel in the [place] Within the Last 8 Weeks: No Recent Travel Out of the Country Within the Last 8 Weeks: No - Immunization History Tetanus Immunization: Unsure Hx Influenza Vaccine This Season: Yes Medications and Allergies Active Medications: Active Medications Acetaminophen (Tylenol) 650 mg PO Q4H PRN PRN Reason: Temp > 100.4 Last Admin: 12/25/17 16:24 Dose: 650 mg Hydrocodone Bitart/Acetaminophen ([place] 5/325) 1 tab PO Q3H PRN PRN Reason: PAIN SCALE 1 TO 5 Al Hydroxide/Mg Hydroxide (Milk Of Gavin Liq) 30 ml PO Q12H PRN PRN Reason: Mild Constipation Albuterol (Duoneb Neb (Jonny)) 1 ampul NEB Q6HR NEB JONNY Albuterol (Duoneb Neb (Prn)) 1 ampul NEB Q2HR NEB PRN PRN Reason: WHEEZING Amiodarone HCl (Cordarone) 200 mg PO Q12HR [facility] Last Admin: 01/08/18 22:29 Dose: 200 mg Aspirin (Aspirin Chew) 81 mg PO DAILY [facility] Atorvastatin Calcium (Lipitor) 20 mg PO HS [facility] Last Admin: 01/08/18 22:29 Dose: 20 mg Bisacodyl (Dulcolax Supp) 10 mg RECTAL DAILY PRN PRN Reason: SEVERE CONSITIPATION Calcium Chloride (Calcium Chloride Inj) 0.5 gm IV.PUSH UNSCH PRN PRN Reason: SEE LABEL COMMENTS Clopidogrel Bisulfate (Plavix) 75 mg PO DAILY [facility] Dextrose (D50w Vial) 50 ml IV.PUSH UNSCH PRN PRN Reason: PER HYPOGLYCEMIA PROTOCOL Fentanyl Citrate (Fentanyl Inj) 25 mcg IV.PUSH Q1H PRN PRN Reason: BREAKTHROUGH PAIN Sodium Chloride (Ns Inj) 1,000 mls @ 0 mls/hr IV.SIG BOLUS JONNY Magnesium Sulfate Inj 4 gm/ (Sodium Chloride) 100 mls @ 50 mls/hr IV.SIG UNSCH PRN PRN Reason: For Magnesium 0.9 - 1.1 mg/dL Magnesium Sulfate Inj 2 gm/ (Sodium Chloride) 100 mls @ 50 mls/hr IV.SIG UNSCH PRN PRN Reason: For Magnesium 1.2 - 1.6 mg/dL Potassium Chloride (Kcl 40 Meq Premix Inj) 40 meq in 100 mls @ 25 mls/hr IV.SIG Q2H PRN PRN Reason: For Potassium 2.8 - 3.2 mEq/L Potassium Chloride (Kcl 20 Meq Premix Inj) 20 meq in 100 mls @ 50 mls/hr IV.SIG Q2H PRN PRN Reason: For Potassium 3.3 - 3.5 mEq/L Potassium Chloride (Kcl 40 Meq Premix Inj) 40 meq in 100 mls @ 25 mls/hr IV.SIG UNSCH PRN PRN Reason: For Potassium 3.3 - 3.5 mEq/L Potassium Chloride (Kcl 20 Meq Premix Inj) 20 meq in 100 mls @ 50 mls/hr IV.SIG Q2H PRN PRN Reason: For Potassium 2.8 - 3.2 mEq/L Last Infusion: 12/28/17 11:40 Dose: Infused Potassium Phosphate 30 mmol/ (Sodium Chloride) 260 mls @ 42 mls/hr IV.SIG UNSCH PRN PRN Reason: SEE LABEL COMMENTS Sodium Phosphate 30 mmol/ (Sodium Chloride) 260 mls @ 42 mls/hr IV.SIG UNSCH PRN PRN Reason: For Phosphorus < 2.5 mg/dL Lactated Ringer's (Lr 1000 Ml Inj) 1,000 mls @ 30 mls/hr IV.SIG .Q24H JONNY Stop: 01/10/18 00:14 Last Infusion: 01/09/18 11:59 Dose: Infused Sodium Chloride (Ns Inj) 500 mls @ 30 mls/hr IV.SIG .Q10H JONNY Last Admin: 01/09/18 00:04 Dose: Not Given Albumin Human (Buminate 5% Inj) 250 mls @ 250 mls/hr IV.SIG UNSCH PRN PRN Reason: SEE LABEL COMMENTS Calcium Chloride 1 gm/ Sodium (Chloride) 110 mls @ 100 mls/hr IV.SIG PRN PRN PRN Reason: SEE LABEL COMMENTS Cefazolin Sodium 2,000 mg/ (Sodium Chloride) 100 mls @ 200 mls/hr IV.SIG Q8H JONNY Stop: 01/10/18 21:29 Dexmedetomidine HCl 200 mcg/ (Sodium Chloride) 50 mls @ 4.1 mls/hr IV.CONT TITRATE PRN; Protocol PRN Reason: Per Protocol Insulin Human Regular 100 unit (/ Sodium Chloride) 100 mls @ 3 mls/hr IV.CONT TITRATE PRN; Protocol PRN Reason: See Protocol Magnesium Sulfate 2 gm/ Sodium (Chloride) 100 mls @ 50 mls/hr IV.SIG PRN PRN PRN Reason: SEE LABEL COMMENTS Potassium Chloride (Kcl 20 Meq Premix Inj) 20 meq in 100 mls @ 50 mls/hr IV.SIG PRN PRN PRN Reason: SEE LABEL COMMENTS Lactated Ringer's (Lr 1000 Ml Inj) 500 mls @ 500 mls/hr IV.SIG .Q1H PRN PRN Reason: SEE LABEL COMMENTS Magnesium Sulfate 2 gm/ Sodium (Chloride) 100 mls @ 50 mls/hr IV.SIG PRN PRN PRN Reason: SEE LABEL COMMENTS Phenylephrine HCl 40 mg/ (Sodium Chloride) 500 mls @ 30 mls/hr IV.CONT TITRATE PRN; Protocol PRN Reason: See Protocol Potassium Chloride (Kcl 20 Meq Premix Inj) 20 meq in 100 mls @ 50 mls/hr IV.SIG PRN PRN PRN Reason: SEE LABEL COMMENTS Potassium Chloride (Kcl 20 Meq Premix Inj) 20 meq in 100 mls @ 50 mls/hr IV.SIG PRN PRN PRN Reason: SEE LABEL COMMENTS Ketorolac Tromethamine (Toradol Inj) 15 mg IV.PUSH Q6H PRN PRN Reason: SEE LABEL COMMENTS Stop: 01/11/18 12:36 Lactulose (Lactulose Liq) 30 ml PO DAILY PRN PRN Reason: SEVERE CONSITIPATION Magnesium Oxide (Mag-Ox) 800 mg PO UNSCH PRN PRN Reason: For Magnesium 1.2 - 1.6 mg/dL Meperidine HCl (Demerol Inj) 12.5 mg IV.PUSH Q4H PRN PRN Reason: SHIVERING Metoprolol Tartrate (Lopressor Inj) 2.5 mg IV.PUSH Q1H PRN PRN Reason: SEE LABEL COMMENTS Miscellaneous Information (Misc Post-Op Orders (For Pharmacy)) 0 each OTHER STAT STA Stop: 01/09/18 12:38 Morphine Sulfate (Morphine Inj) 1 mg IV.PUSH Q10M PRN PRN Reason: PAIN SCALE 1 TO 5 Ondansetron HCl (Zofran Inj) 4 mg IV.PUSH Q6H PRN PRN Reason: NAUSEA OR VOMITING Pantoprazole Sodium (Protonix) 40 mg PO DAILY@06 [facility] Phenylephrine HCl (Neosynephrine Inj) 0.1 mg IV.PUSH UNSCH PRN PRN Reason: SEE LABEL COMMENTS Potassium Bicarb/Potassium Chloride (K-Lyte Cl Eff) 50 meq PO UNSCH PRN PRN Reason: For Potassium 3.3 - 3.5 mEq/L Potassium Chloride (K-Dur) 20 meq PO UNSCH PRN PRN Reason: SEE LABEL COMMENTS Potassium Chloride (K-Dur) 40 meq PO UNSCH PRN PRN Reason: SEE LABEL COMMENTS Potassium Phosphate (K-Phos Original) 500 mg PO DAILY [facility] Last Admin: 01/08/18 08:57 Dose: 500 mg Potassium Phosphate (K-Phos Original) 2,000 mg PO Q4H PRN PRN Reason: Phosphorus Less Than 2.5 mg/dL Potassium Phosphate (K-Phos Original) 2,000 mg PO UNSCH PRN PRN Reason: SEE LABEL COMMENTS Senna/Docusate Sodium (Ruth-Colace) 1 tab PO BID [facility] Last Admin: 01/08/18 21:02 Dose: Not Given Sennosides (Senokot) 17.2 mg PO Q12H PRN PRN Reason: Moderate Constipation Sodium Bicarbonate (Sodium Bicarbonate 8.4% Inj) 50 meq IV.PUSH UNSCH PRN PRN Reason: SEE LABEL COMMENTS Sodium Bicarbonate (Sodium Bicarbonate 8.4% Inj) 100 meq IV.PUSH UNSCH PRN PRN Reason: SEE LABEL COMMENTS Sodium Chloride (Ns Flush) 2 ml IV.FLUSH PRN PRN PRN Reason: FLUSH AFTER USING IV ACCESS Sodium Chloride (Ns Flush) 2 ml IV.FLUSH BID [facility] Last Admin: 01/08/18 22:29 Dose: 2 ml Sodium Chloride (Ns Flush) 2 ml IV.FLUSH PRN PRN PRN Reason: FLUSH AFTER USING IV ACCESS Tamsulosin HCl (Flomax) 0.4 mg PO DAILY [facility] Last Admin: 01/08/18 08:57 Dose: 0.4 mg Terbutaline Sulfate (Brethine Inj) 1 mg SQ UNSCH PRN PRN Reason: For Extravasation Terbutaline Sulfate (Brethine Inj) 1 mg SQ UNSCH PRN PRN Reason: For Extravasation Terbutaline Sulfate (Brethine Inj) 1 mg SQ ONCE PRN PRN Reason: Extravasation Allergies Allergy/AdvReac Type Severity Reaction Status Date / Time No Known Allergies Allergy Unverified 11/21/17 09:58 Home Medications Medication Instructions Recorded Confirmed Type atorvastatin 20 mg PO HS 12/23/17 12/31/17 History hydrochlorothiazide 25 mg PO DAILY 12/23/17 12/31/17 History Physical Exam Vital signs: Vital Signs 01/08/18 15:00 01/08/18 15:08 01/08/18 16:19 Temperature 97.8 F Pulse Rate 77 76 69 Respiratory Rate 18 Blood Pressure 128/76 Pulse Oximetry 99 01/08/18 17:15 01/08/18 18:10 01/08/18 19:00 Temperature 97.9 F Pulse Rate 77 78 86 Respiratory Rate 20 Blood Pressure 119/72 Pulse Oximetry 99 01/08/18 20:00 01/08/18 21:00 01/08/18 22:00 Temperature Pulse Rate 72 62 74 Respiratory Rate Blood Pressure Pulse Oximetry 01/08/18 23:00 01/09/18 00:00 01/09/18 01:00 Temperature 97.9 F Pulse Rate 86 75 64 Respiratory Rate 20 Blood Pressure 119/72 Pulse Oximetry 99 01/09/18 02:00 01/09/18 03:00 01/09/18 04:00 Temperature 98 F Pulse Rate 83 76 66 Respiratory Rate 22 Blood Pressure 126/61 Pulse Oximetry 98 01/09/18 05:00 01/09/18 06:00 Temperature Pulse Rate 72 78 Respiratory Rate Blood Pressure Pulse Oximetry Intake & Output 01/08/18 01/09/18 01/09/18 18:59 06:59 18:59 Intake Total 1200 / 1200 240 / 240 3830 / 3830 Output Total 1200 / 1200 Balance 1200 / 1200 240 / 240 2630 / 2630 Weight 82 kg 82 kg Intake: IV 1100 / 1100 LR 1000 mL Inj 1,000 ML @ 30 1000 / 1000 mls/hr IV.SIG .Q24H JONNY Rx#: [id number] Ancef Inj 2,000 MG In NS Inj 80 100 / 100 ML @ 200 mls/hr IV.SIG BALL WINDER JONNY Rx#:[id number] Oral 1200 / 1200 240 / 240 Anesthesia Amount 2500 / 2500 Cell Saver Amount 230 / 230 Output: Estimated Blood Loss 500 / 500 Urine Amount (Catheter) 700 / 700 Indwelling Temp Sensing 700 / 700 Catheter Other: # Voids 4 5 Date of Last Bowel Movement 01/07/18 01/08/18 # Bowel Movements 1 Narrative: GENERAL: 77-year-old AA male currently orotracheally intubated with an OG tube in place SKIN: Warm and dry. HEAD: Atraumatic. Normocephalic. EYES: Pupils equal and round about 2 mm reactive to 1 mm bilaterally. No scleral icterus. No injection or drainage. ENT: No nasal bleeding or discharge. Mucous membranes pink and moist. NECK: Trachea midline. No JVD. Left IJ cordis in place with dual-lumen catheter CARDIOVASCULAR: Regular rate and rhythm. S1, S2. No S4. Mediastinal chest tube in place -20 cm H2O with 100 cc of serosanguineous output RESPIRATORY: Few faint crackles appreciated in the left lobes anteriorly posteriorly no wheezing GASTROINTESTINAL: Abdomen soft, non-tender, nondistended. I do not appreciate bowel sounds MUSCULOSKELETAL: Extremities Byron wrap around left lower extremity. Palpable pulses bilaterally. NEUROLOGICAL: Arousable on the ventilator moves all 4 extremities spontaneously. Nods head to command. PSYCHIATRIC: Unable to assess - Urinary Catheter Management Indwelling Temp Sensing Catheter Cath placed during this visit: yes Reason for continuing: Hourly intake/output Insertion date: 01/09/18 Insertion time: 07:39 Assessment and Plan - Assessment and Plan Plan: Neuro/Psych: History of TIA/CVA On schedule Ofirmev 1 g IV every 6 hours 4 dosages Hydrate codeine/acetaminophen 5/325 1 tablet every 2 hours as needed pain Morphine sulfate 1 mg IV every 10 minutes as needed pain CV: Postop day #0 CABG 3 -HEAD to LAD, reverse saphenous vein graft OM and RCA with left EVH Atrial fibrillation History of essential hypertension Hyperlipidemia Coronary disease/PCI/bare metal stent LAD 12/[address] Nolen Chronic systolic heart failure ejection fraction 44% 12/06 History of AAA status post repair Written for amiodarone 200 mg by mouth twice daily Continue atorvastatin 20 g daily/home medications for dyslipidemia Currently on aspirin 81 mg daily and clopidogrel 75 mg daily/home medications Holding home medications of olmesartan medoxomil 40 mg daily, propranolol 80 mg daily and hydrochlorthiazide 25 mg daily. Written for amlodipine 10 mg daily. Currently on Jacques-Synephrine drip at 80 mcg/min, dopamine drip at 5 mcg/kg/min and epinephrine 10 mcg/min. Will wean off phenylephrine drip followed by dopamine and epinephrine as indicated. Resp: Postoperative respiratory failure Weaning ventilator currently in SIMV attempt extubate today. Albuterol/ipratropium aerosols every 6 hours/every 2 hours as needed dyspnea Follow-up chest x-ray revealed adequate positioning of mediastinal/left chest tube. 100 cc serosanguineous output since OR. Extubation GI: Hypoalbuminemia OG tube to suction No GI prophylaxis at this time Bowel regimen when indicated : History of urethral stricture Ramos catheter if indicated likely removal in a.m. Endo: Currently on insulin drip at 3 units an hour. Wean per protocol to maintain tight glycemic control 140-180 Renal: Chronic kidney disease stage II Creatinine currently 1.23. Monitor urine output Accurate I's and O's Avoid nephrotoxic medication Heme: Normocytic anemia Chronic apixaban use Monitor CBC daily follow trends. No indication for transfusion of blood products at this time. ID: Admission with E. coli bacteremia/urinary tract infection Treated with ceftriaxone 2 g IV every 24 hours through 01/04. Currently on cefazolin 2 g IV every [address] surgery MSK: PT evaluate and treat FEN: Replace electrolytes as clinically indicated per CT surgery electrolyte protocol Access -Utilize peripheral IV. -Left IJ cordis with dual-lumen catheter day #1 01/09 -Right radial arterial line day #1 Prophylaxis -GI -DVT-WINSTON hose to right lower extremity. Pharmacological prophylaxis when okay with CT surgery 35 minutes critical care time
[2018-01-09] MEDS ORDERED: Phenylephrine Inj 40 MG in Dextrose 5% in Water Inj 496 ML IV.CONT PRN ×2 (14:28)
--- NOTE | 2018-01-09 14:34 | XR ---
EXAM DATE: 01/09/2018 2:07 PM EDT AGE/SEX: 77 years / Male INDICATIONS: Post op CABG. CLINICAL DATA: This is the patient's initial encounter. Patient reports that signs and symptoms have been present for 1 day and indicates a pain score of Nonresponsive. MEDICAL/SURGICAL HISTORY: Cardiovascular disease. None. COMPARISON: C, CHEST 1V SINGLE AP, 01/01/2018. . FINDINGS: Median sternotomy wires are noted status post cardiac surgery. Left chest tube and mediastinal drain are in good positions. There is no pneumothorax. Left internal jugular central line has its tip in pereyra perior vena cava. A nasogastric tube has its tip in the distal esophagus. Mild central pulmonary vasc ular congestion is noted. The heart is enlarged. CONCLUSION: 1. Mild central pulmonary vascular congestion. 2. Cardiomegaly. 3. Multiple tubes and lines are in good positions. Electronically signed by: Ross Santana MD 01/09/2018 2:33 PM EDT
--- NOTE | 2018-01-09 14:59 | P.PNCA ---
Subjective Interval history: intubated, sedated Medications and Allergies Active Medications: Active Medications Acetaminophen (Tylenol) 650 mg PO Q4H PRN PRN Reason: Temp > 100.4 Last Admin: 12/25/17 16:24 Dose: 650 mg Hydrocodone Bitart/Acetaminophen (Rogers 5/325) 1 tab PO Q3H PRN PRN Reason: PAIN SCALE 1 TO 5 Al Hydroxide/Mg Hydroxide (Milk Of Magnesia Liq) 30 ml PO Q12H PRN PRN Reason: Mild Constipation Albuterol (Duoneb Neb (Jonny)) 1 ampul NEB Q6HR NEB JONNY Albuterol (Duoneb Neb (Prn)) 1 ampul NEB Q2HR NEB PRN PRN Reason: WHEEZING Amiodarone HCl (Cordarone) 200 mg PO Q12HR JONNY Last Admin: 01/08/18 22:29 Dose: 200 mg Aspirin (Aspirin Chew) 81 mg PO DAILY JONNY Atorvastatin Calcium (Lipitor) 20 mg PO HS [facility] Last Admin: 01/08/18 22:29 Dose: 20 mg Bisacodyl (Dulcolax Supp) 10 mg RECTAL DAILY PRN PRN Reason: SEVERE CONSITIPATION Calcium Chloride (Calcium Chloride Inj) 0.5 gm IV.PUSH UNSCH PRN PRN Reason: SEE LABEL COMMENTS Clopidogrel Bisulfate (Plavix) 75 mg PO DAILY [facility] Dextrose (D50w Vial) 50 ml IV.PUSH UNSCH PRN PRN Reason: PER HYPOGLYCEMIA PROTOCOL Fentanyl Citrate (Fentanyl Inj) 25 mcg IV.PUSH Q1H PRN PRN Reason: BREAKTHROUGH PAIN Sodium Chloride (Ns Inj) 1,000 mls @ 0 mls/hr IV.SIG BOLUS JONNY Magnesium Sulfate Inj 4 gm/ (Sodium Chloride) 100 mls @ 50 mls/hr IV.SIG UNSCH PRN PRN Reason: For Magnesium 0.9 - 1.1 mg/dL Magnesium Sulfate Inj 2 gm/ (Sodium Chloride) 100 mls @ 50 mls/hr IV.SIG UNSCH PRN PRN Reason: For Magnesium 1.2 - 1.6 mg/dL Potassium Chloride (Kcl 40 Meq Premix Inj) 40 meq in 100 mls @ 25 mls/hr IV.SIG Q2H PRN PRN Reason: For Potassium 2.8 - 3.2 mEq/L Potassium Chloride (Kcl 20 Meq Premix Inj) 20 meq in 100 mls @ 50 mls/hr IV.SIG Q2H PRN PRN Reason: For Potassium 3.3 - 3.5 mEq/L Potassium Chloride (Kcl 40 Meq Premix Inj) 40 meq in 100 mls @ 25 mls/hr IV.SIG UNSCH PRN PRN Reason: For Potassium 3.3 - 3.5 mEq/L Potassium Chloride (Kcl 20 Meq Premix Inj) 20 meq in 100 mls @ 50 mls/hr IV.SIG Q2H PRN PRN Reason: For Potassium 2.8 - 3.2 mEq/L Last Infusion: 12/28/17 11:40 Dose: Infused Potassium Phosphate 30 mmol/ (Sodium Chloride) 260 mls @ 42 mls/hr IV.SIG UNSCH PRN PRN Reason: SEE LABEL COMMENTS Sodium Phosphate 30 mmol/ (Sodium Chloride) 260 mls @ 42 mls/hr IV.SIG UNSCH PRN PRN Reason: For Phosphorus < 2.5 mg/dL Lactated Ringer's (Lr 1000 Ml Inj) 1,000 mls @ 30 mls/hr IV.SIG .Q24H JONNY Stop: 01/10/18 00:14 Last Infusion: 01/09/18 11:59 Dose: Infused Sodium Chloride (Ns Inj) 500 mls @ 30 mls/hr IV.SIG .Q10H JONNY Last Admin: 01/09/18 00:04 Dose: Not Given Albumin Human (Buminate 5% Inj) 250 mls @ 250 mls/hr IV.SIG UNSCH PRN PRN Reason: SEE LABEL COMMENTS Calcium Chloride 1 gm/ Sodium (Chloride) 110 mls @ 100 mls/hr IV.SIG PRN PRN PRN Reason: SEE LABEL COMMENTS Cefazolin Sodium 2,000 mg/ (Sodium Chloride) 100 mls @ 200 mls/hr IV.SIG Q8H JONNY Stop: 01/10/18 21:29 Dexmedetomidine HCl 200 mcg/ (Sodium Chloride) 50 mls @ 4.1 mls/hr IV.CONT TITRATE PRN; Protocol PRN Reason: Per Protocol Last Admin: 01/09/18 14:38 Dose: 0.2 mcg/kg/hr, 4.1 mls/hr Insulin Human Regular 100 unit (/ Sodium Chloride) 100 mls @ 3 mls/hr IV.CONT TITRATE PRN; Protocol PRN Reason: See Protocol Last Admin: 01/09/18 14:36 Dose: 3 units/hr, 3 mls/hr Magnesium Sulfate 2 gm/ Sodium (Chloride) 100 mls @ 50 mls/hr IV.SIG PRN PRN PRN Reason: SEE LABEL COMMENTS Potassium Chloride (Kcl 20 Meq Premix Inj) 20 meq in 100 mls @ 50 mls/hr IV.SIG PRN PRN PRN Reason: SEE LABEL COMMENTS Lactated Ringer's (Lr 1000 Ml Inj) 500 mls @ 500 mls/hr IV.SIG .Q1H PRN PRN Reason: SEE LABEL COMMENTS Magnesium Sulfate 2 gm/ Sodium (Chloride) 100 mls @ 50 mls/hr IV.SIG PRN PRN PRN Reason: SEE LABEL COMMENTS Phenylephrine HCl 40 mg/ (Sodium Chloride) 500 mls @ 30 mls/hr IV.CONT TITRATE PRN; Protocol PRN Reason: See Protocol Last Admin: 01/09/18 14:36 Dose: 40 mcg/min, 30 mls/hr Potassium Chloride (Kcl 20 Meq Premix Inj) 20 meq in 100 mls @ 50 mls/hr IV.SIG PRN PRN PRN Reason: SEE LABEL COMMENTS Potassium Chloride (Kcl 20 Meq Premix Inj) 20 meq in 100 mls @ 50 mls/hr IV.SIG PRN PRN PRN Reason: SEE LABEL COMMENTS Dopamine HCl/Dextrose (Dopamine 400 Mg/250 Ml Premix) 400 mg in 250 mls @ 9.225 mls/hr IV.CONT TITRATE PRN; Protocol PRN Reason: PER PROTOCOL Last Admin: 01/09/18 14:00 Dose: 3 mcg/kg/min, 9.23 mls/hr Epinephrine HCl 2 mg/ Dextrose 250 mls @ 22.5 mls/hr IV.CONT TITRATE PRN; Protocol PRN Reason: Per Protocol Last Admin: 01/09/18 14:48 Dose: 3 mcg/min, 22.5 mls/hr Phenylephrine HCl 40 mg/ (Dextrose) 500 mls @ 30 mls/hr IV.CONT TITRATE PRN; Protocol PRN Reason: Per Protocol Ketorolac Tromethamine (Toradol Inj) 15 mg IV.PUSH Q6H PRN PRN Reason: SEE LABEL COMMENTS Stop: 01/11/18 12:36 Lactulose (Lactulose Liq) 30 ml PO DAILY PRN PRN Reason: SEVERE CONSITIPATION Magnesium Oxide (Mag-Ox) 800 mg PO UNSCH PRN PRN Reason: For Magnesium 1.2 - 1.6 mg/dL Meperidine HCl (Demerol Inj) 12.5 mg IV.PUSH Q4H PRN PRN Reason: SHIVERING Metoprolol Tartrate (Lopressor Inj) 2.5 mg IV.PUSH Q1H PRN PRN Reason: SEE LABEL COMMENTS Morphine Sulfate (Morphine Inj) 1 mg IV.PUSH Q10M PRN PRN Reason: PAIN SCALE 1 TO 5 Ondansetron HCl (Zofran Inj) 4 mg IV.PUSH Q6H PRN PRN Reason: NAUSEA OR VOMITING Pantoprazole Sodium (Protonix) 40 mg PO DAILY@06 [facility] Phenylephrine HCl (Neosynephrine Inj) 0.1 mg IV.PUSH UNSCH PRN PRN Reason: SEE LABEL COMMENTS Potassium Bicarb/Potassium Chloride (K-Lyte Cl Eff) 50 meq PO UNSCH PRN PRN Reason: For Potassium 3.3 - 3.5 mEq/L Potassium Chloride (K-Dur) 20 meq PO UNSCH PRN PRN Reason: SEE LABEL COMMENTS Potassium Chloride (K-Dur) 40 meq PO UNSCH PRN PRN Reason: SEE LABEL COMMENTS Potassium Phosphate (K-Phos Original) 500 mg PO DAILY [facility] Last Admin: 01/08/18 08:57 Dose: 500 mg Potassium Phosphate (K-Phos Original) 2,000 mg PO Q4H PRN PRN Reason: Phosphorus Less Than 2.5 mg/dL Potassium Phosphate (K-Phos Original) 2,000 mg PO UNSCH PRN PRN Reason: SEE LABEL COMMENTS Senna/Docusate Sodium (Ruth-Colace) 1 tab PO BID [facility] Last Admin: 01/08/18 21:02 Dose: Not Given Sennosides (Senokot) 17.2 mg PO Q12H PRN PRN Reason: Moderate Constipation Sodium Bicarbonate (Sodium Bicarbonate 8.4% Inj) 50 meq IV.PUSH UNSCH PRN PRN Reason: SEE LABEL COMMENTS Sodium Bicarbonate (Sodium Bicarbonate 8.4% Inj) 100 meq IV.PUSH UNSCH PRN PRN Reason: SEE LABEL COMMENTS Sodium Chloride (Ns Flush) 2 ml IV.FLUSH PRN PRN PRN Reason: FLUSH AFTER USING IV ACCESS Sodium Chloride (Ns Flush) 2 ml IV.FLUSH BID [facility] Last Admin: 01/08/18 22:29 Dose: 2 ml Sodium Chloride (Ns Flush) 2 ml IV.FLUSH PRN PRN PRN Reason: FLUSH AFTER USING IV ACCESS Tamsulosin HCl (Flomax) 0.4 mg PO DAILY [facility] Last Admin: 01/08/18 08:57 Dose: 0.4 mg Terbutaline Sulfate (Brethine Inj) 1 mg SQ UNSCH PRN PRN Reason: For Extravasation Terbutaline Sulfate (Brethine Inj) 1 mg SQ UNSCH PRN PRN Reason: For Extravasation Terbutaline Sulfate (Brethine Inj) 1 mg SQ ONCE PRN PRN Reason: Extravasation Terbutaline Sulfate (Brethine Inj) 1 mg SQ ONCE PRN PRN Reason: Extravasation Terbutaline Sulfate (Brethine Inj) 1 mg SQ UNSCH PRN PRN Reason: For Extravasation Allergies Allergy/AdvReac Type Severity Reaction Status Date / Time No Known Allergies Allergy Unverified 11/21/17 09:58 Home Medications Medication Instructions Recorded Confirmed Type atorvastatin 20 mg PO HS 12/23/17 12/31/17 History hydrochlorothiazide 25 mg PO DAILY 12/23/17 12/31/17 History Physical Exam Vital signs: Vital Signs 01/08/18 15:00 01/08/18 15:08 01/08/18 16:19 Temperature 97.8 F Pulse Rate 77 76 69 Respiratory Rate 18 Blood Pressure 128/76 Pulse Oximetry 99 01/08/18 17:15 01/08/18 18:10 01/08/18 19:00 Temperature 97.9 F Pulse Rate 77 78 86 Respiratory Rate 20 Blood Pressure 119/72 Pulse Oximetry 99 01/08/18 20:00 01/08/18 21:00 01/08/18 22:00 Temperature Pulse Rate 72 62 74 Respiratory Rate Blood Pressure Pulse Oximetry 01/08/18 23:00 01/09/18 00:00 01/09/18 01:00 Temperature 97.9 F Pulse Rate 86 75 64 Respiratory Rate 20 Blood Pressure 119/72 Pulse Oximetry 99 01/09/18 02:00 01/09/18 03:00 01/09/18 04:00 Temperature 98 F Pulse Rate 83 76 66 Respiratory Rate 22 Blood Pressure 126/61 Pulse Oximetry 98 01/09/18 05:00 01/09/18 06:00 Temperature Pulse Rate 72 78 Respiratory Rate Blood Pressure Pulse Oximetry Intake & Output 01/08/18 01/09/18 01/09/18 18:59 06:59 18:59 Intake Total 1200 / 1200 240 / 240 3830 / 3830 Output Total 1200 / 1200 Balance 1200 / 1200 240 / 240 2630 / 2630 Weight 82 kg 82 kg Intake: IV 1100 / 1100 LR 1000 mL Inj 1,000 ML @ 30 1000 / 1000 mls/hr IV.SIG .Q24H [facility] Rx#: [id number] Ancef Inj 2,000 MG In NS Inj 80 100 / 100 ML @ 200 mls/hr IV.SIG [employer]NAL [employer]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 JONNY Rx#:[id number] Oral 1200 / 1200 240 / 240 Anesthesia Amount 2500 / 2500 Cell Saver Amount 230 / 230 Output: Estimated Blood Loss 500 / 500 Urine Amount (Catheter) 700 / 700 Indwelling Temp Sensing 700 / 700 Catheter Other: # Voids 4 5 Date of Last Bowel Movement 01/07/18 01/08/18 # Bowel Movements 1 - Urinary Catheter Management Indwelling Temp Sensing Catheter Cath placed during this visit: yes Reason for continuing: Hourly intake/output Insertion date: 01/09/18 Insertion time: 07:39 Results 01/08/18 04:44 01/08/18 04:44 Cardiac Enzymes 01/08/18 Range/Units 04:44 AST 30 (15-37) U/L Coagulation 01/08/18 Range/Units 04:44 PT 11.1 (9.8-11.6) sec CBC 01/08/18 Range/Units 04:44 WBC 4.7 (4.0-11.0) th/mm3 RBC 4.01 L (4.50-5.90) mil/mm3 Hgb 11.9 L (13.0-17.0) gm/dL Hct 37.3 L (39.0-51.0) % Plt Count 237 (150-450) th/mm3 Neut # (Auto) 3.1 (1.8-7.7) th/mm3 Lymph # (Auto) 1.0 (1.0-4.8) th/mm3 Sharp # (Auto) 0.4 (0.0-0.9) th/mm3 Eos # (Auto) 0.1 (0.0-0.4) th/mm3 Baso # (Auto) 0.0 (0.0-0.2) th/mm3 Comprehensive Metabolic Panel 01/08/18 Range/Units 04:44 Sodium 143 (136-145) meq/L Potassium 3.7 (3.5-5.1) meq/L Chloride 111 H (98-107) meq/L Carbon Dioxide 20.9 L (21.0-32.0) meq/L BUN 17 (7-18) mg/dL Creatinine 1.21 (0.60-1.30) mg/dL Calcium 8.8 (8.5-10.1) mg/dL AST 30 (15-37) U/L ALT 58 (12-78) U/L Alkaline Phosphatase 81 (45-117) U/L Total Protein 6.7 (6.4-8.2) g/dL Albumin 2.6 L (3.4-5.0) g/dL Intake and Output 01/08/18 01/09/18 01/09/18 22:59 06:59 14:59 Intake Total 1200 / 1200 240 / 240 3830 / 3830 Output Total 1200 / 1200 Balance 1200 / 1200 240 / 240 2630 / 2630 Intake: IV 1100 / 1100 LR 1000 mL Inj 1,000 ML @ 30 1000 / 1000 mls/hr IV.SIG .Q24H JONNY Rx#: [id number] Ancef Inj 2,000 MG In NS Inj 80 100 / 100 ML @ 200 mls/hr IV.SIG 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 JONNY Rx#:[id number] Oral 1200 / 1200 240 / 240 Anesthesia Amount 2500 / 2500 Cell Saver Amount 230 / 230 Output: Estimated Blood Loss 500 / 500 Urine Amount (Catheter) 700 / 700 Indwelling Temp Sensing 700 / 700 Catheter Other: # Voids 4 5 Date of Last Bowel Movement 01/07/18 01/08/18 # Bowel Movements 1 Weight 82 kg 82 kg Patient Weight 01/10/18 06:59 Weight 82 kg - Imaging and Cardiology Imaging: Impressions Chest X-Ray 01/09/18 12:37 CONCLUSION: 1. Mild central pulmonary vascular congestion. 2. Cardiomegaly. 3. Multiple tubes and lines are in good positions. Assessment and Plan - Assessment (1) NSTEMI (non-ST elevated myocardial infarction) Code(s): I21.4 - Non-ST elevation (NSTEMI) myocardial infarction Status: Acute (2) CHF (congestive heart failure) Code(s): I50.9 - Heart failure, unspecified Status: Acute (3) Acute decompensated heart failure Code(s): I50.9 - Heart failure, unspecified Status: Acute (4) Afib Code(s): I48.91 - Unspecified atrial fibrillation Status: Chronic (5) Wide-complex tachycardia Code(s): I47.2 - Ventricular tachycardia Status: Acute (6) Acute UTI Code(s): N39.0 - Urinary tract infection, site not specified Status: Acute (7) CAD (coronary artery disease) Code(s): I25.10 - Atherosclerotic heart disease of [place] coronary artery without angina pectoris Status: Acute (8) CVA (cerebral vascular accident) Code(s): I63.9 - Cerebral infarction, unspecified Status: Acute (9) Sepsis Code(s): A41.9 - Sepsis, unspecified organism Status: Acute - Plan 1.) CAD - pod #0 s/p cabg, on pressors, on 60% O2 (7) CAD (coronary artery disease) Qualifiers: Coronary Disease-Associated Artery/Lesion type: [place] artery (9) Sepsis Qualifiers: Sepsis type: Escherichia coli Qualified Code(s): A41.51 - Sepsis due to Escherichia coli [E. coli]
[2018-01-09] MEDS ORDERED: ceFAZolin 2 GM Premix Inj 2 GM/100 ML BAG IV.SIG SCH (16:00)
[2018-01-09] MEDS: Amiodarone 200 MG Tablet PO SCH ×2 (16:14→21:32)
[2018-01-09] MEDS: Potassium Phosphate 500 MG Soluble Tablet PO SCH (16:15)
[2018-01-09] MEDS: Senna/Docusate Sodium 8.6/50 MG Tablet PO SCH ×2 (16:15→21:32)
[2018-01-09] MEDS: ceFAZolin 2 GM Premix Inj 2 GM/100 ML BAG IV.SIG SCH (21:32)
[2018-01-09] MEDS: Albumin Human 5% Inj 250 ML IV.SIG PRN ×2 (22:14→23:52)
[2018-01-10 05:09] LABS: Hematocrit 27.2 % (39.0-51.0); Hemoglobin 8.9 gm/dL (13.0-17.0); Mean Corpuscular HGB Conc 32.9 % (32.0-36.0); Mean Corpuscular Hemoglobin 30.5 pg (27.0-34.0); Mean Corpuscular Volume 92.6 fL (80.0-100.0); Mean Platelet Volume 8.3 fL (7.0-11.0); Platelet Count 152 th/mm3 (150-450); Red Blood Count 2.93 mil/mm3 (4.50-5.90); Red Cell Distribution Width 14.9 % (11.6-17.2); White Blood Count 8.2 th/mm3 (4.0-11.0)
--- NOTE | 2018-01-10 05:18 | XR ---
EXAM DATE: 01/10/2018 5:13 AM EDT AGE/SEX: 77 years / Male INDICATIONS: Shortness of breath, possible pneumothorax. CLINICAL DATA: This is the patient's subsequent encounter. Patient reports that signs and symptoms h ave been present for 2 days and indicates a pain score of 8/10. MEDICAL/SURGICAL HISTORY: Cardiovascular disease. CABG. COMPARISON: [facility], CHEST 1V SINGLE AP, 01/09/2018. . FINDINGS: Small effusion and mild atelectasis at the left base unchanged. Right lung is clear. No pneumothorax. Mild cardiomegaly again noted. Patient has had median sternotomy. Mediastinal drain and left chest tu be remain in place. Left internal jugular central venous catheter with tip in the superior vena cava unchanged. Endotracheal tube and nasogastric tube removed in the interim. CONCLUSION: 1. No significant change small effusion and mild atelectasis at the left base. 2. Interim extubation and nasogastric tube removal. 3. Mediastinal drain, left chest tube and left IJ central venous catheter remain. No pneumothorax. Electronically signed by: Sohail Solis MD 01/10/2018 5:16 AM EDT
[2018-01-10 05:32] LABS: Anion Gap 9 meq/L (5-15); Blood Urea Nitrogen 10 mg/dL (7-18); Calcium 7.8 mg/dL (8.5-10.1); Carbon Dioxide 22.5 meq/L (21.0-32.0); Chloride 111 meq/L (98-107); Glomerular Filtration Rate Greater Than 89 mL/min (>89); Glucose,Random 87 mg/dL (74-106); Magnesium 1.9 mg/dL (1.5-2.5); Potassium 4.6 meq/L (3.5-5.1); Sodium 142 meq/L (136-145)
[2018-01-10] MEDS: ceFAZolin 2 GM Premix Inj 2 GM/100 ML BAG IV.SIG SCH ×3 (05:34→20:51)
--- NOTE | 2018-01-10 07:13 | P.PNCA ---
Subjective Interval history: alert in nad, extubated Medications and Allergies Active Medications: Active Medications Acetaminophen (Tylenol) 650 mg PO Q4H PRN PRN Reason: Temp > 100.4 Last Admin: 12/25/17 16:24 Dose: 650 mg Hydrocodone Bitart/Acetaminophen (Provencal 5/325) 1 tab PO Q3H PRN PRN Reason: PAIN SCALE 1 TO 5 Al Hydroxide/Mg Hydroxide (Milk Of Magnesia Liq) 30 ml PO Q12H PRN PRN Reason: Mild Constipation Albuterol (Duoneb Neb (Jonny)) 1 ampul NEB Q6HR NEB JONNY Last Admin: 01/10/18 04:17 Dose: 1 ampul Albuterol (Duoneb Neb (Prn)) 1 ampul NEB Q2HR NEB PRN PRN Reason: WHEEZING Amiodarone HCl (Cordarone) 200 mg PO Q12HR [facility] Last Admin: 01/09/18 21:32 Dose: 200 mg Aspirin (Aspirin Chew) 81 mg PO DAILY JONNY Atorvastatin Calcium (Lipitor) 20 mg PO HS [facility] Last Admin: 01/09/18 21:32 Dose: 20 mg Bisacodyl (Dulcolax Supp) 10 mg RECTAL DAILY PRN PRN Reason: SEVERE CONSITIPATION Calcium Chloride (Calcium Chloride Inj) 0.5 gm IV.PUSH UNSCH PRN PRN Reason: SEE LABEL COMMENTS Clopidogrel Bisulfate (Plavix) 75 mg PO DAILY [facility] Dextrose (D50w Vial) 50 ml IV.PUSH UNSCH PRN PRN Reason: PER HYPOGLYCEMIA PROTOCOL Fentanyl Citrate (Fentanyl Inj) 25 mcg IV.PUSH Q1H PRN PRN Reason: BREAKTHROUGH PAIN Sodium Chloride (Ns Inj) 1,000 mls @ 0 mls/hr IV.SIG BOLUS JONNY Magnesium Sulfate Inj 4 gm/ (Sodium Chloride) 100 mls @ 50 mls/hr IV.SIG UNSCH PRN PRN Reason: For Magnesium 0.9 - 1.1 mg/dL Magnesium Sulfate Inj 2 gm/ (Sodium Chloride) 100 mls @ 50 mls/hr IV.SIG UNSCH PRN PRN Reason: For Magnesium 1.2 - 1.6 mg/dL Potassium Chloride (Kcl 40 Meq Premix Inj) 40 meq in 100 mls @ 25 mls/hr IV.SIG Q2H PRN PRN Reason: For Potassium 2.8 - 3.2 mEq/L Potassium Chloride (Kcl 20 Meq Premix Inj) 20 meq in 100 mls @ 50 mls/hr IV.SIG Q2H PRN PRN Reason: For Potassium 3.3 - 3.5 mEq/L Potassium Chloride (Kcl 40 Meq Premix Inj) 40 meq in 100 mls @ 25 mls/hr IV.SIG UNSCH PRN PRN Reason: For Potassium 3.3 - 3.5 mEq/L Potassium Chloride (Kcl 20 Meq Premix Inj) 20 meq in 100 mls @ 50 mls/hr IV.SIG Q2H PRN PRN Reason: For Potassium 2.8 - 3.2 mEq/L Last Infusion: 12/28/17 11:40 Dose: Infused Potassium Phosphate 30 mmol/ (Sodium Chloride) 260 mls @ 42 mls/hr IV.SIG UNSCH PRN PRN Reason: SEE LABEL COMMENTS Sodium Phosphate 30 mmol/ (Sodium Chloride) 260 mls @ 42 mls/hr IV.SIG UNSCH PRN PRN Reason: For Phosphorus < 2.5 mg/dL Sodium Chloride (Ns Inj) 500 mls @ 30 mls/hr IV.SIG .Q10H JONNY Last Admin: 01/09/18 00:04 Dose: Not Given Calcium Chloride 1 gm/ Sodium (Chloride) 110 mls @ 100 mls/hr IV.SIG PRN PRN PRN Reason: SEE LABEL COMMENTS Last Infusion: 01/09/18 20:35 Dose: Infused Dexmedetomidine HCl 200 mcg/ (Sodium Chloride) 50 mls @ 4.1 mls/hr IV.CONT TITRATE PRN; Protocol PRN Reason: Per Protocol Last Titration: 01/09/18 18:46 Dose: 0 mcg/kg/hr, 0 mls/hr Insulin Human Regular 100 unit (/ Sodium Chloride) 100 mls @ 3 mls/hr IV.CONT TITRATE PRN; Protocol PRN Reason: See Protocol Last Titration: 01/10/18 02:02 Dose: 0 units/hr, 0 mls/hr Magnesium Sulfate 2 gm/ Sodium (Chloride) 100 mls @ 50 mls/hr IV.SIG PRN PRN PRN Reason: SEE LABEL COMMENTS Potassium Chloride (Kcl 20 Meq Premix Inj) 20 meq in 100 mls @ 50 mls/hr IV.SIG PRN PRN PRN Reason: SEE LABEL COMMENTS Last Infusion: 01/09/18 18:46 Dose: Infused Lactated Ringer's (Lr 1000 Ml Inj) 500 mls @ 500 mls/hr IV.SIG .Q1H PRN PRN Reason: SEE LABEL COMMENTS Last Infusion: 01/10/18 01:23 Dose: Infused Magnesium Sulfate 2 gm/ Sodium (Chloride) 100 mls @ 50 mls/hr IV.SIG PRN PRN PRN Reason: SEE LABEL COMMENTS Phenylephrine HCl 40 mg/ (Sodium Chloride) 500 mls @ 30 mls/hr IV.CONT TITRATE PRN; Protocol PRN Reason: See Protocol Last Titration: 01/09/18 18:46 Dose: 0 mcg/min, 0 mls/hr Potassium Chloride (Kcl 20 Meq Premix Inj) 20 meq in 100 mls @ 50 mls/hr IV.SIG PRN PRN PRN Reason: SEE LABEL COMMENTS Last Infusion: 01/10/18 03:26 Dose: Infused Potassium Chloride (Kcl 20 Meq Premix Inj) 20 meq in 100 mls @ 50 mls/hr IV.SIG PRN PRN PRN Reason: SEE LABEL COMMENTS Dopamine HCl/Dextrose (Dopamine 400 Mg/250 Ml Premix) 400 mg in 250 mls @ 9.225 mls/hr IV.CONT TITRATE PRN; Protocol PRN Reason: PER PROTOCOL Last Titration: 01/10/18 02:02 Dose: 3 mcg/kg/min, 9.23 mls/hr Epinephrine HCl 2 mg/ Dextrose 250 mls @ 22.5 mls/hr IV.CONT TITRATE PRN; Protocol PRN Reason: Per Protocol Last Titration: 01/10/18 01:00 Dose: 0 mcg/min, 0 mls/hr Phenylephrine HCl 40 mg/ (Dextrose) 500 mls @ 30 mls/hr IV.CONT TITRATE PRN; Protocol PRN Reason: Per Protocol Cefazolin/Sodium Chloride (Ancef 2 Gm Premix Inj) 2 gm in 100 mls @ 200 mls/hr IV.SIG Q8H JONNY Stop: 01/11/18 05:29 Last Infusion: 01/10/18 06:35 Dose: Infused Acetaminophen (Ofirmev Inj) 1,000 mg in 100 mls @ 400 mls/hr IV.SIG Q6H JONNY Stop: 01/10/18 12:44 Last Infusion: 01/10/18 06:35 Dose: Infused Ketorolac Tromethamine (Toradol Inj) 15 mg IV.PUSH Q6H PRN PRN Reason: SEE LABEL COMMENTS Stop: 01/11/18 12:36 Lactulose (Lactulose Liq) 30 ml PO DAILY PRN PRN Reason: SEVERE CONSITIPATION Magnesium Oxide (Mag-Ox) 800 mg PO UNSCH PRN PRN Reason: For Magnesium 1.2 - 1.6 mg/dL Meperidine HCl (Demerol Inj) 12.5 mg IV.PUSH Q4H PRN PRN Reason: SHIVERING Metoprolol Tartrate (Lopressor Inj) 2.5 mg IV.PUSH Q1H PRN PRN Reason: SEE LABEL COMMENTS Morphine Sulfate (Morphine Inj) 1 mg IV.PUSH Q10M PRN PRN Reason: PAIN SCALE 1 TO 5 Ondansetron HCl (Zofran Inj) 4 mg IV.PUSH Q6H PRN PRN Reason: NAUSEA OR VOMITING Pantoprazole Sodium (Protonix) 40 mg PO DAILY@06 [facility] Last Admin: 01/10/18 05:35 Dose: 40 mg Phenylephrine HCl (Neosynephrine Inj) 0.1 mg IV.PUSH UNSCH PRN PRN Reason: SEE LABEL COMMENTS Potassium Bicarb/Potassium Chloride (K-Lyte Cl Eff) 50 meq PO UNSCH PRN PRN Reason: For Potassium 3.3 - 3.5 mEq/L Potassium Chloride (K-Dur) 20 meq PO UNSCH PRN PRN Reason: SEE LABEL COMMENTS Potassium Chloride (K-Dur) 40 meq PO UNSCH PRN PRN Reason: SEE LABEL COMMENTS Potassium Phosphate (K-Phos Original) 500 mg PO DAILY [facility] Last Admin: 01/09/18 16:15 Dose: Not Given Potassium Phosphate (K-Phos Original) 2,000 mg PO Q4H PRN PRN Reason: Phosphorus Less Than 2.5 mg/dL Potassium Phosphate (K-Phos Original) 2,000 mg PO UNSCH PRN PRN Reason: SEE LABEL COMMENTS Senna/Docusate Sodium (Ruth-Colace) 1 tab PO BID [facility] Last Admin: 01/09/18 21:32 Dose: 1 tab Sennosides (Senokot) 17.2 mg PO Q12H PRN PRN Reason: Moderate Constipation Sodium Bicarbonate (Sodium Bicarbonate 8.4% Inj) 50 meq IV.PUSH UNSCH PRN PRN Reason: SEE LABEL COMMENTS Sodium Bicarbonate (Sodium Bicarbonate 8.4% Inj) 100 meq IV.PUSH UNSCH PRN PRN Reason: SEE LABEL COMMENTS Sodium Chloride (Ns Flush) 2 ml IV.FLUSH PRN PRN PRN Reason: FLUSH AFTER USING IV ACCESS Sodium Chloride (Ns Flush) 2 ml IV.FLUSH BID [facility] Last Admin: 01/09/18 21:33 Dose: 2 ml Sodium Chloride (Ns Flush) 2 ml IV.FLUSH PRN PRN PRN Reason: FLUSH AFTER USING IV ACCESS Tamsulosin HCl (Flomax) 0.4 mg PO DAILY [facility] Last Admin: 01/09/18 19:36 Dose: Not Given Terbutaline Sulfate (Brethine Inj) 1 mg SQ UNSCH PRN PRN Reason: For Extravasation Terbutaline Sulfate (Brethine Inj) 1 mg SQ UNSCH PRN PRN Reason: For Extravasation Terbutaline Sulfate (Brethine Inj) 1 mg SQ ONCE PRN PRN Reason: Extravasation Terbutaline Sulfate (Brethine Inj) 1 mg SQ ONCE PRN PRN Reason: Extravasation Terbutaline Sulfate (Brethine Inj) 1 mg SQ UNSCH PRN PRN Reason: For Extravasation Allergies Allergy/AdvReac Type Severity Reaction Status Date / Time No Known Allergies Allergy Unverified 11/21/17 09:58 Home Medications Medication Instructions Recorded Confirmed Type atorvastatin 20 mg PO HS 12/23/17 12/31/17 History hydrochlorothiazide 25 mg PO DAILY 12/23/17 12/31/17 History Physical Exam Vital signs: Vital Signs 01/09/18 13:45 01/09/18 14:00 01/09/18 16:00 Temperature 97.6 F 96.2 F L Pulse Rate 65 63 Respiratory Rate 15 14 14 Blood Pressure 117/48 L 117/53 L Pulse Oximetry 94 L 93 L 94 L 01/09/18 16:30 01/09/18 17:00 01/09/18 17:30 Temperature 96.2 F L Pulse Rate 66 66 Respiratory Rate 11 L 14 15 Blood Pressure 117/53 L Pulse Oximetry 95 94 L 95 01/09/18 19:00 01/09/18 19:50 01/09/18 20:15 Temperature 98.6 F Pulse Rate 69 Respiratory Rate Blood Pressure Pulse Oximetry 96 01/09/18 20:31 01/09/18 21:21 01/09/18 22:20 Temperature 96.5 F L Pulse Rate 70 68 Respiratory Rate 20 Blood Pressure 131/50 L Pulse Oximetry 95 98 01/09/18 22:58 01/09/18 23:20 01/10/18 00:31 Temperature 97.6 F Pulse Rate 66 63 Respiratory Rate Blood Pressure 125/46 L Pulse Oximetry 94 L 95 01/10/18 03:00 01/10/18 03:17 01/10/18 04:17 Temperature 97.5 F L Pulse Rate 64 64 68 Respiratory Rate 16 16 Blood Pressure 117/45 L Pulse Oximetry 98 Intake & Output 01/09/18 01/10/18 01/10/18 18:59 06:59 18:59 Intake Total 4484 / 4484 2363 / 2363 Output Total 1945 / 1945 1640 / 1640 Balance 2539 / 2539 723 / 723 Weight 82 kg 95 kg Intake: IV 1754 / 1754 2363 / 2363 DOPamine 400 MG/250 ML Premix 72 / 72 400 mg In 250 ml @ 3 MCG/KG/MIN 9.225 mls/hr IV.CONT TITRATE PRN Rx#:[id number] Precedex Inj 200 MCG In NS Inj / 12 48 ML @ 0.2 MCG/KG/HR 4.1 mls/ hr IV.CONT TITRATE PRN Rx#: [id number] EPINEPHrine (1:1000) Inj 2 MG 338 / 338 144 / 144 In D5W Inj 248 ML @ 3 MCG/MIN 22.5 mls/hr IV.CONT TITRATE PRN Rx#:[id number] NovoLIN R (IV Infusion) 100 24 / 24 UNIT In NS Inj 99 ML @ 3 UNITS/ HR 3 mls/hr IV.CONT TITRATE PRN Rx#:[id number] Neosynephrine Inj 40 MG In NS 8 / 8 Inj 496 ML @ 40 MCG/MIN 30 mls/ hr IV.CONT TITRATE PRN Rx#: [id number] Ofirmev Inj 1,000 mg In 100 ml 290 / 290 @ 400 mls/hr IV.SIG Q6H JONNY Rx# :[id number] Buminate 5% Inj 250 ML @ 250 500 / 500 mls/hr IV.SIG UNSCH PRN Rx#: [id number] Calcium Chloride Inj 1 GM In NS 100 / 100 120 / 120 Inj 100 ML @ 100 mls/hr IV.SIG PRN PRN Rx#:[id number] LR 1000 mL Inj 500 ML @ 500 mls 1000 / 1000 1000 / 1000 /hr IV.SIG .Q1H PRN Rx#: [id number] KCl 20 mEq Premix Inj 20 meq In 100 / 100 104 / 104 100 ml @ 50 mls/hr IV.SIG PRN PRN Rx#:[id number] Ancef 2 GM Premix Inj 2 gm In 205 / 205 100 ml @ 200 mls/hr IV.SIG Q8H JONNY Rx#:[id number] Ancef Inj 2,000 MG In NS Inj 80 100 / 100 ML @ 200 mls/hr IV.SIG [employer] JONNY Rx#:[id number] Anesthesia Amount 2500 / 2500 Cell Saver Amount 230 / 230 Output: Estimated Blood Loss 500 / 500 Urine Amount (Catheter) 1245 / 1245 1470 / 1470 Indwelling Temp Sensing 1245 / 1245 1470 / 1470 Catheter Chest Tube Drainage 200 / 200 170 / 170 Mediastinal 200 / 200 170 / 170 Other: Other Intake Source Saline Solution Date of Last Bowel Movement 01/07/18 # Bowel Movements 0 - Urinary Catheter Management Indwelling Temp Sensing Catheter Cath placed during this visit: yes, but has since been removed by the nurse Reason for continuing: Continue criteria not met Insertion date: 01/09/18 Insertion time: 07:39 Removal date: 01/10/18 Removal time: 06:00 Results 01/10/18 04:18 01/10/18 04:18 CBC 01/10/18 Range/Units 04:18 WBC 8.2 (4.0-11.0) th/mm3 RBC 2.93 L (4.50-5.90) mil/mm3 Hgb 8.9 L D (13.0-17.0) gm/dL Hct 27.2 L (39.0-51.0) % Plt Count 152 D (150-450) th/mm3 Comprehensive Metabolic Panel 01/10/18 Range/Units 04:18 Sodium 142 (136-145) meq/L Potassium 4.6 D (3.5-5.1) meq/L Chloride 111 H (98-107) meq/L Carbon Dioxide 22.5 (21.0-32.0) meq/L BUN 10 (7-18) mg/dL Creatinine 0.81 (0.60-1.30) mg/dL Calcium 7.8 L D (8.5-10.1) mg/dL Intake and Output 01/09/18 01/10/18 01/10/18 22:59 06:59 14:59 Intake Total 1863 / 1863 1154 / 1154 Output Total 745 / 745 1640 / 1640 Balance 1118 / 1118 -486 / -486 Intake: IV 1863 / 1863 1154 / 1154 DOPamine 400 MG/250 ML Premix 72 / 72 400 mg In 250 ml @ 3 MCG/KG/MIN 9.225 mls/hr IV.CONT TITRATE PRN Rx#:[id number] Precedex Inj 200 MCG In NS Inj 12 / 12 48 ML @ 0.2 MCG/KG/HR 4.1 mls/ hr IV.CONT TITRATE PRN Rx#: [id number] EPINEPHrine (1:1000) Inj 2 MG 482 / 482 In D5W Inj 248 ML @ 3 MCG/MIN 22.5 mls/hr IV.CONT TITRATE PRN Rx#:[id number] NovoLIN R (IV Infusion) 100 24 / 24 UNIT In NS Inj 99 ML @ 3 UNITS/ HR 3 mls/hr IV.CONT TITRATE PRN Rx#:[id number] Neosynephrine Inj 40 MG In NS 8 / 8 Inj 496 ML @ 40 MCG/MIN 30 mls/ hr IV.CONT TITRATE PRN Rx#: [id number] Ofirmev Inj 1,000 mg In 100 ml 90 / 90 200 / 200 @ 400 mls/hr IV.SIG Q6H JONNY Rx# :[id number] Buminate 5% Inj 250 ML @ 250 250 / 250 250 / 250 mls/hr IV.SIG UNSCH PRN Rx#: [id number] Calcium Chloride Inj 1 GM In NS 220 / 220 Inj 100 ML @ 100 mls/hr IV.SIG PRN PRN Rx#:[id number] LR 1000 mL Inj 500 ML @ 500 mls 500 / 500 500 / 500 /hr IV.SIG .Q1H PRN Rx#: [id number] KCl 20 mEq Premix Inj 20 meq In 100 / 100 104 / 104 100 ml @ 50 mls/hr IV.SIG PRN PRN Rx#:[id number] Ancef 2 GM Premix Inj 2 gm In 105 / 105 100 / 100 100 ml @ 200 mls/hr IV.SIG Q8H JONNY Rx#:[id number] Output: Urine Amount (Catheter) 545 / 545 1470 / 1470 Indwelling Temp Sensing 545 / 545 1470 / 1470 Catheter Chest Tube Drainage 200 / 200 170 / 170 Mediastinal 200 / 200 170 / 170 Other: Other Intake Source Saline Solution Date of Last Bowel Movement 01/07/18 # Bowel Movements 0 Weight 95 kg - Imaging and Cardiology Imaging: Impressions Chest X-Ray 01/09/18 12:37 CONCLUSION: 1. Mild central pulmonary vascular congestion. 2. Cardiomegaly. 3. Multiple tubes and lines are in good positions. Chest X-Ray 01/10/18 05:00 CONCLUSION: 1. No significant change small effusion and mild atelectasis at the left base. 2. Interim extubation and nasogastric tube removal. 3. Mediastinal drain, left chest tube and left IJ central venous catheter remain. No pneumothorax. Assessment and Plan - Assessment (1) NSTEMI (non-ST elevated myocardial infarction) Code(s): I21.4 - Non-ST elevation (NSTEMI) myocardial infarction Status: Acute (2) CHF (congestive heart failure) Code(s): I50.9 - Heart failure, unspecified Status: Acute (3) Acute decompensated heart failure Code(s): I50.9 - Heart failure, unspecified Status: Acute (4) Afib Code(s): I48.91 - Unspecified atrial fibrillation Status: Chronic (5) Wide-complex tachycardia Code(s): I47.2 - Ventricular tachycardia Status: Acute (6) Acute UTI Code(s): N39.0 - Urinary tract infection, site not specified Status: Acute (7) CAD (coronary artery disease) Code(s): I25.10 - Atherosclerotic heart disease of unga coronary artery without angina pectoris Status: Acute (8) CVA (cerebral vascular accident) Code(s): I63.9 - Cerebral infarction, unspecified Status: Acute (9) Sepsis Code(s): A41.9 - Sepsis, unspecified organism Status: Acute - Plan 1.) CAD - pod #1 s/p cabg, restart eliquis if/when cleared by Dr Ambrose (7) CAD (coronary artery disease) Qualifiers: Coronary Disease-Associated Artery/Lesion type: unga artery (9) Sepsis Qualifiers: Sepsis type: Escherichia coli Qualified Code(s): A41.51 - Sepsis due to Escherichia coli [E. coli]
[2018-01-10] MEDS: DOPamine 400 MG/250 ML Premix 400 MG/250 ML BAG IV.CONT PRN (07:31)
--- NOTE | 2018-01-10 08:10 | P.PNCC ---
Subjective Subjective Remarks/Hospital Course: This is a 77-year-old AA male. Date of admission 12/26/2017. Date of consultation 01/09/2018. Past medical history includes known severe coronary disease, decompensated systolic heart failure, non-STEMI history of coronary disease with a PCI, history of AAA repair, hypertension hyperlipidemia, urethral stricture. Patient originally presented to [facility] of November 2017 with syncope. Patient had a cardiac catheterization at that time which revealed severe three-vessel coronary disease, severe left main disease. At that time patient had a bare-metal stent to his LAD. Was seen by cardiothoracic surgery with outpatient workup for CABG plan. Patient originally presented to [facility] and 12/26 urinary tract symptoms consistent with urinary tract infections fevers, chills dysuria and frequency. Please note that this patient reports that he just completed treatment for UTI with amoxicillin. At time of admission, patient denied any chest pain, shortness of breath. Patient was noted to have E. coli in his urine and his blood. Infectious count was consulted. Initially placed on piperacillin/tazobactam and treated with ceftriaxone through 01/04 and was cleared from their standpoint for surgical intervention. Patient was seen by Dr. Olguin/cardiology recommended CABG. Patient was seen by Dr. Knott who waited the clearance of a bacterial infection as above prior to intervention. Today, the patient underwent three-vessel CABG -HEAD to LAD, reverse saphenous graft to OM and reverse is going to RCA. Left EVH. 3500 cc crystalloid. Cell Saver to 30 cc. EBL was 500. Urine output 700. During the procedure, patient had a direct synchronized cardioversion into a sinus bradycardia. Patient was recovered and transferred room 445. Patient is currently on dopamine at 5 mcg/kg/min, Jacques-Synephrine drip at 80 mcg/ min, epinephrine 10 mcg/min and dexmedetomidine drip for sedation. Insulin drip is currently at 3 units an hour. Patient is slowly recovering on the ventilator with heart rate currently 63 with saturation 93. SUBJECTIVE: 01/10: Resting comfortably in bed in no acute distress. Currently on dopamine at 3 mcg/kg/min. One episode of a flutter overnight currently in normal sinus rhythm. Ramos cath has been removed. Appears comfortable with pain controlled on current regimen. Objective Vital Signs / I&O: Vital Signs 01/09/18 13:45 01/09/18 14:00 01/09/18 16:00 Temperature 97.6 F 96.2 F L Pulse Rate 65 63 Respiratory Rate 15 14 14 Blood Pressure 117/48 L 117/53 L Pulse Oximetry 94 L 93 L 94 L 01/09/18 16:30 01/09/18 17:00 01/09/18 17:30 Temperature 96.2 F L Pulse Rate 66 66 Respiratory Rate 11 L 14 15 Blood Pressure 117/53 L Pulse Oximetry 95 94 L 95 01/09/18 19:00 01/09/18 19:50 01/09/18 20:15 Temperature 98.6 F Pulse Rate 69 Respiratory Rate Blood Pressure Pulse Oximetry 96 01/09/18 20:31 01/09/18 21:21 01/09/18 22:20 Temperature 96.5 F L Pulse Rate 70 68 Respiratory Rate 20 Blood Pressure 131/50 L Pulse Oximetry 95 98 01/09/18 22:58 01/09/18 23:20 01/10/18 00:31 Temperature 97.6 F Pulse Rate 66 63 Respiratory Rate Blood Pressure 125/46 L Pulse Oximetry 94 L 95 01/10/18 03:00 01/10/18 03:17 01/10/18 04:17 Temperature 97.5 F L Pulse Rate 64 64 68 Respiratory Rate 16 16 Blood Pressure 117/45 L Pulse Oximetry 98 Intake & Output 01/09/18 01/10/18 01/10/18 18:59 06:59 18:59 Intake Total 4484 / 4484 2363 / 2363 179 / 179 Output Total 1945 / 1945 1640 / 1640 Balance 2539 / 2539 723 / 723 179 / 179 Weight 82 kg 95 kg Intake: IV 1754 / 1754 2363 / 2363 179 / 179 DOPamine 400 MG/250 ML Premix 72 / 72 179 / 179 400 mg In 250 ml @ 3 MCG/KG/MIN 9.225 mls/hr IV.CONT TITRATE PRN Rx#:[id number] Precedex Inj 200 MCG In NS Inj 48 ML @ 0.2 MCG/KG/HR 4.1 mls/ hr IV.CONT TITRATE PRN Rx#: [id number] EPINEPHrine (1:1000) Inj 2 MG 338 / 338 144 / 144 In D5W Inj 248 ML @ 3 MCG/MIN 22.5 mls/hr IV.CONT TITRATE PRN Rx#:[id number] NovoLIN R (IV Infusion) 100 24 / 24 UNIT In NS Inj 99 ML @ 3 UNITS/ HR 3 mls/hr IV.CONT TITRATE PRN Rx#:[id number] Neosynephrine Inj 40 MG In NS 8 / 8 Inj 496 ML @ 40 MCG/MIN 30 mls/ hr IV.CONT TITRATE PRN Rx#: [id number] Ofirmev Inj 1,000 mg In 100 ml 290 / 290 @ 400 mls/hr IV.SIG Q6H ASCENCION Rx# :[id number] Buminate 5% Inj 250 ML @ 250 500 / 500 mls/hr IV.SIG UNSCH PRN Rx#: [id number] Calcium Chloride Inj 1 GM In NS 100 / 100 120 / 120 Inj 100 ML @ 100 mls/hr IV.SIG PRN PRN Rx#:[id number] LR 1000 mL Inj 500 ML @ 500 mls 1000 / 1000 1000 / 1000 /hr IV.SIG .Q1H PRN Rx#: [id number] KCl 20 mEq Premix Inj 20 meq In 100 / 100 104 / 104 100 ml @ 50 mls/hr IV.SIG PRN PRN Rx#:[id number] Ancef 2 GM Premix Inj 2 gm In 205 / 205 100 ml @ 200 mls/hr IV.SIG Q8H ASCENCION Rx#:[id number] Ancef Inj 2,000 MG In NS Inj 80 100 / 100 ML @ 200 mls/hr IV.SIG ACCOUNT PROCESSOR ASCENCION Rx#:[id number] Anesthesia Amount 2500 / 2500 Cell Saver Amount 230 / 230 Output: Estimated Blood Loss 500 / 500 Urine Amount (Catheter) 1245 / 1245 1470 / 1470 Indwelling Temp Sensing 1245 / 1245 1470 / 1470 Catheter Chest Tube Drainage 200 / 200 170 / 170 Mediastinal 200 / 200 170 / 170 Other: Other Intake Source Saline Solution Date of Last Bowel Movement 01/07/18 # Bowel Movements 0 Result Diagrams: 01/10/18 04:18 01/10/18 04:18 Other Results: Microbiology 01/05/18 03:40 Blood - Peripheral Aerobic Blood Culture - Preliminary No growth in 4 days 01/05/18 03:40 Blood - Peripheral Anaerobic Blood Culture - Preliminary No growth in 4 days 01/05/18 03:45 Blood - Peripheral Aerobic Blood Culture - Preliminary No growth in 4 days 01/05/18 03:45 Blood - Peripheral Anaerobic Blood Culture - Preliminary No growth in 4 days 01/02/18 05:13 Blood - Peripheral Aerobic Blood Culture - Final No growth in 5 days 01/02/18 05:13 Blood - Peripheral Anaerobic Blood Culture - Final No growth in 5 days 01/02/18 05:05 Blood - Peripheral Aerobic Blood Culture - Final No growth in 5 days 01/02/18 05:05 Blood - Peripheral Anaerobic Blood Culture - Final No growth in 5 days 12/24/17 14:00 Blood - Peripheral Aerobic Blood Culture - Final No growth in 5 days 12/24/17 14:00 Blood - Peripheral Anaerobic Blood Culture - Final No growth in 5 days 12/24/17 14:05 Blood - Peripheral Aerobic Blood Culture - Final No growth in 5 days 12/24/17 14:05 Blood - Peripheral Anaerobic Blood Culture - Final No growth in 5 days 12/23/17 18:00 Blood - Peripheral Aerobic Blood Culture - Final No growth in 5 days 12/23/17 18:00 Blood - Peripheral Anaerobic Blood Culture - Final Escherichia coli 12/23/17 17:50 Blood - Peripheral Aerobic Blood Culture - Final No growth in 5 days 12/23/17 17:50 Blood - Peripheral Anaerobic Blood Culture - Final Escherichia coli 12/27/17 12:05 Urine - Clean Catch Urine Streptococcus pneumoniae Antigen ( M - Final Presumptive negative for streptococcus pneumoniae antigen, suggesting no current or recent infection. Infection due to Streptococcus pneumoniae cannot be ruled out since the antigen present in the sample may be below the detection limit of the test. 12/27/17 12:05 Urine - Clean Catch Urine Legionella Antigen - Final Presumptive negative for Legionella pneumophila serogroup 1 antigen in urine, suggesting no recent or recurrent infection. Infection due to Legionella cannot be ruled out since other serogroups and species may cause disease, antigen may not be present in urine in early infection, and the level of antigen present in the urine may be below the detection limit of the test. 12/23/17 17:30 Random Urine Urine Culture - Final Escherichia coli Imaging: Chest X-Ray 12/25/17 00:00 CONCLUSION: Right lung infiltrates Chest CTA 12/26/17 00:00 CONCLUSION: 1. No evidence of pulmonary embolism. 2. Right perihilar infiltrates are noted consistent with asymmetric pulmonary edema versus pneumonia. Clinical correlation is recommended. 3. Scattered peripheral bleb formation is noted bilaterally. 4. Small bilateral pleural effusions. 5. Cardiomegaly and coronary artery calcifications. 6. Low-density lesions within the liver which are nonspecific. Chest X-Ray 12/26/17 00:00 CONCLUSION: Persistent right lower lung infiltrate and new nonconsolidative infiltrate in the central/upper right lung. Chest X-Ray 12/26/17 00:00 CONCLUSION: Progressive airspace disease within the right lower lobe and basilar aspect of the right upper lobe concerning for multifocal pneumonia. Chest X-Ray 01/01/18 00:00 CONCLUSION: Negative examination. Chest X-Ray 01/09/18 12:37 CONCLUSION: 1. Mild central pulmonary vascular congestion. 2. Cardiomegaly. 3. Multiple tubes and lines are in good positions. Chest X-Ray 01/10/18 05:00 CONCLUSION: 1. No significant change small effusion and mild atelectasis at the left base. 2. Interim extubation and nasogastric tube removal. 3. Mediastinal drain, left chest tube and left IJ central venous catheter remain. No pneumothorax. Objective Remarks: GENERAL: 77-year-old AA male currently resting in chair on nasal cannula no acute distress SKIN: Warm and dry. HEAD: Atraumatic. Normocephalic. EYES: Pupils equal and round about 2 mm reactive to 1 mm bilaterally. No scleral icterus. No injection or drainage. ENT: No nasal bleeding or discharge. Mucous membranes pink and moist. NECK: Trachea midline. No JVD. Left IJ cordis in place with dual-lumen catheter CARDIOVASCULAR: Regular rate and rhythm. S1, S2. No S4. Mediastinal chest tube in place -20 cm H2O with 375 cc of serosanguineous output RESPIRATORY: Few faint crackles appreciated in the left lobes anteriorly posteriorly no wheezing GASTROINTESTINAL: Abdomen soft, non-tender, nondistended. I do not appreciate bowel sounds MUSCULOSKELETAL: Extremities Byron wrap around left lower extremity. WINSTON hose right lower extremity. Palpable pulses bilaterally. NEUROLOGICAL: Cranial nerves II through XII appear to be grossly intact. No facial droop. Moves all 4 extremities spontaneously. Assessment and Plan - Assessment and Plan Plan: Neuro/Psych: History of TIA/CVA On schedule Ofirmev 1 g IV every 6 hours 4 dosages. Then will be on acetaminophen 650 p.o. every 4 hours as needed fever Hydrate codeine/acetaminophen 5/325 1 tablet every 2 hours as needed pain Morphine sulfate 1 mg IV every 10 minutes as needed pain CV: Postop day #1 CABG 3 -HEAD to LAD, reverse saphenous vein graft OM and RCA with left EVH Atrial fibrillation History of essential hypertension Hyperlipidemia Coronary disease/PCI/bare metal stent LAD 12/[address] Nolen Chronic systolic heart failure ejection fraction 44% 12/06 History of AAA status post repair Written for amiodarone 200 mg by mouth twice daily Continue atorvastatin 20 g daily/home medications for dyslipidemia Currently on aspirin 81 mg daily and clopidogrel 75 mg daily/home medications Holding home medications of olmesartan medoxomil 40 mg daily, propranolol 80 mg daily and hydrochlorthiazide 25 mg daily. Holding amlodipine 10 mg daily. Currently on dopamine drip at 3 mcg/kg/min. Will wean off phenylephrine drip followed by dopamine and epinephrine as indicated. Resp: Postoperative respiratory failure currently on nasal cannula Nasal cannula to maintain saturations greater than equal to 92% Incentive spirometry Albuterol/ipratropium aerosols every 6 hours/every 2 hours as needed dyspnea Follow-up chest x-ray this a.m. revealed adequate positioning of mediastinal/ left chest tube. 375 cc serosanguineous output since OR. GI: Hypoalbuminemia Cardiac diet per CT surgery No GI prophylaxis at this time Bowel regimen when indicated : History of urethral stricture Ramos catheter has been removed. Endo: Currently on insulin drip at 3 units an hour discontinued. Sliding-scale insulin per CT surgery protocol. Wean per protocol to maintain tight glycemic control 140-180 Renal: Chronic kidney disease stage II Creatinine currently stable. Monitor urine output Accurate I's and O's Avoid nephrotoxic medication Heme: Normocytic anemia Chronic apixaban use Monitor CBC daily follow trends. No indication for transfusion of blood products at this time. Resume apixaban when okay with surgery ID: Admission with E. coli bacteremia/urinary tract infection Treated with ceftriaxone 2 g IV every 24 hours through 01/04. Currently on cefazolin 2 g IV every [address] surgery MSK: PT evaluate and treat FEN: Replace electrolytes as clinically indicated per CT surgery electrolyte protocol Access -Utilize peripheral IV. -Left IJ cordis with dual-lumen catheter day #2 01/09 -Right radial arterial line day #2 Prophylaxis -GI -morning not indicated -DVT-WINSTON hose to right lower extremity. Pharmacological prophylaxis when okay with CT surgery Level 2 follow-up
[2018-01-10] MEDS ORDERED: Mag Sulf 1 gm/100 ml Premix 100 ML IV.SIG ONE (09:00)
[2018-01-10] MEDS ORDERED: Bisacodyl 10 MG Supp RECTAL PRN (10:48)
[2018-01-10] MEDS ORDERED: Dextrose 50% in Water 50 ML Vial IV.PUSH PRN (10:48)
--- NOTE | 2018-01-10 10:54 | P.PNCV ---
- Note CVT: Post Op Day #: 1 Subjective/Hospital Course: Mr. Angel is a very pleasant 77-year-old gentleman who is well known to me from his previous encounters. Briefly he was admitted in early November for presenting diagnosis of a acute stroke as well as an acute myocardial infarction. At that time he underwent further workup including a coronary angiogram by Dr. Nolen which revealed significant multivessel coronary artery disease. Given the fact that he had had an acute CVA, with a small brain bleed, it was decided to proceed with percutaneous intervention to his culprit coronary vessel with plans to follow-up with coronary revascularization surgery following resolution of his acute neurologic event. He was subsequent discharged and I have seen him on 2 different occasions in the office to discuss the surgical procedure. Most recently he was just seen last Friday my office at which time he had complained of fevers, chills and night sweats with associated urinary complaints. He was advised to see [place]CP [place] and therefore he was sent to the emergency department for further evaluation. At that point he was noted to have significant sepsis with positive bacteremia. He has since been admitted to the hospital and was noted to be in atrial fibrillation with rapid ventricular response and urosepsis and is being treated for those 2 entities. 12/29 Blood cultures and urine culture + Ecoli 12/24 BC neg x 5 days on zyvox and zosyn WBC 8.4K no fever > 48 hrs remains in afib, rate controlled on 3 liter nasal cannula continue current medical therapy will need clearance and timing for CABG approval from ID will need to hold eliquis > 48 hrs and plavix >5 days prior to consideration for surgery 12/31 discussed with ID CXR and cultures and labs in 3 days if neg and improved, will then discuss clearance currently being treated for bacteremia and pneumonia pt is currently on room air , has been transferred out fo ICU 01/02 discussed with ID plan is for CABG 01/09 after completely cleared by ID will stop eliquis and plavix in am / start lovenox will dc lovenox after am dose 01/07 01/05 on lovenox, no chest pain over the weekend for surgery on friday if completely cleared by ID 01/06 await BC results no chest pain , remains in afib rate controlled, some PVC's noted 01/07 repeat BC preliminary no growth in 24 hrs no chest pain 01/08 BC neg x 48hrs U/A neg stable for surgery in am 01/09/18 No complaints this morning. Progressing well. Objective: Vital Signs - 24 hr 01/09/18 13:45 01/09/18 14:00 01/09/18 16:00 Temperature 97.6 F 96.2 F L Pulse Rate 65 63 Respiratory Rate 15 14 14 Blood Pressure 117/48 L 117/53 L Pulse Oximetry 94 L 93 L 94 L 01/09/18 16:30 01/09/18 17:00 01/09/18 17:30 Temperature 96.2 F L Pulse Rate 66 66 Respiratory Rate 11 L 14 15 Blood Pressure 117/53 L Pulse Oximetry 95 94 L 95 01/09/18 19:00 01/09/18 19:50 01/09/18 20:15 Temperature 98.6 F Pulse Rate 69 Respiratory Rate Blood Pressure Pulse Oximetry 96 01/09/18 20:31 01/09/18 21:21 01/09/18 22:20 Temperature 96.5 F L Pulse Rate 70 68 Respiratory Rate 20 Blood Pressure 131/50 L Pulse Oximetry 95 98 01/09/18 22:58 01/09/18 23:20 01/10/18 00:31 Temperature 97.6 F Pulse Rate 66 63 Respiratory Rate Blood Pressure 125/46 L Pulse Oximetry 94 L 95 01/10/18 03:00 01/10/18 03:17 01/10/18 04:17 Temperature 97.5 F L Pulse Rate 64 64 68 Respiratory Rate 16 16 Blood Pressure 117/45 L Pulse Oximetry 98 01/10/18 07:00 01/10/18 08:00 01/10/18 09:15 Temperature 97.2 F L Pulse Rate 65 60 64 Respiratory Rate 16 16 Blood Pressure 121/45 L Pulse Oximetry 94 L 94 L 94 L Labs: Laboratory Results - last 12 hr 01/09/18 01/10/18 01/10/18 23:01 01:59 04:18 WBC 8.2 RBC 2.93 L Hgb 8.9 L D Hct 27.2 L MCV 92.6 MCH 30.5 MCHC 32.9 RDW 14.9 Plt Count 152 D MPV 8.3 Sodium Potassium Chloride Carbon Dioxide Anion Gap BUN Creatinine Estimated GFR POC Glucose 114 H 87 Random Glucose Calcium Magnesium 01/10/18 01/10/18 01/10/18 04:18 04:18 06:40 WBC RBC Hgb Hct MCV MCH MCHC RDW Plt Count MPV Sodium 142 Potassium 4.6 D Chloride 111 H Carbon Dioxide 22.5 Anion Gap 9 BUN 10 Creatinine 0.81 Estimated GFR Greater than 89 POC Glucose 96 102 Random Glucose 87 Calcium 7.8 L D Magnesium 1.9 01/10/18 01/10/18 07:23 09:50 WBC RBC Hgb Hct MCV MCH MCHC RDW Plt Count MPV Sodium Potassium Chloride Carbon Dioxide Anion Gap BUN Creatinine Estimated GFR POC Glucose 108 97 Random Glucose Calcium Magnesium Result Diagrams: 01/10/18 04:18 01/10/18 04:18 Imaging: Chest CTA 12/26/17 00:00 CONCLUSION: 1. No evidence of pulmonary embolism. 2. Right perihilar infiltrates are noted consistent with asymmetric pulmonary edema versus pneumonia. Clinical correlation is recommended. 3. Scattered peripheral bleb formation is noted bilaterally. 4. Small bilateral pleural effusions. 5. Cardiomegaly and coronary artery calcifications. 6. Low-density lesions within the liver which are nonspecific. Chest X-Ray 01/10/18 05:00 CONCLUSION: 1. No significant change small effusion and mild atelectasis at the left base. 2. Interim extubation and nasogastric tube removal. 3. Mediastinal drain, left chest tube and left IJ central venous catheter remain. No pneumothorax. Cardiovascular: RRR Telemetry: NSR Pulmonary: CTA GI/: NABS Incision: dry and intact CT: ~370ml since OR - Plan (2) CAD (coronary artery disease) Plan: ASA, inderal , statin surgery in am 01/09 (3) CVA (cerebral vascular accident) Plan: on lovenox (4) Sepsis Plan: resolved repeat BC pending today Transfer to stepdown Encourage ambulation, up to chair, PT No BB secondary to low BP and pressor requirement recently Advance diet Remove Esthela iraheta line (2) CAD (coronary artery disease) Qualifiers: Coronary Disease-Associated Artery/Lesion type: alutiiq artery (4) Sepsis Qualifiers: Sepsis type: Escherichia coli Qualified Code(s): A41.51 - Sepsis due to Escherichia coli [E. coli]
[2018-01-10] MEDS: Senna/Docusate Sodium 8.6/50 MG Tablet PO SCH ×2 (11:17→20:51)
[2018-01-10] MEDS: Amiodarone 200 MG Tablet PO SCH ×2 (11:20→20:51)
[2018-01-10] MEDS: Potassium Phosphate 500 MG Soluble Tablet PO SCH (12:03)
--- NOTE | 2018-01-10 14:16 | ECG ---
Date Performed: 01/10/2018 Time Performed: 05:42:58 PTAGE: 77 years EKG: Sinus rhythm IV conduction defect Inferior/lateral ST-T changes may be due to myocardial ischemia Low QRS voltage s in precordial leads Abnormal ECG PREVIOUS TRACING : 12/26/2017 21.51 Compared to previous tracing, prior ekg showed atruial fibr illation and current ekg shows sinus rhythm DOCTOR: Christie Gonzalez Interpretating Date/Time 01/10/2018 14:15:40
[2018-01-10] MEDS: Insulin NovoLOG Aspart Correctional Sugar Inj SQ SCH ×3 (14:44→21:14)
[2018-01-10] MEDS: Docusate Sodium 100 MG Capsule PO SCH (20:51)
[2018-01-10] MEDS: Metoprolol Inj 5 MG/5 ML Vial IV.PUSH PRN (23:25)
[2018-01-11] MEDS: Metoprolol Inj 5 MG/5 ML Vial IV.PUSH PRN (00:50)
[2018-01-11] MEDS: Insulin NovoLOG Aspart Correctional Sugar Inj SQ SCH ×5 (03:18→20:33)
[2018-01-11] MEDS: ceFAZolin 2 GM Premix Inj 2 GM/100 ML BAG IV.SIG SCH (05:27)
[2018-01-11 06:14] LABS: Baso % (Auto) 0.2 % (0.0-2.0); Eos % (Auto) 0.3 % (0.0-4.0); Hematocrit 26.4 % (39.0-51.0); Hemoglobin 8.8 gm/dL (13.0-17.0); Lymph # (Auto) 0.5 th/mm3 (1.0-4.8); Lymph % (Auto) 6.4 % (9.0-44.0); Mean Corpuscular HGB Conc 33.5 % (32.0-36.0); Mean Corpuscular Hemoglobin 30.5 pg (27.0-34.0); Mean Corpuscular Volume 91.1 fL (80.0-100.0); Mean Platelet Volume 9.2 fL (7.0-11.0); Mono # (Auto) 0.8 th/mm3 (0.0-0.9); Neut # (Auto) 7.1 th/mm3 (1.8-7.7); Neut % (Auto) 83.1 % (16.0-70.0); Platelet Count 132 th/mm3 (150-450); Red Blood Count 2.89 mil/mm3 (4.50-5.90); Red Cell Distribution Width 15.3 % (11.6-17.2); White Blood Count 8.5 th/mm3 (4.0-11.0)
[2018-01-11 06:47] LABS: Calcium 8.2 mg/dL (8.5-10.1); Carbon Dioxide 23.8 meq/L (21.0-32.0); Potassium 3.9 meq/L (3.5-5.1)
[2018-01-11] MEDS: Docusate Sodium 100 MG Capsule PO SCH ×2 (08:30→20:37)
[2018-01-11] MEDS: Multivitamin/Minerals Therapeutic Tablet PO SCH (08:30)
[2018-01-11] MEDS: Polyethylene Glycol 3350 17 GM Packet PO SCH (08:30)
[2018-01-11] MEDS: Amiodarone 200 MG Tablet PO SCH ×2 (08:30→20:32)
[2018-01-11] MEDS: Senna/Docusate Sodium 8.6/50 MG Tablet PO SCH ×2 (08:31→20:32)
[2018-01-11] MEDS: Potassium Phosphate 500 MG Soluble Tablet PO SCH (08:34)
--- NOTE | 2018-01-11 09:28 | P.PNCV ---
- Note CVT: Post Op Day #: 2 Subjective/Hospital Course: Mr. Angel is a very pleasant 77-year-old gentleman who is well known to me from his previous encounters. Briefly he was admitted in early November for presenting diagnosis of a acute stroke as well as an acute myocardial infarction. At that time he underwent further workup including a coronary angiogram by Dr. Nolen which revealed significant multivessel coronary artery disease. Given the fact that he had had an acute CVA, with a small brain bleed, it was decided to proceed with percutaneous intervention to his culprit coronary vessel with plans to follow-up with coronary revascularization surgery following resolution of his acute neurologic event. He was subsequent discharged and I have seen him on 2 different occasions in the office to discuss the surgical procedure. Most recently he was just seen last Friday my office at which time he had complained of fevers, chills and night sweats with associated urinary complaints. He was advised to [place] and therefore he was sent to the emergency department for further evaluation. At that point he was noted to have significant sepsis with positive bacteremia. He has since been admitted to the hospital and was noted to be in atrial fibrillation with rapid ventricular response and urosepsis and is being treated for those 2 entities. 12/29 Blood cultures and urine culture + Ecoli 12/24 BC neg x 5 days on zyvox and zosyn WBC 8.4K no fever > 48 hrs remains in afib, rate controlled on 3 liter nasal cannula continue current medical therapy will need clearance and timing for CABG approval from ID will need to hold eliquis > 48 hrs and plavix >5 days prior to consideration for surgery 12/31 discussed with ID CXR and cultures and labs in 3 days if neg and improved, will then discuss clearance currently being treated for bacteremia and pneumonia pt is currently on room air , has been transferred out fo ICU 01/02 discussed with ID plan is for CABG 01/09 after completely cleared by ID will stop eliquis and plavix in am / start lovenox will dc lovenox after am dose 01/07 01/05 on lovenox, no chest pain over the weekend for surgery on friday if completely cleared by ID 01/06 await BC results no chest pain , remains in afib rate controlled, some PVC's noted 01/07 repeat BC preliminary no growth in 24 hrs no chest pain 01/08 BC neg x 48hrs U/A neg stable for surgery in am 01/09/18 No complaints this morning. Progressing well. 01/10/18 Doing well, no complaints this morning Objective: Vital Signs - 24 hr 01/10/18 11:00 01/10/18 11:29 01/10/18 12:00 Temperature 96.8 F L Pulse Rate 67 67 Respiratory Rate 16 16 Blood Pressure 129/70 Pulse Oximetry 96 94 L 01/10/18 15:00 01/10/18 15:29 01/10/18 15:45 Temperature 97.5 F L Pulse Rate 76 72 Respiratory Rate 16 16 Blood Pressure 133/67 Pulse Oximetry 97 96 01/10/18 16:16 01/10/18 19:00 01/10/18 20:00 Temperature 98.2 F Pulse Rate 77 84 91 H Respiratory Rate 17 18 Blood Pressure 146/69 H Pulse Oximetry 96 01/10/18 21:00 01/10/18 21:23 01/10/18 22:00 Temperature Pulse Rate 92 H 89 102 H Respiratory Rate 18 Blood Pressure Pulse Oximetry 96 01/10/18 23:00 01/11/18 00:00 01/11/18 01:00 Temperature 98.5 F Pulse Rate 101 H 101 H 96 H Respiratory Rate 18 Blood Pressure 169/81 H 161/82 H Pulse Oximetry 95 96 01/11/18 01:05 01/11/18 02:00 01/11/18 02:12 Temperature Pulse Rate 88 Respiratory Rate 18 Blood Pressure 142/72 H Pulse Oximetry 96 01/11/18 03:00 01/11/18 03:35 01/11/18 03:49 Temperature Pulse Rate 90 89 Respiratory Rate 18 Blood Pressure Pulse Oximetry 96 01/11/18 04:00 01/11/18 05:00 01/11/18 06:00 Temperature 98.8 F Pulse Rate 87 85 90 Respiratory Rate 16 Blood Pressure 150/74 H Pulse Oximetry 96 01/11/18 08:37 Temperature Pulse Rate 99 H Respiratory Rate 16 Blood Pressure Pulse Oximetry 94 L Labs: Laboratory Results - last 12 hr 01/08/18 01/11/18 01/11/18 09:47 03:05 05:20 WBC RBC Hgb Hct MCV MCH MCHC RDW Plt Count MPV Neut % (Auto) Lymph % (Auto) [place] % (Auto) Eos % (Auto) Baso % (Auto) Neut # (Auto) Lymph # (Auto) [place] # (Auto) Eos # (Auto) Baso # (Auto) WBC Differential Differential Comment Sodium Potassium Chloride Carbon Dioxide Anion Gap BUN Creatinine Estimated GFR POC Glucose 118 H 102 Random Glucose Calcium Magnesium MTS Gel Crossmatch See Detail 01/11/18 01/11/18 05:30 05:30 WBC 8.5 RBC 2.89 L Hgb 8.8 L Hct 26.4 L MCV 91.1 MCH 30.5 MCHC 33.5 RDW 15.3 Plt Count 132 L MPV 9.2 Neut % (Auto) 83.1 H Lymph % (Auto) 6.4 L [place] % (Auto) 10.0 H Eos % (Auto) 0.3 Baso % (Auto) 0.2 Neut # (Auto) 7.1 Lymph # (Auto) 0.5 L [place] # (Auto) 0.8 Eos # (Auto) 0.0 Baso # (Auto) 0.0 WBC Differential . Differential Comment Auto diff final Sodium 141 Potassium 3.9 Chloride 109 H Carbon Dioxide 23.8 Anion Gap 8 BUN 13 Creatinine 1.10 Estimated GFR 79 L POC Glucose Random Glucose 97 Calcium 8.2 L Magnesium 2.0 MTS Gel Crossmatch Result Diagrams: 01/11/18 05:30 01/11/18 05:30 Imaging: Chest CTA 12/26/17 00:00 CONCLUSION: 1. No evidence of pulmonary embolism. 2. Right perihilar infiltrates are noted consistent with asymmetric pulmonary edema versus pneumonia. Clinical correlation is recommended. 3. Scattered peripheral bleb formation is noted bilaterally. 4. Small bilateral pleural effusions. 5. Cardiomegaly and coronary artery calcifications. 6. Low-density lesions within the liver which are nonspecific. Chest X-Ray 01/10/18 05:00 CONCLUSION: 1. No significant change small effusion and mild atelectasis at the left base. 2. Interim extubation and nasogastric tube removal. 3. Mediastinal drain, left chest tube and left IJ central venous catheter remain. No pneumothorax. Cardiovascular: RRR Telemetry: NSR Pulmonary: CTA GI/: NABS Incision: dry and intact CT: 120ml/12hrs - Plan (2) CAD (coronary artery disease) Plan: ASA, inderal , statin surgery in am 01/09 (3) CVA (cerebral vascular accident) Plan: on lovenox (4) Sepsis Plan: resolved repeat BC pending today Remove chest tubes Start lopressor Encourage ambulation D/C planning (2) CAD (coronary artery disease) Qualifiers: Coronary Disease-Associated Artery/Lesion type: [place] artery (4) Sepsis Qualifiers: Sepsis type: Escherichia coli Qualified Code(s): A41.51 - Sepsis due to Escherichia coli [E. coli]
[2018-01-11] MEDS: Metoprolol Tartrate 25 MG Tablet PO SCH ×2 (10:01→20:32)
--- NOTE | 2018-01-11 17:43 | P.PNCA ---
Subjective Interval history: alert in nad Medications and Allergies Active Medications: Active Medications Acetaminophen (Tylenol) 650 mg PO Q4H PRN PRN Reason: Temp > 100.4 Last Admin: 12/25/17 16:24 Dose: 650 mg Hydrocodone Bitart/Acetaminophen ([place] 5/325) 1 tab PO Q3H PRN PRN Reason: PAIN SCALE 1 TO 5 Last Admin: 01/11/18 00:50 Dose: 1 tab Al Hydroxide/Mg Hydroxide (Milk Of Magnesia Liq) 30 ml PO Q12H PRN PRN Reason: Mild Constipation Al Hydroxide/Mg Hydroxide (Milk Of Magnesia Liq) 30 ml PO DAILY [facility] Last Admin: 01/11/18 08:30 Dose: 30 ml Albuterol (Duoneb Neb (Jonny)) 1 ampul NEB Q6HR NEB [facility] Last Admin: 01/11/18 16:22 Dose: 1 ampul Albuterol (Duoneb Neb (Prn)) 1 ampul NEB Q2HR NEB PRN PRN Reason: WHEEZING Amiodarone HCl (Cordarone) 200 mg PO Q12HR [facility] Last Admin: 01/11/18 08:30 Dose: 200 mg Aspirin (Aspirin Chew) 81 mg PO DAILY [facility] Last Admin: 01/11/18 08:30 Dose: 81 mg Atorvastatin Calcium (Lipitor) 20 mg PO HS [facility] Last Admin: 01/10/18 20:51 Dose: 20 mg Bisacodyl (Dulcolax Supp) 10 mg RECTAL PRN PRN PRN Reason: SEE LABEL COMMENTS Calcium Chloride (Calcium Chloride Inj) 0.5 gm IV.PUSH UNSCH PRN PRN Reason: SEE LABEL COMMENTS Clopidogrel Bisulfate (Plavix) 75 mg PO DAILY [facility] Last Admin: 01/11/18 08:30 Dose: 75 mg Dextrose (D50w Vial) 50 ml IV.PUSH UNSCH PRN PRN Reason: PER HYPOGLYCEMIA PROTOCOL Docusate Sodium (Colace) 100 mg PO BID [facility] Last Admin: 01/11/18 08:30 Dose: 100 mg Fentanyl Citrate (Fentanyl Inj) 25 mcg IV.PUSH Q1H PRN PRN Reason: BREAKTHROUGH PAIN Last Admin: 01/11/18 00:51 Dose: 25 mcg Glucagon (Glucagon Inj) 1 mg OTHER PRN PRN PRN Reason: For hypoglycemia Sodium Chloride (Ns Inj) 1,000 mls @ 0 mls/hr IV.SIG BOLUS JONNY Magnesium Sulfate Inj 4 gm/ (Sodium Chloride) 100 mls @ 50 mls/hr IV.SIG UNSCH PRN PRN Reason: For Magnesium 0.9 - 1.1 mg/dL Magnesium Sulfate Inj 2 gm/ (Sodium Chloride) 100 mls @ 50 mls/hr IV.SIG UNSCH PRN PRN Reason: For Magnesium 1.2 - 1.6 mg/dL Last Infusion: 01/10/18 17:55 Dose: Infused Potassium Chloride (Kcl 40 Meq Premix Inj) 40 meq in 100 mls @ 25 mls/hr IV.SIG Q2H PRN PRN Reason: For Potassium 2.8 - 3.2 mEq/L Potassium Chloride (Kcl 20 Meq Premix Inj) 20 meq in 100 mls @ 50 mls/hr IV.SIG Q2H PRN PRN Reason: For Potassium 3.3 - 3.5 mEq/L Potassium Chloride (Kcl 40 Meq Premix Inj) 40 meq in 100 mls @ 25 mls/hr IV.SIG UNSCH PRN PRN Reason: For Potassium 3.3 - 3.5 mEq/L Potassium Chloride (Kcl 20 Meq Premix Inj) 20 meq in 100 mls @ 50 mls/hr IV.SIG Q2H PRN PRN Reason: For Potassium 2.8 - 3.2 mEq/L Last Infusion: 12/28/17 11:40 Dose: Infused Potassium Phosphate 30 mmol/ (Sodium Chloride) 260 mls @ 42 mls/hr IV.SIG UNSCH PRN PRN Reason: SEE LABEL COMMENTS Sodium Phosphate 30 mmol/ (Sodium Chloride) 260 mls @ 42 mls/hr IV.SIG UNSCH PRN PRN Reason: For Phosphorus < 2.5 mg/dL Sodium Chloride (Ns Inj) 500 mls @ 30 mls/hr IV.SIG .Q10H JONNY Last Admin: 01/09/18 00:04 Dose: Not Given Calcium Chloride 1 gm/ Sodium (Chloride) 110 mls @ 100 mls/hr IV.SIG PRN PRN PRN Reason: SEE LABEL COMMENTS Last Infusion: 01/09/18 20:35 Dose: Infused Magnesium Sulfate 2 gm/ Sodium (Chloride) 100 mls @ 50 mls/hr IV.SIG PRN PRN PRN Reason: SEE LABEL COMMENTS Potassium Chloride (Kcl 20 Meq Premix Inj) 20 meq in 100 mls @ 50 mls/hr IV.SIG PRN PRN PRN Reason: SEE LABEL COMMENTS Last Infusion: 01/09/18 18:46 Dose: Infused Lactated Ringer's (Lr 1000 Ml Inj) 500 mls @ 500 mls/hr IV.SIG .Q1H PRN PRN Reason: SEE LABEL COMMENTS Last Infusion: 01/10/18 01:23 Dose: Infused Magnesium Sulfate 2 gm/ Sodium (Chloride) 100 mls @ 50 mls/hr IV.SIG PRN PRN PRN Reason: SEE LABEL COMMENTS Potassium Chloride (Kcl 20 Meq Premix Inj) 20 meq in 100 mls @ 50 mls/hr IV.SIG PRN PRN PRN Reason: SEE LABEL COMMENTS Last Infusion: 01/10/18 03:26 Dose: Infused Potassium Chloride (Kcl 20 Meq Premix Inj) 20 meq in 100 mls @ 50 mls/hr IV.SIG PRN PRN PRN Reason: SEE LABEL COMMENTS Insulin Aspart (Novolog Insulin Correctional Sugar Inj) 0 unit SQ [facility]; Protocol Last Admin: 01/11/18 16:33 Dose: 3 unit Lactulose (Lactulose Liq) 30 ml PO DAILY PRN PRN Reason: SEVERE CONSITIPATION Magnesium Oxide (Mag-Ox) 800 mg PO UNSCH PRN PRN Reason: For Magnesium 1.2 - 1.6 mg/dL Metoprolol Tartrate (Lopressor Inj) 2.5 mg IV.PUSH Q1H PRN PRN Reason: SEE LABEL COMMENTS Last Admin: 01/11/18 00:50 Dose: 2.5 mg Metoprolol Tartrate (Lopressor) 12.5 mg PO BID [facility] Last Admin: 01/11/18 10:01 Dose: 12.5 mg Miscellaneous (Pill Splitter) 1 each OTHER UNSCH [facility] Multivitamins/Minerals (Theragran-M) 1 tab PO DAILY [facility] Last Admin: 01/11/18 08:30 Dose: 1 tab Ondansetron HCl (Zofran Inj) 4 mg IV.PUSH Q6H PRN PRN Reason: NAUSEA OR VOMITING Pantoprazole Sodium (Protonix) 40 mg PO DAILY@06 [facility] Last Admin: 01/11/18 05:27 Dose: 40 mg Phenylephrine HCl (Neosynephrine Inj) 0.1 mg IV.PUSH UNSCH PRN PRN Reason: SEE LABEL COMMENTS Polyethylene Glycol (Miralax) 17 gm PO DAILY [facility] Last Admin: 01/11/18 08:30 Dose: 17 gm Potassium Bicarb/Potassium Chloride (K-Lyte Cl Eff) 50 meq PO UNSCH PRN PRN Reason: For Potassium 3.3 - 3.5 mEq/L Potassium Chloride (K-Dur) 20 meq PO UNSCH PRN PRN Reason: SEE LABEL COMMENTS Potassium Chloride (K-Dur) 40 meq PO UNSCH PRN PRN Reason: SEE LABEL COMMENTS Potassium Phosphate (K-Phos Original) 500 mg PO DAILY [facility] Last Admin: 01/11/18 08:34 Dose: 500 mg Potassium Phosphate (K-Phos Original) 2,000 mg PO Q4H PRN PRN Reason: Phosphorus Less Than 2.5 mg/dL Potassium Phosphate (K-Phos Original) 2,000 mg PO UNSCH PRN PRN Reason: SEE LABEL COMMENTS Senna/Docusate Sodium (Ruth-Colace) 1 tab PO BID [facility] Last Admin: 01/11/18 08:31 Dose: Not Given Sennosides (Senokot) 17.2 mg PO Q12H PRN PRN Reason: Moderate Constipation Sennosides (Senokot) 8.6 mg PO [facility] Last Admin: 01/10/18 20:54 Dose: 8.6 mg Sodium Bicarbonate (Sodium Bicarbonate 8.4% Inj) 50 meq IV.PUSH UNSCH PRN PRN Reason: SEE LABEL COMMENTS Sodium Bicarbonate (Sodium Bicarbonate 8.4% Inj) 100 meq IV.PUSH UNSCH PRN PRN Reason: SEE LABEL COMMENTS Sodium Chloride (Ns Flush) 2 ml IV.FLUSH PRN PRN PRN Reason: FLUSH AFTER USING IV ACCESS Sodium Chloride (Ns Flush) 2 ml IV.FLUSH BID [facility] Last Admin: 01/11/18 08:31 Dose: 2 ml Sodium Chloride (Ns Flush) 2 ml IV.FLUSH PRN PRN PRN Reason: FLUSH AFTER USING IV ACCESS Tamsulosin HCl (Flomax) 0.4 mg PO DAILY [facility] Last Admin: 01/11/18 08:30 Dose: 0.4 mg Allergies Allergy/AdvReac Type Severity Reaction Status Date / Time No Known Allergies Allergy Unverified 11/21/17 09:58 Home Medications Medication Instructions Recorded Confirmed Type atorvastatin 20 mg PO HS 09/04/18 09/12/18 History hydrochlorothiazide 25 mg PO DAILY 12/23/17 12/31/17 History Physical Exam Vital signs: Vital Signs 01/10/18 19:00 01/10/18 20:00 01/10/18 21:00 Temperature 98.2 F Pulse Rate 84 91 H 92 H Respiratory Rate 18 Blood Pressure 146/69 H Pulse Oximetry 96 01/10/18 21:23 01/10/18 22:00 01/10/18 23:00 Temperature 98.5 F Pulse Rate 89 102 H 101 H Respiratory Rate 18 18 Blood Pressure 169/81 H Pulse Oximetry 96 95 01/11/18 00:00 01/11/18 01:00 01/11/18 01:05 Temperature Pulse Rate 101 H 96 H Respiratory Rate Blood Pressure 161/82 H 142/72 H Pulse Oximetry 96 01/11/18 02:00 01/11/18 02:12 01/11/18 03:00 Temperature Pulse Rate 88 Respiratory Rate 18 Blood Pressure Pulse Oximetry 96 96 01/11/18 03:35 01/11/18 03:49 01/11/18 04:00 Temperature 98.8 F Pulse Rate 90 89 87 Respiratory Rate 18 16 Blood Pressure 150/74 H Pulse Oximetry 96 01/11/18 05:00 01/11/18 06:00 01/11/18 07:00 Temperature 98.7 F Pulse Rate 85 90 84 Respiratory Rate 18 Blood Pressure 169/71 H Pulse Oximetry 98 01/11/18 08:00 01/11/18 08:37 01/11/18 09:00 Temperature Pulse Rate 94 H 99 H 92 H Respiratory Rate 16 Blood Pressure Pulse Oximetry 94 L 01/11/18 10:00 01/11/18 11:00 01/11/18 12:00 Temperature 98.7 F Pulse Rate 93 H 93 H 113 H Respiratory Rate 18 Blood Pressure 146/77 H Pulse Oximetry 96 01/11/18 13:00 01/11/18 14:00 01/11/18 15:00 Temperature 98.2 F Pulse Rate 107 H 109 H 92 H Respiratory Rate 18 Blood Pressure 155/76 H Pulse Oximetry 95 01/11/18 15:27 01/11/18 16:24 01/11/18 16:40 Temperature Pulse Rate 107 H 106 H 99 H Respiratory Rate 17 Blood Pressure Pulse Oximetry 01/11/18 17:06 Temperature Pulse Rate 105 H Respiratory Rate Blood Pressure Pulse Oximetry Intake & Output 01/10/18 01/11/18 01/11/18 18:59 06:59 18:59 Intake Total 1279 / 1279 440 / 440 480 / 480 Output Total 605 / 605 1320 / 1320 710 / 710 Balance 674 / 674 -880 / -880 -230 / -230 Weight 91 kg Intake: IV 579 / 579 200 / 200 DOPamine 400 MG/250 ML Premix 279 / 279 400 mg In 250 ml @ 3 MCG/KG/MIN 9.225 mls/hr IV.CONT TITRATE PRN Rx#:[id number] Ofirmev Inj 1,000 mg In 100 ml 100 / 100 @ 400 mls/hr IV.SIG Q6H JONNY Rx# :[id number] Magnesium Sulfate Inj 2 GM In 100 / 100 NS Inj 96 ML @ 50 mls/hr IV.SIG UNSCH PRN Rx#:[id number] Ancef 2 GM Premix Inj 2 gm In 100 / 100 200 / 200 100 ml @ 200 mls/hr IV.SIG Q8H JONNY Rx#:[id number] Oral 700 / 700 240 / 240 480 / 480 Output: Urine 425 / 425 1200 / 1200 650 / 650 Chest Tube Drainage 180 / 180 120 / 120 60 / 60 Mediastinal 180 / 180 120 / 120 60 / 60 Other: Date of Last Bowel Movement 01/08/18 # Bowel Movements 0 - Urinary Catheter Management Indwelling Temp Sensing Catheter Cath placed during this visit: yes, but has since been removed by the nurse Reason for continuing: Continue criteria not met Insertion date: 01/09/18 Insertion time: 07:39 Removal date: 01/10/18 Removal time: 06:00 Results 01/11/18 05:30 01/11/18 05:30 CBC 01/10/18 01/11/18 Range/Units 04:18 05:30 WBC 8.2 8.5 (4.0-11.0) th/mm3 RBC 2.93 L 2.89 L (4.50-5.90) mil/mm3 Hgb 8.9 L D 8.8 L (13.0-17.0) gm/dL Hct 27.2 L 26.4 L (39.0-51.0) % Plt Count 152 D 132 L (150-450) th/mm3 Neut # (Auto) 7.1 (1.8-7.7) th/mm3 Lymph # (Auto) 0.5 L (1.0-4.8) th/mm3 [place] # (Auto) 0.8 (0.0-0.9) th/mm3 Eos # (Auto) 0.0 (0.0-0.4) th/mm3 Baso # (Auto) 0.0 (0.0-0.2) th/mm3 Comprehensive Metabolic Panel 01/10/18 01/11/18 Range/Units 04:18 05:30 Sodium 142 141 (136-145) meq/L Potassium 4.6 D 3.9 (3.5-5.1) meq/L Chloride 111 H 109 H (98-107) meq/L Carbon Dioxide 22.5 23.8 (21.0-32.0) meq/L BUN 10 13 (7-18) mg/dL Creatinine 0.81 1.10 (0.60-1.30) mg/dL Calcium 7.8 L D 8.2 L (8.5-10.1) mg/dL Intake and Output 01/11/18 01/11/18 01/11/18 06:59 14:59 22:59 Intake Total 440 / 440 480 / 480 Output Total 1320 / 1320 710 / 710 Balance -880 / -880 -230 / -230 Intake: IV 200 / 200 Ancef 2 GM Premix Inj 2 gm In 200 / 200 100 ml @ 200 mls/hr IV.SIG Q8H JONNY Rx#:[id number] Oral 240 / 240 480 / 480 Output: Urine 1200 / 1200 650 / 650 Chest Tube Drainage 120 / 120 60 / 60 Mediastinal 120 / 120 60 / 60 Other: Weight 91 kg - Imaging and Cardiology Imaging: Impressions Chest X-Ray 01/10/18 05:00 CONCLUSION: 1. No significant change small effusion and mild atelectasis at the left base. 2. Interim extubation and nasogastric tube removal. 3. Mediastinal drain, left chest tube and left IJ central venous catheter remain. No pneumothorax. Assessment and Plan - Assessment (1) NSTEMI (non-ST elevated myocardial infarction) Code(s): I21.4 - Non-ST elevation (NSTEMI) myocardial infarction Status: Acute (2) CHF (congestive heart failure) Code(s): I50.9 - Heart failure, unspecified Status: Acute (3) Acute decompensated heart failure Code(s): I50.9 - Heart failure, unspecified Status: Acute (4) Afib Code(s): I48.91 - Unspecified atrial fibrillation Status: Chronic (5) Wide-complex tachycardia Code(s): I47.2 - Ventricular tachycardia Status: Acute (6) Acute UTI Code(s): N39.0 - Urinary tract infection, site not specified Status: Acute (7) CAD (coronary artery disease) Code(s): I25.10 - Atherosclerotic heart disease of [place] coronary artery without angina pectoris Status: Acute (8) CVA (cerebral vascular accident) Code(s): I63.9 - Cerebral infarction, unspecified Status: Acute (9) Sepsis Code(s): A41.9 - Sepsis, unspecified organism Status: Acute - Plan 1.) CAD - pod #2 s/p cabg, restart eliquis if/when cleared by Dr Ambrose (7) CAD (coronary artery disease) Qualifiers: Coronary Disease-Associated Artery/Lesion type: [place] artery (9) Sepsis Qualifiers: Sepsis type: Escherichia coli Qualified Code(s): A41.51 - Sepsis due to Escherichia coli [E. coli]
[2018-01-12] MEDS: Docusate Sodium 100 MG Capsule PO SCH ×2 (08:09→20:36)
[2018-01-12] MEDS: Polyethylene Glycol 3350 17 GM Packet PO SCH (08:09)
[2018-01-12] MEDS: Potassium Phosphate 500 MG Soluble Tablet PO SCH (08:09)
[2018-01-12] MEDS: Senna/Docusate Sodium 8.6/50 MG Tablet PO SCH ×2 (08:09→20:37)
[2018-01-12] MEDS: Insulin NovoLOG Aspart Correctional Sugar Inj SQ SCH ×4 (08:10→21:46)
[2018-01-12] MEDS: Metoprolol Tartrate 25 MG Tablet PO SCH ×2 (08:10→20:29)
[2018-01-12] MEDS: Amiodarone 200 MG Tablet PO SCH ×2 (08:10→20:30)
[2018-01-12] MEDS: Multivitamin/Minerals Therapeutic Tablet PO SCH (08:10)
--- NOTE | 2018-01-12 13:18 | P.PNCV ---
- Note Subjective/Hospital Course: Mr. Angel is a very pleasant 77-year-old gentleman who is well known to me from his previous encounters. Briefly he was admitted in early November for presenting diagnosis of a acute stroke as well as an acute myocardial infarction. At that time he underwent further workup including a coronary angiogram by Dr. Nolen which revealed significant multivessel coronary artery disease. Given the fact that he had had an acute CVA, with a small brain bleed, it was decided to proceed with percutaneous intervention to his culprit coronary vessel with plans to follow-up with coronary revascularization surgery following resolution of his acute neurologic event. He was subsequent discharged and I have seen him on 2 different occasions in the office to discuss the surgical procedure. Most recently he was just seen last Friday my office at which time he had complained of fevers, chills and night sweats with associated urinary complaints. He was advised to [place] and therefore he was sent to the emergency department for further evaluation. At that point he was noted to have significant sepsis with positive bacteremia. He has since been admitted to the hospital and was noted to be in atrial fibrillation with rapid ventricular response and urosepsis and is being treated for those 2 entities. 12/29 Blood cultures and urine culture + Ecoli 12/24 BC neg x 5 days on zyvox and zosyn WBC 8.4K no fever > 48 hrs remains in afib, rate controlled on 3 liter nasal cannula continue current medical therapy will need clearance and timing for CABG approval from ID will need to hold eliquis > 48 hrs and plavix >5 days prior to consideration for surgery 12/31 discussed with ID CXR and cultures and labs in 3 days if neg and improved, will then discuss clearance currently being treated for bacteremia and pneumonia pt is currently on room air , has been transferred out fo ICU 01/02 discussed with ID plan is for CABG 01/09 after completely cleared by ID will stop eliquis and plavix in am / start lovenox will dc lovenox after am dose 01/07 01/05 on lovenox, no chest pain over the weekend for surgery on friday if completely cleared by ID 01/06 await BC results no chest pain , remains in afib rate controlled, some PVC's noted 01/07 repeat BC preliminary no growth in 24 hrs no chest pain 01/08 BC neg x 48hrs U/A neg stable for surgery in am 01/09/18 No complaints this morning. Progressing well. 01/10/18 Doing well, no complaints this morning 01/12/18 on room air start iron supplement gentle diuresis increase BB stop plavix, add eliquis and continue ASA eval for dc in am Objective: Vital Signs - 24 hr 01/11/18 14:00 01/11/18 15:00 01/11/18 15:27 Temperature 98.2 F Pulse Rate 109 H 92 H 107 H Respiratory Rate 18 Blood Pressure 155/76 H Pulse Oximetry 95 01/11/18 16:24 01/11/18 16:40 01/11/18 17:06 Temperature Pulse Rate 106 H 99 H 105 H Respiratory Rate 17 Blood Pressure Pulse Oximetry 01/11/18 19:00 01/11/18 19:52 01/11/18 19:53 Temperature 99.0 F Pulse Rate 100 H 101 H Respiratory Rate 20 16 Blood Pressure 150/72 H Pulse Oximetry 95 92 L 01/11/18 20:00 01/11/18 21:00 01/11/18 22:00 Temperature Pulse Rate 104 H 110 H 106 H Respiratory Rate Blood Pressure Pulse Oximetry 01/11/18 23:00 01/12/18 00:00 01/12/18 01:00 Temperature 98.9 F Pulse Rate 107 H 106 H 104 H Respiratory Rate 16 Blood Pressure 144/58 H Pulse Oximetry 95 01/12/18 02:00 01/12/18 03:00 01/12/18 04:00 Temperature 98.7 F Pulse Rate 104 H 98 H 116 H Respiratory Rate 18 Blood Pressure 157/74 H Pulse Oximetry 98 01/12/18 04:36 01/12/18 05:00 01/12/18 06:00 Temperature Pulse Rate 100 H 106 H 102 H Respiratory Rate 16 Blood Pressure Pulse Oximetry 01/12/18 07:00 01/12/18 08:00 01/12/18 09:47 Temperature 98.3 F Pulse Rate 102 H 109 H 105 H Respiratory Rate 18 Blood Pressure 154/76 H Pulse Oximetry 96 01/12/18 10:25 01/12/18 11:00 01/12/18 12:00 Temperature 98.1 F Pulse Rate 104 H 102 H 105 H Respiratory Rate 18 18 Blood Pressure 113/67 Pulse Oximetry 97 96 01/12/18 12:55 Temperature Pulse Rate 98 H Respiratory Rate Blood Pressure Pulse Oximetry GENERAL: A&O x 3 SKIN: Warm and dry. prevena dressing to chest , incision intact to left leg HEAD: Normocephalic. EYES: No scleral icterus. No injection or drainage. NECK: Supple, trachea midline. No JVD or lymphadenopathy. CARDIOVASCULAR: irregular rate and rhythm without murmurs, gallops, or rubs. RESPIRATORY: Breath sounds equal bilaterally. No accessory muscle use. GASTROINTESTINAL: Abdomen soft, non-tender, nondistended. MUSCULOSKELETAL: No cyanosis, or edema. BACK: Nontender without obvious deformity. No CVA tenderness. Labs: Laboratory Results - last 12 hr 01/12/18 01/12/18 08:07 11:46 POC Glucose 120 H 185 H Result Diagrams: 01/11/18 05:30 01/11/18 05:30 - Plan (1) S/P CABG x 3 Plan: ASA, statin , BB OOB ambulate pulm toileting (2) CAD (coronary artery disease) Plan: ASA, BB , statin (3) CVA (cerebral vascular accident) Plan: on ASA (4) Sepsis Plan: resolved repeat BC pending today (6) Afib Plan: resume eliquis (2) CAD (coronary artery disease) Qualifiers: Coronary Disease-Associated Artery/Lesion type: [place] artery (4) Sepsis Qualifiers: Sepsis type: Escherichia coli Qualified Code(s): A41.51 - Sepsis due to Escherichia coli [E. coli]
--- NOTE | 2018-01-12 14:43 | P.PNCA ---
Subjective Interval history: alert in nad Medications and Allergies Active Medications: Active Medications Acetaminophen (Tylenol) 650 mg PO Q4H PRN PRN Reason: Temp > 100.4 Last Admin: 12/25/17 16:24 Dose: 650 mg Hydrocodone Bitart/Acetaminophen ([place] 5/325) 1 tab PO Q3H PRN PRN Reason: PAIN SCALE 1 TO 5 Last Admin: 01/11/18 00:50 Dose: 1 tab Al Hydroxide/Mg Hydroxide (Milk Of Magnesia Liq) 30 ml PO Q12H PRN PRN Reason: Mild Constipation Al Hydroxide/Mg Hydroxide (Milk Of Magnesia Liq) 30 ml PO DAILY [facility] Last Admin: 01/12/18 08:09 Dose: 30 ml Albuterol (Duoneb Neb (Jonny)) 1 ampul NEB Q6HR NEB [facility] Last Admin: 01/12/18 10:24 Dose: 1 ampul Albuterol (Duoneb Neb (Prn)) 1 ampul NEB Q2HR NEB PRN PRN Reason: WHEEZING Amiodarone HCl (Cordarone) 200 mg PO Q12HR [facility] Last Admin: 01/12/18 08:10 Dose: 200 mg Apixaban (Eliquis) 5 mg PO BID [facility] Aspirin (Aspirin Chew) 81 mg PO DAILY [facility] Last Admin: 01/12/18 08:10 Dose: 81 mg Atorvastatin Calcium (Lipitor) 20 mg PO HS [facility] Last Admin: 01/11/18 20:32 Dose: 20 mg Dextrose (D50w Vial) 50 ml IV.PUSH UNSCH PRN PRN Reason: PER HYPOGLYCEMIA PROTOCOL Docusate Sodium (Colace) 100 mg PO BID [facility] Last Admin: 01/12/18 08:09 Dose: 100 mg Ferrous Sulfate (Ferosul) 325 mg PO BID@1200,1700 [facility] Glucagon (Glucagon Inj) 1 mg OTHER PRN PRN PRN Reason: For hypoglycemia Sodium Chloride (Ns Inj) 1,000 mls @ 0 mls/hr IV.SIG BOLUS JONNY Magnesium Sulfate Inj 4 gm/ (Sodium Chloride) 100 mls @ 50 mls/hr IV.SIG UNSCH PRN PRN Reason: For Magnesium 0.9 - 1.1 mg/dL Magnesium Sulfate Inj 2 gm/ (Sodium Chloride) 100 mls @ 50 mls/hr IV.SIG UNSCH PRN PRN Reason: For Magnesium 1.2 - 1.6 mg/dL Last Infusion: 01/10/18 17:55 Dose: Infused Potassium Chloride (Kcl 40 Meq Premix Inj) 40 meq in 100 mls @ 25 mls/hr IV.SIG Q2H PRN PRN Reason: For Potassium 2.8 - 3.2 mEq/L Potassium Chloride (Kcl 20 Meq Premix Inj) 20 meq in 100 mls @ 50 mls/hr IV.SIG Q2H PRN PRN Reason: For Potassium 3.3 - 3.5 mEq/L Potassium Chloride (Kcl 40 Meq Premix Inj) 40 meq in 100 mls @ 25 mls/hr IV.SIG UNSCH PRN PRN Reason: For Potassium 3.3 - 3.5 mEq/L Potassium Chloride (Kcl 20 Meq Premix Inj) 20 meq in 100 mls @ 50 mls/hr IV.SIG Q2H PRN PRN Reason: For Potassium 2.8 - 3.2 mEq/L Last Infusion: 12/28/17 11:40 Dose: Infused Potassium Phosphate 30 mmol/ (Sodium Chloride) 260 mls @ 42 mls/hr IV.SIG UNSCH PRN PRN Reason: SEE LABEL COMMENTS Sodium Phosphate 30 mmol/ (Sodium Chloride) 260 mls @ 42 mls/hr IV.SIG UNSCH PRN PRN Reason: For Phosphorus < 2.5 mg/dL Sodium Chloride (Ns Inj) 500 mls @ 30 mls/hr IV.SIG .Q10H [facility] Last Admin: 01/09/18 00:04 Dose: Not Given Insulin Aspart (Novolog Insulin Correctional Sugar Inj) 0 unit SQ ACHS [facility]; Protocol Last Admin: 01/12/18 11:47 Dose: 7 unit Lactulose (Lactulose Liq) 30 ml PO DAILY PRN PRN Reason: SEVERE CONSITIPATION Magnesium Oxide (Mag-Ox) 800 mg PO UNSCH PRN PRN Reason: For Magnesium 1.2 - 1.6 mg/dL Metoprolol Tartrate (Lopressor) 12.5 mg PO BID [facility] Last Admin: 01/12/18 08:10 Dose: 12.5 mg Miscellaneous (Pill Splitter) 1 [facility] Multivitamins/Minerals (Theragran-M) 1 tab PO DAILY [facility] Last Admin: 01/12/18 08:10 Dose: 1 tab Ondansetron HCl (Zofran Inj) 4 mg IV.PUSH Q6H PRN PRN Reason: NAUSEA OR VOMITING Pantoprazole Sodium (Protonix) 40 mg PO DAILY@06 [facility] Last Admin: 01/12/18 06:22 Dose: 40 mg Polyethylene Glycol (Miralax) 17 gm PO DAILY [facility] Last Admin: 01/12/18 08:09 Dose: 17 gm Potassium Bicarb/Potassium Chloride (K-Lyte Cl Eff) 50 meq PO UNSCH PRN PRN Reason: For Potassium 3.3 - 3.5 mEq/L Potassium Phosphate (K-Phos Original) 500 mg PO DAILY [facility] Last Admin: 01/12/18 08:09 Dose: 500 mg Potassium Phosphate (K-Phos Original) 2,000 mg PO Q4H PRN PRN Reason: Phosphorus Less Than 2.5 mg/dL Potassium Phosphate (K-Phos Original) 2,000 mg PO UNSCH PRN PRN Reason: SEE LABEL COMMENTS Senna/Docusate Sodium (Ruth-Colace) 1 tab PO BID [facility] Last Admin: 01/12/18 08:09 Dose: 1 tab Sennosides (Senokot) 17.2 mg PO Q12H PRN PRN Reason: Moderate Constipation Sennosides (Senokot) 8.6 mg PO [facility] Last Admin: 01/11/18 20:32 Dose: 8.6 mg Sodium Chloride (Ns Flush) 2 ml IV.FLUSH PRN PRN PRN Reason: FLUSH AFTER USING IV ACCESS Sodium Chloride (Ns Flush) 2 ml IV.FLUSH BID [facility] Last Admin: 01/12/18 08:10 Dose: 2 ml Sodium Chloride (Ns Flush) 2 ml IV.FLUSH PRN PRN PRN Reason: FLUSH AFTER USING IV ACCESS Tamsulosin HCl (Flomax) 0.4 mg PO DAILY [facility] Last Admin: 01/12/18 08:09 Dose: 0.4 mg Allergies Allergy/AdvReac Type Severity Reaction Status Date / Time No Known Allergies Allergy Unverified 11/21/17 09:58 Home Medications Medication Instructions Recorded Confirmed Type atorvastatin 20 mg PO HS 12/23/17 12/31/17 History hydrochlorothiazide 25 mg PO DAILY 12/23/17 12/31/17 History Physical Exam Vital signs: Vital Signs 01/11/18 15:00 01/11/18 15:27 01/11/18 16:24 Temperature 98.2 F Pulse Rate 92 H 107 H 106 H Respiratory Rate 18 17 Blood Pressure 155/76 H Pulse Oximetry 95 01/11/18 16:40 01/11/18 17:06 01/11/18 19:00 Temperature 99.0 F Pulse Rate 99 H 105 H 100 H Respiratory Rate 20 Blood Pressure 150/72 H Pulse Oximetry 95 01/11/18 19:52 01/11/18 19:53 01/11/18 20:00 Temperature Pulse Rate 101 H 104 H Respiratory Rate 16 Blood Pressure Pulse Oximetry 92 L 01/11/18 21:00 01/11/18 22:00 01/11/18 23:00 Temperature 98.9 F Pulse Rate 110 H 106 H 107 H Respiratory Rate 16 Blood Pressure 144/58 H Pulse Oximetry 95 01/12/18 00:00 01/12/18 01:00 01/12/18 02:00 Temperature Pulse Rate 106 H 104 H 104 H Respiratory Rate Blood Pressure Pulse Oximetry 01/12/18 03:00 01/12/18 04:00 01/12/18 04:36 Temperature 98.7 F Pulse Rate 98 H 116 H 100 H Respiratory Rate 18 16 Blood Pressure 157/74 H Pulse Oximetry 98 01/12/18 05:00 01/12/18 06:00 01/12/18 07:00 Temperature 98.3 F Pulse Rate 106 H 102 H 102 H Respiratory Rate 18 Blood Pressure 154/76 H Pulse Oximetry 96 01/12/18 08:00 01/12/18 09:47 01/12/18 10:25 Temperature Pulse Rate 109 H 105 H 104 H Respiratory Rate 18 Blood Pressure Pulse Oximetry 97 01/12/18 11:00 01/12/18 12:00 01/12/18 12:55 Temperature 98.1 F Pulse Rate 102 H 105 H 98 H Respiratory Rate 18 Blood Pressure 113/67 Pulse Oximetry 96 01/12/18 13:57 01/12/18 14:35 Temperature Pulse Rate 102 H 102 H Respiratory Rate Blood Pressure Pulse Oximetry Intake & Output 01/11/18 01/12/18 01/12/18 18:59 06:59 18:59 Intake Total 480 / 480 240 / 240 Output Total 710 / 710 Balance -230 / -230 240 / 240 Weight 91 kg Intake: Oral 480 / 480 240 / 240 Output: Urine 650 / 650 Chest Tube Drainage 60 / 60 Mediastinal 60 / 60 Other: # Voids 3 - Urinary Catheter Management Indwelling Temp Sensing Catheter Cath placed during this visit: yes, but has since been removed by the nurse Reason for continuing: Continue criteria not met Insertion date: 01/09/18 Insertion time: 07:39 Removal date: 01/10/18 Removal time: 06:00 Results 01/11/18 05:30 01/11/18 05:30 CBC 01/11/18 Range/Units 05:30 WBC 8.5 (4.0-11.0) th/mm3 RBC 2.89 L (4.50-5.90) mil/mm3 Hgb 8.8 L (13.0-17.0) gm/dL Hct 26.4 L (39.0-51.0) % Plt Count 132 L (150-450) th/mm3 Neut # (Auto) 7.1 (1.8-7.7) th/mm3 Lymph # (Auto) 0.5 L (1.0-4.8) th/mm3 [place] # (Auto) 0.8 (0.0-0.9) th/mm3 Eos # (Auto) 0.0 (0.0-0.4) th/mm3 Baso # (Auto) 0.0 (0.0-0.2) th/mm3 Comprehensive Metabolic Panel 01/11/18 Range/Units 05:30 Sodium 141 (136-145) meq/L Potassium 3.9 (3.5-5.1) meq/L Chloride 109 H (98-107) meq/L Carbon Dioxide 23.8 (21.0-32.0) meq/L BUN 13 (7-18) mg/dL Creatinine 1.10 (0.60-1.30) mg/dL Calcium 8.2 L (8.5-10.1) mg/dL Intake and Output 01/11/18 01/12/18 01/12/18 22:59 06:59 14:59 Intake Total 480 / 480 240 / 240 Output Total 710 / 710 Balance -230 / -230 240 / 240 Intake: Oral 480 / 480 240 / 240 Output: Urine 650 / 650 Chest Tube Drainage 60 / 60 Mediastinal 60 / 60 Other: # Voids 3 Weight 91 kg Assessment and Plan - Assessment (1) NSTEMI (non-ST elevated myocardial infarction) Code(s): I21.4 - Non-ST elevation (NSTEMI) myocardial infarction Status: Acute (2) CHF (congestive heart failure) Code(s): I50.9 - Heart failure, unspecified Status: Acute (3) Acute decompensated heart failure Code(s): I50.9 - Heart failure, unspecified Status: Acute (4) Afib Code(s): I48.91 - Unspecified atrial fibrillation Status: Chronic (5) Wide-complex tachycardia Code(s): I47.2 - Ventricular tachycardia Status: Acute (6) Acute UTI Code(s): N39.0 - Urinary tract infection, site not specified Status: Acute (7) CAD (coronary artery disease) Code(s): I25.10 - Atherosclerotic heart disease of [place] coronary artery without angina pectoris Status: Acute (8) CVA (cerebral vascular accident) Code(s): I63.9 - Cerebral infarction, unspecified Status: Acute (9) Sepsis Code(s): A41.9 - Sepsis, unspecified organism Status: Acute - Plan 1.) CAD - pod #3 cabg, on aspirin and eliquis, doing well (7) CAD (coronary artery disease) Qualifiers: Coronary Disease-Associated Artery/Lesion type: [place] artery (9) Sepsis Qualifiers: Sepsis type: Escherichia coli Qualified Code(s): A41.51 - Sepsis due to Escherichia coli [E. coli]
[2018-01-12] MEDS: Ferrous Sulfate 325 MG Tablet PO SCH (16:19)
[2018-01-13 04:53] VITALS: RESP 16
[2018-01-13 05:21] LABS: Anion Gap 11 meq/L (5-15); Blood Urea Nitrogen 14 mg/dL (7-18); Calcium 8.2 mg/dL (8.5-10.1); Carbon Dioxide 22.2 meq/L (21.0-32.0); Chloride 111 meq/L (98-107); Glomerular Filtration Rate Greater Than 89 mL/min (>89); Glucose,Random 93 mg/dL (74-106); Potassium 3.8 meq/L (3.5-5.1); Sodium 144 meq/L (136-145)
--- NOTE | 2018-01-13 06:13 | XR ---
EXAM DATE: 01/13/2018 6:10 AM EDT AGE/SEX: 77 years / Male INDICATIONS: Short of breath. CLINICAL DATA: This is the patient's subsequent encounter. Patient reports that signs and symptoms h ave been present for 1 week and indicates a pain score of 0/10. MEDICAL/SURGICAL HISTORY: Cardiovascular disease. CABG. COMPARISON: [facility] – [place], CHEST 1V SINGLE AP, 01/10/2018. . FINDINGS: Single AP view the chest. Median sternotomy wires again noted. Mediastinal drain and left-sided chest tube no longer seen. Left lower lobe atelectasis versus consolidation again seen. Small left pleural effusion. No evidence of pneumothorax. Cardiomediastinal silhouette unchanged. CONCLUSION: Left lower lobe atelectasis versus consolidation and small left pleural effusion unchanged. Electronically signed by: Lenin Talbot MD 01/13/2018 6:12 AM EDT
[2018-01-13] MEDS: Insulin NovoLOG Aspart Correctional Sugar Inj SQ SCH ×3 (09:11→16:12)
[2018-01-13] MEDS: Amiodarone 200 MG Tablet PO SCH (09:13)
[2018-01-13] MEDS: Polyethylene Glycol 3350 17 GM Packet PO SCH (09:14)
[2018-01-13] MEDS: Metoprolol Tartrate 25 MG Tablet PO SCH (09:14)
[2018-01-13] MEDS: Potassium Phosphate 500 MG Soluble Tablet PO SCH (09:14)
[2018-01-13] MEDS: Multivitamin/Minerals Therapeutic Tablet PO SCH (09:15)
[2018-01-13] MEDS: Senna/Docusate Sodium 8.6/50 MG Tablet PO SCH (09:16)
[2018-01-13] MEDS: Docusate Sodium 100 MG Capsule PO SCH (09:16)
--- NOTE | 2018-01-13 09:47 | P.PNCV ---
- Note Subjective/Hospital Course: Mr. Angel is a very pleasant 77-year-old gentleman who is well known to me from his previous encounters. Briefly he was admitted in early November for presenting diagnosis of a acute stroke as well as an acute myocardial infarction. At that time he underwent further workup including a coronary angiogram by Dr. Nolen which revealed significant multivessel coronary artery disease. Given the fact that he had had an acute CVA, with a small brain bleed, it was decided to proceed with percutaneous intervention to his culprit coronary vessel with plans to follow-up with coronary revascularization surgery following resolution of his acute neurologic event. He was subsequent discharged and I have seen him on 2 different occasions in the office to discuss the surgical procedure. Most recently he was just seen last Friday my office at which time he had complained of fevers, chills and night sweats with associated urinary complaints. He was advised to see [place]CP [place] and therefore he was sent to the emergency department for further evaluation. At that point he was noted to have significant sepsis with positive bacteremia. He has since been admitted to the hospital and was noted to be in atrial fibrillation with rapid ventricular response and urosepsis and is being treated for those 2 entities. 12/29 Blood cultures and urine culture + Ecoli 12/24 BC neg x 5 days on zyvox and zosyn WBC 8.4K no fever > 48 hrs remains in afib, rate controlled on 3 liter nasal cannula continue current medical therapy will need clearance and timing for CABG approval from ID will need to hold eliquis > 48 hrs and plavix >5 days prior to consideration for surgery 12/31 discussed with ID CXR and cultures and labs in 3 days if neg and improved, will then discuss clearance currently being treated for bacteremia and pneumonia pt is currently on room air , has been transferred out fo ICU 01/02 discussed with ID plan is for CABG 01/09 after completely cleared by ID will stop eliquis and plavix in am / start lovenox will dc lovenox after am dose 01/07 01/05 on lovenox, no chest pain over the weekend for surgery on friday if completely cleared by ID 01/06 await BC results no chest pain , remains in afib rate controlled, some PVC's noted 01/07 repeat BC preliminary no growth in 24 hrs no chest pain 01/08 BC neg x 48hrs U/A neg stable for surgery in am 01/09/18 No complaints this morning. Progressing well. 01/10/18 Doing well, no complaints this morning 01/12/18 on room air start iron supplement gentle diuresis increase BB stop plavix, add eliquis and continue ASA eval for dc in am 01/13 low dose diuretic given will eval for dc to rehab today Objective: Vital Signs - 24 hr 01/12/18 09:47 01/12/18 10:25 01/12/18 11:00 Temperature Pulse Rate 105 H 104 H 102 H Respiratory Rate 18 Blood Pressure Pulse Oximetry 97 01/12/18 12:00 01/12/18 12:55 01/12/18 13:57 Temperature 98.1 F Pulse Rate 105 H 98 H 102 H Respiratory Rate 18 Blood Pressure 113/67 Pulse Oximetry 96 01/12/18 14:35 01/12/18 16:00 01/12/18 16:08 Temperature 98.2 F Pulse Rate 102 H 95 H 75 Respiratory Rate 18 18 Blood Pressure 119/65 Pulse Oximetry 95 01/12/18 17:00 01/12/18 17:32 01/12/18 19:00 Temperature Pulse Rate 97 H 102 H 91 H Respiratory Rate Blood Pressure Pulse Oximetry 01/12/18 20:00 01/12/18 21:00 01/12/18 21:25 Temperature 98 F Pulse Rate 89 90 101 H Respiratory Rate 20 17 Blood Pressure 129/85 Pulse Oximetry 98 01/12/18 22:00 01/12/18 22:48 01/13/18 00:00 Temperature 98 F Pulse Rate 89 81 109 H Respiratory Rate 20 Blood Pressure 106/58 L Pulse Oximetry 98 01/13/18 01:00 01/13/18 02:00 01/13/18 03:00 Temperature Pulse Rate 95 H 89 104 H Respiratory Rate Blood Pressure Pulse Oximetry 01/13/18 04:00 01/13/18 04:51 01/13/18 05:00 Temperature 98.2 F Pulse Rate 96 H 81 96 H Respiratory Rate 20 16 Blood Pressure 117/57 L Pulse Oximetry 98 01/13/18 06:00 01/13/18 07:51 01/13/18 09:00 Temperature 98.4 F Pulse Rate 101 H 81 Respiratory Rate 16 Blood Pressure 155/70 H Pulse Oximetry 97 99 Labs: Laboratory Results - last 12 hr 01/13/18 01/13/18 04:03 07:54 Sodium 144 Potassium 3.8 Chloride 111 H Carbon Dioxide 22.2 Anion Gap 11 BUN 14 Creatinine 0.97 Estimated GFR Greater than 89 POC Glucose 103 Random Glucose 93 Calcium 8.2 L Result Diagrams: 01/11/18 05:30 01/13/18 04:03 - Plan (1) S/P CABG x 3 Plan: ASA, statin , BB OOB ambulate pulm toileting (2) CAD (coronary artery disease) Plan: ASA, BB , statin (3) CVA (cerebral vascular accident) Plan: on ASA (4) Sepsis Plan: resolved repeat BC pending today (6) Afib Plan: resume eliquis (2) CAD (coronary artery disease) Qualifiers: Coronary Disease-Associated Artery/Lesion type: [place] artery (4) Sepsis Qualifiers: Sepsis type: Escherichia coli Qualified Code(s): A41.51 - Sepsis due to Escherichia coli [E. coli]
[2018-01-13] MEDS ORDERED: Potassium Chloride 25 MEQ Effervescent Tablet PO SCH (11:00)
[2018-01-13] MEDS: Ferrous Sulfate 325 MG Tablet PO SCH ×2 (11:32→16:12)
--- NOTE | 2018-01-13 13:06 | P.PNCA ---
Subjective Interval history: alert in nad Medications and Allergies Active Medications: Active Medications Acetaminophen (Tylenol) 650 mg PO Q4H PRN PRN Reason: Temp > 100.4 Last Admin: 12/25/17 16:24 Dose: 650 mg Hydrocodone Bitart/Acetaminophen ([place] 5/325) 1 tab PO Q3H PRN PRN Reason: PAIN SCALE 1 TO 5 Last Admin: 01/11/18 00:50 Dose: 1 tab Al Hydroxide/Mg Hydroxide (Milk Of Magnesia Liq) 30 ml PO Q12H PRN PRN Reason: Mild Constipation Al Hydroxide/Mg Hydroxide (Milk Of Magnesia Liq) 30 ml PO DAILY [facility] Last Admin: 01/13/18 09:14 Dose: Not Given Albuterol (Duoneb Neb (Jonny)) 1 ampul NEB Q6HR NEB [facility] Last Admin: 01/13/18 09:02 Dose: Not Given Albuterol (Duoneb Neb (Prn)) 1 ampul NEB Q2HR NEB PRN PRN Reason: WHEEZING Amiodarone HCl (Cordarone) 200 mg PO Q12HR [facility] Last Admin: 01/13/18 09:13 Dose: 200 mg Apixaban (Eliquis) 5 mg PO BID [facility] Last Admin: 01/13/18 09:23 Dose: 5 mg Aspirin (Aspirin Chew) 81 mg PO DAILY [facility] Last Admin: 01/13/18 09:12 Dose: 81 mg Atorvastatin Calcium (Lipitor) 20 mg PO HS [facility] Last Admin: 01/12/18 20:29 Dose: 20 mg Dextrose (D50w Vial) 50 ml IV.PUSH UNSCH PRN PRN Reason: PER HYPOGLYCEMIA PROTOCOL Docusate Sodium (Colace) 100 mg PO BID [facility] Last Admin: 01/13/18 09:16 Dose: Not Given Ferrous Sulfate (Ferosul) 325 mg PO BID@1200,1700 [facility] Last Admin: 01/13/18 11:32 Dose: 325 mg Glucagon (Glucagon Inj) 1 mg OTHER PRN PRN PRN Reason: For hypoglycemia Sodium Chloride (Ns Inj) 1,000 mls @ 0 mls/hr IV.SIG BOLUS [facility] Magnesium Sulfate Inj 4 gm/ (Sodium Chloride) 100 mls @ 50 mls/hr IV.SIG UNSCH PRN PRN Reason: For Magnesium 0.9 - 1.1 mg/dL Magnesium Sulfate Inj 2 gm/ (Sodium Chloride) 100 mls @ 50 mls/hr IV.SIG UNSCH PRN PRN Reason: For Magnesium 1.2 - 1.6 mg/dL Last Infusion: 01/10/18 17:55 Dose: Infused Potassium Chloride (Kcl 40 Meq Premix Inj) 40 meq in 100 mls @ 25 mls/hr IV.SIG Q2H PRN PRN Reason: For Potassium 2.8 - 3.2 mEq/L Potassium Chloride (Kcl 20 Meq Premix Inj) 20 meq in 100 mls @ 50 mls/hr IV.SIG Q2H PRN PRN Reason: For Potassium 3.3 - 3.5 mEq/L Potassium Chloride (Kcl 40 Meq Premix Inj) 40 meq in 100 mls @ 25 mls/hr IV.SIG UNSCH PRN PRN Reason: For Potassium 3.3 - 3.5 mEq/L Potassium Chloride (Kcl 20 Meq Premix Inj) 20 meq in 100 mls @ 50 mls/hr IV.SIG Q2H PRN PRN Reason: For Potassium 2.8 - 3.2 mEq/L Last Infusion: 12/28/17 11:40 Dose: Infused Potassium Phosphate 30 mmol/ (Sodium Chloride) 260 mls @ 42 mls/hr IV.SIG UNSCH PRN PRN Reason: SEE LABEL COMMENTS Sodium Phosphate 30 mmol/ (Sodium Chloride) 260 mls @ 42 mls/hr IV.SIG UNSCH PRN PRN Reason: For Phosphorus < 2.5 mg/dL Sodium Chloride (Ns Inj) 500 mls @ 30 mls/hr IV.SIG .Q10H [facility] Last Admin: 01/09/18 00:04 Dose: Not Given Insulin Aspart (Novolog Insulin Correctional Sugar Inj) 0 unit SQ ACHS [facility]; Protocol Last Admin: 01/13/18 11:33 Dose: Not Given Lactulose (Lactulose Liq) 30 ml PO DAILY PRN PRN Reason: SEVERE CONSITIPATION Magnesium Oxide (Mag-Ox) 800 mg PO UNSCH PRN PRN Reason: For Magnesium 1.2 - 1.6 mg/dL Metoprolol Tartrate (Lopressor) 12.5 mg PO BID [facility] Last Admin: 01/13/18 09:14 Dose: 12.5 mg Miscellaneous (Pill Splitter) 1 each [facility] Multivitamins/Minerals (Theragran-M) 1 tab PO DAILY [facility] Last Admin: 01/13/18 09:15 Dose: 1 tab Ondansetron HCl (Zofran Inj) 4 mg IV.PUSH Q6H PRN PRN Reason: NAUSEA OR VOMITING Pantoprazole Sodium (Protonix) 40 mg PO DAILY@06 [facility] Last Admin: 01/13/18 05:59 Dose: 40 mg Polyethylene Glycol (Miralax) 17 gm PO DAILY [facility] Last Admin: 01/13/18 09:14 Dose: Not Given Potassium Bicarb/Potassium Chloride (K-Lyte Cl Eff) 50 meq PO UNSCH PRN PRN Reason: For Potassium 3.3 - 3.5 mEq/L Potassium Bicarb/Potassium Chloride (K-Lyte Cl Eff) 25 meq PO DAILY [facility] Last Admin: 01/13/18 11:32 Dose: 25 meq Potassium Phosphate (K-Phos Original) 500 mg PO DAILY [facility] Last Admin: 01/13/18 09:14 Dose: 500 mg Potassium Phosphate (K-Phos Original) 2,000 mg PO Q4H PRN PRN Reason: Phosphorus Less Than 2.5 mg/dL Potassium Phosphate (K-Phos Original) 2,000 mg PO UNSCH PRN PRN Reason: SEE LABEL COMMENTS Senna/Docusate Sodium (Ruth-Colace) 1 tab PO BID [facility] Last Admin: 01/13/18 09:16 Dose: Not Given Sennosides (Senokot) 17.2 mg PO Q12H PRN PRN Reason: Moderate Constipation Sennosides (Senokot) 8.6 mg PO [facility] Last Admin: 01/12/18 20:37 Dose: Not Given Sodium Chloride (Ns Flush) 2 ml IV.FLUSH PRN PRN PRN Reason: FLUSH AFTER USING IV ACCESS Sodium Chloride (Ns Flush) 2 ml IV.FLUSH BID [facility] Last Admin: 01/13/18 09:15 Dose: 2 ml Sodium Chloride (Ns Flush) 2 ml IV.FLUSH PRN PRN PRN Reason: FLUSH AFTER USING IV ACCESS Tamsulosin HCl (Flomax) 0.4 mg PO DAILY [facility] Last Admin: 01/13/18 09:13 Dose: 0.4 mg Allergies Allergy/AdvReac Type Severity Reaction Status Date / Time No Known Allergies Allergy Unverified 11/21/17 09:58 Home Medications Medication Instructions Recorded Confirmed Type atorvastatin 20 mg PO 12/23/17 12/31/17 History hydrochlorothiazide 25 mg PO DAILY 12/23/17 12/31/17 History Physical Exam Vital signs: Vital Signs 01/12/18 13:57 01/12/18 14:35 01/12/18 16:00 Temperature 98.2 F Pulse Rate 102 H 102 H 95 H Respiratory Rate 18 Blood Pressure 119/65 Pulse Oximetry 95 01/12/18 16:08 01/12/18 17:00 01/12/18 17:32 Temperature Pulse Rate 75 97 H 102 H Respiratory Rate 18 Blood Pressure Pulse Oximetry 01/12/18 19:00 01/12/18 20:00 01/12/18 21:00 Temperature 98 F Pulse Rate 91 H 89 90 Respiratory Rate 20 Blood Pressure 129/85 Pulse Oximetry 98 01/12/18 21:25 01/12/18 22:00 01/12/18 22:48 Temperature Pulse Rate 101 H 89 81 Respiratory Rate 17 Blood Pressure Pulse Oximetry 01/13/18 00:00 01/13/18 01:00 01/13/18 02:00 Temperature 98 F Pulse Rate 109 H 95 H 89 Respiratory Rate 20 Blood Pressure 106/58 L Pulse Oximetry 98 01/13/18 03:00 01/13/18 04:00 01/13/18 04:51 Temperature 98.2 F Pulse Rate 104 H 96 H 81 Respiratory Rate 20 16 Blood Pressure 117/57 L Pulse Oximetry 98 01/13/18 05:00 01/13/18 06:00 01/13/18 07:51 Temperature 98.4 F Pulse Rate 96 H 101 H 81 Respiratory Rate 16 Blood Pressure 155/70 H Pulse Oximetry 97 01/13/18 09:00 Temperature Pulse Rate Respiratory Rate Blood Pressure Pulse Oximetry 99 Intake & Output 01/12/18 01/13/18 01/13/18 18:59 06:59 18:59 Intake Total 720 / 720 240 / 240 Output Total 925 / 925 Balance -205 / -205 240 / 240 Weight 90.5 kg Intake: Oral 720 / 720 240 / 240 Output: Urine 925 / 925 Other: # Voids 2 Date of Last Bowel Movement 01/12/18 01/12/18 # Bowel Movements 3 1 - Urinary Catheter Management Indwelling Temp Sensing Catheter Cath placed during this visit: yes, but has since been removed by the nurse Reason for continuing: Continue criteria not met Insertion date: 01/09/18 Insertion time: 07:39 Removal date: 01/10/18 Removal time: 06:00 Results 01/11/18 05:30 01/13/18 04:03 Comprehensive Metabolic Panel 01/13/18 Range/Units 04:03 Sodium 144 (136-145) meq/L Potassium 3.8 (3.5-5.1) meq/L Chloride 111 H (98-107) meq/L Carbon Dioxide 22.2 (21.0-32.0) meq/L BUN 14 (7-18) mg/dL Creatinine 0.97 (0.60-1.30) mg/dL Calcium 8.2 L (8.5-10.1) mg/dL Intake and Output 01/12/18 01/13/18 01/13/18 22:59 06:59 14:59 Intake Total 720 / 720 240 / 240 Output Total 925 / 925 Balance -205 / -205 240 / 240 Intake: Oral 720 / 720 240 / 240 Output: Urine 925 / 925 Other: # Voids 2 Date of Last Bowel Movement 01/12/18 01/12/18 # Bowel Movements 3 1 Weight 90.5 kg - Imaging and Cardiology Imaging: Impressions Chest X-Ray 01/13/18 06:00 CONCLUSION: Left lower lobe atelectasis versus consolidation and small left pleural effusion unchanged. Assessment and Plan - Assessment (1) NSTEMI (non-ST elevated myocardial infarction) Code(s): I21.4 - Non-ST elevation (NSTEMI) myocardial infarction Status: Acute (2) CHF (congestive heart failure) Code(s): I50.9 - Heart failure, unspecified Status: Acute (3) Acute decompensated heart failure Code(s): I50.9 - Heart failure, unspecified Status: Acute (4) Afib Code(s): I48.91 - Unspecified atrial fibrillation Status: Chronic (5) Wide-complex tachycardia Code(s): I47.2 - Ventricular tachycardia Status: Acute (6) Acute UTI Code(s): N39.0 - Urinary tract infection, site not specified Status: Acute (7) CAD (coronary artery disease) Code(s): I25.10 - Atherosclerotic heart disease of [place] coronary artery without angina pectoris Status: Acute (8) CVA (cerebral vascular accident) Code(s): I63.9 - Cerebral infarction, unspecified Status: Acute (9) Sepsis Code(s): A41.9 - Sepsis, unspecified organism Status: Acute - Plan 1.) CAD - pod #4 cabg, on aspirin and eliquis, doing well, patient and family and nurse advised for patient to f/u with me in office [facility] (7) CAD (coronary artery disease) Qualifiers: Coronary Disease-Associated Artery/Lesion type: [place] artery (9) Sepsis Qualifiers: Sepsis type: Escherichia coli Qualified Code(s): A41.51 - Sepsis due to Escherichia coli [E. coli]
--- NOTE | 2018-01-13 13:49 | P.DS ---
Date of admission: 12/23/17 19:43 Primary care physician: Khadra Ruiz MD Attending physician on discharge: Latha Knott Anticipated date of discharge: 01/13/18 Brief History from admission: Mr. Angel is a very pleasant 77-year-old gentleman who is well known to me from his previous encounters. Briefly he was admitted in early November for presenting diagnosis of a acute stroke as well as an acute myocardial infarction. At that time he underwent further workup including a coronary angiogram by Dr. Nolen which revealed significant multivessel coronary artery disease. Given the fact that he had had an acute CVA, with a small brain bleed, it was decided to proceed with percutaneous intervention to his culprit coronary vessel with plans to follow-up with coronary revascularization surgery following resolution of his acute neurologic event. He was subsequent discharged and I have seen him on 2 different occasions in the office to discuss the surgical procedure. Most recently he was just seen last Friday my office at which time he had complained of fevers, chills and night sweats with associated urinary complaints. He was advised to [place] and therefore he was sent to the emergency department for further evaluation. At that point he was noted to have significant sepsis with positive bacteremia. He has since been admitted to the hospital and was noted to be in atrial fibrillation with rapid ventricular response and urosepsis and is being treated for those 2 entities. Patient update on day of discharge: remains in Afib rate controlled , on eliquis stable for dc , on room air , + BM pain controlled DS: Diagnosis - Discharge Diagnosis (1) S/P CABG x 3 Status: Acute (2) CAD (coronary artery disease) Status: Acute (3) CVA (cerebral vascular accident) Status: Chronic (4) Sepsis Status: Acute (5) NSTEMI (non-ST elevated myocardial infarction) Status: Acute (6) Afib Status: Chronic (7) Acute UTI Status: Acute DS: Medications - Discharge Medications Prescriptions: amiodarone 200 mg PO Q12HR #28 tab docusate sodium [DOK] 100 mg PO BID #60 cap ferrous sulfate [FeroSul] 325 mg PO BID@1200,1700 #60 tab hydrocodone-acetaminophen 1 tab PO Q4H PRN #30 tab PRN Reason: Pain Scale 1 To 5 metoprolol tartrate 25 mg PO BID #60 tab tamsulosin 0.4 mg PO DAILY #30 cap DS: Summary Hospital Course: 12/29 Blood cultures and urine culture + Ecoli 12/24 BC neg x 5 days on zyvox and zosyn WBC 8.4K no fever > 48 hrs remains in afib, rate controlled on 3 liter nasal cannula continue current medical therapy will need clearance and timing for CABG approval from ID will need to hold eliquis > 48 hrs and plavix >5 days prior to consideration for surgery 12/31 discussed with ID CXR and cultures and labs in 3 days if neg and improved, will then discuss clearance currently being treated for bacteremia and pneumonia pt is currently on room air , has been transferred out fo ICU 01/02 discussed with ID plan is for CABG 01/09 after completely cleared by ID will stop eliquis and plavix in am / start lovenox will dc lovenox after am dose 01/07 01/05 on lovenox, no chest pain over the weekend for surgery on friday if completely cleared by ID 01/06 await BC results no chest pain , remains in afib rate controlled, some PVC's noted 01/07 repeat BC preliminary no growth in 24 hrs no chest pain 01/08 BC neg x 48hrs U/A neg stable for surgery in am 01/09/18 No complaints this morning. Progressing well. 01/10/18 Doing well, no complaints this morning 01/11 gentle diuresis on room air / dc in am 01/12 eliquis added remains in afib 01/13 + BM, stable for dc home with [facility] BB increased - Time Spent with Patient Total time spent providing and/or coordinating discharge services: Greater than 30 minutes - Quality: VTE Deep Vein Thrombosis/Pulmonary Embolism Present on Admission: No Exam Vital signs: Vital Signs 01/12/18 13:57 01/12/18 14:35 01/12/18 16:00 Temperature 98.2 F Pulse Rate 102 H 102 H 95 H Respiratory Rate 18 Blood Pressure 119/65 Pulse Oximetry 95 01/12/18 16:08 01/12/18 17:00 01/12/18 17:32 Temperature Pulse Rate 75 97 H 102 H Respiratory Rate 18 Blood Pressure Pulse Oximetry 01/12/18 19:00 01/12/18 20:00 01/12/18 21:00 Temperature 98 F Pulse Rate 91 H 89 90 Respiratory Rate 20 Blood Pressure 129/85 Pulse Oximetry 98 01/12/18 21:25 01/12/18 22:00 01/12/18 22:48 Temperature Pulse Rate 101 H 89 81 Respiratory Rate 17 Blood Pressure Pulse Oximetry 01/13/18 00:00 01/13/18 01:00 01/13/18 02:00 Temperature 98 F Pulse Rate 109 H 95 H 89 Respiratory Rate 20 Blood Pressure 106/58 L Pulse Oximetry 98 01/13/18 03:00 01/13/18 04:00 01/13/18 04:51 Temperature 98.2 F Pulse Rate 104 H 96 H 81 Respiratory Rate 20 16 Blood Pressure 117/57 L Pulse Oximetry 98 01/13/18 05:00 01/13/18 06:00 01/13/18 07:00 Temperature Pulse Rate 96 H 101 H 115 H Respiratory Rate Blood Pressure Pulse Oximetry 01/13/18 07:51 01/13/18 08:00 01/13/18 09:00 Temperature 98.4 F Pulse Rate 81 102 H Respiratory Rate 16 Blood Pressure 155/70 H Pulse Oximetry 97 99 01/13/18 11:00 01/13/18 12:00 01/13/18 13:00 Temperature 98.2 F Pulse Rate 104 H 98 H 98 H Respiratory Rate 16 Blood Pressure 150/70 H Pulse Oximetry 98 Intake & Output 01/12/18 01/13/18 01/13/18 18:59 06:59 18:59 Intake Total 720 / 720 240 / 240 Output Total 925 / 925 Balance -205 / -205 240 / 240 Weight 90.5 kg Intake: Oral 720 / 720 240 / 240 Output: Urine 925 / 925 Other: # Voids 2 Date of Last Bowel Movement 01/12/18 01/12/18 # Bowel Movements 3 1 - Constitutional no acute distress - Routine HEENT Exam Head: Present: normocephalic Eye: Present: EOMI, PERRL, normal accommodation ENT: Present: mucous membranes moist - Routine Neck Exam Present: supple, full ROM - Routine Chest/Breast/Axilla Exam Chest wall: Present: tenderness - Routine Respiratory Exam Present: CTA bilaterally - Routine Cardiovascular Exam Present: S1, S2, irregularly irregular - Routine Abdominal Exam Present: soft, normoactive bowel sounds - Routine Extremities Exam Present: full ROM - Routine Skin Exam Present: intact, wounds Comments: prevena dressing to chest , incision intact to left [facility] site - Routine Neurological Exam Present: alert, oriented X3, normal reflexes Results Procedures completed during hospitalization: 01/09 PREPROCEDURE DIAGNOSES 1. Severe Multi Vessel Coronary Artery Disease. 2. Myocardial infarction status post emergent PCI 3. Stroke 4. Urosepsis 5. Moderate left ventricular dysfunction 6. Paroxysmal atrial fibrillation POSTPROCEDURE DIAGNOSES Same SURGICAL PROCEDURE 1. Urgent Off-pump Coronary Artery Bypass Grafting x 3 with Left Internal Mammary Artery (HEAD) to Left Anterior Descending (LAD), reverse saphenous vein graft to Obtuse Marginal branch of the Left Circumflex artery, reverse saphenous vein graft to Right Coronary artery 2. Left leg Endoscopic Vein [place] 3. Left atrial appendage excision 4. Synchronized cardioversion Completed studies during hospitalization: Pending at discharge 01/09/18 14:47 Surgical [PTH] Routine Labs on day of discharge: Labs from last 24 hours 01/13/18 01/13/18 01/13/18 11:32 07:54 04:03 Sodium 144 Potassium 3.8 Chloride 111 H Carbon Dioxide 22.2 Anion Gap 11 BUN 14 Creatinine 0.97 Estimated GFR Greater than 89 POC Glucose 120 H 103 Random Glucose 93 Calcium 8.2 L 01/12/18 01/12/18 21:34 16:16 Sodium Potassium Chloride Carbon Dioxide Anion Gap BUN Creatinine Estimated GFR POC Glucose 131 H 121 H Random Glucose Calcium - Impressions ITS Impressions Chest CTA 12/26/17 00:00 CONCLUSION: 1. No evidence of pulmonary embolism. 2. Right perihilar infiltrates are noted consistent with asymmetric pulmonary edema versus pneumonia. Clinical correlation is recommended. 3. Scattered peripheral bleb formation is noted bilaterally. 4. Small bilateral pleural effusions. 5. Cardiomegaly and coronary artery calcifications. 6. Low-density lesions within the liver which are nonspecific. Chest X-Ray 01/13/18 06:00 CONCLUSION: Left lower lobe atelectasis versus consolidation and small left pleural effusion unchanged. Discharge Plan - Discharge Disposition Patient Disposition: W/Home Health Service - Discharge Condition Condition: Stable - Discharge Order Discharge Orders: Discharge Order (Routine); Ordered 01/13/18 Ordered By: Lucretia Birch - Discharge Details Anticipated Discharge Date: 01/13/18 - Physicians Team Primary Care Provider: Khadra Ruiz Attending Provider: Latha Knott Other Providers: [facility],Insurance ; Rosalba Briones MD ; Ti Fletcher MD ; Wilver Looney MD ; Latha Knott MD ; Jonathan Nolen MD ; [facility],Agency ; Lucio Germain MD
[2018-01-13 15:14] VITALS: BP 146/69; TEMP 97.6
[2018-01-13 15:30] VITALS: O2SAT 93
[2018-01-13 16:21] VITALS: PULSE 118
[2018-01-13] MEDS ORDERED: Metoprolol Tartrate 25 MG Tablet PO SCH (21:00)
== END 2018-01-13 17:20 | disposition home health service (06) ==
LOC: NEPE 14:36 → NEDA 19:43 → N04 21:05 → HCPC 12-25 15:53 → HIMC 12-26 21:20 → HCPC 12-30 14:50 → HCVI 01-09 13:00 → HCPC 01-10 12:40
PROVIDERS: ADMIT Thoracic Surgery (Cardiothoracic Vascular Surgery); ATTEND Thoracic Surgery (Cardiothoracic Vascular Surgery)

== ENCOUNTER 2018-04-22 05:47 | Inpatient (IN) ==
--- NOTE | 2018-04-22 06:14 | ED ---
HPI General Chief Complaint: Arrhythmia / Palpitations Stated Complaint: Medical Time Seen by Provider: 04/22/18 05:51 Source: patient Mode of arrival: EMS Limitations: no limitations History of Present Illness The patient is a 78-year-old -[place] male who presents to the emergency department via EMS for palpitations and shortness of breath. The patient states his symptoms started last night at 6 PM with palpitations and shortness of breath. The patient does have a history of atrial fibrillation and is currently anticoagulated with Eliquis, he is followed by his coal deliverer , Dr. Nolen, and his primary physician, Dr. Khadra Rapp. The patient states he had mild shortness of breath last night, however, progressively worsened throughout the night, he became suddenly weak with increasing shortness of breath when he got up to use the bathroom this morning. The patient does complain of mild orthopnea and exertional dyspnea with a dry nonproductive cough. The patient also complains of mild edema worse in the left lower extremity. The patient states he ran out of his Lasix 2 days ago. The patient does have a previous history of CAD and previous CABG in December, but denies any known history of congestive heart failure. Symptoms are moderate and progressive. EMS notes when they arrived the patient's oxygen saturation on room air was 89%, the patient is not on home O2. The patient denies any associated fever, chills, or sweats. EMS also states the patient was A. fib with RVR with a rate in the 130s, he received Cardizem intravenously prior to arrival. MD Complaint: Reports shortness of breath Onset (ago): hour(s) Severity: moderate Consistency/Duration: progressively worsening Relieving factors: rest Exacerbating factors: lying flat, exertion and coughing Known history of: Reports other Associated symptoms: Reports cough, orthopnea and chest congestion Treatment prior to arrival: Reports oxygen Related Data Home oxygen amount: none Home Medications Medication Instructions Recorded Confirmed amlodipine 10 mg PO DAILY 03/04/18 04/22/18 finasteride 5 mg PO HS 03/04/18 04/22/18 furosemide [Lasix] 40 mg PO BID 03/04/18 04/22/18 metoprolol tartrate 50 mg PO BID 03/04/18 04/22/18 sertraline 50 mg PO DAILY 03/04/18 04/22/18 Previous Rx's Medication Instructions Recorded apixaban [Eliquis] 5 mg PO BID #60 tab 11/22/17 aspirin 81 mg PO DAILY #30 tab 11/22/17 olmesartan 40 mg PO DAILY #30 tab 11/22/17 tamsulosin 0.4 mg PO DAILY cap 01/13/18 cephalexin [Keflex] 500 mg PO TID #21 cap 03/10/18 hydrocodone-acetaminophen [[place]] 1 tab PO Q4-6H PRN #12 tab 03/10/18 Allergies Allergy/AdvReac Type Severity Reaction Status Date / Time No Known Allergies Allergy Verified 04/22/18 06:01 Review of Systems ROS: all other systems reviewed are negative COUNT INCLUDES THE [facility] Social History Social History Substance History: No History of Abuse Second Hand Smoke Exposure: No Smoking Status: Never smoker Tobacco Type: Cigarettes How Often Do You Have a Drink Containing Alcohol: Never Recent Travel in [facility] within the Last 8 Weeks: No Recent Out of Country Travel within the Last 8 Weeks: No Immunization History Tetanus Immunization: Unsure Exam Narrative Exam Narrative: GENERAL: Awake, alert, pleasant 78-year-old male who is visibly short of breath. SKIN: Focused skin assessment reveals mildly diaphoretic forehead. HEAD: Atraumatic. Normocephalic. EYES: No scleral icterus. No injection or drainage. ENT: No nasal bleeding or discharge. Mucous membranes pink and moist. NECK: Trachea midline. No JVD. CARDIOVASCULAR: Irregularly irregular, heart rate 100. Well-healed midline scar. Pacemaker in place left upper chest wall. RESPIRATORY: Tachypnea with a respiratory rate of 26. Rales noted in the bases bilaterally. GASTROINTESTINAL: Abdomen soft, nontender, well-healed midline incisional scar from previous AAA repair. MUSCULOSKELETAL: No obvious deformities. No clubbing. No cyanosis. Mild pitting edema left lower extremity. NEUROLOGICAL: Awake and alert. No obvious cranial nerve deficits. Motor grossly within normal limits. Normal speech. PSYCHIATRIC: Appropriate mood and affect; insight and judgment normal. Course Initial Documented Vital Signs Temperature 98.2 F 04/22/18 06:01 Pulse Rate 94 H 04/22/18 06:01 Respiratory Rate 20 04/22/18 06:01 Blood Pressure 201/98 H 04/22/18 06:01 Pulse Oximetry 96 04/22/18 06:01 Last Documented Vital Signs Temperature 97.9 F 04/22/18 07:05 Pulse Rate 93 H 04/22/18 07:05 Respiratory Rate 18 04/22/18 07:05 Blood Pressure 195/99 H 04/22/18 07:05 Pulse Oximetry 95 04/22/18 07:05 Medical Decision Making MDM Narrative Medical decision making narrative: IV was established, labs are drawn and sent, and the patient was placed on cardiac telemetry monitoring and continuous pulse oximetry monitoring. EKG was ordered and interpreted. Chest x-ray was obtained. The patient received Lasix 40 mg intravenously. BNP was sent to lab. The patient was placed on oxygen 4 L nasal cannula which brought his oxygen saturation up to 96%. I doubt pulmonary embolism as patient is currently anticoagulated with Eliquis for history of atrial fibrillation. The patient's chest x-ray reveals pulmonary edema, BNP is elevated at 1535. The patient has acute exacerbation of CHF with hypoxia, was 89% on room air, 96% on 4 L O2 via nasal cannula. The patient will need diuresis and possible evaluation by his coal deliverer, Dr. Nolen. The patient will be admitted to the on-call medical service. Medical Screen Exam Complete: Yes Emergency Medical Condition: Yes Differential Diagnosis Differential Diagnosis: Differential diagnosis includes A. fib with RVR, congestive heart failure, pulmonary edema, hypertensive urgency, hypertensive emergency, NSTEMI, pneumonia, bronchitis, pulmonary embolism. Lab Data Lab results reviewed: Yes I reviewed the patient's lab results. Result diagrams: 04/22/18 06:10 04/22/18 06:10 Lab Results 04/22/18 04/22/18 04/22/18 Range/Units 06:10 06:10 06:10 WBC 7.2 (4.0-11.0) th/mm3 RBC 4.95 (4.50-5.90) mil/mm3 Hgb 13.6 (13.0-17.0) gm/dL Hct 42.7 (39.0-51.0) % MCV 86.3 (80.0-100.0) fL MCH 27.5 (27.0-34.0) pg MCHC 31.9 L (32.0-36.0) % RDW 19.5 H (11.6-17.2) % Plt Count 182 (150-450) th/mm3 MPV 8.8 (7.0-11.0) fL Neut % (Auto) 78.2 H (16.0-70.0) % Lymph % (Auto) 10.2 (9.0-44.0) % Elbert % (Auto) 9.8 H (0.0-8.0) % Eos % (Auto) 1.2 (0.0-4.0) % Baso % (Auto) 0.6 (0.0-2.0) % Neut # (Auto) 5.6 (1.8-7.7) th/mm3 Lymph # (Auto) 0.7 L (1.0-4.8) th/mm3 Elbert # (Auto) 0.7 (0.0-0.9) th/mm3 Eos # (Auto) 0.1 (0.0-0.4) th/mm3 Baso # (Auto) 0.0 (0.0-0.2) th/mm3 WBC Differential . Differential Comment Auto diff final PT 10.9 (9.8-11.6) sec INR 1.1 Ratio APTT 29.2 (23.4-31.7) sec Sodium 144 (136-145) meq/L Potassium 4.4 (3.5-5.1) meq/L Chloride 115 H (98-107) meq/L Carbon Dioxide 18.9 L (21.0-32.0) meq/L Anion Gap 10 (5-15) meq/L BUN 20 H (7-18) mg/dL Creatinine 1.21 (0.60-1.30) mg/dL Estimated GFR 70 L (>89) mL/min Random Glucose 136 H (74-106) mg/dL Calcium 9.2 (8.5-10.1) mg/dL Magnesium 2.0 (1.5-2.5) mg/dL Total Bilirubin 0.8 (0.2-1.0) mg/dL AST 53 H (15-37) U/L ALT 71 (12-78) U/L Alkaline Phosphatase 132 H (45-117) U/L Total Creatine Kinase 73 (39-308) U/L Troponin I 0.04 (0.02-0.05) ng/mL B-Natriuretic Peptide (0-100) pg/mL Total Protein 7.7 (6.4-8.2) g/dL Albumin 3.3 L (3.4-5.0) g/dL 04/22/18 Range/Units 06:10 WBC (4.0-11.0) th/mm3 RBC (4.50-5.90) mil/mm3 Hgb (13.0-17.0) gm/dL Hct (39.0-51.0) % MCV (80.0-100.0) fL MCH (27.0-34.0) pg MCHC (32.0-36.0) % RDW (11.6-17.2) % Plt Count (150-450) th/mm3 MPV (7.0-11.0) fL Neut % (Auto) (16.0-70.0) % Lymph % (Auto) (9.0-44.0) % Elbert % (Auto) (0.0-8.0) % Eos % (Auto) (0.0-4.0) % Baso % (Auto) (0.0-2.0) % Neut # (Auto) (1.8-7.7) th/mm3 Lymph # (Auto) (1.0-4.8) th/mm3 Elbert # (Auto) (0.0-0.9) th/mm3 Eos # (Auto) (0.0-0.4) th/mm3 Baso # (Auto) (0.0-0.2) th/mm3 WBC Differential Differential Comment PT (9.8-11.6) sec INR Ratio APTT (23.4-31.7) sec Sodium (136-145) meq/L Potassium (3.5-5.1) meq/L Chloride (98-107) meq/L Carbon Dioxide (21.0-32.0) meq/L Anion Gap (5-15) meq/L BUN (7-18) mg/dL Creatinine (0.60-1.30) mg/dL Estimated GFR (>89) mL/min Random Glucose (74-106) mg/dL Calcium (8.5-10.1) mg/dL Magnesium (1.5-2.5) mg/dL Total Bilirubin (0.2-1.0) mg/dL AST (15-37) U/L ALT (12-78) U/L Alkaline Phosphatase (45-117) U/L Total Creatine Kinase (39-308) U/L Troponin I (0.02-0.05) ng/mL B-Natriuretic Peptide 1535 H (0-100) pg/mL Total Protein (6.4-8.2) g/dL Albumin (3.4-5.0) g/dL Imaging Data Attestation: I personally reviewed and interpreted this imaging study as follows : My impression: Pulmonary edema Radiologist's impression: Chest X-Ray 04/22/18 06:02 CONCLUSION: Diffuse consolidation likely related to diffuse processes such as edema. Some of the hazy density may secondary to effusions. ECG Data EKG Prior to Arrival: No Attestation: I personally reviewed and interpreted this ECG as follows: Interpretation: EKG reveals atrial fibrillation with a rate 86. Unifocal PVC. Nonspecific ST and T wave changes. Discharge Plan Discharge Disposition Patient Disposition: ED Admit(ED Internal Use Only) Discharge Condition Condition: Stable Discharge Order Discharge Orders: ED Use Only Admit Order (Routine); Ordered 04/22/18 Ordered By: Soto Oswald Discharge Details Diagnosis: CHF (congestive heart failure), Hypoxia Physicians Team ED Provider: Soto Oswald Primary Care Provider: Primary Care DarrelliLeia Rxs /Orders / Referrals /Forms Prescriptions: No Action aspirin 81 mg Tablet,Chewable 81 mg PO DAILY Qty: 30 RF: 0 apixaban [Eliquis] 5 mg Tablet 5 mg PO BID Qty: 60 RF: 0 olmesartan 40 mg Tablet 40 mg PO DAILY Qty: 30 RF: 0 tamsulosin 0.4 mg Capsule 0.4 mg PO DAILY RF: 0 furosemide [Lasix] 40 mg Tablet 40 mg PO BID RF: 0 amlodipine 10 mg Tablet 10 mg PO DAILY RF: 0 metoprolol tartrate 50 mg Tablet 50 mg PO BID RF: 0 sertraline 50 mg Tablet 50 mg PO DAILY RF: 0 finasteride 5 mg Tablet 5 mg PO HS RF: 0 cephalexin [Keflex] 250 mg Capsule 500 mg PO TID Qty: 21 RF: 0 hydrocodone-acetaminophen [[place]] 5-325 mg Tablet 1 tab PO Q4-6H PRN (Reason: Acute Pain) Qty: 12 RF: 0 Discharge Interventions Interventions: Vital Signs Last Done: 04/22/18 07:05 Status ED Status: Admitted Patient
[2018-04-22 06:22] LABS: Baso % (Auto) 0.6 % (0.0-2.0); Eos # (Auto) 0.1 th/mm3 (0.0-0.4); Eos % (Auto) 1.2 % (0.0-4.0); Hematocrit 42.7 % (39.0-51.0); Hemoglobin 13.6 gm/dL (13.0-17.0); Lymph # (Auto) 0.7 th/mm3 (1.0-4.8); Lymph % (Auto) 10.2 % (9.0-44.0); Mean Corpuscular HGB Conc 31.9 % (32.0-36.0); Mean Corpuscular Hemoglobin 27.5 pg (27.0-34.0); Mean Corpuscular Volume 86.3 fL (80.0-100.0); Mean Platelet Volume 8.8 fL (7.0-11.0); Mono # (Auto) 0.7 th/mm3 (0.0-0.9); Mono % (Auto) 9.8 % (0.0-8.0); Neut # (Auto) 5.6 th/mm3 (1.8-7.7); Neut % (Auto) 78.2 % (16.0-70.0); Platelet Count 182 th/mm3 (150-450); Red Blood Count 4.95 mil/mm3 (4.50-5.90); Red Cell Distribution Width 19.5 % (11.6-17.2); White Blood Count 7.2 th/mm3 (4.0-11.0)
[2018-04-22 06:31] LABS: Activated Partial Thrombo Time 29.2 sec (23.4-31.7); INR 1.1 Ratio; Prothrombin Time 10.9 sec (9.8-11.6)
[2018-04-22 06:35] LABS: Albumin 3.3 g/dL (3.4-5.0); Anion Gap 10 meq/L (5-15); Aspartate Aminotransferase 53 U/L (15-37); Blood Urea Nitrogen 20 mg/dL (7-18); Calcium 9.2 mg/dL (8.5-10.1); Carbon Dioxide 18.9 meq/L (21.0-32.0); Chloride 115 meq/L (98-107); Glomerular Filtration Rate 70 mL/min (>89); Glucose,Random 136 mg/dL (74-106); Potassium 4.4 meq/L (3.5-5.1); Sodium 144 meq/L (136-145)
[2018-04-22 06:39] LABS: Alanine Aminotransferase 71 U/L (12-78); Alkaline Phosphatase 132 U/L (45-117); Total Protein 7.7 g/dL (6.4-8.2); Troponin I 0.04 ng/mL (0.02-0.05)
[2018-04-22 06:40] LABS: Creatine Kinase 73 U/L (39-308)
--- NOTE | 2018-04-22 07:05 | XR ---
EXAM DATE: 04/22/2018 6:18 AM EST AGE/SEX: 78 years / Male INDICATIONS: Short of breath. CLINICAL DATA: This is the patient's initial encounter. Patient reports that signs and symptoms have been present for 1 day and indicates a pain score of 2/10. MEDICAL/SURGICAL HISTORY: . Cardiovascular disease. CABG. COMPARISON: [facility] [place], CHEST 1V SINGLE AP, 03/09/2018. . FINDINGS: The patient is status post sternotomy. There is a pacing device seen in the left chest. The cardiac s ilhouette is upper limits of normal. There is increased density seen throughout the mid and lower kory gs. There is silhouetting of the hemidiaphragms. There is an aortic stent graft seen in the abdomen. CONCLUSION: Diffuse consolidation likely related to diffuse processes such as edema. Some of the hazy density may secondary to effusions. Electronically signed by: Sohail English MD Board Certified Radiologist 04/22/2018 7:03 AM EST
[2018-04-22] MEDS ORDERED: Metoprolol Tartrate 50 MG Tablet PO ONE (07:13)
--- NOTE | 2018-04-22 09:36 | ECG ---
Date Performed: 04/22/2018 Time Performed: 06:22:01 PTAGE: 78 years EKG: ATRIAL FIBRILLATION WITH ABERRANT CONDUCTION OR VENTRICULAR PREMATURE COMPLEXES BORDERLINE RIGHT AXIS DEVIATION NONSPECIFIC ST & T-WAVE ABNORMALITY ABNORMAL ECG NO PREVIOUS TRACING DOCTOR: Tee Morales Interpretating Date/Time 04/22/2018 09:35:37
--- NOTE | 2018-04-22 10:16 | P.HPIM ---
History of Present Illness Primary Care Physician: No Primary Care Physician History of Present Illness: This patient is a 77 y/o AA male with a dx of CAD s/p CABG x 3, Systolic CHF EF 25% s/p AICD, a fib on eliquis, HTN, DLD, who presents to the ED with complaints of worsening shortness of breath over the past 3-4 days. He says he ran out of his lasix 3 days ago and was unable to get it refilled. He also has noticed that his lower extremities have been more swollen than usual and they feel heavy. He was recently admitted in February of 2018 for a chf exacerbation. He denies any Chest pain or palipitations. No abd pain, no fevers or chills. No other complaints. Family hx : stroke in his father, no other significant fam hx. Inpatient Certification: I certify that the inpatient services were ordered in accordance with Medicare regulations governing the order. This includes certification that hospital inpatient services are reasonable and necessary and in the case of services not specified as inpatient-only under 42 CFR 419.22(n), that they are appropriately provided as inpatient services in accordance to with the 2-midnight benchmark under 43 CFR 412.3(e) Estimated Total Length of Stay (Days): 3 Plans for Post Hospital Care: Home Review of Systems All other systems reviewed negative except as stated in HPI PMFSH - History History Provided By: Patient - Medical History Medical History: Medical History (Last Reviewed 04/22/18 @ 06:05 by Rosalba Aragon) AAA (abdominal aortic aneurysm) Coronary artery disease Hyperlipemia Hypertension TIA (transient ischemic attack) Urethral stricture - Surgical History Surgical History: Surgical History (Last Reviewed 04/22/18 @ 06:05 by Rosalba Aragon) H/O abdominal aortic aneurysm repair H/O cardiac catheterization S/P CABG x 3 - Family History Family History: Family History (Last Reviewed 03/04/18 @ 17:21 by Barrett Baig DO) Mother Pituitary abnormality Father Stroke - Tobacco History Second Hand Smoke Exposure: No Tobacco Use In Past 30 Days: No Smoking Status: Never smoker Tobacco Type: Cigarettes - Alcohol History How Often Do You Have a Drink Containing Alcohol: Never - Substance Use History Substance History: No History of Abuse - Travel History Recent Travel in the [place] Within the Last 8 Weeks: No Recent Travel Out of the Country Within the Last 8 Weeks: No - Immunization History Tetanus Immunization: Unsure Medications and Allergies Active Medications: Active Medications Amlodipine Besylate (Norvasc) 10 mg PO DAILY [facility] Aspirin (Aspirin Chew) 81 mg PO DAILY [facility] Finasteride (Proscar) 5 mg PO DAILY [facility] Furosemide (Lasix Inj) 40 mg IV.PUSH BID [facility] Metoprolol Tartrate (Lopressor) 25 mg PO BID [facility] Sertraline HCl (Zoloft) 50 mg PO DAILY [facility] Tamsulosin HCl (Flomax) 0.4 mg PO DAILY [facility] Allergies Allergy/AdvReac Type Severity Reaction Status Date / Time No Known Allergies Allergy Verified 04/22/18 06:01 Home Medications Medication Instructions Recorded Confirmed Type amlodipine 10 mg PO DAILY 03/04/18 04/22/18 History finasteride 5 mg PO HS 03/04/18 04/22/18 History furosemide [Lasix] 40 mg PO BID 03/04/18 04/22/18 History metoprolol tartrate 50 mg PO BID 03/04/18 04/22/18 History sertraline 50 mg PO DAILY 03/04/18 04/22/18 History Exam Vital signs: Vital Signs 04/22/18 06:01 04/22/18 06:06 04/22/18 06:07 Temperature 98.2 F Pulse Rate 94 H 86 Respiratory Rate 20 20 Blood Pressure 201/98 H 202/98 H Pulse Oximetry 96 96 96 04/22/18 06:19 04/22/18 07:05 Temperature 97.9 F Pulse Rate 93 H Respiratory Rate 18 Blood Pressure 195/99 H Pulse Oximetry 96 95 Intake & Output 04/21/18 04/22/18 04/22/18 18:59 06:59 18:59 Output Total 2530 / 2530 Balance -2530 / -2530 Weight 80.739 kg Output: Urine 2530 / 2530 Narrative: alert and oriented x 3 + JVD S1 S2 irregularly irregular Bi basilar crackles 2+ pitting edema of b/l lower exts No neuro deficits. Results - Labs CBC & Chem 7: 04/22/18 06:10 04/22/18 06:10 Labs: Short CBC 04/22/18 Range/Units 06:10 WBC 7.2 (4.0-11.0) th/mm3 Hgb 13.6 (13.0-17.0) gm/dL Hct 42.7 (39.0-51.0) % Plt Count 182 (150-450) th/mm3 BMP 04/22/18 06:10 Sodium 144 Potassium 4.4 Chloride 115 H Carbon Dioxide 18.9 L BUN 20 H Creatinine 1.21 Calcium 9.2 Cardiac Enzymes 04/22/18 Range/Units 06:10 Total Creatine Kinase 73 (39-308) U/L Troponin I 0.04 (0.02-0.05) ng/mL Liver Function 04/22/18 Range/Units 06:10 Total Bilirubin 0.8 (0.2-1.0) mg/dL AST 53 H (15-37) U/L ALT 71 (12-78) U/L Alkaline Phosphatase 132 H (45-117) U/L Albumin 3.3 L (3.4-5.0) g/dL - Imaging Impressions Chest X-Ray 04/22/18 06:02 CONCLUSION: Diffuse consolidation likely related to diffuse processes such as edema. Some of the hazy density may secondary to effusions. Caprini VTE Risk Assessment Caprini VTE Risk Assessment: Moderate/High Risk (score >= 2) Caprini Risk Assessment Model: Point Value = 1 Point Value = 2 Point Value = 3 Point Value = 5 Age 41-60 Minor surgery BMI > 25 kg/m2 Swollen legs Varicose veins or History of unexplained or recurrent spontaneous Oral contraceptives or hormone replacement Sepsis (< 1 month) Serious lung disease, including pneumonia (< 1 month) Abnormal pulmonary function Acute myocardial infarction Congestive heart failure (< 1 month) History of inflammatory bowel disease Medical patient at bed rest Age 61-74 Arthroscopic surgery Major open surgery (> 45 min) Laparoscopic surgery (> 45 min) Malignancy Confined to bed (> 72 hours) Immobilizing plaster cast Central venous access Age >= 75 History of VTE Family history of VTE Factor V Leiden Prothrombin [id number] Lupus anticoagulant Anticardiolipin antibodies Elevated serum homocysteine Heparin-induced thrombocytopenia Other congenital or acquired thrombophilia Stroke (< 1 month) Elective arthroplasty Hip, pelvis, or leg fracture Acute spinal cord injury (< 1 month) Prophylaxis Regimen: Total Risk Factor Score Risk Level Prophylaxis Regimen 0-1 Low Early ambulation 2 Moderate Order ONE of the following: *Sequential Compression Device (SCD) *Heparin 5000 units SQ BID 3-4 Higher Order ONE of the following medications: *Heparin 5000 units SQ TID *Enoxaparin/Lovenox 40 mg SQ daily (WT < 150 kg, CrCl > 30 mL/min) *Enoxaparin/Lovenox 30 mg SQ daily (WT < 150 kg, CrCl > 10-29 mL/min) *Enoxaparin/Lovenox 30 mg SQ BID (WT < 150 kg, CrCl > 30 mL/min) AND/OR *Sequential Compression Device (SCD) 5 or more Highest Order ONE of the following medications: *Heparin 5000 units SQ TID (Preferred with Epidurals) *Enoxaparin/Lovenox 40 mg SQ daily (WT < 150 kg, CrCl > 30 mL/min) *Enoxaparin/Lovenox 30 mg SQ daily (WT < 150 kg, CrCl > 10-29 mL/min) *Enoxaparin/Lovenox 30 mg SQ BID (WT < 150 kg, CrCl > 30 mL/min) AND *Sequential Compression Device (SCD) Assessment and Plan - Plan This patient is a 77 y/o AA male with a dx of CAD s/p CABG x 3, Systolic CHF EF 25% s/p AICD, a fib on eliquis, HTN, DLD, who presents to the ED with complaints of worsening shortness of breath over the past 3-4 days. He says he ran out of his lasix 3 days ago and was unable to get it refilled. He also has noticed that his lower extremities have been more swollen than usual and they feel heavy. He was recently admitted in February of 2018 for a chf exacerbation. He denies any Chest pain or palipitations. 1. Acute on chronic systolic chf exacerbation 2/2 medication noncompliance 2. A fib Patient presents with symptoms mentioned above 2+ pitting edema of b/l lower exts BNP elevated 1500 CXR shows b/l pulm vasc congestion and effusions ekg shows afib no acute st or t wave changes. Trops negative Received 40mg iv lasix in the ed and put out about 2L of urine Continue Lasix 40mg IV BID. Strict ins/outs Metoprolol continued but at lower dose given his acute exacerbation. After 24 hrs of diuresis switch back to patients 50 mg bid dose. CHF education. Patient counseled on medication compliance for approx 5 min. Continue eliquis, aspirin. 3. CAD s/p cabg Cont aspirin, bb, unclear why patient is not on a statin. If no contraindication he should be started on it prior to his discharge. 4. HTN Continue norvasc, metoprolol. Continue to monitor BP and adjust meds as needed. DVT prophylaxis, pt on eliquis.
[2018-04-22] MEDS ORDERED: Acetaminophen 325 MG Tablet PO PRN (10:17)
[2018-04-22] MEDS ORDERED: hydrALAZINE 10 MG Tablet PO PRN (13:30)
[2018-04-22] MEDS ORDERED: hydrALAZINE HCl Inj 20 MG/ML Vial IV.PUSH ONE (13:32)
[2018-04-22] MEDS ORDERED: amLODIPine 10 MG Tablet PO ONE (14:00)
[2018-04-22] MEDS: Metoprolol Tartrate 25 MG Tablet PO SCH (20:33)
[2018-04-23 06:26] LABS: Calcium 9.4 mg/dL (8.5-10.1); Carbon Dioxide 26.1 meq/L (21.0-32.0); Potassium 3.3 meq/L (3.5-5.1)
[2018-04-23] MEDS: Sertraline 50 MG Tablet PO SCH (09:48)
[2018-04-23] MEDS: Metoprolol Tartrate 25 MG Tablet PO SCH (09:48)
[2018-04-23] MEDS: Finasteride 5 MG Tablet PO SCH (09:49)
[2018-04-23] MEDS: amLODIPine 10 MG Tablet PO SCH (09:49)
--- NOTE | 2018-04-23 12:18 | ECG ---
Date Performed: 04/22/2018 Time Performed: 13:37:55 PTAGE: 78 years EKG: ATRIAL FIBRILLATION WITH ABERRANT CONDUCTION OR VENTRICULAR PREMATURE COMPLEXES ST DEVIATIO N AND MODERATE T-WAVE ABNORMALITY, CONSIDER LATERAL ISCHEMIA ABNORMAL ECG Since the PREVIOUS TRACING , no significant change noted PREVIOUS TRACIN04/22/2018 06.22 DOCTOR: Sarah Cabrera Interpretating Date/Time 04/23/2018 12:15:48
[2018-04-23] MEDS ORDERED: Magnesium Sulfate Inj 2 GM in Sodium Chlor 0.9% Inj 96 ML IV.SIG ONE (15:49)
[2018-04-23] MEDS ORDERED: Metoprolol Tartrate 25 MG Tablet PO ONE (15:50)
--- NOTE | 2018-04-23 16:00 | P.PNIM ---
Subjective Interval history: No chest pain overnight, no palpitations. The patient says his lower extremity edema has improved significantly. No other complaints with the patient. Physical Exam Vital signs: Vital Signs 04/22/18 19:13 04/22/18 20:00 04/22/18 23:45 Temperature 98.3 F Pulse Rate 91 H 110 H 81 Respiratory Rate 18 Blood Pressure 182/88 H Pulse Oximetry 96 04/23/18 00:00 04/23/18 03:45 04/23/18 04:00 Temperature 97.8 F 97.5 F L Pulse Rate 91 H 88 66 Respiratory Rate 20 20 Blood Pressure 139/86 121/71 Pulse Oximetry 96 92 L 04/23/18 08:00 Temperature 98 F Pulse Rate 90 Respiratory Rate 16 Blood Pressure 147/89 H Pulse Oximetry 98 Intake & Output 04/22/18 04/23/18 04/23/18 18:59 06:59 18:59 Intake Total 120 / 120 Output Total 4130 / 4130 800 / 800 Balance -4130 / -4130 120 / 120 -800 / -800 Weight 79.2 kg Intake: Oral 120 / 120 Output: Urine 4130 / 4130 800 / 800 Other: # Voids 1 Date of Last Bowel Movement 04/22/18 Weight On Admission 79.2 kg Narrative: alert and oriented x 3 S1 S2 irregularly irregular Bi basilar crackles Bilateral lower extremity edema has improved significantly. No neuro deficits. Results - Labs CBC & Chem 7: 04/22/18 06:10 04/23/18 05:10 Laboratory Results - last 24 hr 04/23/18 05:10 Sodium 145 Potassium 3.3 L D Chloride 111 H Carbon Dioxide 26.1 Anion Gap 8 BUN 18 Creatinine 1.12 Estimated GFR 77 L Random Glucose 92 Calcium 9.4 Magnesium 2.0 Assessment and Plan - Plan This patient is a 77 y/o AA male with a dx of CAD s/p CABG x 3, Systolic CHF EF 25% s/p AICD, a fib on eliquis, HTN, DLD, who presents to the ED with complaints of worsening shortness of breath over the past 3-4 days. He says he ran out of his lasix 3 days ago and was unable to get it refilled. He also has noticed that his lower extremities have been more swollen than usual and they feel heavy. He was recently admitted in November of 2018 for a chf exacerbation. He denies any Chest pain or palipitations. 1. NSVT Patient had a few runs of NSVT on telemetry. Electrolytes replaced, pt was hypokalemic this morning. Patient's bb dose resumed as his home dose today. Gave 25mg po x 1 now. Cardiology consulted, would appreciate their input. I believe the pt went into these runs of nsvt because of chf exac and hypokalemia. Cont to monitor electrolytes, keep on telemetry. 1. Acute on chronic systolic chf exacerbation 2/2 medication noncompliance 2. A fib Patients symptoms are improving. B/L lower ext edema is improving significantly. ekg shows afib no acute st or t wave changes. Trops negative Decrease dose of IV lasix. Strict ins/outs Continue eliquis, aspirin, resume home dose of bb 3. CAD s/p cabg Cont aspirin, bb, statin. 4. HTN Continue norvasc, metoprolol. Continue to monitor BP and adjust meds as needed. DVT prophylaxis, pt on eliquis.
[2018-04-23] MEDS ORDERED: Lisinopril 5 MG Tablet PO PRN (20:20)
--- NOTE | 2018-04-23 20:28 | MB ---
cc: Kim Humphrey MD,Jonathan Zaragoza MD DATE: 04/23/2018 REFERRING PHYSICIAN: ____ Dr. Nolen is away, so I am covering today. Over the weekend, Dr. Hernández will be on, and Dr. Mendoza will be on for the coming week. CLINICAL CONSULTATION: Management of nonsustained VT. HISTORY OF PRESENT ILLNESS: Mr. Agnel is a patient well known to Dr. Nolen. He initially presented with TIA and atrial fibrillation was found to have CAD, status post stenting and triple vessel bypass. He does have ischemic cardiomyopathy with ejection fraction of 20% with ICD implanted by Dr. Looney. He does have hypertension. He presented to ER with acute systolic congestive heart failure. Unfortunately, he ran out of Lasix for a few days. He was supposed to be on Lasix 40 mg b.i.d. He was admitted, underwent aggressive IV diuresis, and he does have underlying atrial fibrillation and was found to have several episodes of VT. So far VT are nonsustained up to 17-18 beats for several episodes, mainly around 5-6 beats. Magnesium has been added ,along with potassium. Overall, he has been feeling better. He does have an AAA also. PAST MEDICAL HISTORY: As above. Surgery as above, also has abdominal aneurysm repair. FAMILY HISTORY: Father of stroke. SOCIAL HISTORY: Does not smoke or drink large amount of alcohol. REVIEW OF SYSTEMS: HEENT: Normal. GASTROINTESTINAL: No nausea or vomiting. GENITOURINARY: No dysuria. MUSCULOSKELETAL: Fatigue. CARDIOVASCULAR: As above. CHEST: Some dyspnea. ENDOCRINE: Normal. SKIN: Normal. PSYCHIATRIC: Normal. CENTRAL NERVOUS SYSTEM: No episodes of syncope. PHYSICAL EXAMINATION: VITAL SIGNS: Blood pressure of 123/80 with pulse in the 80s, with underlying atrial fibrillation. HEENT: Normal. PERRLA. ENDOCRINE: There is no thyroid enlargement. LYMPHATIC: No lymphadenopathy. RESPIRATORY: Decreased breath sounds bilaterally, but no crackles. CARDIOVASCULAR: Irregular, decreased S1, S2. Left-sided ICD incision healing. Bypass scar is noted. GASTROINTESTINAL: Active bowel sounds in all 4 quadrants. GENITOURINARY: Deferred. MUSCULOSKELETAL: Range of motion intact. SKIN: The patient has trace pitting edema. PSYCHIATRIC: The patient has good mood, good judgment. NEUROLOGIC: There are no focal neurologic deficits. LABORATORY DATA: Baseline EKG showed atrial fibrillation with narrow QRS. The followup telemetry showed episodes of VT up to 18 beats, majority are 5-6 beats. Potassium was low at 3.3. ASSESSMENT: 1. Acute systolic congestive heart failure. 2. Ischemic cardiomyopathy with coronary artery disease, status post bypass. 3. Persistent atrial fibrillation. 4. VT, nonsustained. 5. Hypokalemia. PLAN: We are aiming for aggressive replacement of her electrolytes. I will add magnesium oxide 400 mg b.i.d. I took the liberty of switching metoprolol to Coreg. I will add 2.5 of lisinopril. Hopefully, her BP can tolerate. I do think BELLA inhibitor will help with remodeling of the heart and decrease episodes of VT in future. As to atrial fibrillation, I will continue Eliquis. If no further episodes of VT, the patient can go back on p.o. Lasix tomorrow and be discharged home in the next few days. The patient will be followed up with Dr. Nolen in the outpatient setting. I would like thank ____ for letting me participate in the care of Mr. Angel. MD KASSIDY Lerma/perla/mami , 06:57 PM , 07:08 PM
[2018-04-23] MEDS ORDERED: Metoprolol Tartrate 25 MG Tablet PO SCH (21:00)
[2018-04-23] MEDS: Magnesium Oxide 400 MG Tablet PO SCH (21:59)
[2018-04-23] MEDS: Carvedilol 12.5 MG Tablet PO SCH (22:07)
[2018-04-24 04:25] LABS: Calcium 8.9 mg/dL (8.5-10.1); Carbon Dioxide 26.5 meq/L (21.0-32.0); Magnesium 2.6 mg/dL (1.5-2.5)
[2018-04-24] MEDS: Magnesium Oxide 400 MG Tablet PO SCH ×2 (08:56→21:53)
[2018-04-24] MEDS: amLODIPine 10 MG Tablet PO SCH (08:57)
[2018-04-24] MEDS: Sertraline 50 MG Tablet PO SCH (08:57)
[2018-04-24] MEDS: Carvedilol 12.5 MG Tablet PO SCH ×2 (08:57→21:53)
[2018-04-24] MEDS: Finasteride 5 MG Tablet PO SCH (08:57)
--- NOTE | 2018-04-24 16:00 | P.PNIM ---
Subjective Interval history: Patient seen and examined this morning at the bedside no complaints chest pain or sob no palpitations no dizziness just changed to new medications by cardiology and BP has been boarderline but holding in mid 90's Physical Exam Vital signs: Last Vital Signs Temp 97.4 F L 04/24/18 12:00 Pulse 80 04/24/18 12:00 Resp 18 04/24/18 12:00 BP 93/55 L 04/24/18 12:00 Pulse Ox 97 04/24/18 12:00 Intake & Output 04/22/18 04/23/18 04/24/18 04/25/18 06:59 06:59 06:59 06:59 Intake Total 120 / 120 1060 / 1060 Output Total 4130 / 4130 2225 / 2225 Balance -4010 / -4010 -1165 / -1165 Weight 80.739 kg 79.2 kg 76.7 kg Narrative: alert and oriented x 3 S1 S2 irregularly irregular fairly clear with a few scattered rhonchi in the lung field. no intercostal muscle use. 2+ DPP without much edema. no calf tenderness. 1+ edema No neuro deficits. Results Labs CBC & Chem 7: 04/22/18 06:10 04/24/18 03:41 Assessment and Plan Plan Patient is a 78 year old male with a dx of CAD s/p CABG x 3, Systolic CHF EF 25 % s/p AICD, a fib on eliquis, HTN, DLD, who presents to the ED with complaints of worsening shortness of breath over the past 3-4 days. He says he ran out of his lasix 3 days ago and was unable to get it refilled. He also has noticed that his lower extremities have been more swollen than usual and they feel heavy. He was recently admitted in February of 2018 for a chf exacerbation. 1. NSVT continue coreg and monitor HR and BP Cardiology consulted and recommendations appreciated and ordered. Cont to monitor electrolytes, keep on telemetry. started back on home lasix 40mg PO bid on 04/24. monitor BP which was on lower side this am during rounds. 1. Acute on chronic systolic chf exacerbation 2/2 medication noncompliance 2. A fib ekg shows afib Trops negative daily weights Strict ins/outs Continue eliquis, aspirin and coreg ( switched from metoprolol) 3. CAD s/p cabg Cont aspirin, bb, statin. DVT prophylaxis, pt on eliquis. dispo: monitor BP and response to new regimen and likely d/c over weekend when cleared by cardiology. Progress Note: Quality VTE Deep Vein Thrombosis/Pulmonary Embolism Present on Admission: No
[2018-04-24] MEDS: Furosemide 40 MG Tablet PO SCH (17:54)
[2018-04-25 08:24] LABS: Hematocrit 38.4 % (39.0-51.0); Hemoglobin 12.7 gm/dL (13.0-17.0); Mean Corpuscular HGB Conc 33.2 % (32.0-36.0); Mean Corpuscular Hemoglobin 27.9 pg (27.0-34.0); Mean Corpuscular Volume 83.9 fL (80.0-100.0); Mean Platelet Volume 8.7 fL (7.0-11.0); Platelet Count 181 th/mm3 (150-450); Red Blood Count 4.57 mil/mm3 (4.50-5.90); Red Cell Distribution Width 19.4 % (11.6-17.2); White Blood Count 5.9 th/mm3 (4.0-11.0)
[2018-04-25 08:37] LABS: Calcium 9.2 mg/dL (8.5-10.1); Carbon Dioxide 25.7 meq/L (21.0-32.0); Magnesium 2.3 mg/dL (1.5-2.5); Potassium 3.6 meq/L (3.5-5.1)
[2018-04-25] MEDS ORDERED: Furosemide 40 MG Tablet PO SCH (09:00)
[2018-04-25] MEDS: Magnesium Oxide 400 MG Tablet PO SCH ×2 (09:25→21:54)
[2018-04-25] MEDS: Furosemide 40 MG Tablet PO SCH ×2 (09:25→17:42)
[2018-04-25] MEDS: amLODIPine 10 MG Tablet PO SCH (09:25)
[2018-04-25] MEDS: Finasteride 5 MG Tablet PO SCH (09:25)
[2018-04-25] MEDS: Sertraline 50 MG Tablet PO SCH (09:25)
[2018-04-25] MEDS: Carvedilol 12.5 MG Tablet PO SCH ×2 (09:25→21:54)
[2018-04-25] MEDS ORDERED: Docusate Sodium 100 MG Capsule PO PRN (12:42)
[2018-04-25] MEDS ORDERED: Aluminum/Magnesium/Simethacone Susp 30 ML UDC PO PRN (12:42)
[2018-04-25] MEDS ORDERED: Senna/Docusate Sodium 8.6/50 MG Tablet PO PRN (12:42)
--- NOTE | 2018-04-25 12:42 | P.PNIM ---
Subjective Interval history: This patient is a 77 y/o AA male with a dx of CAD s/p CABG x 3, Systolic CHF EF 25% s/p AICD, a fib on eliquis, HTN, DLD, who presents to the ED with complaints of worsening shortness of breath over the past 3-4 days. He says he ran out of his lasix 3 days ago and was unable to get it refilled. He also has noticed that his lower extremities have been more swollen than usual and they feel heavy. He was recently admitted in February of 2018 for a chf exacerbation. He denies any Chest pain or palipitations. No abd pain, no fevers or chills. No other complaints. Family hx : stroke in his father, no other significant fam hx. 1-2 No chest pain overnight, no palpitations. The patient says his lower extremity edema has improved significantly. No other complaints with the patient. 1-3 Patient seen and examined this morning at the bedside no complaints chest pain or sob no palpitations no dizziness just changed to new medications by cardiology and BP has been boarderline but holding in mid 90's SEEN BY CARDIOLOGY DR WYLIE 1-4 Patient seen and examined this morning at the bedside no complaints chest pain or sob no palpitations no dizziness just changed to new medications by cardiology and BP has been borderline but holding in mid 90's 1-5 LESS SOB DW RN AND PT MEDS ADJUSTED AM LABS DW RN AND PT HAS AICD IN PLACE ALREADY Physical Exam Vital signs: Vital Signs 04/24/18 16:00 04/24/18 20:00 04/25/18 00:00 Temperature 97.5 F L 97.3 F L 97.3 F L Pulse Rate 80 83 104 H Respiratory Rate 18 17 17 Blood Pressure 123/69 123/80 131/88 Pulse Oximetry 96 96 93 L 04/25/18 04:00 04/25/18 08:00 Temperature 97.6 F 97.3 F L Pulse Rate 81 76 Respiratory Rate 17 Blood Pressure 118/72 138/69 Pulse Oximetry 92 L 93 L Intake & Output 04/24/18 04/25/18 04/25/18 18:59 06:59 18:59 Intake Total 360 / 360 390 / 390 Output Total 700 / 700 675 / 675 Balance -340 / -340 -285 / -285 Weight 76.5 kg Intake: Oral 360 / 360 390 / 390 Output: Urine 700 / 700 675 / 675 Other: Date of Last Bowel Movement 04/22/18 04/25/18 # Bowel Movements 0 1 Narrative: alert and oriented x 3 Head is normocephalic atraumatic PERRLA EOMI Oral mucosa is moist tongue is midline Neck is supple S1 S2 irregularly irregular fairly clear with a few scattered rhonchi in the lung field. no intercostal muscle use. 2+ DPP without much edema. no calf tenderness. No edema No neuro deficits. Insight and judgment is good Mood and behavior is appropriate Results - Labs CBC & Chem 7: 04/25/18 07:18 04/25/18 07:18 Laboratory Results - last 24 hr 04/25/18 04/25/18 07:18 07:18 WBC 5.9 RBC 4.57 Hgb 12.7 L Hct 38.4 L MCV 83.9 MCH 27.9 MCHC 33.2 RDW 19.4 H Plt Count 181 MPV 8.7 Sodium 139 Potassium 3.6 Chloride 107 Carbon Dioxide 25.7 Anion Gap 6 BUN 24 H Creatinine 1.21 Estimated GFR 70 L Random Glucose 86 Calcium 9.2 Magnesium 2.3 - Imaging ITS Impressions Chest X-Ray 04/22/18 06:02 CONCLUSION: Diffuse consolidation likely related to diffuse processes such as edema. Some of the hazy density may secondary to effusions. Assessment and Plan - Plan Patient is a 78 year old male with a dx of CAD s/p CABG x 3, Systolic CHF EF 25 % s/p AICD, a fib on eliquis, HTN, DLD, who presents to the ED with complaints of worsening shortness of breath over the past 3-4 days. He says he ran out of his lasix 3 days ago and was unable to get it refilled. He also has noticed that his lower extremities have been more swollen than usual and they feel heavy. He was recently admitted in February of 2018 for a chf exacerbation. 1. NSVT continue coreg and monitor HR and BP Cardiology consulted and recommendations appreciated and ordered. Cont to monitor electrolytes, keep on telemetry. started back on home lasix 40mg PO bid on 04/24. monitor BP which was on lower side this am during rounds. 1. Acute on chronic systolic chf exacerbation 2/2 medication noncompliance 2. A fib ekg shows afib Trops negative daily weights Strict ins/outs Continue eliquis, aspirin and Coreg ( switched from metoprolol) 3. CAD s/p cabg Cont aspirin, bb, statin. History of AICD in situ Renal insufficiency check a.m. labs DVT prophylaxis, pt on eliquis. dispo: monitor BP and response to new regimen and likely d/c over weekend when cleared by cardiology. Code Status: FULL CODE Discussed Condition With: Discussed with RN and patient Discharge Planning: Hopefully discharge tomorrow or the next day at the latest
[2018-04-26 06:52] LABS: Baso % (Auto) 0.5 % (0.0-2.0); Eos # (Auto) 0.3 th/mm3 (0.0-0.4); Eos % (Auto) 6.4 % (0.0-4.0); Hematocrit 39.4 % (39.0-51.0); Hemoglobin 12.8 gm/dL (13.0-17.0); Lymph # (Auto) 1.1 th/mm3 (1.0-4.8); Lymph % (Auto) 20.7 % (9.0-44.0); Mean Corpuscular HGB Conc 32.4 % (32.0-36.0); Mean Corpuscular Hemoglobin 27.2 pg (27.0-34.0); Mean Platelet Volume 8.5 fL (7.0-11.0); Mono # (Auto) 0.5 th/mm3 (0.0-0.9); Mono % (Auto) 9.5 % (0.0-8.0); Neut # (Auto) 3.3 th/mm3 (1.8-7.7); Neut % (Auto) 62.9 % (16.0-70.0); Platelet Count 205 th/mm3 (150-450); Red Blood Count 4.69 mil/mm3 (4.50-5.90); Red Cell Distribution Width 19.1 % (11.6-17.2); White Blood Count 5.2 th/mm3 (4.0-11.0)
[2018-04-26 07:15] LABS: Albumin 2.8 g/dL (3.4-5.0); Anion Gap 8 meq/L (5-15); Aspartate Aminotransferase 17 U/L (15-37); Blood Urea Nitrogen 25 mg/dL (7-18); Carbon Dioxide 24.8 meq/L (21.0-32.0); Chloride 108 meq/L (98-107); Glomerular Filtration Rate 77 mL/min (>89); Glucose,Random 83 mg/dL (74-106); Magnesium 2.3 mg/dL (1.5-2.5); Potassium 3.4 meq/L (3.5-5.1); Sodium 141 meq/L (136-145)
[2018-04-26 07:16] LABS: Alanine Aminotransferase 33 U/L (12-78); Phosphorus 2.9 mg/dL (2.5-4.9)
[2018-04-26 07:18] LABS: Alkaline Phosphatase 95 U/L (45-117); Total Protein 6.7 g/dL (6.4-8.2)
[2018-04-26] MEDS: Magnesium Oxide 400 MG Tablet PO SCH ×2 (08:15→22:04)
[2018-04-26] MEDS: Furosemide 40 MG Tablet PO SCH ×2 (08:15→17:59)
[2018-04-26] MEDS: Carvedilol 12.5 MG Tablet PO SCH ×2 (08:16→22:04)
[2018-04-26] MEDS: Sertraline 50 MG Tablet PO SCH (08:16)
[2018-04-26] MEDS: Finasteride 5 MG Tablet PO SCH (08:16)
[2018-04-26] MEDS: amLODIPine 10 MG Tablet PO SCH (08:16)
--- NOTE | 2018-04-26 17:00 | P.PNIM ---
Subjective Interval history: Nursing does demonstrate strips where the patient has what appears to be recurrent runs of nonsustained ventricular tachycardia throughout the night. Patient self reports being asymptomatic with no chest pain and no shortness of breath since last night. Says his leg edema is gone. Physical Exam Vital signs: Vital Signs 04/25/18 20:00 04/26/18 00:00 04/26/18 00:05 Temperature 97.4 F L 97.8 F Pulse Rate 80 70 82 Respiratory Rate 18 18 Blood Pressure 128/98 H 139/81 Pulse Oximetry 100 94 L 04/26/18 04:00 04/26/18 08:00 04/26/18 12:00 Temperature 97.8 F 97.6 F 97.8 F Pulse Rate 64 86 70 Respiratory Rate 18 18 18 Blood Pressure 137/63 121/60 90/64 L Pulse Oximetry 94 L 94 L 96 Intake & Output 04/25/18 04/26/18 04/26/18 18:59 06:59 18:59 Intake Total 240 / 240 Output Total 1075 / 1075 Balance -835 / -835 Weight 76.3 kg Intake: Oral 240 / 240 Output: Urine 1075 / 1075 Other: Date of Last Bowel Movement 04/25/18 04/25/18 # Bowel Movements 0 Narrative: Heart sounds are regular rate and rhythm Clear lungs bilaterally with slightly diminished breath sounds in the left base Unlabored breathing No lower extremity edema Awake and sitting up in chair, no acute distress Results - Labs CBC & Chem 7: 04/26/18 06:05 04/26/18 06:05 Laboratory Results - last 24 hr 04/26/18 04/26/18 04/26/18 06:05 06:05 06:05 WBC 5.2 RBC 4.69 Hgb 12.8 L Hct 39.4 MCV 84.0 MCH 27.2 MCHC 32.4 RDW 19.1 H Plt Count 205 MPV 8.5 Neut % (Auto) 62.9 Lymph % (Auto) 20.7 Howell % (Auto) 9.5 H Eos % (Auto) 6.4 H Baso % (Auto) 0.5 Neut # (Auto) 3.3 Lymph # (Auto) 1.1 Howell # (Auto) 0.5 Eos # (Auto) 0.3 Baso # (Auto) 0.0 WBC Differential . Differential Comment Auto diff final Sodium 141 Potassium 3.4 L Chloride 108 H Carbon Dioxide 24.8 Anion Gap 8 BUN 25 H Creatinine 1.12 Estimated GFR 77 L Random Glucose 83 Calcium 9.0 Phosphorus 2.9 Magnesium 2.3 Total Bilirubin 0.7 AST 17 ALT 33 Alkaline Phosphatase 95 B-Natriuretic Peptide 213 H Total Protein 6.7 D Albumin 2.8 L Assessment and Plan - Plan Patient is a 78 year old male with a dx of CAD s/p CABG x 3, Systolic CHF EF 25 % s/p AICD, a fib on eliquis, HTN, DLD, who presents to the ED with complaints of worsening shortness of breath over the past 3-4 days. He says he ran out of his lasix 3 days ago and was unable to get it refilled. He also has noticed that his lower extremities have been more swollen than usual and they feel heavy. He was recently admitted in February of 2018 for a chf exacerbation. NSVT AICD in situ continue coreg, telemetry Cardiology following, Nursing to contact device company for interrogation Chronic systolic heart failure Acute element resolved -Trend back down to home oral Lasix with potassium supplementation A. fib Continue Eliquis aspirin and Coreg CAD s/p cabg -Cont aspirin, bb, statin. Renal insufficiency check a.m. labs - stable, improving
[2018-04-26] MEDS: Amiodarone 200 MG Tablet PO SCH (22:04)
[2018-04-27] MEDS: Amiodarone 200 MG Tablet PO SCH ×2 (09:13→21:09)
[2018-04-27] MEDS: Furosemide 40 MG Tablet PO SCH ×2 (09:14→18:36)
[2018-04-27] MEDS: Magnesium Oxide 400 MG Tablet PO SCH ×2 (09:15→21:09)
[2018-04-27] MEDS: Finasteride 5 MG Tablet PO SCH (09:16)
[2018-04-27] MEDS: amLODIPine 10 MG Tablet PO SCH (09:16)
[2018-04-27] MEDS: Sertraline 50 MG Tablet PO SCH (09:16)
[2018-04-27] MEDS: Carvedilol 12.5 MG Tablet PO SCH ×2 (09:17→21:10)
[2018-04-27 09:25] LABS: Calcium 9.2 mg/dL (8.5-10.1); Carbon Dioxide 25.2 meq/L (21.0-32.0); Potassium 3.8 meq/L (3.5-5.1)
--- NOTE | 2018-04-27 20:22 | P.PNIM ---
Subjective Interval history: Intermittent NSVT seen on telemetry since last night. Pt asymptomatic, no chest pain. Physical Exam Vital signs: Vital Signs 04/27/18 00:00 04/27/18 04:00 04/27/18 08:00 Temperature 98.6 F 98.1 F 97.1 F L Pulse Rate 69 63 73 Respiratory Rate 18 17 17 Blood Pressure 102/84 107/62 106/70 Pulse Oximetry 99 93 L 93 L 04/27/18 12:00 04/27/18 12:50 04/27/18 16:00 Temperature 97.6 F 97.7 F Pulse Rate 70 69 77 Respiratory Rate 17 17 Blood Pressure 124/58 L 99/55 L Pulse Oximetry 98 98 Intake & Output 04/27/18 04/27/18 04/28/18 06:59 18:59 06:59 Intake Total 100 / 100 600 / 600 Output Total 450 / 450 700 / 700 Balance -350 / -350 -100 / -100 Weight 75.4 kg Intake: Oral 100 / 100 600 / 600 Output: Urine 450 / 450 700 / 700 Other: Date of Last Bowel Movement 04/25/18 # Bowel Movements 0 Narrative: Heart sounds are regular rate and rhythm Clear lungs bilaterally Unlabored breathing No lower extremity edema Awake and sitting up in chair, no acute distress Results - Labs CBC & Chem 7: 04/26/18 06:05 04/27/18 06:53 Laboratory Results - last 24 hr 04/27/18 06:53 Sodium 140 Potassium 3.8 Chloride 108 H Carbon Dioxide 25.2 Anion Gap 7 BUN 25 H Creatinine 1.22 Estimated GFR 70 L Random Glucose 84 Calcium 9.2 Assessment and Plan - Plan Patient is a 78 year old male with a dx of CAD s/p CABG x 3, Systolic CHF EF 25 % s/p AICD, a fib on eliquis, HTN, DLD, who presents to the ED with complaints of worsening shortness of breath over the past 3-4 days. He says he ran out of his lasix 3 days ago and was unable to get it refilled. He also has noticed that his lower extremities have been more swollen than usual and they feel heavy. He was recently admitted in February of 2018 for a chf exacerbation. NSVT AICD in situ continue coreg, telemetry Cardiology following, Device already interoggated. Chronic systolic heart failure Acute element resolved -stabilized w/ lasix A. fib Continue Eliquis aspirin and Coreg CAD s/p cabg -Cont aspirin, bb, statin. Renal insufficiency - stabilized Discharge Planning: may dc on 04/29 once cleared w/ cards
[2018-04-27 22:12] VITALS: RESP 18
[2018-04-28 06:02] VITALS: O2SAT 95
[2018-04-28] MEDS: Sertraline 50 MG Tablet PO SCH (08:31)
[2018-04-28] MEDS: Magnesium Oxide 400 MG Tablet PO SCH (08:31)
[2018-04-28] MEDS: Amiodarone 200 MG Tablet PO SCH (08:31)
[2018-04-28] MEDS: amLODIPine 10 MG Tablet PO SCH (08:32)
[2018-04-28] MEDS: Furosemide 40 MG Tablet PO SCH (08:32)
[2018-04-28] MEDS: Carvedilol 12.5 MG Tablet PO SCH (08:32)
[2018-04-28] MEDS: Finasteride 5 MG Tablet PO SCH (08:32)
--- NOTE | 2018-04-28 10:04 | P.PNIM ---
Subjective Interval history: No complaint of chest pain shortness of breath. Doing well. No other concerns at this time. No swelling of the lower legs. Wants to go home. Has been OFF oxygen Physical Exam Vital signs: Last Vital Signs Temp 97.7 F 04/28/18 04:00 Pulse 70 04/28/18 04:00 Resp 18 04/28/18 04:00 BP 100/55 L 04/28/18 04:00 Pulse Ox 95 04/28/18 04:00 Intake & Output 04/26/18 04/27/18 04/28/18 04/29/18 06:59 06:59 06:59 06:59 Intake Total 240 / 240 940 / 940 720 / 720 Output Total 1075 / 1075 1050 / 1050 1150 / 1150 Balance -835 / -835 -110 / -110 -430 / -430 Weight 76.3 kg 75.4 kg 75.6 kg Narrative: Well-nourished well-developed pleasant male in no acute distress address sitting up in the chair. Heart sounds irregular rhythm regular rate Clear lungs bilaterally Unlabored breathing No lower extremity edema Alert and oriented x3 moves all 4 extremities only difficulty. Results Labs CBC & Chem 7: 04/26/18 06:05 04/27/18 06:53 Assessment and Plan (1) Acute on chronic systolic CHF (congestive heart failure): Code(s): I50.23 - Acute on chronic systolic (congestive) heart failure Status: Resolved (2) Afib: Code(s): I48.91 - Unspecified atrial fibrillation Status: Chronic (3) Wide-complex tachycardia: Code(s): I47.2 - Ventricular tachycardia Status: Acute Plan Patient is a 78 year old male with a dx of CAD s/p CABG x 3, Systolic CHF EF 25 % s/p AICD, a fib on eliquis, HTN, who presents to the ED with complaints of worsening shortness of breath over the past 3-4 days. He says he ran out of his lasix 3 days ago and was unable to get it refilled. He also has noticed that his lower extremities have been more swollen than usual and they feel heavy. He was recently admitted in February of 2018 for a chf exacerbation. Acute on chronic systolic congestive heart failureclinically improving and currently on oral Lasix and potassium supplements. Off oxygen. Nonsustained V. tach, asymptomatic AICD interrogated continue coreg, telemetry reviewed with fewer episodes of device company interrogation report showed 4 episodes of nonsustained V. tach, wide complex tachycardia self terminated ; no need for changes in device settings. Follow-up with cardiology Dr. Nolen. Esthela. fib, chroniccurrently rate controlled Continue Eliquis aspirin and Coreg CAD s/p cabg -Cont aspirin, bb, statin. Renal insufficiency likely with a history of chronic kidney disease stage II has been stable on diuretics. DVT prophylaxis Eliquis Discharged to home with outpatient follow-up with cardiology today. Progress Note: Quality VTE Deep Vein Thrombosis/Pulmonary Embolism Present on Admission: No _ (1) Afib Qualifiers: Atrial fibrillation type:
--- NOTE | 2018-04-28 10:13 | P.DS ---
DS: Providers Date of admission: 04/22/18 08:58 Primary care physician: No Primary Care Physician Consults: 04/22/18 09:39 [facility] Only Consult Order Routine Consulting Provider: [place],Insurance 04/23/18 15:48 Consult to Cardiology Routine Consulting Provider: Kim Wylie Does the patient have a Security Solutions Engineer who follows them?: Yes Preferred Forensic Science Technician:: Jonathan Carroll Reason for Consultation: NSVT Notified:: Office Spoke with:: KASEY Date Notified:: 04/23/18 Time Notified:: 16:22 Comments:: DR. CARROLL STATES DR. US OR DR. WYLIE COVERING. DR. CARROLL NOT ACCOUNTANT COST, STATED DR. US OR DR. WYLIE COVERING. Ordering Provider: RENE Anticipated date of discharge: 04/28/18 Brief History from admission: This patient is a 77 y/o AA male with a dx of CAD s/p CABG x 3, Systolic CHF EF 25% s/p AICD, a fib on eliquis, HTN, DLD, who presents to the ED with complaints of worsening shortness of breath over the past 3-4 days. He says he ran out of his lasix 3 days ago and was unable to get it refilled. He also has noticed that his lower extremities have been more swollen than usual and they feel heavy. He was recently admitted in February of 2018 for a chf exacerbation. He denies any Chest pain or palipitations. No abd pain, no fevers or chills. No other complaints. Family hx : stroke in his father, no other significant fam hx. Patient update on day of discharge: Patient reports that he has no further chest pain or shortness of breath or swelling in his legs. He wants to go home. DS: Diagnosis Discharge Diagnosis (1) Acute on chronic systolic CHF (congestive heart failure): Status: Resolved Diagnosis: Principal (2) Afib: Status: Chronic Diagnosis: Secondary (3) Wide-complex tachycardia: Status: Acute Diagnosis: Secondary DS: Summary 78-year-old male with a history of chronic systolic congestive heart failure with a EF of 25% status post AICD, chronic atrial fibrillation on Eliquis with admitted for acute on chronic systolic congestive heart failure to him running out of his Lasix. He responded well to diuretics. Dr. Wylie covering for his electric meter technician Dr. Jonathan Carroll recommended changing his metoprolol to Coreg. Low-dose lisinopril also added. Patient had 4 episode of asymptomatic wide- complex V. tach nonsustained and self-limited with AICD interrogated with changes in setting needed. He will be transitioned to home with outpatient follow-up with cardiology and primary care physician. Attending Attestation: 7 Time Spent with Patient Total time spent providing and/or coordinating discharge services: Less than 30 minutes Quality: VTE Deep Vein Thrombosis/Pulmonary Embolism Present on Admission: No Exam Narrative Exam Narrative: Well-nourished well-developed male no acute distress sitting up in a chair Cardiovascular regular rhythm regular rate Lungs clear to auscultation bilaterally No edema in the lower extremities bilaterally Alert and oriented x3, moves all 4 extremities without difficulty. Results Impressions ITS Impressions Chest X-Ray 04/22/18 06:02 CONCLUSION: Diffuse consolidation likely related to diffuse processes such as edema. Some of the hazy density may secondary to effusions. Discharge Plan Discharge Disposition Patient Disposition: Discharge Home Discharge Condition Condition: Good Discharge Order Discharge Orders: Discharge Order (Routine); Ordered 04/28/18 Ordered By: Luna Christopher Physicians Team Primary Care Provider: Primary Care Leia Alan Attending Provider: Luna Christopher Other Providers: [facility],Insurance ; Kim Wylie Rxs /Orders / Referrals /Forms Prescriptions: New carvedilol [Coreg] 12.5 mg Tablet 12.5 mg PO BID Qty: 60 RF: 0 lisinopril 5 mg Tablet 2.5 mg PO DAILY Qty: 30 RF: 0 Continue furosemide [Lasix] 40 mg Tablet 40 mg PO BID Qty: 60 RF: 0 aspirin 81 mg Tablet,Chewable 81 mg PO DAILY Qty: 30 RF: 0 apixaban [Eliquis] 5 mg Tablet 5 mg PO BID Qty: 60 RF: 0 tamsulosin 0.4 mg Capsule 0.4 mg PO DAILY RF: 0 sertraline 50 mg Tablet 50 mg PO DAILY RF: 0 finasteride 5 mg Tablet 5 mg PO HS RF: 0 Discontinued olmesartan 40 mg Tablet 40 mg PO DAILY Qty: 30 RF: 0 metoprolol tartrate 50 mg Tablet 50 mg PO BID RF: 0 hydrocodone-acetaminophen [[place]] 5-325 mg Tablet 1 tab PO Q4-6H PRN (Reason: Acute Pain) Qty: 12 RF: 0 Referrals: Primary Care Provider [Outside] - See Instructions ( Please call the physician's office to book the appointment to be seen within 1 week.) Jonathan Carroll MD [Physician] - See Instructions ( Please call the physician's office to book the appointment to be seen within 2 to 4 weeks.) Primary Care Leia Alan [Primary Care Provider] - See Instructions Post Discharge Care Plan Care Plan Goals: Discharge Care Plan Goals for Congestive Heart Failure Directions to Meet your Goals: 1. Diet: Limit your salt by doing the following: * Limit canned, dried, packaged, and fast foods. * Don't add salt to your food. * Season foods with herbs instead of salt. * Watch how much liquids you drink. Drinking too much can make heart failure worse. Talk with your health care provider about how much you should drink each day. * Limit the amount of alcohol you drink. It may harm your heart. Women should have no more than 1 drink a day and men should have no more than 2. * When you eat out, request that your meals have no added salt. 2. Activity: * You can benefit from simple activities such as walking or gardening. * Exercising most days of the week can make you feel better. * Don't be discouraged if your progress is slow at first. * Rest as needed. * Stop activity if you develop symptoms such as chest pain, lightheadedness, or significant shortness of breath. * Find activities that you enjoy, such as brisk walking, dancing, swimming, or gardening. These will help you stay active and strengthen your heart. 3. Medicine: * Take your medicines exactly as prescribed. * Learn the names and purpose of each of your medicines. * Keep an accurate medicine list and current dosages with you at all times. Don' t skip doses. * If you miss a dose of your medicine, take it as soon as you remember. * If you miss a dose and it's almost time for your next dose, just wait and take your next dose at the normal time. Don't take a double dose. * If you are unsure, call your doctor's office. Make sure not to mix up your medicines or forget what you've taken the same day. 4. Weight Monitoring: * Weigh yourself every day. A sudden weight gain can mean your heart failure is getting worse. * Weigh yourself at the same time of day and in the same kind of clothes. * Ideally, weigh yourself first thing in the morning after you empty your bladder, but before you eat breakfast. * If your weight goes up by more than 2 pounds in 1 day, 5 pounds in 1 week, or whatever weight gain you were told by your doctor, this is a sign that you are retaining more fluid than you should be. * Clues to weight gain include checking your ankles for swelling, or noticing you are short of breath when you lie down. 5. When to call your doctor: Call your doctor right away if you have any of these signs of worsening heart failure: Sudden weight gain (more than 2 pounds in 1 day or 5 pounds in 1 week, or whatever weight gain you were told to report by your doctor) Trouble breathing not related to being active New or increased swelling of your legs or ankles Swelling or pain in your abdomen Breathing trouble at night (waking up short of breath, needing more pillows to breathe) Frequent coughing that doesn't go away Feeling much more tired than usual 6. Follow up: Do Not miss your follow-up appointment. Keep up with all your appointments and yearly check ups Call 911 right away if you have: Severe shortness of breath, such that you can't catch your breath even while resting Severe chest pain that does not resolve with rest or nitroglycerin [place], foamy mucus with cough and shortness of breath A continuous rapid or irregular heartbeat Passing out or fainting Stroke symptoms such as sudden numbness or weakness on one side of your face , arm, or leg or sudden confusion, trouble speaking or vision changes Discharge Interventions Interventions: Discharge Planning - Case Management Last Done: 04/23/18 15:44 Status ED Status: Left Department
[2018-04-28 10:41] VITALS: BP 131/67; PULSE 62; TEMP 97.4
== END 2018-04-28 10:54 | disposition home or self-care (01) | DRG 292 ==
LOC: NEPE 05:47 → NEDA 08:58 → N04 14:35
PROVIDERS: ADMIT Family Medicine; ATTEND Family Medicine
DX: I48.1 Persistent atrial fibrillation; Z91.14 Patient's other noncompliance with medication regimen; F17.210 Nicotine dependence, cigarettes, uncomplicated; I25.10 Atherosclerotic heart disease of native coronary artery without angina pectoris; Z86.73 Personal history of transient ischemic attack (TIA), and cerebral infarction without residual deficits; Z79.01 Long term (current) use of anticoagulants; Z95.810 Presence of automatic (implantable) cardiac defibrillator; I50.23 Acute on chronic systolic (congestive) heart failure; Z79.899 Other long term (current) drug therapy; I47.2 Ventricular tachycardia; I13.0 Hypertensive heart and chronic kidney disease with heart failure and stage 1 through stage 4 chronic kidney disease, or unspecified chronic kidney disease; N18.2 Chronic kidney disease, stage 2 (mild); E87.6 Hypokalemia; Z82.3 Family history of stroke; R09.02 Hypoxemia; Z95.1 Presence of aortocoronary bypass graft; I48.2 Chronic atrial fibrillation; I25.5 Ischemic cardiomyopathy; E78.5 Hyperlipidemia, unspecified; Z79.82 Long term (current) use of aspirin
CPT/HCPCS: 71010; 71045; 80048; 80053; 82550; 83520; 83735; 83880; 84100; 84484; 85025; 85027; 85610; 85730; 90774; 90784; 93005; 96374; 99285; C8952; J0360; J1940; J3475